=== PATIENT | female | born 1945 | race Caucasian/White ===

== ENCOUNTER 2024-10-23 10:16 | Day surgery (SDC) | payer MEDICARE, OTHER, SELFPAY ==
[2024-10-23] VITALS (8 sets, daily range): BP systolic 125–188; BP diastolic 58–84; PULSE 59–73; RESP 14–18; TEMP 36.1–36.3; O2SAT 94–99; BMI 35.0
[2024-10-23] MEDS: Lactated Ringers 1,000 ML 15 ML IV (10:46)
--- NOTE | 2024-10-23 11:06 | PCM.PRE.AN2 ---
ASA Classification* ASA Classification ASA Classification: 3 Assessment & Plan Anesthesia* Anesthesia Assessment Anesthesia Assessment: Discussed sedation and/or anesthesia options, risks, benefits, and alternatives with patient/parents/legal guardian/POA. Questions invited. The patient/parents/legal guardian/POA seems to understand and agrees to proceed with anesthesia plan. Reviewed the physical assessment, medical history, allergy history and patient home medications list prior to surgery/procedure/anesthetic and documented any changes. Performed airway and anesthesia risk assessments. Anesthesia Type Anesthesia Type: MAC History Source History Obtained from:: Patient and Chart Anesthesia Focused Assessment* Temperature: 97.2 F Pulse Rate: 73 Blood Pressure: 188/84 Respiratory Rate: 18 Pulse Ox: 99 Oxygen Delivery Method: Room Air Airway Assessment Mouth opens: >3 cm Mallampati Score: I Teeth Condition: Caps/Crowns (Patient has several crowns. They are all tight.) and Implants (Right lower implant. 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 When Was Last Pacemaker Check QUESTION #4 FULL TEXT: You/Your Family Experience fever (hyperthermia) with Anesthesia Last Oral Intake Last Oral intake: Last Oral Intake NPO since 06:30 10/23/24 10:36 Meds taken in AM with sips of Yes 10/23/24 10:36 water? 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 supervisor Female Yes 10/22/24 09:49 HX of Motion Sickness Yes 10/22/24 09:49 HX of N/V After Surgery Yes 10/22/24 09:49 Non-Smoker Yes 10/22/24 09:49 Duration of Surgery greater No 10/22/24 09:49 than 60 minutes Number of Risk Factors 4 10/22/24 09:49 PONV Score Severe Risk 10/22/24 09:49 Height & Weight Height & Weight: Anesthesia: Height & Weight Height 5 ft 3 in 10/23/24 10:36 Weight: 89.7 kg 10/23/24 10:36 Body Mass Index (BMI) 35.0 10/23/24 10:36 Respiratory Assessment Respiratory Assessment - glazing department supervisor: Respiratory Tract Infection Hx - glazing department supervisor Hx Respiratory Tract Infection No 10/22/24 09:49 STOP Sleep Apnea STOP Sleep Apnea - glazing department supervisor: STOP Sleep Apnea - glazing department supervisor Hx Hypertension Yes: PER PT, CONTROLLED ON 10/22/24 09:49 MEDS Hx Sleep Apnea Yes 10/22/24 09:49 CPAP Yes 10/22/24 09:49 BIPAP No 10/22/24 09:49 Do you snore loudly (louder than talking or can be heard Do you often feel tired/ fatigued/ sleepy during daytime? Has anyone observed you stop breathing during sleep? STOP Results Positive 10/22/24 09:49 QUESTION #5 FULL TEXT : Do you snore loudly (louder than talking or can be heard through closed doors)? 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 Specify any problems Hx of Preganancy in last 3 No 10/22/24 09:49 Months Nurse Filling Out Transfusion MGRIFFITH 10/22/24 09:49 & Questions: Date: 10/22/24 10/22/24 09:49 Time: 09:51 10/22/24 09:49 Patient unable to answer at this time (ie. confused, unrespo /Reproduction History /Reproductive History - glazing department supervisor: /Reproductive Hx- glazing department supervisor Hx Now No 10/22/24 09:49 Gestational Age (in weeks): EDC: Hx Hx Para Hx Section SAB Active Medications Active Medications: Current Medications Generic Name Dose Route Start Last Admin Trade Name Freq PRN Reason Stop Dose Admin Lactated Ringer's 1,000 mls @ 15 mls/hr 10/23/24 10:30 10/23/24 10:46 IV 15 mls/hr .Q48H GATITO Administration PFSH Medical History Wears glasses Thyroid disease Arthritis Bladder disease History of pulmonary embolism Back pain PONV (postoperative nausea and vomiting) Gastric reflux Shortness of breath on exertion Former smoker Sleep apnea CPAP (continuous positive airway pressure) dependence Leg cramps History of edema Helicobacter pylori (H. pylori) Urinary incontinence Spasm of back muscles Rotator cuff tear RUQ pain Pulmonary nodule CARISA on CPAP Mid back pain on right side Lumbar stenosis with neurogenic claudication Lesion of bone of cervical spine Hypercholesteremia HTN (hypertension) Left navicular fracture of foot Dilatation of pulmonic artery Dermatographism GERD (gastroesophageal reflux disease) Cervical spine pain Carotid stenosis Bilateral lower extremity edema Bilateral chronic knee pain Arteriosclerotic heart disease (ASHD) Abrasion of left lower leg Abnormal MRI, cervical spine Epigastric pain Home Medications ?Medication ?Instructions ?Recorded ?Last Taken ?Type acetaminophen 500 mg tablet 500 mg PO Q6H PRN pain 10/11/24 Unknown History (Tylenol Extra Strength) bumetanide 1 mg tablet 1 mg PO QDAY PRN WATER PILL 10/11/24 Unknown History colesevelam 625 mg tablet 1,875 mg PO BID 10/11/24 Unknown History ibuprofen 800 mg tablet 800 mg PO Q8H 10/11/24 Unknown History Held on 10/22/24. Instructions: STOMACH ISSUES levothyroxine 50 mcg capsule 50 mcg PO QDAY 10/11/24 10/23/24 History lidocaine 5 % topical patch 1 patch topical QDAY 10/11/24 Unknown History magnesium oxide 400 mg (241.3 mg 400 mg PO QDAY 10/11/24 Unknown History magnesium) tablet nebivolol 10 mg tablet 10 mg PO QDAY 10/11/24 10/23/24 History oxybutynin chloride 5 mg tablet 5 mg PO DAILY bladder spasms 10/11/24 Unknown History pregabalin 50 mg capsule 50 mg PO BID 10/11/24 Unknown History valsartan 320 mg tablet 320 mg PO QDAY 10/11/24 10/23/24 History pantoprazole 40 mg tablet,delayed 40 mg PO BID #60 tabs 10/15/24 Unknown Rx release Held on 10/22/24. Instructions: TAKING CARAFATE TEMPORARILY sucralfate 1 gram tablet 1 g PO QAC 3 months #270 tabs 10/15/24 Unknown Rx ascorbic acid (vitamin C) 500 mg 1 g PO DAILY 10/22/24 Unknown History chewable tablet (C-500) calcium 325 mg-vit D3 12.5 1 tab PO DAILY 10/22/24 Unknown History mcg-zinc 2.75 jy-dhsefp-yzrjtoblo tablet cholecalciferol (vitamin D3) 125 125 mcg PO QHS 10/22/24 Unknown History mcg (5,000 unit) tablet (Vitamin D3) omeprazole 20 mg capsule,delayed 20 mg PO BID 10/22/24 Unknown History release Held on 10/22/24. Instructions: PRESCRIBES CARAFATE TEMPORARILY triamcinolone acetonide 0.1 % 1 applic topical BID PRN rash 10/22/24 Unknown History topical cream vitamin B complex (B-Complex 1 tab PO DAILY 10/22/24 Unknown History tablet) vitamins A,C,B-poyy-iludzc 2,148 1 tab PO BID 10/22/24 Unknown History mcg-113 mg-45 mg-17.4 mg tablet (Eye Multivitamin) Allergy/AdvReac Type Severity Reaction Status Date / Time adhesive tape Allergy Intermediate Itching Verified 10/23/24 10:33 apixaban (From Eliquis) Allergy Intermediate Other Verified 10/23/24 10:33 latex Allergy Intermediate Hives Verified 10/23/24 10:33 oxycodone Allergy Intermediate Other Verified 10/23/24 10:33 Penicillins (PCN) Allergy Intermediate Hives Verified 10/23/24 10:33 atorvastatin (From Lipitor) AdvReac Intermediate Other Verified 10/23/24 10:33 semaglutide (From Rybelsus) AdvReac Intermediate Other Verified 10/23/24 10:33 Family History Mother Breast cancer Diabetes Sister Hx of CABG Kidney disease Diabetes HLD (hyperlipidemia) Hypertension Father Heart disease Brother Heart disease Surgical History History of cataract surgery History of esophagogastroduodenoscopy (EGD) History of colonoscopy History of shoulder surgery Hx of appendectomy H/O: hysterectomy H/O arthroplasty Hx of cholecystectomy S/P lumbar laminectomy S/P knee replacement Social History Smoking Status: Former smoker quit date: 05/02/16 alcohol intake: never Review of Systems (Anesthesia) ROS Narrative System reviewed and no additional complaints, except as documented.
--- NOTE | 2024-10-23 11:30 | EGD_PTH ---
PATIENT: SHARLA BURGESS LOC: EN U#:[id number] AGE/SX: 79/F ROOM: RE10/23/[address]: Dr. Scott Hermosillo DO : 1945 BED: DIS: 10/23/2024 SPEC #: [id number] RECD: 10/23/24 13:51 STATUS: JERRY RECatrina #: [id number] FERN: 10/23/24 11:[address]: Scott Hermosillo DEPT: SURGICAL PATHOLOGY RECD BY: Kunal Mayfield ENTERED: 10/23/24 14:46 SP TYPE: EGD BIOPSY ERICA DR: Dr. Kayode Wilder MD Tissues: A - Gastric mucous membrane Procedures: Immunohistochemical Stains Surgery Specimen Level IV HEADER OPERATION: EGD, biopsy PRE-OP DIAGNOSIS: Epigastric pain TISSUE SUBMITTED: A- Gastric ulcer biopsy MICROSCOPIC DIAGNOSIS A. Stomach, ulcer, biopsy: - Eroded/ulcerated oxyntic mucosa, negative for malignancy. - IHC for H pylori organisms pending, to be reported in an addendum. MICROSCOPIC DESCRIPTION Slides are reviewed. GROSS DESCRIPTION A. Received in fixative is one container labeled with the patient's name and designated Gastric ulcer biopsy. The specimen consists of three irregular fragments of light méndez soft tissue, each measuring 0.4 cm. The specimen is totally submitted in one cassette. LIZBETH/ 10/23/2024 CPT:08875,16190 ADDENDUM ADDENDUM ADDENDUM ADDENDUM ADDENDUM ADDENDUM ADDENDUM ADDENDUM ADDENDUM ADDENDUM ADDENDUM 11/06/2024 13:15 ADDENDUM 11/06/2024 13:15 ADDENDUM 11/06/2024 13:15 ADDENDUM 11/06/2024 13:15 ADDENDUM 11/06/2024 13:15 This addendum is to report the IHC for H pylori organisms: The immunostain is negative for H.pylori organisms. All matched controls reacted appropriately. These tests were developed and their performance characteristics determined by [facility]. They may not have been cleared or approved by the U.S. Food and Drug Administration. The FDA has determined that such clearance or approval is not necessary.? The above immunohistochemical/dualISH?markers are reviewed by the Pathologist
--- NOTE | 2024-10-23 12:07 | PCM.HP.STD ---
HPI - General General Date of Admission: 10/23/24 Date of Service: 10/23/24 Chief Complaint: abdominal pain HPI Narrative SHARLA BURGESS, is a 79 F who presents to the office today for establishment with I regarding concerns for epigastric abdominal pain that shoots straight through to her spine. She reports having a history of a thoracic compression fracture, recent MRI, per her report, showed healing of this compression fracture and her orthopedic spine surgeon told her the back pain was not due to her spine. She was given a referral to see pain management and has an appointment in October. She reports dealing with back pain since July of last year and admits to taking more Tylenol and ibuprofen than I should've, and then started having this severe searing epigastric pain in the middle of August of this year. She was on omeprazole 20mg daily, PCP changed to pantoprazole 40mg daily and added famotidine at bedtime. She reports the famotidine caused notable burning sensation after taking, so she has stopped this. She reports frequent throat clearing, abdominal bloating. She states that foods will very briefly reduce the severity of epigastric pain, for about 30 minutes, long enough that I think it's over and then the pain comes back. She denies difficulty chewing and swallowing, cough, nausea and emesis, denies reflux, constipation, diarrhea, hematochezia and melena. She does not use the descriptive words ripping or tearing for her pain. Her last colonoscopy was in 2011 and she was instructed at that time to never allow anyone to do another colonoscopy on her again due to her severely tortuous colon and high risks of perforating her bowels. She has been doing Cologuard stool testing. She also has a history of H.pylori infection from 2011. PCP blood work on 08.16.24: W-6.6, hgb-13.2, hct-39, plt-185, BUN 25, creat 1.06, t bili 0.3, ALP 136, AST 21, ALT 16, hgb A1c 6.4, Vit D25-41.2, amylase 22, lipase 26 [facility] Medical History Wears glasses Thyroid disease Arthritis Bladder disease History of pulmonary embolism Back pain PONV (postoperative nausea and vomiting) Gastric reflux Shortness of breath on exertion Former smoker Sleep apnea CPAP (continuous positive airway pressure) dependence Leg cramps History of edema Helicobacter pylori (H. pylori) Urinary incontinence Spasm of back muscles Rotator cuff tear RUQ pain Pulmonary nodule CARISA on CPAP Mid back pain on right side Lumbar stenosis with neurogenic claudication Lesion of bone of cervical spine Hypercholesteremia HTN (hypertension) Left navicular fracture of foot Dilatation of pulmonic artery Dermatographism GERD (gastroesophageal reflux disease) Cervical spine pain Carotid stenosis Bilateral lower extremity edema Bilateral chronic knee pain Arteriosclerotic heart disease (ASHD) Abrasion of left lower leg Abnormal MRI, cervical spine Epigastric pain Home Medications ?Medication ?Instructions ?Recorded ?Last Taken ?Type acetaminophen 500 mg tablet 500 mg PO Q6H PRN pain 10/11/24 Unknown History (Tylenol Extra Strength) bumetanide 1 mg tablet 1 mg PO QDAY PRN WATER PILL 10/11/24 Unknown History colesevelam 625 mg tablet 1,875 mg PO BID 10/11/24 Unknown History ibuprofen 800 mg tablet 800 mg PO Q8H 10/11/24 Unknown History Held on 10/22/24. Instructions: STOMACH ISSUES levothyroxine 50 mcg capsule 50 mcg PO QDAY 10/11/24 10/23/24 History lidocaine 5 % topical patch 1 patch topical QDAY 10/11/24 Unknown History magnesium oxide 400 mg (241.3 mg 400 mg PO QDAY 10/11/24 Unknown History magnesium) tablet nebivolol 10 mg tablet 10 mg PO QDAY 10/11/24 10/23/24 History oxybutynin chloride 5 mg tablet 5 mg PO DAILY bladder spasms 10/11/24 Unknown History pregabalin 50 mg capsule 50 mg PO BID 10/11/24 Unknown History valsartan 320 mg tablet 320 mg PO QDAY 10/11/24 10/23/24 History pantoprazole 40 mg tablet,delayed 40 mg PO BID #60 tabs 10/15/24 Unknown Rx release Held on 10/22/24. Instructions: TAKING CARAFATE TEMPORARILY sucralfate 1 gram tablet 1 g PO QAC 3 months #270 tabs 10/15/24 Unknown Rx ascorbic acid (vitamin C) 500 mg 1 g PO DAILY 10/22/24 Unknown History chewable tablet (C-500) calcium 325 mg-vit D3 12.5 1 tab PO DAILY 10/22/24 Unknown History mcg-zinc 2.75 pc-cpqwpr-zoaeceelr tablet cholecalciferol (vitamin D3) 125 125 mcg PO QHS 10/22/24 Unknown History mcg (5,000 unit) tablet (Vitamin D3) omeprazole 20 mg capsule,delayed 20 mg PO BID 10/22/24 Unknown History release Held on 10/22/24. Instructions: DR PRESCRIBES CARAFATE TEMPORARILY triamcinolone acetonide 0.1 % 1 applic topical BID PRN rash 10/22/24 Unknown History topical cream vitamin B complex (B-Complex 1 tab PO DAILY 10/22/24 Unknown History tablet) vitamins A,C,S-bqkp-uqwpfm 2,148 1 tab PO BID 10/22/24 Unknown History mcg-113 mg-45 mg-17.4 mg tablet (Eye Multivitamin) Allergy/AdvReac Type Severity Reaction Status Date / Time adhesive tape Allergy Intermediate Itching Verified 10/23/24 10:33 apixaban (From Eliquis) Allergy Intermediate Other Verified 10/23/24 10:33 latex Allergy Intermediate Hives Verified 10/23/24 10:33 oxycodone Allergy Intermediate Other Verified 10/23/24 10:33 Penicillins (PCN) Allergy Intermediate Hives Verified 10/23/24 10:33 atorvastatin (From Lipitor) AdvReac Intermediate Other Verified 10/23/24 10:33 semaglutide (From Rybelsus) AdvReac Intermediate Other Verified 10/23/24 10:33 Family History Mother Breast cancer Diabetes Sister Hx of CABG Kidney disease Diabetes HLD (hyperlipidemia) Hypertension Father Heart disease Brother Heart disease Surgical History History of cataract surgery History of esophagogastroduodenoscopy (EGD) History of colonoscopy History of shoulder surgery Hx of appendectomy H/O: hysterectomy H/O arthroplasty Hx of cholecystectomy S/P lumbar laminectomy S/P knee replacement Social History Smoking Status: Former smoker quit date: 05/02/16 alcohol intake: never ROS Constitutional Constitutional: Denies fatigue, fever(s), poor appetite, weight gain or weight loss Gastrointestinal Gastrointestinal: Denies belching, bloating, change in bowel habits, change in stool character, chewing difficulty, coffee ground emesis, constipation, cramping, diarrhea, dyspepsia, dysphagia, early satiety, excessive flatus, fecal incontinence, heartburn, hematemesis, hematochezia, hemorrhoids, loose stools, melena, nausea, odynophagia, rectal bleeding, tenesmus, vomiting or weight changes Vital Signs Vital Signs Vital Signs: 10/23/24 10:36 10/23/24 10:36 10/23/24 11:13 Temperature 97.2 F L 97.2 F L Temperature Source Temporal Pulse Rate 73 73 Respiratory Rate 18 18 Respiratory Pattern Normal Blood Pressure 188/84 H 188/84 H Blood Pressure Mean 118 Blood Pressure Source Monitor Blood Pressure Position Sitting Blood Pressure Location Right Forearm Pulse Ox 99 99 Oxygen Delivery Method Room Air Room Air Weight Weight: 197 lb 12.074 oz Body Mass Index (BMI) 35.0 Physical Exam Const alert, oriented x3, no apparent distress and healthy appearing General Appearance: cooperative GI normal to inspection, nondistended, normoactive bowel sounds, soft to palpation, non-tender and non-distended Percussion: normal to percussion Rectal Exam: deferred Assessment & Plan Assessment/Plan (1) Epigastric pain: PLAN: Assessment and Plan Assessment and Plan (1) Epigastric pain: Status: Acute Medications: New sucralfate 1 g PO QAC 270 tabs 0RF 3 months pantoprazole take 30minutes before eating breakfast and dinner 40 mg PO BID 60 tabs 2RF Discontinued pantoprazole Discontinued Reason: Order Completed 40 mg PO QDAY omeprazole Discontinued Reason: Order Changed 20 mg PO BID Plan SHARLA BURGESS, is a 79 F who presents to the office today for establishment with [facility] regarding concerns for epigastric abdominal pain that shoots straight through to her spine. Differential diagnoses include: PUD, H.pylori infection, gastric outlet obstruction. She was recently prescribed a GLP1 but states that she has not started it. She denies early satiety, reports poor appetite due to fear of pain. increase pantoprazole 40mg PO to twice daily, 30minutes before eating breakfast and dinner sucralfate 1g PO QAC, 1hr after taking other medications schedule urgent EGD continue bland diet, no caffeine, low fat, no late meals, no alcohol office FU 1wk post EGD
--- NOTE | 2024-10-23 12:22 | OP.EGD_ITS ---
Patient Name: Kerri Cortes Procedure Date: 10/23/2024 11:43 AM Date of : 1945 Age: 79 Procedure: Upper GI endoscopy Indications: Epigastric abdominal pain Providers: Scott Hermosillo DO Referring MD: Kayode Wilder Md Medicines: Monitored Anesthesia Care Patient Profile: This is a 79 year old female. Refer to note in patient chart for documentation of history and physical. Patient has symptoms of acute abdominal cramping, acute epigastric abdominal pain, acute dyspepsia and acute nausea. Complications: No immediate complications. Procedure: Pre-Anesthesia Assessment: - Prior to the procedure, a History and Physical was performed, and patient medications and allergies were reviewed. The patient is competent. The risks and benefits of the procedure and the sedation options and risks were discussed with the patient. All questions were answered and informed consent was obtained. Patient identification and proposed procedure were verified by the physician in the pre-procedure area. Mental Status Examination: alert and oriented. Airway Examination: normal oropharyngeal airway and neck mobility. Respiratory Examination: clear to auscultation. CV Examination: normal. Prophylactic Antibiotics: The patient does not require prophylactic antibiotics. Prior Anticoagulants: The patient has taken no anticoagulant or antiplatelet agents. ASA Grade Assessment: II - A patient with mild systemic disease. After reviewing the risks and benefits, the patient was deemed in satisfactory condition to undergo the procedure. The anesthesia plan was to use monitored anesthesia care (MAC). Immediately prior to administration of medications, the patient was re-assessed for adequacy to receive sedatives. The heart rate, respiratory rate, oxygen saturations, blood pressure, adequacy of pulmonary ventilation, and response to care were monitored throughout the procedure. The physical status of the patient was re-assessed after the procedure. After obtaining informed consent, the endoscope was passed under direct vision. Throughout the procedure, the patient's blood pressure, pulse, and oxygen saturations were monitored continuously. The Endoscope was introduced through the mouth, and advanced to the third part of the duodenum. Small bowel enteroscopy was deemed necessary. The upper GI endoscopy was accomplished without difficulty. The patient tolerated the procedure well. Scope In: 12:13:59 PM Scope Out: 12:17:04 PM Total Procedure Duration Time 0 hours 3 minutes 5 seconds Findings: The examined esophagus was normal. Four non-bleeding cratered gastric ulcers with no stigmata of bleeding were found in the gastric body. The largest lesion was 14 mm in largest dimension. Biopsies were taken with a cold forceps for histology. Verification of patient identification for the specimen was done. Estimated blood loss was minimal. Biopsies were taken with a cold forceps for Helicobacter pylori testing. Verification of patient identification for the specimen was done. Estimated blood loss was minimal. No gross lesions were noted in the entire examined duodenum. Impression: - Normal esophagus. - Non-bleeding gastric ulcers with no stigmata of bleeding. Biopsied. - No gross lesions in the entire examined duodenum. Recommendation: - Patient has a contact number available for emergencies. The signs and symptoms of potential delayed complications were discussed with the patient. Return to normal activities tomorrow. Written discharge instructions were provided to the patient. - Resume previous diet. - Patient has a contact number available for emergencies. The signs and symptoms of potential delayed complications were discussed with the patient. Return to normal activities tomorrow. Written discharge instructions were provided to the patient. - Resume previous diet. - Continue present medications. - Await pathology results. - Use Protonix (pantoprazole) 40 mg PO BID. Procedure Code(s): --- Professional --- 39199, Small intestinal endoscopy, enteroscopy beyond second portion of duodenum, not including ileum; with biopsy, single or multiple CPT copyright 2021 [employer]. All rights reserved. The codes documented in this report are preliminary and upon greenhouse staff review may be revised to meet current compliance requirements. Scott Hermosillo DO 10/23/2024 12:21:59 PM This report has been signed electronically. Number of Addenda: 0 Note Initiated On: 10/23/2024 11:43 AM
--- NOTE | 2024-10-23 12:22 | OP.CCLET_ITS ---
10/23/2024 Kayode Wilder Md Re : Upper GI endoscopy procedure for Kerri Cortes Dear Dr. Wilder This procedure was performed on Wednesday, October 23, 2024. My impressions and recommendations are as follows: Impressions : - Normal esophagus. - Non-bleeding gastric ulcers with no stigmata of bleeding. Biopsied. - No gross lesions in the entire examined duodenum. Recommendations : - Patient has a contact number available for emergencies. The signs and symptoms of potential delayed complications were discussed with the patient. Return to normal activities tomorrow. Written discharge instructions were provided to the patient. - Resume previous diet. - Patient has a contact number available for emergencies. The signs and symptoms of potential delayed complications were discussed with the patient. Return to normal activities tomorrow. Written discharge instructions were provided to the patient. - Resume previous diet. - Continue present medications. - Await pathology results. - Use Protonix (pantoprazole) 40 mg PO BID. My findings are described in the full procedure note, which is enclosed. If I can be of further assistance, please feel free to contact me at . Sincerely, Scott Hermosillo, 10/23/2024 12:21:59 PM This report has been signed electronically.
--- NOTE | 2024-10-23 12:28 | PCM.POST.ANE ---
Anesthesia: Postop Eval I Current Vital Signs Temperature: 97.3 F Pulse Rate: 64 Blood Pressure: 145/60 Respiratory Rate: 16 Pulse Ox: 96 Oxygen Delivery Method: Room Air Assessment Airway patent: Yes Spontaneous unlabored respirations: Yes Mental status: Awake and Calm nausea: No Vomiting: No Anesthesia Complication: No Fluid Hydration Crystalloid volume administer (ml): 300 Total IV fluid infused: 300 Progress Note Anesthesia document: Postop Eval 1 completed: Yes
--- NOTE | 2024-10-23 17:10 | PCM.POSTANE2 ---
Anesthesia Postop Eval I Sum Postop Eval Completion status Anesthesia document: Postop Eval 1 completed: Yes Anesthesia Postop Eval I Summary Anesthesia Postop Eval I Summary: Anesthesia Postop Eval I: Assessment Summary Airway patent Yes 10/23/24 12:28 [email or web address] Spontaneous unlabored Yes 10/23/24 12:28 [email or web address] respirations Mental status Awake,Calm 10/23/24 12:28 [email or web address] nausea No 10/23/24 12:28 [email or web address] Vomiting No 10/23/24 12:28 [email or web address] Anesthesia Postop Eval I: Fluid Summary Crystalloid volume administer 300 10/23/24 12:28 [email or web address] (ml) Colloids volume administered ( ml) Blood Product volume administered (ml) Total IV fluid infused 300 10/23/24 12:28 [email or web address] Anesthesia Postop Eval I: Summary Notes Anesthesia Complication No 10/23/24 12:28 [email or web address] Anesthesia Complication Comment: Post-operative progress note Anesthesia: Postop Eval II Evaluation Mental status: Awake and Calm Pain Level: 0 nausea: No Vomiting: No Complications Anesthesia Complication: No
--- OUTSIDE RECORDS SUMMARY | 2024-10-23 21:28 | XMS RPT_ITS | CCD ---
Author Organization [facility] CliniSyid Care Team Providers Care Communications Officer Name Role Phone MIKE BAKER, DR OLVERA Primary Care Physician Sherron Krishnan Unavailable Unavailable Samples Earthmoving Labourer, Amy Unavailable Unavailable Zahraa Rodas Unavailable Unavailable Unavailable, Family Physician Primary Care Physi lolita Unavailable Unavailable, Family Physician Consulting Un available Unavailable, Family Physician Primary Care Un available Ne Higgins Attending Unavailable Unavailable, Family Physician Primary Care Un available Unavailable, Family Physician Consulting Un available Ne Higgins Attending Unavailable Unavailable, Family Physician Primary Care Un available Unavailable, Family Physician Consulting Un available Ne Higgins Attending Unavailable Unavailable, Family Physician Consulting Un available Mayank Kennedy Attending Unavailable Unavailable, Family Physician Primary Care Un available Unknown, Unknown Unavailable Unavailable May Mckeon Unavailable Mike, Dr. May Puente Primary Care Sandi vailable Alexander, Ms. Miryam Martino Attending Unavailab Miryam Henriquez Attending Unavailable Mike, Dr. May Puente Primary Care Sandi vailable Miryam Munoz Attending Unavailable Mike, Dr. May Puente Primary Care Sandi vailaMiryam Milan Attending Unavailable Self, Referral Referring Unavailable Mike, Dr. May Puente Primary Care Sandi nona MCKEON MD, DR OLVERA Attending Ban MCKEON MD, DR OLVERA Primary Care Unavaillean MCKEON MD, DR OLVERA Attending Debraa villa MCKEON MD, DR OLVERA Primary Care Unavaillena MCKEON MD, DR OLVERA Attending Unavaila villa MCKEON MD, DR OLVERA Primary Care Unavaillena MCKEON MD, DR OLVERA Attending Unavaila villa MCKEON MD, DR OLVERA Primary Care Unavaila villa MCKEON MD, DR OLVERA Attending Unavaila villa MCKEON MD, DR OLVERA Primary Care Unavaila villa DIGGS MD, GHULAM Hernández Attending Unavailable MIKE BAKER, DR OLVERA Primary Care Unavaila villa DIGGS MD, GHULAM Hernández Admitting Unavailable JOSE EDUARDO BAKER, VITA Consulting Unavailable MIKE BAKER, DR OLVERA Consulting Unavaila villa RAMIRES MD, AUBRIE Consulting Unavailable DONTAE BAKER, GHULAM Hernández Attending Unavailable MIKE BAKER, DR OLVERA Primary Care Unavaila villa ANSARI, GALA Attending Unavail able MIKE BAKER, DR OLVERA Primary Care Unavaila villa DIGGS MD, GHULAM Hernández Attending Unavailable MIKE BAKER, DR OLVERA Primary Care Unavaila villa ANSARI, GALA Attending Unavail able MIKE BAKER, DR OLVERA Primary Care Unavaila villa ANSARI, GALA Attending Unavail able MIKE BAKER, DR OLVERA Primary Care Unavaila villa MCKEON MD, DR OLVERA Attending Unavaila villa MCKEON MD, DR OLVERA Primary Care Unavaila villa MCKEON MD, DR OLVERA Attending Unavaila villa MCKEON MD, DR OLVERA Primary Care Unavaila villa ANSARI, GALA Attending Unavail able MIKE BAKER, DR OLVERA Primary Care Unavaila villa MCKEON MD, DR OLVERA Attending Unavaila villa MCKEON MD, DR OLVERA Primary Care Unavaila villa MCKEON MD, DR OLVERA Attending Unavaila villa MCKEON MD, DR OLVERA Primary Care Unavaila villa SMTIH DO~[id number], LUIS Paredes Attendi ng Unavailable LUIS DO~[id number], LUIS Paredes Admitti cristina Unavailable MAY MCKEON Primary Care Unavailable EVAN GERMAN Attending Unavailable EVAN GERMAN Primary Care Unavailable EVAN GERMAN Admitting Unavailable MIKE BAKER, DR OLVERA Primary Care Unavaila villa ANSARI, GALA Attending Unavail krishna MCKEON MD, DR OLVERA Primary Care Unavaila villa DIGGS MD, GHULAM Hernández Attending Unavailable MIKE BAKER, DR OLVERA Primary Care Unavaila villa ANSARI, GALA Attending Unavail able DUNCAN ANSARI, GALA Attending Unavail able MIKE BAKER, DR OLVERA Primary Care Unavaila villa MCKEON MD, DR OLVERA Primary Care Unavaila villa MCKEON MD, DR OLVERA Attending Unavaila villa MCKEON MD, DR OLVERA Primary Care Unavaila ble DUNCAN [employer] 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-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 HELPER ROD, GALA Attending Unavail krishna MCKEON MD, DR OLVERA Primary Care Unavaila villa MCKEON MD, DR OLVERA Attending Unavaila villa MCKEON MD, DR OLVERA Primary Care Unavaila ble DUNCAN PC MAINTENANCE TECHNICIAN-SURVEYOR HELPER ROD, GALA Admitting Unavail able DUNCAN CHEUNG-SURVEYOR HELPER ROD, GALA Attending Unavail krishna MCKEON MD, DR OLVERA Primary Care Unavaila villa MCKEON MD, DR OLVERA Attending Unavaila ble JENNA CHEUNG-SURVEYOR HELPER ROD, KIARRA Attending Unavail krishna MCKEON MD, DR OLVERA Primary Care Unavaila villa Trotter BULK FLUIDS HANDLER-C, Marilyn Attending Provider Mike BAKER, Dr. Olvera Primary Care Provider Mike BAKER, Dr. Olvera Referring Provider May Mckeon Referring Marilyn Zapata Attending May Medrano Primary Care Unavailable Scott Hermosillo Attending Unavailable Mike, May Primary Care Unavailable Mike, May Referring Unavailable Friend , Dr. Chavez Attending Provider Friend Dr. Scott MICHAUD Other Provider Allergies Allergy Classification Reported Allergen(s) Allergy Type Date of Onset Reaction(s) Facility apixaban (2 sources) apixaban; Translations: [apixaban] Drug Allergy Vertigo (finding) [facility] Comment on above: post-op knee surgery - extreme dizziness. couldn%27t tolerate HMG-CoA Reductase Inhibitors (statins) (3 sources) atorvastatin; Translations: [atorvastatin] Drug Allergy LEG CRAMPS [facility] Latex (3 sources) Latex Substance Allergy [facility] Opioid Agonists (3 sources) oxyCODONE; Translations: [oxycodone] Drug Allergy unknown [facility] Comment on above: PT DENIES ALLERGY Penicillins (antibiotic) (3 sources) Penicillin; Translations: [penicillins] Drug Allergy [facility] (19 sources) Adhesive bandage Propensity to adverse reactions to substance 5 Eruption of skin (disorder) [facility] (6 sources) amLODIPine; Translations: [amlodipine] Drug Allergy 6 unknown [facility] (6 sources) HMG-CoA reductase inhibitor; Translations: [statins] Drug intolerance unknown [facility] (20 sources) Latex; Translations: [latex ([id number])] Drug allergy 6 HIVES, SWELLING LIPS [facility] (16 sources) Penicillin; Translations: [penicillins] Drug Allergy [facility] (1 source) Penicillin G Drug Allergy 1 SEIZURE [facility] (11 sources) Penicillins; Translations: [PENICILLINS] Propensity to adverse reactions to drug (disorder) 6 [facility] (7 sources) Latex Gloves MISC; Translations: [Latex Gloves MISC] Allergy to drug (finding) [facility] 5 Work Phone: (6 sources) Rybelsus 1; Translations: [semaglutide] Propensity to adverse reactions to drug 3 mid back pain [facility] Comment on above: at 7mg dose x 2 week s. sounded like pancreatitis (14 sources) oxyCODONE; Translations: [oxycodone] Drug Allergy 5 unknown, Other [facility] Comment on above: PT DENIES ALLERGY (12 sources) atorvastatin; Translations: [atorvastatin] Drug Allergy 5 LEG CRAMPS, Other [facility] (3 sources) Rybelsus 2; Translations: [semaglutide] Propensity to adverse reactions to drug 3 mid back pain [facility] Comment on above: at 7mg dose x 2 week s. sounded like pancreatitis (8 sources) apixaban; Translations: [apixaban] Drug Allergy Vertigo (finding) [facility] Comment on above: post-op knee surgery - extreme dizziness. couldn%27t tolerate (7 sources) Osbaldo 3; Translations: [semaglutide] Propensity to adverse reactions to drug 3 mid back pain [facility] Comment on above: at 7mg dose x 2 week s. sounded like pancreatitis (3 sources) Adhesive Tape; Translations: [adhesive tape] Allergy to substance 5 Itching [facility] (2 sources) apixaban Drug Allergy 5 Other [facility] (2 sources) semaglutide Drug Allergy 5 Other [facility] (1 source) apixaban Drug Allergy 5 [facility] (1 source) atorvastatin Drug Allergy 5 [facility] (1 source) oxyCODONE Drug Allergy 5 [facility] (1 source) semaglutide Drug allergy (disorder) 5 [facility] Medications Current Medications Medication Drug Class(es) Dates Sig (Normalized) Sig (Original) (AREDS) (1 source) (AREDS) Active (B COMPLEX) (1 source) (B COMPLEX) Acti ve ([id number] MG) 50 MG TAB.CHEW (1 source) ([id number] MG) 50 MG TAB.CHEW Active 50 MG PO (D3) (1 source) (D3) Active (MAGNWSIUM) (1 source) (MAGNWSIUM) Acti ve (VOLTAREN ARTHRITIS) (1 source) (VOLTAREN ARTHRITIS) Active 0.5 ML tirzepatide 5 MG/ML Auto-Injector [Mounjaro] (2 sources) Start: 08-28-2024 inject 1 dose by subcutaneous injection every week Mounjaro 2.5 mg/0.5 mL subcutaneous solution Dose : 2.5 mg =, Subcutaneous, qWeek, rotate injection sites- specialty pharmacy, # 2 mL, 0 Refill(s), Pharmacy: [facility], 160, cm, 08/16/24 7:58:00 EDT, Height, kg, 08/16/24 7:58:00 EDT, Dosing Weight Start Date: 08/28/24 Status: Ordered Quantity: 2.0 Unit: mL Repeat number: 1 acetaminophen 500 mg oral tablet (13 sources) Start: 09-30-2023 take 1 tablet by mouth every six hours as needed for pain Acetaminophen (Tylenol Extra Strength) 500 mg tablet Active 500 mg PO EVERY 6 HOURS as needed for pain October 11, 2024 12:00am acetaminophen 325 mg / HYDROcodone bitartrate 5 mg oral tablet (2 sources) Opioid Agonist Start: 10-08-2023 End: 10-15-2023 take 1 tablet by mouth every six hours as needed for pain Ainsworth 325- 5 mg oral tablet See Instructions, PRN as needed for pain, Take 1 tab every 6 hours as needed for pain scale 4-6. Take 2 tabs every 6 hours for pain scale 7-10. Do not exceed 6 tabs a day. Do not exceed 4000mg acetaminophen a day., # 42 tab(s), 0 Refill(s), [facility]: [id number], Acute postoperative pain, 160, cm, 10/07/23 7:32:00 EDT, Height, 92.4, kg, 10/07/23 7:32:00 EDT, Dosing Weight Start Date: 10/08/23 Stop Date: 10/15/23 Status: Ordered Start: 08-11-2023 End: 08-16-2023 take 1 tablet by mouth every six hours as needed for pain Ainsworth 325- 5 mg oral tablet Dose = 1 tab(s), Oral, q6h, PRN for pain, in placed of the oxycodone, X 5 day(s), # 20 tab(s), 0 Refill(s), [facility]: [id number], Acute lumbar radiculopathy, 160, cm, 08/11/23 15:07:00 EDT, Height, 90.7, kg, 04/04/23 13:04:00 EST, Dosing Weight Start Date: 08/11/23 Stop Date: 08/16/23 Status: Ordered ascorbic acid 500 mg chewable tablet (1 source) Vitamin C Start: 10-22-2024 take 1 tablet by mouth once daily Ascorbic Acid (Vitamin C) (C-500) 500 mg tablet,chewable Active 1 g PO DAILY October 22, 2024 12:00am ascorbic acid 113 mg / beta carotene 7160 mg / cuprous oxide 0.4 mg / dl-alpha tocopheryl acetate 100 unt / zinc oxide 17.4 mg oral tablet (1 source) Vitamin C Start: 10-22-2024 Vitamins A,C,X-Jphm-Kbgbiv (Eye Multivitamin) 2,148 mcg-113 mg-45 mg-17.4mg tablet Active 1 {tbl} PO TWICE A DAY October 22, 2024 12:00am administer with AM and PM meals aspirin 81 mg delayed release oral tablet (14 sources) Platelet Aggregation Inhibitor, Nonsteroidal Anti-inflammatory Drug Start: 05-23-2018 aspirin 81 mg oral delayed release tablet Dose : 81 mg = 1 tab(s), Oral, qPM, 0 Refill(s) Start Date: 05/23/18 Status: Ordered Aspirin 81 MG TA BS Quantity: 0 Refills: 0 Ordered: 12-Aug-2016 DO Active Aspirin * ([id number] MG) 81 MG TABLET. (1 source) take 1 tablet by mouth once daily Aspirin * ([id number] MG) 81 MG TABLET. Active 81 MG PO EVERY DAY B Complex 50 oral tablet (1 source) Start: 09-30-2023 take 1 tablet by mouth once daily in the evening B Complex 50 oral tablet Dose = 1 tab(s), Oral, qPM, # 30 tab(s), 0 Refill(s) Start Date: 09/30/23 Status: Ordered bumetanide 1 mg oral tablet (7 sources) Loop Diuretic Start: 02-15-2024 take 1 tablet by mouth once daily as needed Bumetanide 1 mg tablet Active 1 mg PO daily as needed for WATER PILL October 11, 2024 12:00am Start: 11-28-2023 bumetanide 1 m g oral tablet Dose : 1 mg = 1 tab(s), Oral, Daily, in place of furosemide, # 90 tab(s), 0 Refill(s), Pharmacy: [facility], 160, cm, 11/28/23 11:38:00 EDT, Height, kg, 11/28/23 11:38:00 EDT, Dosing Weight Start Date: 11/28/23 Status: Ordered Adhzdmr-I6-Aige-Copper-Manga n 325 mg-12.5 mcg -2.75 mg tablet (1 source) Start: 10-22-2024 Ygikxfc-X2-Umxs-Copper-Manga n 325 mg-12.5 mcg -2.75 mg tablet Active 1 {tbl} PO DAILY October 22, 2024 12:00am carbidopa 12.5 mg / entacapo ne 200 mg / levodopa 50 mg oral tablet (1 source) Aromati c Amino Acid Decarbo xylatio n Inhibit or, Catecho l-O-Met hyltran sferase Inhibit or, Aromati c Amino Acid Levo/Carbidopa/Entac apone 50 * (STALEVO 50 TAB1 EACH) 1 EACH TABLET Active 1 EACH PO 3 TIMES DAILY cephalexin 500 mg oral capsu le (1 source) Cephalo sporin Antibac terial Start: 12-08-2023 End: 12-18-2023 cephalexin 500 mg oral capsu le Dose : 500 mg = 1 cap(s), Oral, q8h, X 10 day(s), # 30 cap(s), 0 Refill(s), 12/18/23 12:36:00 PM EDT, Abrasion of left lower leg, 92.2 Start Date: 12/08/23 Stop Date: 12/18/23 Status: Ordered cholecalciferol 0.125 mg ora l tablet (1 source) Vitamin D Start: 10-22-2024 take 1 tablet by mouth at bedtime Cholecalciferol (Vitamin D3) (Vitamin D3) 125 mcg (5,000 unit) tablet Active 125 ug PO AT BEDTIME October 22, 2024 12:00am Coenzyme Q10 50 mg oral capsule (6 sources) Start: 01-18-2012 take 1 capsule by mouth once, then take 1 capsule by mouth once daily Coenzyme Q10 50 mg oral capsule Dose : 50 mg = 1 cap(s), Oral, Daily, 0 Refill(s) Start Date: 01/18/12 Status: Ordered colesevelam hydrochloride 62 5 mg oral tablet (20 sources) Bile Acid Sequest rant Start: 06-19-2024 take 3 tablets by mouth twice daily Colesevelam 625 mg tablet Active 1875 mg PO TWICE A DAY October 11, 2024 12:00am Start: 06-29-2023 take 330-874 tablets by mouth twice daily Welchol 625 mg oral tablet 3 tab(s), Oral, BID, GE Radha [phone], # 540 tab(s), 3 Refill(s) Start Date: 06/29/23 Status: Ordered Start: 05-12-2022 take 3 tablets by [facility] twice daily Welchol 625 mg oral tablet 3 tab(s), Oral, BID, # 540 tab(s), 3 Refill(s), Pharmacy: [facility], 160, cm, 03/16/22 10:02:00 EST, Height, kg, 03/16/22 10:02:00 EST, Dosing Weight Start Date: 05/12/22 Status: Ordered Start: 05-18-2021 take 3 tablets by [facility] twice daily Welchol 625 mg oral tablet See Instructions, TAKE 3 TABLETS TWICE A DAY, # 540 tab(s), 3 Refill(s), Pharmacy: [facility], 160, cm, 01/27/21 10:06:00 EDT, Height, kg, 01/27/21 10:06:00 EDT, Dosing Weight Start Date: 05/18/21 Status: Ordered Start: 11-21-2015 Welchol 625 MG Oral Tablet Quantity: 540 Refills: 0 Ordered: 21-Nov-2015 DO Start : 21-Nov-2015 Active take 1 tablet by [facility] once daily Colesevelam HCl * ([id number] MG) 625 MG TABLET Active 625 MG PO EVERY DAY diclofenac sodium 0.01 mg/mg topical gel (11 sources) Nonsteroidal Anti-inflammatory Drug Start: 09-30-2023 Voltaren 1% topic al gel 1 KAMALA(S), Topical, AsDirected, # 1 EA, 0 Refill(s), Gel, 94.4 Start Date: 09/30/23 Status: Ordered Start: 09-30-2023 Pennsaid 2% to pical solution 1 KAMALA(S), Topical, AsDirected, # 112 gram(s), 0 Refill(s), Soln, 94.4 Start Date: 09/30/23 Status: Ordered Start: 11-11-2022 diclofenac 1% topical gel Apply 1 kamala, Topical, AsDirected, PRN Pain, not to exceed 16 grams/day/single joint of lower extremities, # 100 gram(s), 2 Refill(s), [facility]: [id number], Gel, 160, cm, 11/08/22 14:37:00 EDT, Height, 88.6, kg, 11/08/22 14:37:00 EDT, Dosing Weight Start Date: 11/11/22 Status: Ordered Start: 11-11-2022 diclofenac 1% topical gel Apply 1 kamala, Topical, QID, PRN Pain, not to exceed 16 grams/day/single joint of lower extremities, # 100 gram(s), 2 Refill(s), [facility]acy: [id number], Gel, 160, cm, 11/08/22 14:37:00 EDT, Height, 88.6, kg, 11/08/22 14:37:00 EDT, Dosing Weight Start Date: 11/11/22 Status: Ordered Start: 11-08-2022 Pennsaid 2% to pical solution Apply 2 pump(s), Topical, BID, PRN Pain, to affected area, # 112 gram(s), 0 Refill(s), [facility]: [id number], Soln, 160, cm, 11/08/22 14:37:00 EDT, Height, 88.6 Start Date: 11/08/22 Status: Ordered Start: 11-13-2021 diclofenac 1% topical gel Apply 1 kamala, Topical, QID, PRN Pain, not to exceed 16 grams/day/single joint of lower extremities, # 100 gram(s), 2 Refill(s), [facility]: [id number], Gel, 160, cm, 11/13/21 11:44:00 EDT, Height, 89, kg, 11/13/21 11:44:00 EDT, Dosing Weight Start Date: 11/13/21 Status: Ordered Start: 04-14-2020 diclofenac 1% topical gel Apply 1 kamala, Topical, QID, PRN Pain, not to exceed 16 grams/day/single joint of lower extremities, # 100 gram(s), 0 Refill(s), [facility]: [id number], Gel, 159, cm, 12/03/19 11:06:00 EDT, Height, 88.5, kg, 12/03/19 11:06:00 EDT, Dosing Weight Start Date: 04/14/20 Status: Ordered (DICLOFENAC GEL) Active DME MISCellaneous (11 sources) Start: 09-13-2023 DME MISCellane ous See Instructions, Power lift recliner chair dx:.M48.062, R60.0, # 1 EA, 0 Refill(s), Lumbar stenosis with neurogenic claudication Bilateral leg edema, 95.9 Start Date: 09/13/23 Status: Ordered Quantity: 1.0 Unit: EA Repeat number: 1 Indications: Localized edema; Spinal stenosis, lumbar region with neurogenic claudication; Start: 09-13-2023 DME MISCellane ous See Instructions, Power lift recliner chair dx:.M48.062, R60.0, # 1 EA, 0 Refill(s), Lumbar stenosis with neurogenic claudication Bilateral leg edema, 95.9 Start Date: 09/13/23 Status: Ordered doxycycline hyclate 100 mg oral capsule (1 source) Tetracycline-class Drug Start: 10-19-2023 End: 10-26-2023 doxycycline hyclate 100 mg oral capsule Dose : 100 mg = 1 cap(s), Oral, BID, X 7 day(s), # 14 cap(s), 0 Refill(s), 10/26/23 10:16:00 AM EDT, [facility]acy: [id number], Lumbar stenosis Encounter for surgical aftercare following surgery of nervous system, 160, cm, 10/07/23 7:32:00 EDT, Height, 92.4, kg, 10/07/23 7:32:00 EDT, Dosing Weight Start Date: 10/19/23 Stop Date: 10/26/23 Status: Ordered furosemide 40 mg oral tablet (7 sources) Loop Diuretic Start: 09-21-2023 furosemide 40 mg oral tablet Dose : 40 mg = 1 tab(s), Oral, qDay, # 30 tab(s), 0 Refill(s), Pharmacy: [id number], Bilateral leg edema, 160, cm, 09/21/23 9:38:00 EDT, Height, kg, 09/21/23 9:38:00 EDT, Dosing Weight Start Date: 09/21/23 Status: Ordered Start: 02-17-2023 End: 02-27-2023 furosemide 40 mg oral tablet Dose : 40 mg = 1 tab(s), Oral, qDay, X 10 day(s), # 10 tab(s), 0 Refill(s), 02/27/23 4:02:00 PM EDT, Pharmacy: [id number], 160, cm, 02/17/23 15:20:00 EDT, Height, kg, 02/17/23 15:20:00 EDT, Dosing Weight Start Date: 02/17/23 Stop Date: 02/27/23 Status: Ordered hydroCHLOROthiazide 25 mg / triamterene 37.5 mg oral capsule (10 sources) Potassium-sparing Diuretic, Thiazide Diuretic Start: 09-30-2023 take 1 capsule by mouth once daily as needed hydrochlorothiazide-triamterene 25 mg-37.5 mg oral capsule Dose = 1 cap(s), Oral, qDay, PRN Swelling, Take with food, 0 Refill(s) Start Date: 09/30/23 Status: Ordered Start: 09-30-2023 take 1 capsule by mouth at mealtime hydrochlorothiazide-triamterene 25 mg-37 .5 mg oral capsule Dose = 1 cap(s), Oral, AsDirected, Take with food, 0 Refill(s) Start Date: 09/30/23 Status: Ordered Start: 08-28-2020 hydrochlorothi azide-triamterene 25 mg-37.5 mg oral tablet See Instructions, 1/2 -1 tab(s) Oral Daily as needed for edema of legs, # 30 tab(s), 2 Refill(s), Pharmacy: [facility], Bilateral leg edema, 159, cm, 08/27/20 13:08:00 EDT, Height, kg, 08/27/20 13:08:00 EDT, Dosing Weight Start Date: 08/28/20 Status: Ordered ibuprofen 800 mg oral tablet (10 sources) Nonsteroidal Anti-inflammatory Drug Start: 09-14-2024 take 1 tablet by mouth every eight hours Ibuprofen 800 mg tablet Active 800 mg PO Q8H October 11, 2024 12:00am On Hold: STOMACH ISSUES Start: 03-02-2024 ibuprofen 800 mg oral tablet Dose : 800 mg = 1 tab(s), Oral, Daily, PRN as needed for arthritis, # 30 tab(s), 0 Refill(s), [facility]acy: [id number], Arthritis, 160, cm, 12/08/23 12:25:00 EDT, Height, kg, 12/08/23 12:25:00 EDT, Dosing Weight Start Date: 03/02/24 Status: Ordered Quantity: 30.0 Unit: tab(s) Repeat number: 1 Indications: Unspecified osteoarthritis, unspecified site; Start: 08-11-2023 End: 12-09-2023 ibuprofen 800 mg oral tablet Dose : 800 mg = 1 tab(s), Oral, qDay, PRN as needed for pain, with food or milk, # 30 tab(s), 3 Refill(s), [facility]: [id number], 160, cm, 08/11/23 15:07:00 EDT, Height, kg, 04/04/23 13:04:00 EST, Dosing Weight Start Date: 08/11/23 Stop Date: 12/09/23 Status: Ordered Start: 10-08-2022 ibuprofen 800 mg oral tablet Dose : 800 mg = 1 tab(s), Oral, TID, PRN as needed for pain, with food or milk, # 30 tab(s), 3 Refill(s), [facility]: [facility], 160, cm, 08/23/22 8:38:00 EDT, Height, kg, 08/23/22 8:38:00 EDT, Dosing Weight Start Date: 10/08/22 Status: Ordered Journavx 50 mg oral tablet (3 sources) Start: 08-13-2024 Journavx 50 mg oral tablet Dose : 50 mg = 1 tab(s), Oral, q12h, # 28 tab(s), 0 Refill(s), [facility]: [facility], Thoracic spine pain, 160, cm, 08/13/24 9:58:00 EDT, Height, kg, 08/13/24 9:58:00 EDT, Dosing Weight Start Date: 08/13/24 Status: Ordered Quantity: 28.0 Unit: tab(s) Repeat number: 1 Indications: Pain in thoracic spine; levothyroxine sodium 0.05 mg oral capsule (20 sources) l-Thyroxi ne Start: 10-11-2024 take 1 capsule by mouth once daily Levothyroxine 50 mcg capsule Active 50 ug PO daily October 11, 2024 12:00am Start: 11-14-2023 take 1 tablet by yordy once daily levothyroxine 50 mcg (0.05 mg) oral tablet 1 tab(s), Oral, qDay, # 90 tab(s), 3 Refill(s), Pharmacy: [facility], 160, cm, 10/26/23 13:01:00 EDT, Height, kg, 10/26/23 13:01:00 EDT, Dosing Weight Start Date: 11/14/23 Status: Ordered Quantity: 90.0 Unit: tab(s) Repeat number: 1 Start: 06-02-2023 take 1 tablet by yordy once daily levothyroxine 50 mcg (0.05 mg) oral tablet 1 tab(s), Oral, qDay, # 90 tab(s), 1 Refill(s), Pharmacy: [facility], 160, cm, 04/04/23 13:04:00 EST, Height, kg, 04/04/23 13:04:00 EST, Dosing Weight Start Date: 06/02/23 Status: Ordered Start: 11-29-2022 take 1 tablet by [facility] once daily levothyroxine 50 mcg (0.05 mg) oral tablet 1 tab(s), Oral, qDay, # 90 tab(s), 0 Refill(s), Pharmacy: [id number], 160, cm, 11/08/22 14:37:00 EDT, Height, kg, 11/08/22 14:37:00 EDT, Dosing Weight Start Date: 11/29/22 Status: Ordered Start: 09-14-2021 take 1 tablet by [facility] once daily levothyroxine 50 mcg (0.05 mg) oral tablet See Instructions, TAKE 1 TABLET DAILY, # 90 tab(s), 3 Refill(s), [facility]acy: [id number], 160, cm, 07/30/21 9:32:00 EDT, Height, kg, 07/30/21 9:32:00 EDT, Dosing Weight Start Date: 09/14/21 Status: Ordered Start: 05-18-2021 take 1 tablet by [facility] once daily levothyroxine 50 mcg (0.05 mg) oral tablet See Instructions, TAKE 1 TABLET DAILY, # 90 tab(s), 3 Refill(s), Pharmacy: [facility], 160, cm, 01/27/21 10:06:00 EDT, Height, kg, 01/27/21 10:06:00 EDT, Dosing Weight Start Date: 05/18/21 Status: Ordered Start: 07-22-2016 take 1 tablet by yordy th once daily Levothyroxine Sodium 25 MCG Oral Tablet TAKE ONE TABLET BY MOUTH EVERY DAY Quantity: 90 Refills: 0 Ordered: 22-Jul-2016 DO Start : 22-Jul-2016 Active (LEVOTHYROXINE ) Active lidocaine 0.05 mg/mg medicated patch (5 sources) Antiarrhythmic, Amide Local Anesthetic Start: 10-11-2024 Lidocaine 5 % adhesi ve patch,medicated Active 1 NMA TOPICAL daily October 11, 2024 12:00am leave on most painful area for up to 12 hrs Start: 07-04-2024 lidocaine 5% t opical patch Apply 1 patch(es), Topical, qDay, remove patches after 12 hours, # 30 patch(es), 0 Refill(s), [facility]: [id number], 160, cm, 07/04/24 13:02:00 EST, Height, 91, kg, 07/04/24 13:02:00 EST, Dosing Weight Start Date: 07/04/24 Status: Ordered Quantity: 30.0 Unit: patch(es) Repeat number: 1 magnesium oxide 400 mg oral tablet (13 sources) Start: 10-11-2024 take 1 tablet by mouth once daily Magnesium Oxide 400 mg (241.3 mg magnesium) tablet Active 400 mg PO daily October 11, 2024 12:00am Start: 03-16-2024 End: 03-23-2024 magnesium oxide 400 mg oral tablet Dose : 400 mg = 1 tab(s), Oral, BID, # 14 tab(s), 0 Refill(s), other reason (Rx) Start Date: 03/16/24 Stop Date: 03/23/24 Status: Ordered Quantity: 14.0 Unit: tab(s) Repeat number: 1 Start: 05-23-2018 take 1 mg by mouth twice daily magnesium oxide 250 mg oral tablet mg = tab(s), Oral, BID, 0 Refill(s) Start Date: 05/23/18 Status: Ordered Maxzide-25 (3 sources) Start: 09-30-2023 Maxzide-25 Dos e = 1 tab(s), Oral, AsDirected, PRN Swelling, TAKE 1-0.5 TABS DAILY NEEDED, # 30 tab(s), 0 Refill(s) Start Date: 09/30/23 Status: Ordered Start: 09-30-2023 Maxzide-25 Dos e = 1 tab(s), Oral, AsDirected, TAKE 1-0.5 TABS DAILY NEEDED, # 30 tab(s), 0 Refill(s) Start Date: 09/30/23 Status: Ordered metroNIDAZOLE 7.5 mg/ml topical cream (6 sources) Nitroimidazole Antimicrobial Start: 11-26-2020 metroNIDAZOLE 0.75% topical cream Apply 1 kamala, Topical, BID, # 45 gram(s), 2 Refill(s), Cream, 90.9 Start Date: 11/26/20 Status: Ordered mupirocin 0.02 mg/mg topical ointment (1 source) RNA Synthetase Inhibitor Antibacterial Start: 09-30-2023 mupirocin 2% topical ointment Apply 1 kamala, Topical, BID, Bilateral intranasal application twice daily for 5 days prior to surgery &/or as many days leading up to surgery as possible due to surgical urgency/scheduling . Send to patient's preferred pharmacy., Apply to: nostril, each, # 22 gram(s), 0 Refill(s), [facility]: [id number], Ointment, 160, cm, 09/30/23 9:28:00 EDT, Height, 94.4, kg, 09/30/23 9:28:00 EDT, Dosing Weight Start Date: 09/30/23 Status: Ordered nebivolol 10 mg oral tablet (20 sources) Start: 06-05-2024 take 1 tablet by mouth once daily Nebivolol 10 mg tablet Active 10 mg PO daily October 11, 2024 12:00am Start: 06-02-2023 take 1 tablet by yordy th once daily Nebivolol 10 mg oral tablet 1 tab(s), Oral, qDay, # 90 tab(s), 3 Refill(s), [facility]: [id number], 160, cm, 04/04/23 13:04:00 EST, Height, kg, 04/04/23 13:04:00 EST, Dosing Weight Start Date: 06/02/23 Status: Ordered Start: 05-12-2022 take 1 tablet by yordy th once daily in the morning Nebivolol 10 mg oral tablet 1 tab(s), Oral, qAM, # 90 tab(s), 3 Refill(s), Pharmacy: [facility], 160, cm, 03/16/22 10:02:00 EST, Height, kg, 03/16/22 10:02:00 EST, Dosing Weight Start Date: 05/12/22 Status: Ordered Start: 05-18-2021 take 1 tablet by yordy th once daily in the morning Bystolic 10 mg oral tablet See Instructions, TAKE 1 TABLET EVERY MORNING, # 90 tab(s), 3 Refill(s), Pharmacy: [facility], 160, cm, 01/27/21 10:06:00 EDT, Height, kg, 01/27/21 10:06:00 EDT, Dosing Weight Start Date: 05/18/21 Status: Ordered omeprazole 20 mg delayed release oral capsule (20 sources) Proton Pump Inhibitor Start: 10-22-2024 take 1 capsule by mouth twice daily Omeprazole 20 mg capsule,delayed release(DR/EC) Active 20 mg PO TWICE A DAY October 22, 2024 12:00am On Hold: PRESCRIBES CARAFATE TEMPORARILY Start: 08-10-2024 End: 10-15-2024 take 1 capsule by mouth twice daily Omeprazole 20 mg capsule,delayed release(DR/EC) Discontinued 20 mg PO TWICE A DAY October 11, 2024 12:00am October 15, 2024 2:06pm Start: 06-29-2023 omeprazole 20 mg oral delayed release capsule Dose : 20 mg = 1 cap(s), Oral, BID, # 270 cap(s), 3 Refill(s), Pharmacy: [facility], 160, cm, 04/04/23 13:04:00 EST, Height, kg, 04/04/23 13:04:00 EST, Dosing Weight Start Date: 06/29/23 Status: Ordered Start: 06-29-2023 take 3 capsules by out once daily omeprazole 20 mg oral delayed release capsule 3 cap(s), Oral, qDay, # 270 cap(s), 3 Refill(s), Pharmacy: [facility], 160, cm, 04/04/23 13:04:00 EST, Height, kg, 04/04/23 13:04:00 EST, Dosing Weight Start Date: 06/29/23 Status: Ordered Start: 05-12-2022 omeprazole 20 mg oral delayed release capsule Dose : 40 mg = 2 cap(s), Oral, BID, # 90 cap(s), 11 Refill(s), Pharmacy: [facility], 160, cm, 03/16/22 10:02:00 EST, Height, kg, 03/16/22 10:02:00 EST, Dosing Weight Start Date: 05/12/22 Status: Ordered Start: 05-18-2021 omeprazole 20 mg oral delayed release capsule Dose : 60 mg = 3 cap(s), Oral, qDay, # 270 cap(s), 3 Refill(s), Pharmacy: [facility], 160, cm, 01/27/21 10:06:00 EDT, Height, kg, 01/27/21 10:06:00 EDT, Dosing Weight Start Date: 05/18/21 Status: Ordered Omeprazole 20 MG Oral Capsule Delayed Release Quantity: 0 Refills: 0 Ordered: 12-Aug-2016 DO Active take 1 capsule by mo [facility] once daily Omeprazole * ([id number] MG) 40 MG CAPSULE. Active 40 MG PO Every Day @ 6AM oxybutynin chloride 5 mg oral tablet (19 sources) Cholinergic Muscarinic Antagonist Start: 10-11-2024 take 1 tablet by mouth once daily Oxybutynin Chloride 5 mg tablet Active 5 mg PO DAILY October 11, 2024 12:00am Start: 07-12-2024 [facility] oxybutynin 5 mg/24 hours oral tablet, extended release 1 tab(s), Oral, qDay, # 90 tab(s), 0 Refill(s), Pharmacy: [id number], 160, cm, 07/11/24 13:16:00 EDT, Height, kg, 07/11/24 13:16:00 EDT, Dosing Weight Start Date: 07/12/24 Status: Ordered Quantity: 90.0 Unit: tab(s) Repeat number: 1 Start: 06-02-2023 take 1 tablet by yordy th once daily oxybutynin 5 mg/24 hours oral tablet, extended release 1 tab(s), Oral, qDay, # 90 tab(s), 3 Refill(s), [facility]: [id number], 160, cm, 04/04/23 13:04:00 EST, Height, kg, 04/04/23 13:04:00 EST, Dosing Weight Start Date: 06/02/23 Status: Ordered Start: 06-02-2023 take 5 tablets by mo [facility] every hour oxybutynin 5 mg/24 hours oral tablet, extended release 1 tab(s), Oral, qDay, NEW DOSE 07/30/2021., # 90 tab(s), 3 Refill(s), [facility]acy: [id number], 160, cm, 04/04/23 13:04:00 EST, Height, kg, 04/04/23 13:04:00 EST, Dosing Weight Start Date: 06/02/23 Status: Ordered Start: 07-06-2022 take 5 tablets by [facility] every hour oxybutynin 5 mg/24 hours oral tablet, extended release 1 tab(s), Oral, qDay, NEW DOSE 07/30/2021., # 90 tab(s), 3 Refill(s), Pharmacy: [facility], 160, cm, 05/21/22 12:47:00 EST, Height, kg, 05/21/22 12:47:00 EST, Dosing Weight Start Date: 07/06/22 Status: Ordered Start: 07-30-2021 take 1 tablet by yordy every hour, then take 1 tablet by mouth once daily oxybutynin 5 mg/24 hours oral tablet, extended release Dose : 5 mg = 1 tab(s), Oral, qDay, new dose 07/30/2021, # 90 tab(s), 3 Refill(s), Pharmacy: [facility], 160, cm, 07/30/21 9:32:00 EDT, Height Start Date: 07/30/21 Status: Ordered oxyCODONE hydrochloride 5 mg oral tablet (1 source) Opioid Agonist Start: 08-11-2023 End: 08-16-2023 oxyCODONE 5 mg oral tablet ( IMMEDIATE release ) Dose : 5 mg = 1 tab(s), Oral, q6h, PRN for pain, X 5 day(s), # 20 tab(s), 0 Refill(s), 08/16/23 3:49:00 PM EDT, [facility]acy: [id number], Lumbar disc disease with radiculopathy, 160, cm, 08/11/23 15:07:00 EDT, Height, 90.7, kg, 04/04/23 13:04:00 EST, Dosing Weight Start Date: 08/11/23 Stop Date: 08/16/23 Status: Ordered PAIN FORMULA (1 source) Start: 09-30-2023 PAIN FORMULA P AIN FORMULA, 1 KAMALA(S), Topical, AsDirected, CYCLOBENZAPRINE 1% GABAPENTIN 6% KETOPROFEN 5% LIDO 1% PRILO 1% CREAM, 0 Refill(s), 94.4 Start Date: 09/30/23 Status: Ordered pantoprazole 40 mg delayed release oral tablet (5 sources) Proton Pump Inhibitor Start: 10-15-2024 Pantoprazole 40 mg tablet,delayed release (DR/EC) Active 40 mg PO TWICE A DAY 60 October 15, 2024 12:00am On Hold: TAKING CARAFATE TEMPORARILY take 30minutes before eating breakfast and dinner Start: 10-05-2024 End: 10-15-2024 take 1 tablet by mouth once daily Pantoprazole 40 mg tablet,delayed release (DR/EC) Discontinued 40 mg PO daily October 11, 2024 12:00am October 15, 2024 2:06pm potassium chloride 10 meq or al tablet (1 source) Start: 02-17-2023 End: 02-27-2023 potassium chloride 10 mEq or al tablet, extended release Dose : 10 mEq = 1 tab(s), Oral, qDay, take with furosemide, X 10 day(s), # 10 tab(s), 0 Refill(s), 02/27/23 4:02:00 PM EDT, [facility]acy: [id number], 160, cm, 02/17/23 15:20:00 EDT, Height, kg, 02/17/23 15:20:00 EDT, Dosing Weight Start Date: 02/17/23 Stop Date: 02/27/23 Status: Ordered predniSONE 10 mg oral tablet (3 sources) Start: 07-11-2024 predniSONE 10 mg oral tablet Dose : 10 mg = 1 tab(s), Oral, Once, # 1 tab(s), 0 Refill(s) Start Date: 07/11/24 Status: Ordered Quantity: 1.0 Unit: tab(s) Repeat number: 1 Start: 08-22-2023 predniSONE 10 mg oral tablet See Instructions, [id number],5qdx2d,4qdx2d,3qdx2d,2qdx2d,1qdx2d,1/2qdx2d, # 43 tab(s), 0 Refill(s), [facility]: [id number], 160, cm, 08/11/23 15:07:00 EDT, Height, kg, 04/04/23 13:04:00 EST, Dosing Weight Start Date: 08/22/23 Status: Ordered Start: 08-11-2023 predniSONE 10 mg oral tablet See Instructions, 9gbli2g,5qdx2d,4qdx2d,3qdx2d,2qdx2d,1qdx2d,1/2qdx2d, # 43 tab(s), 0 Refill(s), Pharmacy: [id number], 160, cm, 08/11/23 15:07:00 EDT, Height, kg, 04/04/23 13:04:00 EST, Dosing Weight Start Date: 08/11/23 Status: Ordered pregabalin 50 mg oral capsule (16 sources) Start: 10-11-2024 take 1 capsule by mouth once daily Pregabalin 50 mg capsule Active 50 mg PO daily October 11, 2024 12:00am Start: 07-12-2024 take 1 capsule by mo [facility] twice daily Pregabalin 50 mg capsule Active 50 mg PO TWICE A DAY October 11, 2024 12:00am Start: 11-28-2023 End: 12-28-2023 pregabalin 50 mg oral capsul e Dose : 50 mg = 1 cap(s), Oral, BID, # 180 cap(s), 0 Refill(s), [facility]: [id number], Lumbar stenosis with neurogenic claudication, 160, cm, 11/28/23 11:38:00 EDT, Height, 93.7, kg, 11/28/23 11:38:00 EDT, Dosing Weight Start Date: 11/28/23 Stop Date: 12/28/23 Status: Ordered Start: 10-10-2023 End: 11-09-2023 pregabalin 50 mg oral capsul e Dose : 50 mg = 1 cap(s), Oral, BID, # 60 cap(s), 0 Refill(s), [facility]: [facility], Lumbar stenosis with neurogenic claudication, 160, cm, 10/07/23 7:32:00 EDT, Height, 92.4, kg, 10/07/23 7:32:00 EDT, Dosing Weight Start Date: 10/10/23 Stop Date: 11/09/23 Status: Ordered Start: 09-30-2023 pregabalin 50 mg oral capsule Dose : 50 mg = 1 cap(s), Oral, BID, WAS ORDERED 100MG STATES WAS TOO MUCH, STATES PT WENT BACK TO TAKING 50 MG BID, 0 Refill(s), 94.4 Start Date: 09/30/23 Status: Ordered Start: 08-22-2023 End: 09-21-2023 take 1 capsule by mouth three times daily pregabalin 50 mg oral capsule 1 cap(s), Oral, TID, # 90 cap(s), 0 Refill(s), [facility]: [facility], Neuropathic pain, 160, cm, 08/11/23 15:07:00 EDT, Height, 90.7, kg, 04/04/23 13:04:00 EST, Dosing Weight Start Date: 08/22/23 Stop Date: 09/21/23 Status: Ordered Start: 06-02-2023 End: 07-02-2023 take 1 capsule by mouth three times daily pregabalin 50 mg oral capsule 1 cap(s), Oral, TID, # 90 cap(s), 0 Refill(s), [facility]acy: [facility], Neuropathic pain, 160, cm, 04/04/23 13:04:00 EST, Height, 90.7, kg, 04/04/23 13:04:00 EST, Dosing Weight Start Date: 06/02/23 Stop Date: 07/02/23 Status: Ordered Start: 12-30-2022 End: 01-29-2023 Lyrica 50 mg oral capsule Do se : 50 mg = 1 cap(s), Oral, TID, # 90 cap(s), 0 Refill(s), [facility]: [id number], Neuropathic pain, 160, cm, 11/08/22 14:37:00 EDT, Height, 88.6, kg, 11/08/22 14:37:00 EDT, Dosing Weight Start Date: 12/30/22 Stop Date: 01/29/23 Status: Ordered PreserVision AREDS 2 oral capsule (7 sources) Start: 12-12-2018 take 1 capsule by mouth twice daily PreserVision AREDS 2 oral capsule Dose = 1 cap(s), Oral, BID, 0 Refill(s) Start Date: 12/12/18 Status: Ordered rosuvastatin calcium 20 mg oral tablet (10 sources) HMG-CoA Reductase Inhibitor Start: 07-30-2021 End: 10-17-2022 rosuvastatin 20 mg oral tablet Dose : 20 mg = 1 tab(s), Oral, 2X/week, # 26 tab(s), 3 Refill(s), Pharmacy: [facility], Type 2 diabetes mellitus Hypercholesteremia, 160, cm, 07/30/21 9:32:00 EDT, Height, kg, 07/30/21 9:32:00 EDT, Dosing Weight Start Date: 10/22/21 Stop Date: 10/17/22 Status: Ordered Crestor 20 MG Or al Tablet Quantity: 0 Refills: 0 Ordered: 12-Aug-2016 DO Active sucralfate 1000 mg oral tablet (3 sources) Aluminum Complex Start: 10-15-2024 End: 10-23-2024 take 1 tablet by mouth every six hours Sucralfate 1 gram tablet Active 1 g PO EVERY 6 HOURS 360 90 October 23, 2024 12:22pm January 20, 2025 12:00am Suzetrigine (1 source) Start: 10-11-2024 take 1 tablet by mouth every twelve hours Suzetrigine 50 mg tablet Active 50 mg PO Q12H October 11, 2024 12:00am traMADol hydrochloride 50 mg oral tablet (3 sources) Opioid Agonist Start: 09-12-2023 traMADol 50 mg oral tablet 0 Refill(s), 90.7 Start Date: 09/12/23 Status: Ordered Start: 08-11-2023 End: 08-16-2023 traMADol 50 mg oral tablet D ose : 50 mg = 1 tab(s), Oral, q6h, PRN for pain, X 5 day(s), # 20 tab(s), 0 Refill(s), 08/16/23 5:26:00 PM EDT, Acute lumbar radiculopathy Start Date: 08/11/23 Stop Date: 08/16/23 Status: Ordered triamcinolone acetonide 1 mg/ml topical cream (4 sources) Corticosteroid Start: 10-22-2024 Triamcinolone Acetonide 0.1 % cream Active 1 NMA TOPICAL TWICE A DAY as needed for rash October 22, 2024 12:00am Start: 09-14-2024 End: 09-21-2024 triamcinolone 0.1% topical c ream Apply 1 kamala, Topical, TID, APPLY TWICE DAILY TO RASH ON LOWER LEGS FOR UP TO 2 WEEKS NEEDED, X 7 day(s), # 15 gram(s), 0 Refill(s), [facility]: [id number], Cream, 160, cm, 08/16/24 7:58:00 EDT, Height, 92.4, kg, 08/16/24 7:58:00 EDT, Dosing Weight Start Date: 09/14/24 Stop Date: 09/21/24 Status: Ordered Quantity: 15.0 Unit: g Repeat number: 1 Start: 09-30-2023 TRIAMCINOLONE ACETONIDE TRIAMCINOLONE ACETONIDE, 1 KAMALA(S), Topical, AsDirected, 0 Refill(s), 94.4 Start Date: 09/30/23 Status: Ordered Start: 09-30-2023 triamcinolone 0.1% topical cream Apply 1 kamala, Topical, AsDirected, PRN L, USES NEEDED FOR LEGS, 0 Refill(s), 94.4 Start Date: 09/30/23 Status: Ordered Turmeric extract (1 source) Start: 09-30-2023 turmeric 1000 mg oral capsule Dose : 1,000 mg = 1 cap(s), Oral, qDay, 0 Refill(s) Start Date: 09/30/23 Status: Ordered ubidecarenone 200 mg oral capsule (1 source) Start: 09-30-2023 take 1 dose by mouth once daily CoQ10 Gummy Dose : 200 mg =, Oral, qDay, may substitute softgel dosage form, # 100 EA, 0 Refill(s) Start Date: 09/30/23 Status: Ordered valsartan 320 mg oral tablet (20 sources) Angiotensin 2 Receptor Charbel Start: 05-10-2024 take 1 tablet by mouth once daily Valsartan 320 mg tablet Active 320 mg PO daily October 11, 2024 12:00am Start: 06-02-2023 take 1 tablet by yordy th once daily valsartan 320 mg oral tablet 1 tab(s), Oral, qDay, # 90 tab(s), 3 Refill(s), Pharmacy: [facility], 160, cm, 04/04/23 13:04:00 EST, Height, kg, 04/04/23 13:04:00 EST, Dosing Weight Start Date: 06/02/23 Status: Ordered Start: 05-12-2022 take 1 tablet by yordy once daily valsartan 320 mg oral tablet 1 tab(s), Oral, qDay, # 90 tab(s), 3 Refill(s), Pharmacy: [facility], 160, cm, 03/16/22 10:02:00 EST, Height, kg, 03/16/22 10:02:00 EST, Dosing Weight Start Date: 05/12/22 Status: Ordered Start: 05-18-2021 take 1 tablet by yordy once daily valsartan 320 mg oral tablet See Instructions, TAKE 1 TABLET DAILY, # 90 tab(s), 3 Refill(s), Pharmacy: [facility], 160, cm, 01/27/21 10:06:00 EDT, Height, kg, 01/27/21 10:06:00 EDT, Dosing Weight Start Date: 05/18/21 Status: Ordered Vitafusion Calcium Gummy oral tablet, chewable (1 source) Start: 09-30-2023 take 1 tablet by mouth once daily Vitafusion Calcium Gummy oral tablet, chewable Dose = 2 tab(s), Chewed, qDay, # 100 tab(s), 0 Refill(s) Start Date: 09/30/23 Status: Ordered Vitamin B Complex (B-Complex) tablet (1 source) Start: 10-22-2024 Vitamin B Comp anjana (B-Complex) tablet Active 1 {tbl} PO DAILY October 22, 2024 12:00am Vitamin B Complex oral tablet (6 sources) Start: 05-14-2019 take 1 tablet by mouth once daily Vitamin B Complex oral tablet Dose = 1 tab(s), Oral, Daily, 0 Refill(s) Start Date: 05/14/19 Status: Ordered Vitamin D3 5000 intl units oral capsule (7 sources) Start: 05-23-2018 Vitamin D3 500 0 intl units oral capsule Dose : 5,000 unit(s) = 1 cap(s), Oral, qPM, 0 Refill(s) Start Date: 05/23/18 Status: Ordered Start: 05-23-2018 Vitamin D3 500 0 intl units oral capsule Dose : 5,000 unit(s) = 1 cap(s), Oral, qDay, 0 Refill(s) Start Date: 05/23/18 Status: Ordered Completed/Discontinued Medications Medication Drug Class(es) Dates Sig (Normalized) Sig (Original) CALCIUM, D3, ZINC GUMMIES (1 source) Start: 09-30-2023 CALCIUM, D3, ZINC GUMMIES CALCIUM, D3, ZINC GUMMIES, 2 GUMMY(S), Oral, qDay, 0 Refill(s), 94.4 Start Date: 09/30/23 Status: Ordered docusate sodium 100 mg oral capsule (12 sources) Start: 10-08-2023 End: 10-22-2024 take 1 capsule by mouth twice daily Docusate Sodium (Colace) 100 mg capsule Discontinued 100 mg PO TWICE A DAY October 11, 2024 12:00am October 22, 2024 9:43am famotidine 40 mg oral tablet (3 sources) Histamine-2 Receptor Antagonist Start: 10-05-2024 End: 10-15-2024 take 1 tablet by mouth at bedtime Famotidine 40 mg tablet Discontinued 40 mg PO AT BEDTIME October 11, 2024 12:00am October 15, 2024 10:41am hydroCHLOROthiazide 12.5 mg / valsartan 320 mg oral tablet (7 sources) Thiazide Diuretic, Angiotensin 2 Receptor Charbel Diovan HCT 320-12.5 MG Oral Tablet Quantity: 0 Refills: 0 Ordered: 12-Aug-2016 DO Active LAURA'S LEG CRAMPS (1 source) Start: 09-30-2023 LAURA'S LEG CRAMPS LAURA'S LEG CRAMPS, 1 cap(s), Oral, AsDirected, 0 Refill(s), 94.4 Start Date: 09/30/23 Status: Ordered metFORMIN hydrochloride 500 mg oral tablet (1 source) Biguanide End: 02-25-2022 Metformin HCl * (METFORMIN LLO616 MG) 500 MG TABLET Discontinued 500 MG PO February 25, 2022 6:51am THERAWORX RELIEF (1 source) Start: 09-30-2023 THERAWORX RELIEF THERAWORX RELIEF, 1 KAMALA(S), Topical, AsDirected, 0 Refill(s), 94.4 Start Date: 09/30/23 Status: Ordered Tirzepatide (Mounjaro) 2.5 mg/0.5 mL pen injector (2 sources) Start: 10-11-2024 End: 10-15-2024 Tirzepatide (Mounjaro) 2.5 mg/0.5 mL pen injector Discontinued 2.5 mg SC EVERY WEEK October 11, 2024 12:00am October 15, 2024 10:40am for 4 weeks tiZANidine 4 mg oral capsule (12 sources) Central alpha-2 Adrenergic Agonist Start: 10-11-2024 End: 10-22-2024 take 1 capsule by mouth every eight hours as needed Tizanidine 4 mg capsule Discontinued 4 mg PO Q8H as needed October 11, 2024 12:00am October 22, 2024 9:41am Start: 07-04-2024 tiZANidine 4 m g oral tablet Dose : 4 mg = 1 tab(s), Oral, q8h, PRN as needed for muscle spasm, # 90 tab(s), 0 Refill(s), Pharmacy: [facility], Muscle spasm, 160, cm, 08/13/24 9:58:00 EDT, Height, kg, 08/13/24 9:58:00 EDT, Dosing Weight Start Date: 08/13/24 Status: Ordered Quantity: 90.0 Unit: tab(s) Repeat number: 1 Indications: Other muscle spasm; Start: 10-08-2023 tiZANidine 4 m g oral tablet Dose : 4 mg = 1 tab(s), Oral, TID, PRN Muscle spasm, # 90 tab(s), 0 Refill(s), [facility]: [id number], Muscle spasm, 160, cm, 10/07/23 7:32:00 EDT, Height, kg, 10/07/23 7:32:00 EDT, Dosing Weight Start Date: 10/08/23 Status: Ordered Problems Active Problems Problem Classification Problem Date Documented Date Episodic/Chronic Abdominal pain (20 sources) Right upper quadrant pain; Translations: [Stomach ache] Onset: 02-18-2002-17-2023 Episodic Acute bronchitis (16 sources) Acute bronchitis 02-02-2023 Episodic Allergic reactions (20 sources) Dermatographic urticaria; 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] 05-23-2018 Episodic Coronary atherosclerosis and other heart disease (9 sources) Coronary arteriosclerosis; Translations: [Atherosclerotic heart disease of [place] coronary artery without angina pectoris] Onset: 08-17-1911-28-2023 Chronic Diabetes mellitus without complication (20 sources) Type 2 diabetes mellitus; Translations: [Type 2 diabetes mellitus without complications] Onset: 08-17-1908-27-2020 Chronic Disorders of lipid metabolism (19 sources) Hypercholesterolemia 12-26-2018 Chronic Esophageal disorders (20 sources) Gastroesophageal reflux disease; Translations: [Gastro-esophageal reflux disease without esophagitis] Onset: 08-17-1912-26-2018 Chronic Essential hypertension (20 sources) Hypertensive disorder; Translations: [Essential (primary) hypertension] Onset: 08-17-1912-26-2018 Chronic Fracture of lower limb (10 sources) Fracture of foot 10-26-2023 Episodic Genitourinary symptoms and ill-defined conditions (20 sources) Urge incontinence of urine; Translations: [Urinary incontinence] 12-04-2020 Chronic Genitourinary symptoms and ill-defined conditions (17 sources) Incomplete emptying of bladder; Translations: [Retention of urine, unspecified] Onset: 08-11-19 24 08-11-2023 Episodic Malignant neoplasm without specification of site (2 sources) Malignant (primary) neoplasm, unspecified; Translations: [Malignant (primary) neoplasm, unspecified] Onset: 09-24-19 Chronic Nutritional deficiencies (20 sources) Vitamin D deficiency; Translations: [Vitamin D deficiency, unspecified] Onset: 08-17-1905-23-2018 Chronic Occlusion or stenosis of precerebral arteries (19 sources) Carotid artery stenosis 06-29-2019 Chronic Other bone disease and musculoskeletal deformities (6 sources) Disorder of cervical spine; Translations: [Disorder of bone and cartilage, unspecified] Episodic Other bone disease and musculoskeletal deformities (6 sources) Disorder of bone, unspecified; Translations: [Disorder of bone, unspecified] Onset: 09-24-19 Episodic Other circulatory disease (7 sources) H/O: hypertension; Translations: [Personal history of other diseases of circulatory system] Episodic Other connective tissue disease (1 source) Polymyalgia rheumatica; Translations: [Polymyalgia rheumatica (HCC)] Onset: 06-01-19 Chronic Other connective tissue disease (1 source) Fibromyalgia; Translations: [Scapulohumeral fibrositis] Onset: 06-01-19 Episodic Other connective tissue disease (7 sources) H/O: arthritis; Translations: [Personal history of arthritis] Episodic Other connective tissue disease (16 sources) Cramp in lower limb 03-16-2022 Episodic Other connective tissue disease (16 sources) Mass of musculoskeletal structure 11-08-2022 Episodic Other connective tissue disease (1 source) Spasm; Translations: [Other muscle spasm] Onset: 10-08-19 Episodic Other diseases of bladder and urethra (1 source) Other specified disorders of bladder; Translations: [Other specified disorders of bladder] Onset: 09-24-19 Chronic Other diseases of veins and lymphatics (2 sources) Venous insufficiency (chronic) (peripheral); Translations: [VENOUS INSUFF CHRONIC PERIPHERAL] Onset: 08-11-19 Episodic Other disorders of stomach and duodenum (1 source) Other diseases of stomach and duodenum; Translations: [Other diseases of stomach and duodenum] Onset: 09-24-19 Episodic Other gastrointestinal disorders (1 source) Constipation, unspecified; Translations: [Constipation, unspecified] Onset: 10-08-19 Episodic Other lower respiratory disease (3 sources) Multiple nodules of lung; Translations: [Other nonspecific abnormal finding of lung field] Episodic Other lower respiratory disease (1 source) Other nonspecific abnormal finding of lung field; Translations: [Other nonspecific abnormal finding of lung field] Onset: 09-24-19 Episodic Other lower respiratory disease (10 sources) Nodule of lung 10-26-2023 Episodic Other nervous system disorders (7 sources) Cervical myelopathy; Translations: [Cervical spondylosis with myelopathy] Chronic Other nervous system disorders (1 source) Disease of spinal cord, unspecified; Translations: [Disease of spinal cord, unspecified] Onset: 09-04-19 Chronic Other nervous system disorders (7 sources) Abnormal gait; Translations: [Abnormality of gait] Episodic Other nervous system disorders (4 sources) Unsteadiness on feet; Translations: [Unsteadiness on feet] Onset: 09-04-19 Episodic Other nervous system disorders (1 source) Postoperative pain ; Translations: [Other acute postprocedural pain] Onset: 10-08-19 Episodic Other non-traumatic joint disorders (20 sources) Knee pain 12-03-2019 Episodic Other nutritional; endocrine; and metabolic disorders (19 sources) Severe obesity 07-30-2021 Chronic Other screening for suspected conditions (not mental disorders or infectious disease) (20 sources) Bone marrow examination abnormal; Translations: [Unspecified diseases of blood and blood-forming organs] Onset: 09-24-19 Episodic Phlebitis; thrombophlebitis and thromboembolism (1 source) Personal history of other venous thrombosis and embolism; Translations: [PERS HX OTH VENOUS THROMBOSISANDEMBO] Onset: 08-11-19 Episodic Pulmonary heart disease (20 sources) H/O: pulmonary embolus; Translations: [Dilatation of pulmonary artery] Onset: 05-02-19 06 05-23-2018 Episodic Comment on above: Post knee surgery wh ile on Premarin PT STATES WAS PRIOR TO KNEE SURGERY, STATES HAS PE IN EARLY Residual codes; unclassified (19 sources) Obstructive sleep apnea syndrome 12-26-2018 Chronic Residual codes; unclassified (20 sources) Bilateral lower limb edema 07-21-2020 Episodic Residual codes; unclassified (7 sources) H/O: ; Translations: [Personal history of other genital system and obstetric disorders] Episodic Residual codes; unclassified (16 sources) Edema of left lower limb 02-17-2023 Episodi c Residual codes; unclassified (1 source) Localized edema; Translations: [Localized edema] Onset: 10-07-19 Episodic Residual codes; unclassified (7 sources) Edema 11-28-2023 Episodic Secondary malignancies (6 sources) Secondary malignant neoplasm of bone; 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] Chronic Secondary malignancies (8 sources) Secondary malignant neoplasm of bone; Translations: [Secondary malignant neoplasm of bone] Onset: 09-24-19 Chronic Spondylosis; intervertebral disc disorders; other back problems (1 source) Other spondylosis with radiculopathy, cervical region; Translations: [Other spondylosis with radiculopathy, cervical region] Onset: 09-10-19 Chronic Spondylosis; intervertebral disc disorders; other back problems (20 sources) Cervical disc disorder with radiculopathy; Translations: [Brachial neuritis or radiculitis NOS] Onset: 09-04-19 Episodic Thyroid disorders (20 sources) Subclinical hypothyroidism; Translations: [Hypothyroidism, unspecified] Onset: 08-17-1912-26-2018 Chronic Unclassified (20 sources) Patient encounter status 07-21-2020 Unclassified (16 sources) Pain of knee region 08-23-2022 Unclassified (15 sources) Rupture of rotator cuff of shoulder 04-04-2023 Unclassified (10 sources) Fracture of left foot 10-26-2023 Unclassified (10 sources) History of lumbar laminectomy 10-26-2023 Unclassified (7 sources) Abrasion of skin of left lower leg 12-08-2023 Past or Other Problems Problem Classification Problem Date Documented Da te Episodic/Chronic Residual codes; unclassified (2 sources) Localized edema; Translations: [Localized edema] Onset: 02-17-2023 Episodic Unclassified (5 sources) Procedure indicated; Translations: [Procedure indicated] Results Test Name Value Interpretation Reference Range Facility Gastroenterology Visit Repor ton 10-15-2024 Gastroenterology Visit Report [facility] Gastroenterology [address] [place] [address] OFFICE VISIT Date of Service: 10/15/24 MR#: [id number] Acct: [id number] Name: KERRI BURGESS Rep #: [id number] : 1945 Provider: EULA lamar Age/Sex: 79/F Location: [facility] Status: Signed Intake Intake Visit Reasons: Epigastric pain Allergies adhesive tape Allergy (Intermediate, Verified 10/15/24 10:30) Itching apixaban (From Eliquis) Allergy (Intermediate, Verified 10/15/24 10:30) Other latex Allergy (Intermediate, Verified 10/15/24 10:30) Hives oxycodone Allergy (Intermediate, Verified 10/15/24 10:30) Other Penicillins (PCN) Allergy (Intermediate, Verified 10/15/24 10:30) Hives atorvastatin (From Lipitor) Adverse Reaction (Intermediate, Verified 10/15/24 10:30) Other semaglutide (From Rybelsus) Adverse Reaction (Intermediate, Verified 10/15/24 10:30) Other Medications ???Medication ???Instructions ???Recorded ???Confirmed ???Type acetaminophen 500 mg tablet 500 mg PO Q6H PRN 10/11/24 5 History (Tylenol Extra Strength) bumetanide 1 mg tablet 1 mg PO QDAY 10/11/24 10/11/24 His tory colesevelam 625 mg tablet 1,875 mg PO BID 10/11/24 10/11/24 History docusate sodium 100 mg capsule 100 mg PO BID 10/11/24 10/11/24 Hi story (Colace) ibuprofen 800 mg tablet 800 mg PO Q8H 10/11/24 10/11/24 Hi story levothyroxine 50 mcg capsule 50 mcg PO QDAY 10/11/24 10/11/24 H istory lidocaine 5 % topical patch 1 patch topical QDAY 10/11/2409/30 History magnesium oxide 400 mg (241.3 mg 400 mg PO QDAY 10/11/24 10/11/24 H istory magnesium) tablet nebivolol 10 mg tablet 10 mg PO QDAY 10/11/24 10/11/24 Hi story oxybutynin chloride 5 mg tablet 5 mg PO QHS PRN 10/11/24 10/11/24 History pregabalin 50 mg capsule 50 mg PO QDAY 10/11/24 10/11/24 Hi story suzetrigine 50 mg tablet 50 mg PO Q12H 10/11/24 10/11/24 Hi story tizanidine 4 mg capsule 4 mg PO Q8H PRN 10/11/24 10/11/24 History valsartan 320 mg tablet 320 mg PO QDAY 10/11/24 10/11/24 H istory pantoprazole 40 mg tablet,delayed 40 mg PO BID #60 tabs 10/15/24 Rx release sucralfate 1 gram tablet 1 g PO QAC 3 months #270 tabs 09/3010/15/24 Rx Have you fallen in the past year?: No PFSH Medical History (Updated 10/15/24 @ 14:56 by Marilyn Trotter NP-C) Helicobacter pylori (H. pylori) Urinary incontinence Type 2 diabetes mellitus Spasm of back muscles Rotator cuff tear RUQ pain Pulmonary nodule CARISA on CPAP Mid back pain on right side Lumbar stenosis with neurogenic claudication Lesion of bone of cervical spine Hypercholesteremia Pulmonary embolism HTN (hypertension) Left navicular fracture of foot Dilatation of pulmonic artery Dermatographism GERD (gastroesophageal reflux disease) Cervical spine pain Carotid stenosis Bilateral lower extremity edema Bilateral chronic knee pain Arteriosclerotic heart disease (ASHD) Abrasion of left lower leg Abnormal MRI, cervical spine Epigastric pain Surgical History Hx of appendectomy H/O: hysterectomy H/O arthroplasty Hx of cholecystectomy S/P lumbar laminectomy S/P knee replacement Family History Mother Breast cancer Diabetes Sister Hx of CABG Kidney disease Diabetes HLD (hyperlipidemia) Hypertension Father Heart disease Brother Heart disease Social History Smoking Status: Former smoker quit date: 05/02/16 alcohol intake: never HPI HPI Details: KERRI BURGESS, is a 79 F who presents to the office today for establishment with [facility] regarding concerns for epigastric abdominal pain that shoots straight through to her spine. She reports having a history of a thoracic compression fracture, recent MRI, per her report, showed healing of this compression fracture and her orthopedic spine surgeon told her the back pain was not due to her spine. She was given a referral to see pain management and has an appointment in October. She reports dealing with back pain since July of last year and admits to taking more Tylenol and ibuprofen than I should've, and then started having this severe searing epigastric pain in the middle of August of this year. She was on omeprazole 20mg daily, PCP changed to pantoprazole 40mg daily and added famotidine at bedtime. She reports the famotidine caused notable burning sensation after taking, so she has stopped this. She reports frequent throat clearing, abdominal bloating. She states that foods will very briefly reduce the severity of epigastric pain, for about 30 minutes, long enough that I think it's over and then the pain comes back. She denies difficulty chewin (more content not included)... Normal [facility] AMYon 10-05-2024 Amylase [Catalytic activity/Vol] 22 U/L Low 25-115 [facility] Comment on above: Performed By: #### L IP, JENNIFER #### [address] [address] LABORATORYOrdered By: SYSTEM SYSTEM on 10-05-2024 Amylase [Catalytic activity/Vol] 22 U/L Low 25 - 115 U/L AO ADM SS Lipase [Catalytic activity/Vol] 26 U/L Normal 16 - 77 U/L AO ADM SS LIPon 10-05-2024 Lipase Level 26 U/L Normal 16-77 [facility] Comment on above: Performed By: #### L IP, JENNIFER #### [address] [address] [place] MAMMOGRAM SCREENING BILAT ERAL W/TOMOon 09-23-2024 MA MAMMOGRAM SCREENING BILATERAL W/JOSE D ORIGINAL FROM: [facility] [address] [place] [id number] PROCEDURE FOR: KERRI BURGESS [address] [place] [address] Home: Work: PID#: [id number] Exam#: [id number] : 1945 Age: 79 TO: MAY MCKEON MD [place] [phone] Fax: NO FAX EXAMINATION: SCREENING DIGITAL BILATERAL MAMMOGRAM WITH TOMOSYNTHESIS, 09/17/2024 11:29 am TECHNIQUE: Screening mammography of the bilateral breasts was performed with tomosynthesis. 2D standard and 3D tomosynthesis combination imaging performed through both breasts in the MLO and CC projection. Computer aided detection was utilized in the interpretation of this exam. Patient experienced difficulty with positioning. Best possible images were obtained. COMPARISON: January 31, 2023, January 28, 2022, January 08, 2021 HISTORY: Breast cancer screening. FINDINGS: BREAST DENSITY: There are scattered areas of fibroglandular density. There are bilateral benign-type calcifications. There is no significant mass, architectural distortion or microcalcification. Fibroglandular pattern is stable. IMPRESSION: No mammographic evidence of malignancy. Continued screening with annual mammograms is recommended. Keaton Villegas risk calculations, generated with the history provided, report this patient's lifetime risk for developing breast cancer at 4.7%. Based on this assessment tool, if the patient's calculated lifetime risk is below 20%, then the patient is considered at average risk for developing breast cancer. If the patient's calculated lifetime risk is at or above 20%, then the patient is considered high risk for developing breast cancer and may be a candidate for supplemental breast MRI screening in addition to annual mammographic screening per the [employer]. BIRADS: MAMMOGRAM BI-RADS: 2: Benign finding RECALL: 1 year screening RECALL TYPE: mammo LETTER SENT: Normal BI-RADS 1 and 2 Interpreted by: Sydnie Smith Preliminary Report By: Sydnie Smith Electronically signed By Sydnie Smith Dictated Date: 09/23/2024 8:22:24 AM Prelim Date: 09/23/2024 8:24:17 AM Sign Date: 09/23/2024 8:24:17 AM Ordering Provider: MAY MCKEON Hack Saw Operator: OBDULIA OCONNELL RT(R)(M) letter sent: Normal BI-RADS 1 and 2 Mammogram BI-RADS: 2 [facility]ign [facility] Basophil, Absolute 0.0 10 3/mcL Normal 0.0-0.3 [facility] Comment on above: Performed By: #### G FR, A1C, ADIFF, LIPID, VIDH, MG, ANEU, TSH, CMP, CBC ####[place] [address]#### B12 ####[address] [address] Basophils/100 WBC (Bld) 0.7 % Normal 0.0-2.5 [facility] Comment on above: Performed By: #### G FR, A1C, ADIFF, LIPID, VIDH, MG, ANEU, TSH, CMP, CBC ####[place] [address]#### B12 ####[address] [address] Eosinophil, Absolute 0.1 10 3/mcL Normal 0.0-0.7 [facility] Comment on above: Performed By: #### G FR, A1C, ADIFF, LIPID, VIDH, MG, ANEU, TSH, CMP, CBC ####[place] [address]#### B12 ####[address] [address] Eosinophils/100 WBC (Bld) 1.9 % Normal 0.0-6.0 [facility] Comment on above: Performed By: #### G FR, A1C, ADIFF, LIPID, VIDH, MG, ANEU, TSH, CMP, CBC ####[place] [address]#### B12 ####[address] [address] Lymphocyte, Absolute 1.5 10 3/mcL Normal 0.9-4.3 [facility] Comment on above: Performed By: #### G FR, A1C, ADIFF, LIPID, VIDH, MG, ANEU, TSH, CMP, CBC ####[place] [address]#### B12 ####[address] [address] Lymphocytes/100 WBC (Bld) 23.2 % Normal 20.0-40.0 [facility] Comment on above: Performed By: #### G FR, A1C, ADIFF, LIPID, VIDH, MG, ANEU, TSH, CMP, CBC ####[place] [address]#### B12 ####[address] [address] Monocyte, Absolute 0.5 10 3/mcL Normal 0.1-1.4 [facility] Comment on above: Performed By: #### G FR, A1C, ADIFF, LIPID, VIDH, MG, ANEU, TSH, CMP, CBC ####[place] [address]#### B12 ####[address] [address] Monocytes/100 WBC (Bld) 8.3 % Normal 2.0-13.0 [facility] Comment on above: Performed By: #### G FR, A1C, ADIFF, LIPID, VIDH, MG, ANEU, TSH, CMP, CBC ####[place] [address]#### B12 ####[address] [address] Neutrophils/100 WBC (Bld) 65.9 % Normal 50.0-75.0 [facility] Comment on above: Performed By: #### G FR, A1C, ADIFF, LIPID, VIDH, MG, ANEU, TSH, CMP, CBC ####[place] [address]#### B12 ####[address] [address] .GFRon 08-16-2024 Estimated Glomerular Filtration Rate 54 ml/min/1.73sqm Normal [facility] Comment on above: Result Comment: Stages of Chronic Kidney Disease (CKD) Stage Description eGFR(ml/min/1.73 sq.m.) CKD 1 Normal kidney function or >=90 normal kindney function with possible kidney damage (ex. Proteinuria) CKD 2 Kidney damage with mild loss 60-89 of kidney function CKD 3a Mild to moderate loss of kidney 45-59 function CKD 3b Moderate to severe loss of 30-44 of kindey function CKD 4 Severe loss of kidney function 15-29 CKD 5 Kidney failure <15 Note: (go live 2024) the eGFR calculation was updated to the 2020 CKD-EPI creatinine equation without a race factor to calculate the eGFR results. Performed By: #### G FR, A1C, ADIFF, LIPID, VIDH, MG, ANEU, TSH, CMP, CBC ####[place] [address]#### B12 ####[place] [address] .NEUABSon 08-16-2024 Neutrophil, Absolute 4.3 10 3/mcL Normal 2.3-8.1 [facility] Comment on above: Performed By: #### G FR, A1C, ADIFF, LIPID, VIDH, MG, ANEU, TSH, CMP, CBC ####[place] [address]#### B12 ####[place] [address] .Urinalysis Microscopic (AO) on 08-16-2024 UA RBC None Seen Normal None Seen [facility] Comment on above: Performed By: #### M ALBR, UA, UAMICAO ####[place] [id number] [place] [address] UA Renal Epithelial 0-5 Abnormal [facility] Comment on above: Performed By: #### M ALBR, UA, UAMICAO ####[place] [address] UA Squam Epithelial 0-5 Abnormal None Seen [facility] Comment on above: Performed By: #### M ALBR, UA, UAMICAO ####[place] [id number] [place] [address] UA WBC 0-5 Abnormal None Seen [facility] Comment on above: Performed By: #### M ALBR, UA, UAMICAO ####[place] [id number] [place] [id number] A1Con 08-16-2024 Glucose [Mass/Vol] 137 mg/dL Normal [facility] Comment on above: Result Comment: Shahida mated Average Glucose calculated by equation ((28.7xA1C)-46.7) Estimated average glucose (eAG) is a calculated value from Hemoglobin A1C and is employment representative of the average blood glucose level in the last 2-3 month period. Normal range: less than 114 mg/dL Performed By: #### G FR, BMP, MG #### [place] [address] HbA1c (Bld) [Mass fraction] 6.4 % Normal 4.3-6.4 [facility] Comment on above: Performed By: #### G FR, BMP, MG #### [place] [address] B12on 08-16-2024 Cobalamin (Vitamin B12) [Mass/Vol] 738 pg/mL Normal 211-911 [facility] Comment on above: Performed By: #### G FR, BMP, MG #### [place] [address] CBCon 08-16-2024 Erythrocyte distribution width (RBC) [Ratio] 13.9 % Normal 11.5-15.5 [facility] Comment on above: Performed By: #### G FR, A1C, ADIFF, LIPID, VIDH, MG, ANEU, TSH, CMP, CBC ####[place] [address]#### B12 ####[place] [address] Hematocrit (Bld) [Volume fraction] 39.0 % Normal 34.0-46.0 [facility] Comment on above: Performed By: #### G FR, A1C, ADIFF, LIPID, VIDH, MG, ANEU, TSH, CMP, CBC ####[place] [address]#### B12 ####[place] [address] Hgb 13.2 G/dL Normal 12.0-16.0 [facility] Comment on above: Performed By: #### G FR, A1C, ADIFF, LIPID, VIDH, MG, ANEU, TSH, CMP, CBC ####[place] [address]#### B12 ####[place] [address] MCH (RBC) [Entitic mass] 30.1 pg Normal 27.0-33.0 [facility] Comment on above: Performed By: #### G FR, A1C, ADIFF, LIPID, VIDH, MG, ANEU, TSH, CMP, CBC ####[place] [address]#### B12 ####[place] [address] MCHC 33.8 G/dL Normal 32.0-36.0 [facility] Comment on above: Performed By: #### G FR, A1C, ADIFF, LIPID, VIDH, MG, ANEU, TSH, CMP, CBC ####[place] [address]#### B12 ####[place] [address] MCV (RBC) [Entitic vol] 89.2 fL Normal 80.0-99.0 [facility] Comment on above: Performed By: #### G FR, A1C, ADIFF, LIPID, VIDH, MG, ANEU, TSH, CMP, CBC ####[place] [address]#### B12 ####[place] [address] Platelet 185 10 3/mcL Normal 150-450 [facility] Comment on above: Performed By: #### G FR, A1C, ADIFF, LIPID, VIDH, MG, ANEU, TSH, CMP, CBC ####[place] [address]#### B12 ####[place] [address] Platelet mean volume (Bld) [Entitic vol] 9.0 fL Normal 6.6-10.5 [facility] Comment on above: Performed By: #### G FR, A1C, ADIFF, LIPID, VIDH, MG, ANEU, TSH, CMP, CBC ####[place] [address]#### B12 ####[place] [address] RBC 4.37 10 6/mcL Normal 4.10-5.30 [facility] Comment on above: Performed By: #### G FR, A1C, ADIFF, LIPID, VIDH, MG, ANEU, TSH, CMP, CBC ####[place] [address]#### B12 ####[place] [address] WBC 6.6 10 3/mcL Normal 4.5-10.8 [facility] Comment on above: Performed By: #### G FR, A1C, ADIFF, LIPID, VIDH, MG, ANEU, TSH, CMP, CBC ####[place] [address]#### B12 ####[place] [address] CMPon 08-16-2024 Albumin Level 3.6 G/dL Normal 3.4-4.8 [facility] Comment on above: Performed By: #### G FR, A1C, ADIFF, LIPID, VIDH, MG, ANEU, TSH, CMP, CBC ####[place] [address]#### B12 ####[place] [address] Albumin/Globulin [Mass ratio] 0.9 {ratio} Low 1.1-2.5 [facility] Comment on above: Performed By: #### G FR, A1C, ADIFF, LIPID, VIDH, MG, ANEU, TSH, CMP, CBC ####[place] [address]#### B12 ####[place] [address] ALP [Catalytic activity/Vol] 136 U/L High 40-135 [facility] Comment on above: Performed By: #### G FR, A1C, ADIFF, LIPID, VIDH, MG, ANEU, TSH, CMP, CBC ####[place] [address]#### B12 ####[address] [address] ALT [Catalytic activity/Vol] 16 U/L Normal 14-59 [facility] Comment on above: Performed By: #### G FR, A1C, ADIFF, LIPID, VIDH, MG, ANEU, TSH, CMP, CBC ####[place] [address]#### B12 ####[address] [address] AST [Catalytic activity/Vol] 21 U/L Normal 10-40 [facility] Comment on above: Performed By: #### G FR, A1C, ADIFF, LIPID, VIDH, MG, ANEU, TSH, CMP, CBC ####[place] [address]#### B12 ####[address] [address] Bili Total 0.3 mg/dL Normal 0.2-1.0 [facility] Comment on above: Result Comment: Use of this assay is not recommended for patients undergoing treatment with eltrombopag due to the potential for falsely elevated results. Performed By: #### G FR, A1C, ADIFF, LIPID, VIDH, MG, ANEU, TSH, CMP, CBC ####[place] [address]#### B12 ####[address] [address] BUN/Creatinine Ratio 24 ratio Normal 7-27 [facility] Comment on above: Performed By: #### G FR, A1C, ADIFF, LIPID, VIDH, MG, ANEU, TSH, CMP, CBC ####[place] [address]#### B12 ####[address] [address] Calcium [Mass/Vol] 9.3 mg/dL Normal 8.4-10.2 [facility] Comment on above: Performed By: #### G FR, A1C, ADIFF, LIPID, VIDH, MG, ANEU, TSH, CMP, CBC ####[place] [address]#### B12 ####[place] [address] Chloride [Moles/Vol] 104 mmol/L Normal 98-107 [facility] Comment on above: Performed By: #### G FR, A1C, ADIFF, LIPID, VIDH, MG, ANEU, TSH, CMP, CBC ####[place] [address]#### B12 ####[place] [address] CO2 [Moles/Vol] 30 mmol/L Normal 23-31 [facility] Comment on above: Performed By: #### G FR, A1C, ADIFF, LIPID, VIDH, MG, ANEU, TSH, CMP, CBC ####[place] [address]#### B12 ####[place] [address] Creatinine [Mass/Vol] 1.06 mg/dL High 0.55-1.02 [facility] Comment on above: Result Comment: Test ing performed on Siemens Dimension EXL analyzer using a modified kinetic Demario technique. Performed By: #### G FR, A1C, ADIFF, LIPID, VIDH, MG, ANEU, TSH, CMP, CBC ####[place] [address]#### B12 ####[place] [address] Electrolyte Balance 7.0 mEq/L Normal 4.0-15.0 [facility] Comment on above: Performed By: #### G FR, A1C, ADIFF, LIPID, VIDH, MG, ANEU, TSH, CMP, CBC ####[place] [address]#### B12 ####[address] [address] Globulin 4.1 G/dL High 1.5-3.8 [facility] Comment on above: Performed By: #### G FR, A1C, ADIFF, LIPID, VIDH, MG, ANEU, TSH, CMP, CBC ####[place] [address]#### B12 ####[place] [address] Glucose [Mass/Vol] 98 mg/dL Normal 83-110 [facility] Comment on above: Performed By: #### G FR, A1C, ADIFF, LIPID, VIDH, MG, ANEU, TSH, CMP, CBC ####[place] [address]#### B12 ####[place] [address] Potassium [Moles/Vol] 4.4 mmol/L Normal 3.5-5.1 [facility] Comment on above: Performed By: #### G FR, A1C, ADIFF, LIPID, VIDH, MG, ANEU, TSH, CMP, CBC ####[place] [address]#### B12 ####[place] [address] Sodium [Moles/Vol] 141 mmol/L Normal 136-145 [facility] Comment on above: Performed By: #### G FR, A1C, ADIFF, LIPID, VIDH, MG, ANEU, TSH, CMP, CBC ####[place] [address]#### B12 ####[place] [address] Total Protein 7.7 G/dL Normal 6.4-8.2 [facility] Comment on above: Performed By: #### G FR, A1C, ADIFF, LIPID, VIDH, MG, ANEU, TSH, CMP, CBC ####[place] [address]#### B12 ####[address] [address] Urea nitrogen [Mass/Vol] 25 mg/dL High 7-18 [facility] Comment on above: Performed By: #### G FR, A1C, ADIFF, LIPID, VIDH, MG, ANEU, TSH, CMP, CBC ####[place] [address]#### B12 ####[address] [address] LIPIDon 08-16-2024 Cholesterol [Mass/Vol] 210 mg/dL High 0-200 [facility] Comment on above: Result Comment: Chol esterol Reference Interval: Less than 200 Desirable 200-239 Borderline high risk 240 and above High risk Performed By: #### G FR, A1C, ADIFF, LIPID, VIDH, MG, ANEU, TSH, CMP, CBC ####[place] [address]#### B12 ####[address] [address] Cholesterol in HDL [Mass/Vol] 53 mg/dL Normal 40-60 [facility] Comment on above: Performed By: #### G FR, A1C, ADIFF, LIPID, VIDH, MG, ANEU, TSH, CMP, CBC ####[place] [address]#### B12 ####[address] [address] Cholesterol in LDL [Mass/Vol] 115 mg/dL Normal 0-130 [facility] Comment on above: Performed By: #### G FR, A1C, ADIFF, LIPID, VIDH, MG, ANEU, TSH, CMP, CBC ####[place] [address]#### B12 ####[address] [address] Triglyceride [Mass/Vol] 211 mg/dL High 0-150 [facility] Comment on above: Result Comment: Trig lyceride Reference Interval: Less than 150 Normal 150-199 Borderline high risk 200-499 High risk 500 or higher Very high risk Performed By: #### G FR, A1C, ADIFF, LIPID, VIDH, MG, ANEU, TSH, CMP, CBC ####[address] [address]#### B12 ####[address] [address] MALBRon 08-16-2024 U Creatinine 28.1 mg/dL Normal [facility] Comment on above: Performed By: #### M ALBR, UA, UAMICAO #### [address] [address] U Microalb 4.9 mg/L Normal [facility] Comment on above: Performed By: #### M ALBR, UA, UAMICAO #### [address] [address] U Ratio Alb/Cre 17 mg/G Normal 0-30 [facility] Comment on above: Performed By: #### M ALBR, UA, UAMICAO #### [address] [address] MGon 08-16-2024 Magnesium [Mass/Vol] 2.2 mg/dL Normal 1.8-2.4 [facility] Comment on above: Performed By: #### G FR, A1C, ADIFF, LIPID, VIDH, MG, ANEU, TSH, CMP, CBC ####[place] [address]#### B12 ####[place] [address] TSHon 08-16-2024 TSH Qn 3.19 m[IU]/L Normal 0.36-3.74 [facility] Comment on above: Performed By: #### G FR, A1C, ADIFF, LIPID, VIDH, MG, ANEU, TSH, CMP, CBC ####[place] [address]#### B12 ####[address] [address] UAon 08-16-2024 Color (U) Yellow Normal [facility] Comment on above: Performed By: #### M ALBR, UA, UAMICAO ####[address] [place] [address] Glucose (U) [Mass/Vol] Negative Normal Negative [facility] Comment on above: Performed By: #### M ALBR, UA, UAMICAO ####[address] [place] [address] Ketones Ql (U) Negative Normal Negative [facility] Comment on above: Performed By: #### M ALBR, UA, UAMICAO ####Raymundo [address] [place] [address] UA Appear Clear Normal Clear [facility] Comment on above: Performed By: #### M ALBR, UA, UAMICAO ####Raymundo [address] [place] [address] UA Blood Negative Normal Negative [facility] Comment on above: Performed By: #### M ALBR, UA, UAMICAO ####Raymundo [address] [place] [address] UA Leuk Est Small Abnormal Negative [facility] Comment on above: Performed By: #### M ALBR, UA, UAMICAO ####Raymundo [address] [place] [address] UA Nitrite Negative Normal Negative [facility] Comment on above: Performed By: #### M ALBR, UA, UAMICAO ####Raymundo [address] [place] [address] UA pH 5.5 Normal 5.0 - 8.0 [facility] Comment on above: Performed By: #### M ALBR, UA, UAMICAO ####Raymundo [place] [place] [address] UA Protein Negative Normal Negative [facility] Comment on above: Performed By: #### M ALBR, UA, UAMICAO ####Raymundo [address] [place] [address] UA Spec Grav 1.010 Abnormal 1.015-1.025 [facility] Comment on above: Performed By: #### M ALBR, UA, UAMICAO ####Raymundonicolas [address] [place] [address] UA Specimen Type Void Normal [facility] Comment on above: Performed By: #### M ALBR, UA, UAMICAO ####Raymundo [address] [place] [address] UA Urobilinogen 0.2 E.U./dL Normal 0.2-1.0 [facility] Comment on above: Performed By: #### M ALBR, UA, UAMICAO ####Raymundo [address] [place] [address] Urobilinogen (U) [Mass/Vol] Negative Normal Negative [facility] Comment on above: Performed By: #### M ALBR, UA, UAMICAO ####Raymundo [address] [place] [address] VIDHon 08-16-2024 Vit. D 25-Hydroxy 41.2 ng/mL Normal [facility] Comment on above: Result Comment: Inte rpretive Values Based on Total 25(OH) Vitamin D: Deficient <20 ng/mL Insufficient 20 - <30 ng/mL Sufficient 30-100 ng/mL Performed By: #### G FR, BMP, MG #### [place] [address] MRI SPINE LUMBAR W/ + W/O CO NTRASTon 07-20-2024 MRI SPINE LUMBAR W/ + W/O CONTRAST ORIGINAL EXAMINATION: MRI OF THE LUMBAR SPINE WITHOUT AND WITH CONTRAST 07/19/2024 4:29 pm TECHNIQUE: Multiplanar multisequence MRI of the lumbar spine was performed without and with the administration of intravenous contrast. COMPARISON: Lumbosacral spine with flexion and extension views 07/04/2024. HISTORY: ORDERING SYSTEM PROVIDED HISTORY: Reason for Exam: SPINAL INSTABILITY 200 FINDINGS: BONES/ALIGNMENT: Status post laminectomy L4-L5. Normal postoperative enhancement is noted. 3-4 mm of anterolisthesis of L4 on L5. Approximately 6 mm of anterolisthesis of L5 on S1. There is a Schmorl's node in compression deformity of the superior endplate of L3 which appears chronic. Hemangioma of bone within the superior L1 vertebral body. SPINAL CORD: The conus terminates normally. SOFT TISSUES: No abnormal enhancement is seen of the lumbar spine. No paraspinal mass identified. L1-L2: No herniated disc or nerve root impingement. L2-L3: Annular bulging of disc without significant canal or foraminal narrowing. L3-L4: Hypertrophic facet arthropathy with moderate bilateral foraminal narrowing right greater than left. L4-L5: Laminectomy. Hypertrophic facet arthropathy with grade 1 anterolisthesis of L4 on L5. Moderate bilateral foraminal narrowing left greater than right. L5-S1: Severe hypertrophic facet arthropathy with grade 1 anterolisthesis of L5 on S1. No significant canal or foraminal stenosis in the neutral position. IMPRESSION: Postoperative changes L4-L5. Old compression deformity and Schmorl's node in the superior endplate of L3. Foraminal narrowing greatest at L3-L4 and L4-L5 on the left. Interpreted by: Alok Mckeon Preliminary Report By: Alok Mckeon Electronically signed By Alok Mckeon Dictated Date: 07/20/2024 5:10:25 AM Prelim Date: 07/20/2024 5:15:04 AM Sign Date: 07/20/2024 5:15:04 AM Ordering Provider: GALA SONG [facility] MRI SPINE THORACIC W/ + W/O CONTRASTon 07-20-2024 MRI SPINE THORACIC W/ + W/O CONTRAST ORIGINAL EXAMINATION: MRI OF THE THORACIC SPINE WITHOUT AND WITH CONTRAST 07/19/2024 4:30 pm TECHNIQUE: Multiplanar multisequence MRI of the thoracic spine was performed without and with the administration of intravenous contrast. COMPARISON: Thoracic spine 07/04/2024. MRI lumbar spine 07/19/2024. HISTORY: ORDERING SYSTEM PROVIDED HISTORY: Reason for Exam: SPINAL INSTABILITY 200 FINDINGS: BONES/ALIGNMENT: There is normal alignment of the spine. The vertebral body heights are maintained. The bone marrow signal appears unremarkable. Incidental hemangioma of bone superior endplate L1. SPINAL CORD: No abnormal cord signal is seen. SOFT TISSUES: No abnormal enhancement of the thoracic spine. No paraspinal mass identified. DEGENERATIVE CHANGES: No significant spinal canal stenosis or neural foraminal narrowing of the thoracic spine. Mild multilevel degenerative disc space narrowing. IMPRESSION: Mild degenerative disc space narrowing. Unremarkable MRI examination of the thoracic spine. Interpreted by: Alok Mckeon Preliminary Report By: Alok Mckeon Electronically signed By Alok Mckeon Dictated Date: 07/20/2024 5:15:16 AM Prelim Date: 07/20/2024 5:17:26 AM Sign Date: 07/20/2024 5:17:26 AM Ordering Provider: GALA SONG [facility] XR SPINE LUMBAR AP/LAT/FLEX/ EXTon 07-05-2024 XR SPINE LUMBAR AP/LAT/FLEX/EXT ORIGINAL EXAMINATION: 4 x-ray views of the lumbar spine, including lateral flexion and extension views. 07/04/2024 2:26 pm COMPARISON: CT abdomen and pelvis on 09/23/2022. Lumbar spine x-ray series on 10/20/2017 HISTORY: ORDERING SYSTEM PROVIDED HISTORY: Reason for Exam: Mid to low back pain. History of L4-L5 laminectomy 2023 FINDINGS: There are 5 lumbar vertebrae. Laminectomy at the L4-L5 level has been performed. The alignment of the lumbar spine is remarkable for 5 mm of anterolisthesis of L4 on L5 and L5 on S1. With flexion of the lumbar spine anterolisthesis at the L5-S1 level increases to 8 mm. There is mild depression of superior endplate of L3 vertebral body that is new since 2022. There is no overall height loss at L3. Small bone island in L3 vertebral body is unchanged. Other vertebral bodies are normal in height also. There is moderate multilevel degenerative disc disease with disc space narrowing and endplate degenerative spur formation throughout the lumbar spine. Moderate degenerative facet joint narrowing and spur formation is also present, greatest at L4-L5 and L5-S1. There is no evidence of spondylolysis. Sacroiliac joints have normal alignment. IMPRESSION: 1. Grade 1 anterolisthesis of L4 on L5 and L5 on S1. Mild instability at L5-S1 with subluxation increasing from 5-8 mm with flexion of the spine. 2. Mild depression of superior endplate of L3 vertebral body is new since 2022. 3. Moderate multilevel lumbar spondylosis. 4. Laminectomy at L4-L5. Interpreted by: Juan Carlos Price MD Preliminary Report By: Juan Carlos Price MD Electronically signed By Juan Carlos Price MD Dictated Date: 07/05/2024 12:29:43 AM Prelim Date: 07/05/2024 12:35:51 AM Sign Date: 07/05/2024 12:35:51 AM Ordering Provider: GALAGIANLUCA SONG [facility] MAIN XR SPINE THORACIC 2 VIEWSon 07-05-2024 XR SPINE THORACIC 2 VIEWS ORIGINAL EXAMINATION: TWO XRAY VIEWS OF THE THORACIC SPINE 07/04/2024 2:21 pm COMPARISON: Thoracic spine x-ray on 02/19/2023. HISTORY: ORDERING SYSTEM PROVIDED HISTORY: Reason for Exam: Mid back pain, mostly at T7 and T8 FINDINGS: The thoracic spine alignment is normal. Thoracic vertebral bodies are normal in height with no sign of fracture or destructive lesion. There is mild narrowing of intervertebral disc spaces in the thoracic spine and mild endplate osteophytic spur formation. Visible portions of posterior elements and ribs are unremarkable. There has been no significant change since 02/19/2023. IMPRESSION: 1. Mild thoracic spondylosis. 2. No subluxation or fracture. Interpreted by: Juan Carlos Price MD Preliminary Report By: Juan Carlos Price MD Electronically signed By Juan Carlos Price MD Dictated Date: 07/05/2024 12:58:37 AM Prelim Date: 07/05/2024 1:00:02 AM Sign Date: 07/05/2024 1:00:02 AM Ordering Provider: GALA [facility] MAIN XR CHEST 2 VIEWSon XR CHEST 2 VIEWS ORIGINAL EXAMINATION: TWO XRAY VIEWS OF THE CHEST07/04/2024 2:14 pm COMPARISON: 10/31/[address] thorax 11/21/2023 HISTORY: ORDERING SYSTEM PROVIDED HISTORY: Reason for Exam: Right sided thoracic paraspinal muscle tendnerness/rib pain after a fall FINDINGS: Cardiomediastinal contours are within normal limits. Aortic atherosclerosis. No focal consolidation or pulmonary edema. No pneumothorax or pleural effusion. No acute osseous abnormalities. Degenerative changes of the spine. Surgical clips are noted within the right upper quadrant. IMPRESSION: No acute radiographic findings. I have personally reviewed the images of this examination and agree with the resident's findings and interpretation. Interpreted by: Vasquez Peters Preliminary Report By: Diamond Peralta Electronically signed By Vasquez Peters Dictated Date: 07/04/2024 3:25:59 PM Prelim Date: 07/04/2024 5:40:49 PM Sign Date: 07/04/2024 5:40:49 PM Ordering Provider: GALA SONG [facility] .GFRon 03-16-2024 GFR 60 ml/min/1.73sqm [facility] Comment on above: Result Comment: GFR Population mean for , Non- Americans Ages 20-29 = 116 mL/min/1.73 sq.m. Ages 30-39 = 107 mL/min/1.73 sq.m. Ages 40-49 = 99 mL/min/1.73 sq.m. Ages 50-59 = 93 mL/min/1.73 sq.m. Ages 60-69 = 85 mL/min/1.73 sq.m. Ages 70+ = 75 mL/min/1.73 sq.m. Chronic Kidney Disease: Less than 60 mL/min/1.73 square meters End Stage Renal Disease: Less than 15 mL/min/1.73 square meters Performed By: #### G FR, BMP, MG #### [place] [address] [place], [place] [address] GFR Non- 49 ml/min/1.73sqm [facility] Comment on above: Result Comment: GFR Population mean for , Non- Americans Ages 20-29 = 116 mL/min/1.73 sq.m. Ages 30-39 = 107 mL/min/1.73 sq.m. Ages 40-49 = 99 mL/min/1.73 sq.m. Ages 50-59 = 93 mL/min/1.73 sq.m. Ages 60-69 = 85 mL/min/1.73 sq.m. Ages 70+ = 75 mL/min/1.73 sq.m. Chronic Kidney Disease: Less than 60 mL/min/1.73 square meters End Stage Renal Disease: Less than 15 mL/min/1.73 square meters Performed By: #### G FR, BMP, MG #### [place] [address] [place], [place] [address] .Urinalysis Microscopic (AO) on 03-16-2024 UA RBC 0-5 Abnormal None Seen [facility] Comment on above: Performed By: #### U A, UAMICAO #### [address] [address] UA Squam Epithelial 0-5 Abnormal None Seen [facility] Comment on above: Performed By: #### U A, UAMICAO #### [address] [address] UA WBC 0-5 Abnormal None Seen [facility] Comment on above: Performed By: #### U A, UAMICAO #### [address] [address] BMPon 03-16-2024 BUN/Creatinine Ratio 24 ratio Normal 7-27 [facility] Comment on above: Performed By: #### G FR, BMP, MG #### [address] [address] Calcium [Mass/Vol] 9.2 mg/dL Normal 8.4-10.2 [facility] Comment on above: Performed By: #### G FR, BMP, MG #### [address] [address] Chloride [Moles/Vol] 105 mmol/L Normal 98-107 [facility] Comment on above: Performed By: #### G FR, BMP, MG #### [address] [address] CO2 [Moles/Vol] 28 mmol/L Normal 23-31 [facility] Comment on above: Performed By: #### G FR, BMP, MG #### [address] [address] Creatinine [Mass/Vol] 1.08 mg/dL High 0.55-1.02 [facility] Comment on above: Result Comment: Test ing performed on Siemens Dimension EXL analyzer using a modified kinetic Demario technique. Performed By: #### G FR, BMP, MG #### [address] [address] Electrolyte Balance 9.0 mEq/L Normal 4.0-15.0 [facility] Comment on above: Performed By: #### G FR, BMP, MG #### [facility] [address] [place], [place] [address] Glucose [Mass/Vol] 95 mg/dL Normal 83-110 [facility] Comment on above: Performed By: #### G FR, BMP, MG #### [facility] [address] [place], [place] [address] Potassium [Moles/Vol] 5.3 mmol/L High 3.5-5.1 [facility] Comment on above: Performed By: #### G FR, BMP, MG #### [place] [address] [place], [place] [address] Sodium [Moles/Vol] 142 mmol/L Normal 136-145 [facility] Comment on above: Performed By: #### G FR, BMP, MG #### [facility] [address] [place], [place] [address] Urea nitrogen [Mass/Vol] 26 mg/dL High 7-18 [facility] Comment on above: Performed By: #### G FR, BMP, MG #### [facility] [address] [place], [place] [address] LABORATORYOrdered By: Deshawn reyna on 03-16-2024 Appearance (U) Clear (03/16/24 1:23 PM) Normal AO Auto Urine SS Bilirubin Ql (U) Negative (03/16/24 1:23 PM) Normal AO Auto Urine SS Color (U) Yellow (03/16/24 1:23 PM) Normal AO Auto Urine SS Glucose Test strip (U) [Mass/Vol] Negative Normal AO Auto Urine SS Hemoglobin Auto test strip (U) [Mass/Vol] Negative (03/16/24 1:23 PM) Normal AO Auto Urine SS Ketones Ql (U) Negative Normal AO Auto Ur ine SS UA Leuk Est Small *ABN* (03/16/24 1:23 PM) Invalid Interpretation Code AO Auto Urine SS UA Nitrite Negative (03/16/24 1:23 PM) Normal AO Auto Urine SS UA pH 5.5 (03/16/24 1:23 PM) Normal AO Auto Urine SS UA Protein Negative Normal AO Auto Urine SS UA RBC 0-5 /HPF Invalid Interpretation Code AO Auto Urine SS UA Spec Grav 1.015 (03/16/24 1:23 PM) Normal AO Auto Urine SS UA Specimen Type Void (03/16/24 1:23 PM) Normal AO Auto Urine SS UA Squam Epithelial 0-5 /HPF Invalid Interpretation Code AO Auto Urine SS UA Urobilinogen 0.2 E.U./dL Normal AO Auto Urine SS WBC LM.HPF (Urine sed) [#/Area] 0-5 /HPF Invalid Interpretation Code AO Auto Urine SS LABORATORYOrdered By: SYSTEM SYSTEM on 03-16-2024 Calcium [Mass/Vol] 9.2 mg/dL Normal 8.4 - 10. 2 mg/dL AO ADM SS Chloride [Moles/Vol] 105 mmol/L Normal 98 - 10 7 mmol/L AO ADM SS CO2 [Moles/Vol] 28 mmol/L Normal 23 - 31 mmol/L AO ADM SS Creatinine [Mass/Vol] 1.08 mg/dL High 0.55 - 1.02 mg/dL AO ADM SS Comment on above: Interpretive Data: T esting performed on [employer] Dimension EXL analyzer using a modified kinetic Demario technique. Electrolyte Balance 9.0 mEq/L Normal 4.0 - 15 .0 mEq/L AO ADM SS GFR/1.73 sq M.predicted among blacks MDRD (S/P/Bld) [Vol rate/Area] 60 ml/min/1.73sqm Invalid Interpretation Code AO Chemistry S Comment on above: Interpretive Data: GFR Population mean for , Non- Americans Ages 20-29 = 116 mL/min/1.73 sq.m. Ages 30-39 = 107 mL/min/1.73 sq.m. Ages 40-49 = 99 mL/min/1.73 sq.m. Ages 50-59 = 93 mL/min/1.73 sq.m. Ages 60-69 = 85 mL/min/1.73 sq.m. Ages 70+ = 75 mL/min/1.73 sq.m. Chronic Kidney Disease: Less than 60 mL/min/1.73 square meters End Stage Renal Disease: Less than 15 mL/min/1.73 square meters GFR/1.73 sq M.predicted among non-blacks MDRD (S/P/Bld) [Vol rate/Area] 49 ml/min/1.73sqm Invalid Interpretation Code AO Chemistry S Comment on above: Interpretive Data: GFR Population mean for , Non- Americans Ages 20-29 = 116 mL/min/1.73 sq.m. Ages 30-39 = 107 mL/min/1.73 sq.m. Ages 40-49 = 99 mL/min/1.73 sq.m. Ages 50-59 = 93 mL/min/1.73 sq.m. Ages 60-69 = 85 mL/min/1.73 sq.m. Ages 70+ = 75 mL/min/1.73 sq.m. Chronic Kidney Disease: Less than 60 mL/min/1.73 square meters End Stage Renal Disease: Less than 15 mL/min/1.73 square meters Glucose [Mass/Vol] 95 mg/dL Normal 83 - 110 mg/dL AO ADM SS Magnesium [Mass/Vol] 2.2 mg/dL Normal 1.8 - 2 .4 mg/dL AO ADM SS Potassium [Moles/Vol] 5.3 mmol/L High 3.5 - 5.1 mmol/L AO ADM SS Sodium [Moles/Vol] 142 mmol/L Normal 136 - 145 mmol/L AO ADM SS Urea nitrogen [Mass/Vol] 26 mg/dL High 7 - 18 mg/dL AO ADM SS Urea nitrogen/Creatinine [Mass ratio] 24 ratio Normal 7 - 27 ratio AO ADM SS MGon 03-16-2024 Magnesium [Mass/Vol] 2.2 mg/dL Normal 1.8-2.4 [facility] Comment on above: Performed By: #### G FR, BMP, MG #### [address] [address] UAon 03-16-2024 Color (U) Yellow Normal [facility] Comment on above: Performed By: #### U A, UAMICAO #### [address] [address] Glucose (U) [Mass/Vol] Negative Normal Negative [facility] Comment on above: Performed By: #### U A, UAMICAO #### [address] [address] Ketones Ql (U) Negative Normal Negative [facility] Comment on above: Performed By: #### U A, UAMICAO #### [place] [address] UA Appear Clear Normal Clear [facility] Comment on above: Performed By: #### U A, UAMICAO #### [place] [address] UA Blood Negative Normal Negative [facility] Comment on above: Performed By: #### U A, UAMICAO #### [place] [address] UA Leuk Est Small Abnormal Negative [facility] Comment on above: Performed By: #### U A, UAMICAO #### [place] [address] UA Nitrite Negative Normal Negative [facility] Comment on above: Performed By: #### U A, UAMICAO #### [place] [address] UA pH 5.5 Normal 5.0 - 8.0 [facility] Comment on above: Performed By: #### U A, UAMICAO #### [place] [address] UA Protein Negative Normal Negative [facility] Comment on above: Performed By: #### U A, UAMICAO #### [place] [address] UA Spec Grav 1.015 Normal 1.015-1.025 [facility] Comment on above: Performed By: #### U A, UAMICAO #### [place] [address] UA Specimen Type Void Normal [facility] Comment on above: Performed By: #### U A, UAMICAO #### [place] [address] UA Urobilinogen 0.2 E.U./dL Normal 0.2-1.0 [facility] Comment on above: Performed By: #### U A, UAMICAO #### [facility] [address] [place], [place] [address] Urobilinogen (U) [Mass/Vol] Negative Normal Negative [facility] Comment on above: Performed By: #### U MARIANELA Paredes #### [facility] [address] [place], [place] [address] CT THORAX W/ CONTRASTon 10-31 CT THORAX W/ CONTRAST ORIGINAL EXAMINATION: CT OF THE CHEST WITH CONTRAST11/21/2023 4:31 pm TECHNIQUE: CT of the chest was performed with the administration of intravenous contrast. Multiplanar reformatted images are provided for review. Automated exposure control, iterative reconstruction, and/or weight based adjustment of the mA/kV was utilized to reduce the radiation dose to as low as reasonably achievable. COMPARISON: Chest x-ray 10/31/2023, CT chest 09/23/2022, CTA chest 01/22/2012 HISTORY: ORDERING SYSTEM PROVIDED HISTORY: Reason for Exam: lung nodule identified on CXR - incidental finding nodule follow up, CXR done @ [facility]. pt states that she fell in july and is having rt sided rib pain. denies CP and SOB. former smoker FINDINGS: The heart size is within normal limits.There is no pericardial thickening or effusion.Multi-vessel coronary artery atherosclerotic irregularity. Suspected aortic valve calcification.Nonaneu rysmal atherosclerotic thoracic aorta. Slightly dilated main pulmonary artery, 3.0 cm; this suggests pulmonary hypertension. The visualized trachea and mainstem bronchi are patent. No pneumothorax or pleural effusion.No pulmonary consolidation.Bibasil ar dependent atelectatic change. Scattered areas of minimal pleural and parenchymal scarring. 3-4 mm triangular shaped subpleural nodule within the right middle lobe is stable dating back to at least the 2011 exam (image 235, series 3). Borderline eccentric right precarinal lymph node up to 1.0 cm, similar to the prior exam. No acute osseous abnormality. No aggressive osseous lesions.Varying degrees of mostly mild multifocal degenerative changes. Surgically absent gallbladder.No acute or suspicious abnormality within the partially visualized upper abdomen. IMPRESSION: No abnormality corresponding to the nodule seen on the prior chest x-ray. Atherosclerosis with coronary artery calcifications Large pulmonary arteries can be an indicator of pulmonary arterial hypertension. I have personally reviewed the images of this examination and agree with the resident's findings and interpretation. Interpreted by: Patric Wiseman MD Preliminary Report By: Heriberto Murrieta Electronically signed By Patric Wiseman MD Dictated Date: 11/23/2023 9:48:15 AM Prelim Date: 11/23/2023 10:16:36 AM Sign Date: 11/23/2023 10:16:36 AM Ordering Provider: MAY MCKEON [facility] ([place]) XR CHEST 2 VIEWSon XR CHEST 2 VIEWS ORIGINAL EXAMINATION: TWO XRAY VIEWS OF THE CHEST 10/31/2023 10:58 am COMPARISON: September 30, 2023 HISTORY: ORDERING SYSTEM PROVIDED HISTORY: Reason for Exam: possible pulmonary nodule on CXR 09/30/23 - f/u study FINDINGS: Cholecystectomy clips are noted. The cardiomediastinal silhouette is normal in width and contour. Previously described nodular retrocardiac/infrahil ar left 1 cm opacity is not significantly changed. There is atherosclerotic calcification of the aortic arch. There is no focal consolidation, pleural effusion or pneumothorax. No acutely displaced fracture is identified. Visualized osseous structures are unremarkable. IMPRESSION: Unchanged indeterminate 1 cm left infrahilar/retrocardi ac nodular pulmonary opacity. Chest CT scan, preferably with intravenous contrast material, is recommended for further characterization. Interpreted by: Sydnie Smith Preliminary Report By: Sydnie Smith Electronically signed By Sydnie Smith Dictated Date: 10/31/2023 11:37:21 AM Prelim Date: 10/31/2023 11:39:59 AM Sign Date: 10/31/2023 11:39:59 AM Ordering Provider: MAY MCKEON [facility] ([place]) .GFRon 10-08-2023 GFR >60 Normal [facility] ([place]) Comment on above: Result Comment: GFR Population mean for , Non- Americans Ages 20-29 = 116 mL/min/1.73 sq.m. Ages 30-39 = 107 mL/min/1.73 sq.m. Ages 40-49 = 99 mL/min/1.73 sq.m. Ages 50-59 = 93 mL/min/1.73 sq.m. Ages 60-69 = 85 mL/min/1.73 sq.m. Ages 70+ = 75 mL/min/1.73 sq.m. Chronic Kidney Disease: Less than 60 mL/min/1.73 square meters End Stage Renal Disease: Less than 15 mL/min/1.73 square meters Performed By: #### C RE, BUN, GFR #### [place] [address] GFR Non- 58 ml/min/1.73sqm Normal [facility] ([place]) Comment on above: Result Comment: GFR Population mean for , Non- Americans Ages 20-29 = 116 mL/min/1.73 sq.m. Ages 30-39 = 107 mL/min/1.73 sq.m. Ages 40-49 = 99 mL/min/1.73 sq.m. Ages 50-59 = 93 mL/min/1.73 sq.m. Ages 60-69 = 85 mL/min/1.73 sq.m. Ages 70+ = 75 mL/min/1.73 sq.m. Chronic Kidney Disease: Less than 60 mL/min/1.73 square meters End Stage Renal Disease: Less than 15 mL/min/1.73 square meters Performed By: #### C RE, BUN, GFR #### [place] [address] BUNon 10-08-2023 Urea nitrogen [Mass/Vol] 12.0 mg/dL Normal 8.0-22.0 [facility] ([place]) Comment on above: Performed By: #### C RE, BUN, GFR #### [place] [address] CREon 10-08-2023 Creatinine [Mass/Vol] 0.94 mg/dL Normal 0.50-1.20 [facility] ([place]) Comment on above: Performed By: #### C RE, BUN, GFR #### [place] [address] LABORATORYOrdered By: SYSTEM SYSTEM on 10-08-2023 Creatinine [Mass/Vol] 0.94 mg/dL Normal 0.50 - 1.20 mg/dL ADM SS GFR/1.73 sq M.predicted among blacks MDRD (S/P/Bld) [Vol rate/Area] ml/min/1.73sqm Invalid Interpretation Code Chemistry S Comment on above: Interpretive Data: GFR Population mean for , Non- Americans Ages 20-29 = 116 mL/min/1.73 sq.m. Ages 30-39 = 107 mL/min/1.73 sq.m. Ages 40-49 = 99 mL/min/1.73 sq.m. Ages 50-59 = 93 mL/min/1.73 sq.m. Ages 60-69 = 85 mL/min/1.73 sq.m. Ages 70+ = 75 mL/min/1.73 sq.m. Chronic Kidney Disease: Less than 60 mL/min/1.73 square meters End Stage Renal Disease: Less than 15 mL/min/1.73 square meters GFR/1.73 sq M.predicted among non-blacks MDRD (S/P/Bld) [Vol rate/Area] 58 ml/min/1.73sqm Invalid Interpretation Code [employer] Chemistry S Comment on above: Interpretive Data: GFR Population mean for , Non- Americans Ages 20-29 = 116 mL/min/1.73 sq.m. Ages 30-39 = 107 mL/min/1.73 sq.m. Ages 40-49 = 99 mL/min/1.73 sq.m. Ages 50-59 = 93 mL/min/1.73 sq.m. Ages 60-69 = 85 mL/min/1.73 sq.m. Ages 70+ = 75 mL/min/1.73 sq.m. Chronic Kidney Disease: Less than 60 mL/min/1.73 square meters End Stage Renal Disease: Less than 15 mL/min/1.73 square meters Urea nitrogen [Mass/Vol] 12.0 mg/dL Normal 8.0 - 22.0 mg/dL ADM SS XR FLUORO 1-2 HRS TECH TIMEo n 10-07-2023 XR FLUORO 1-2 HRS TECH TIME ORIGINAL EXAMINATION: SPOT FLUOROSCOPIC IMAGES 10/07/2023 10:42 am TECHNIQUE: Fluoroscopy was provided by the radiology department for procedure. Radiologist was not present during examination. FLUOROSCOPY DOSE AND TYPE: Radiation Exposure Index: Radiation dose was 10.7 mGy air kerma. Fluoroscopy time was 11.7 seconds., COMPARISON: None HISTORY: ORDERING SYSTEM PROVIDED HISTORY: Reason for Exam: LUMBAR PAIN Intraprocedural imaging. FINDINGS: 3 intraoperative images show instrumentation of the spine near the L3-4 level. Degenerative changes seen in the spine. IMPRESSION: Intraprocedural fluoroscopic spot images. Please see the operative note for full description of the lumbar spine. Interpreted by: Patric Wiseman MD Preliminary Report By: Patric Wiseman MD Electronically signed By Patric Wiseman MD Dictated Date: 10/07/2023 12:09:18 PM Prelim Date: 10/07/2023 12:09:59 PM Sign Date: 10/07/2023 12:09:59 PM Ordering Provider: GHULAM Mota [facility] ([place]) .Auto Diffon 09-30-2023 Basophil, Absolute 0.0 10 3/mcL Normal 0.0-0.3 [facility] ([place]) Comment on above: Performed By: #### C RE, BUN, GFR #### [address] [address] Basophils/100 WBC (Bld) 0.5 % Normal 0.0-2.5 [facility] ([place]) Comment on above: Performed By: #### C RE, BUN, GFR #### [address] [address] Eosinophil, Absolute 0.2 10 3/mcL Normal 0.0-0.7 [facility] ([place]) Comment on above: Performed By: #### C RE, BUN, GFR #### [address] [address] Eosinophils/100 WBC (Bld) 3.2 % Normal 0.0-6.0 [facility] ([place]) Comment on above: Performed By: #### C RE, BUN, GFR #### [address] [address] Lymphocyte, Absolute 1.2 10 3/mcL Normal 0.9-4.3 [facility] ([place]) Comment on above: Performed By: #### C RE, BUN, GFR #### [address] [address] Lymphocytes/100 WBC (Bld) 20.5 % Normal 20.0-40.0 [facility] ([place]) Comment on above: Performed By: #### C RE, BUN, GFR #### [address] [address] Monocyte, Absolute 0.7 10 3/mcL Normal 0.1-1.4 [facility] ([place] Comment on above: Performed By: #### C RE, BUN, GFR #### [address] [address] Monocytes/100 WBC (Bld) 10.7 % Normal 2.0-13.0 [facility] ([place]) Comment on above: Performed By: #### C RE, BUN, GFR #### [address] [address] Neutrophils/100 WBC (Bld) 65.1 % Normal 50.0-75.0 [facility] ([place] Comment on above: Performed By: #### C RE, BUN, GFR #### [address] [address] .GFRon 09-30-2023 GFR >60 Normal [facility] ([place]) Comment on above: Result Comment: GFR Population mean for , Non- Americans Ages 20-29 = 116 mL/min/1.73 sq.m. Ages 30-39 = 107 mL/min/1.73 sq.m. Ages 40-49 = 99 mL/min/1.73 sq.m. Ages 50-59 = 93 mL/min/1.73 sq.m. Ages 60-69 = 85 mL/min/1.73 sq.m. Ages 70+ = 75 mL/min/1.73 sq.m. Chronic Kidney Disease: Less than 60 mL/min/1.73 square meters End Stage Renal Disease: Less than 15 mL/min/1.73 square meters Performed By: #### C RE, BUN, GFR #### [address] [address] GFR Non- 60 ml/min/1.73sqm Normal [facility] ([place]) Comment on above: Result Comment: GFR Population mean for , Non- Americans Ages 20-29 = 116 mL/min/1.73 sq.m. Ages 30-39 = 107 mL/min/1.73 sq.m. Ages 40-49 = 99 mL/min/1.73 sq.m. Ages 50-59 = 93 mL/min/1.73 sq.m. Ages 60-69 = 85 mL/min/1.73 sq.m. Ages 70+ = 75 mL/min/1.73 sq.m. Chronic Kidney Disease: Less than 60 mL/min/1.73 square meters End Stage Renal Disease: Less than 15 mL/min/1.73 square meters Performed By: #### C RE, BUN, GFR #### [address] [address] .NEUABSon 09-30-2023 Neutrophil, Absolute 4.0 10 3/mcL Normal 2.3-8.1 [facility] ([place]) Comment on above: Performed By: #### C RE, BUN, GFR #### [place] [address] APTTon 09-30-2023 aPTT Coag (Bld) [Time] 30.1 s Normal 25.0-35.0 [facility] ([place]) Comment on above: Result Comment: For Heparin anticoagulation therapy, the recommended therapeutic range is: 54-77 seconds (APTT Correlation with Anti-Xa therapeutic range of 0.3-0.7 units/ml). PLEASE REFERENCE THE PHARMACY PROTOCOL FOR DOSING. Performed By: #### C RE, BUN, GFR #### [address] [address] Heparin dose (APTT) None Normal [facility] ([place] Comment on above: Performed By: #### C RE, BUN, GFR #### [address] [address] CBCon 09-30-2023 Erythrocyte distribution width (RBC) [Ratio] 14.1 % Normal 11.5-15.5 [facility] ([place]) Comment on above: Performed By: #### C RE, BUN, GFR #### [address] [address] Hematocrit (Bld) [Volume fraction] 36.8 % Normal 34.0-46.0 [facility] ([place] Comment on above: Performed By: #### C RE, BUN, GFR #### [address] [address] Hgb 12.6 G/dL Normal 12.0-16.0 [facility] ([place] Comment on above: Performed By: #### C RE, BUN, GFR #### [address] [address] MCH (RBC) [Entitic mass] 30.8 pg Normal 27.0-33.0 [facility] ([place] Comment on above: Performed By: #### C RE, BUN, GFR #### [address] [address] MCHC 34.2 G/dL Normal 32.0-36.0 [facility] ([place] Comment on above: Performed By: #### C RE, BUN, GFR #### [place] [address] MCV (RBC) [Entitic vol] 90.0 fL Normal 80.0-99.0 [facility] ([place]) Comment on above: Performed By: #### C RE, BUN, GFR #### [place] [address] Platelet 179 10 3/mcL Normal 150-450 [facility] ([place]) Comment on above: Performed By: #### C RE, BUN, GFR #### [place] [address] Platelet mean volume (Bld) [Entitic vol] 8.0 fL Normal 6.6-10.5 [facility] ([place]) Comment on above: Performed By: #### C RE, BUN, GFR #### [place] [address] RBC 4.09 10 6/mcL Low 4.10-5.30 [facility] ([place]) Comment on above: Performed By: #### C RE, BUN, GFR #### [place] [id number] WBC 6.1 10 3/mcL Normal 4.5-10.8 [facility] ([place] Comment on above: Performed By: #### C RE, BUN, GFR #### [address] [address] CMPon 09-30-2023 Albumin Level 3.3 G/dL Normal 3.2-4.8 [facility] ([place] Comment on above: Performed By: #### C RE, BUN, GFR #### [address] [address] Albumin/Globulin [Mass ratio] 1.0 {ratio} Normal 0.9-1.6 [facility] ([place] Comment on above: Performed By: #### C RE, BUN, GFR #### [address] [address] ALP [Catalytic activity/Vol] 161 U/L High 38-126 [facility] ([place] Comment on above: Performed By: #### C RE, BUN, GFR #### [place] [id number] ALT [Catalytic activity/Vol] 23 U/L Normal 10-49 [facility] ([place]) Comment on above: Performed By: #### C RE, BUN, GFR #### [address] [address] AST [Catalytic activity/Vol] 21 U/L Normal 8-34 [facility] ([place] Comment on above: Performed By: #### C RE, BUN, GFR #### [place] [address] Bili Total 0.40 mg/dL Normal 0.20-1.20 [facility] ([place]) Comment on above: Result Comment: Use of this assay is not recommended for patients undergoing treatment with eltrombopag due to the potential for falsely elevated results. Performed By: #### C RE, BUN, GFR #### [place] [id number] BUN/Creatinine Ratio 23.1 ratio High 10.0-22.0 [facility] ([place] Comment on above: Performed By: #### C RE, BUN, GFR #### [place] [id number] Calcium [Mass/Vol] 9.1 mg/dL Normal 8.7-10.4 [facility] [place] Comment [place]: Performed By: #### C RE, BUN, GFR #### [address] [address] Chloride [Moles/Vol] 108 mmol/L Normal 98-110 [facility] ([place] Comment on above: Performed By: #### C RE, BUN, GFR #### [address] [address] CO2 [Moles/Vol] 30 mmol/L Normal 22-32 [facility] ([place]) Comment on above: Performed By: #### C RE, BUN, GFR #### [address] [address] Creatinine [Mass/Vol] 0.91 mg/dL Normal 0.50-1.20 [facility] ([place]) Comment on above: Performed By: #### C RE, BUN, GFR #### [address] [address] Electrolyte Balance 5.0 mEq/L Normal 4.0-15.0 [facility] ([place] Comment on above: Performed By: #### C RE, BUN, GFR #### [address] [address] Globulin 3.3 G/dL Normal 1.5-3.8 [facility] ([place] Comment on above: Performed By: #### C RE, BUN, GFR #### [address] [address] Glucose [Mass/Vol] 114 mg/dL Normal 82-115 [facility] [place] Comment [place]: Performed By: #### C RE, BUN, GFR #### [address] [address] Potassium [Moles/Vol] 4.6 mmol/L Normal 3.5-5.0 [facility] ([place]) Comment on above: Performed By: #### C RE, BUN, GFR #### [address] [address] Sodium [Moles/Vol] 143 mmol/L Normal 136-145 [facility] [place] Comment [place]: Performed By: #### C RE, BUN, GFR #### [address] [address] Total Protein 6.6 G/dL Normal 5.7-8.2 [facility] ([place]) Comment on above: Result Comment: No te - New Reference Range in effect 19 Performed By: #### C RE, BUN, GFR #### [address] [address] Urea nitrogen [Mass/Vol] 21.0 mg/dL Normal 8.0-22.0 [facility] ([place]) Comment on above: Performed By: #### C RE, BUN, GFR #### [address] [address] LABORATORYOrdered By: SYSTEM SYSTEM on 09-30-2023 Albumin BCP dye [Mass/Vol] 3.3 G/dL Normal 3.2 - 4.8 G/dL ADM SS Albumin/Globulin [Mass ratio] 1.0 {ratio} Normal 0.9 - 1.6 ratio ADM SS ALP [Catalytic activity/Vol] 161 U/L High 38 - 126 U/L ADM SS ALT No additional P-5'-P [Catalytic activity/Vol] 23 U/L Normal 10 - 49 U/L ADM SS AST [Catalytic activity/Vol] 21 U/L Normal 8 - 34 U/L AH ADM SS Basophils (Bld) [#/Vol] 0.0 103/mcL Normal 0.0 - 0.3 10^3/mcL Workflow SS Basophils/100 WBC (Bld) 0.5 % Normal 0.0 - 2.5 % Workflow SS Bilirubin [Mass/Vol] 0.40 mg/dL Normal 0.20 - 1.20 mg/dL ADM SS Comment on above: Interpretive Data: U se of this assay is not recommended for patients undergoing treatment with eltrombopag due to the potential for falsely elevated results. Calcium [Mass/Vol] 9.1 mg/dL Normal 8.7 - 10. 4 mg/dL AH ADM SS Chloride [Moles/Vol] 108 mmol/L Normal 98 - 11 0 mEq/L AH ADM SS CO2 [Moles/Vol] 30 mmol/L Normal 22 - 32 mEq/L ADM SS Creatinine [Mass/Vol] 0.91 mg/dL Normal 0.50 - 1.20 mg/dL ADM SS Electrolyte Balance 5.0 mEq/L Normal 4.0 - 15 .0 mEq/L ADM SS Eosinophils (Bld) [#/Vol] 0.2 103/mcL Normal 0.0 - 0.7 10^3/mcL Workflow SS Eosinophils/100 WBC (Bld) 3.2 % Normal 0.0 - 6.0 % Workflow SS Erythrocyte distribution width (RBC) [Ratio] 14.1 % Normal 11.5 - 15.5 % Workflow SS GFR/1.73 sq M.predicted among blacks MDRD (S/P/Bld) [Vol rate/Area] ml/min/1.73sqm Invalid Interpretation Code [employer] S Comment on above: Interpretive Data: GFR Population mean for , Non- Americans Ages 20-29 = 116 mL/min/1.73 sq.m. Ages 30-39 = 107 mL/min/1.73 sq.m. Ages 40-49 = 99 mL/min/1.73 sq.m. Ages 50-59 = 93 mL/min/1.73 sq.m. Ages 60-69 = 85 mL/min/1.73 sq.m. Ages 70+ = 75 mL/min/1.73 sq.m. Chronic Kidney Disease: Less than 60 mL/min/1.73 square meters End Stage Renal Disease: Less than 15 mL/min/1.73 square meters GFR/1.73 sq M.predicted among non-blacks MDRD (S/P/Bld) [Vol rate/Area] 60 ml/min/1.73sqm Invalid Interpretation Code [employer] S Comment on above: Interpretive Data: GFR Population mean for , Non- Americans Ages 20-29 = 116 mL/min/1.73 sq.m. Ages 30-39 = 107 mL/min/1.73 sq.m. Ages 40-49 = 99 mL/min/1.73 sq.m. Ages 50-59 = 93 mL/min/1.73 sq.m. Ages 60-69 = 85 mL/min/1.73 sq.m. Ages 70+ = 75 mL/min/1.73 sq.m. Chronic Kidney Disease: Less than 60 mL/min/1.73 square meters End Stage Renal Disease: Less than 15 mL/min/1.73 square meters Globulin 3.3 G/dL Normal 1.5 - 3.8 G/dL ADM SS Glucose [Mass/Vol] 114 mg/dL Normal 82 - 115 mg/dL AH ADM SS Hematocrit (Bld) [Volume fraction] 36.8 % Normal 34.0 - 46.0 % AH Workflow SS Hemoglobin (Bld) [Mass/Vol] 12.6 G/dL Normal 12.0 - 16.0 G/dL AH Workflow SS Lymphocytes (Bld) [#/Vol] 1.2 103/mcL Normal 0.9 - 4.3 10^3/mcL AH Workflow SS Lymphocytes/100 WBC (Bld) 20.5 % Normal 20.0 - 40.0 % AH Workflow SS MCH (RBC) [Entitic mass] 30.8 pg Normal 27.0 - 33.0 pg AH Workflow SS MCHC 34.2 G/dL Normal 32.0 - 36.0 G/dL AH Workflow SS MCV (RBC) [Entitic vol] 90.0 fL Normal 80.0 - 99.0 fL AH Workflow SS Monocytes (Bld) [#/Vol] 0.7 103/mcL Normal 0.1 - 1.4 10^3/mcL AH Workflow SS Monocytes/100 WBC (Bld) 10.7 % Normal 2.0 - 13.0 % AH Workflow SS Neutrophils (Bld) [#/Vol] 4.0 103/mcL Normal 2.3 - 8.1 10^3/mcL AH Workflow SS Neutrophils/100 WBC (Bld) 65.1 % Normal 50.0 - 75.0 % AH Workflow SS Platelet mean volume (Bld) [Entitic vol] 8.0 fL Normal 6.6 - 10.5 fL AH Workflow SS Platelets (Bld) [#/Vol] 179 103/mcL Normal 150 - 450 10^3/mcL AH Workflow SS Potassium [Moles/Vol] 4.6 mmol/L Normal 3.5 - 5.0 mEq/L ADM SS Protein [Mass/Vol] 6.6 G/dL Normal 5.7 - 8.2 G/dL AH ADM SS Comment on above: Interpretive Data: * *Note - New Reference Range in effect 19 RBC (Bld) [#/Vol] 4.09 106/mcL Low 4.10 - 5.3 0 10^6/mcL AH Workflow SS Sodium [Moles/Vol] 143 mmol/L Normal 136 - 145 mEq/L AH ADM SS Urea nitrogen [Mass/Vol] 21.0 mg/dL Normal 8.0 - 22.0 mg/dL AH ADM SS Urea nitrogen/Creatinine [Mass ratio] 23.1 ratio High 10.0 - 22.0 ratio AH ADM SS WBC (Bld) [#/Vol] 6.1 103/mcL Normal 4.5 - 10.8 10^3/mcL AH Workflow SS LABORATORYOrdered By: Alice Gallagher on 09-30-2023 Appearance (U) Hazy *ABN* (09/30/23 9:09 AM) Invalid Interpretation Code AH Auto Urine SS Bilirubin Ql (U) Negative (09/30/23 9:09 AM) Normal AH Auto Urine SS Color (U) Straw (09/30/23 9:09 AM) Normal AH Auto Urine SS Crystals.amorphous LM.HPF (Urine sed) [#/Area] Trace /HPF Normal AH Auto Urine SS Glucose Test strip (U) [Mass/Vol] Negative Normal AH Auto Urine SS Hemoglobin Auto test strip (U) [Mass/Vol] Negative (09/30/23 9:09 AM) Normal AH Auto Urine SS Ketones Ql (U) Negative Normal AH Auto Ur ine SS UA Leuk Est Large *ABN* (09/30/23 9:09 AM) Invalid Interpretation Code AH Auto Urine SS UA Mucous Trace /HPF Normal AH Auto Urine SS UA Nitrite Negative (09/30/23 9:09 AM) Normal AH Auto Urine SS UA pH 6.5 (09/30/23 9:09 AM) Normal AH Auto Urine SS UA Protein Negative Normal AH Auto Urine SS UA RBC Rare /HPF Normal AH Auto Urine SS UA Spec Grav <=1.005 *ABN* (09/30/23 9:09 AM) Invalid Interpretation Code AH Auto Urine SS UA Specimen Type Clean Catch (09/30/23 9:09 AM) Normal AH Auto Urine SS UA Squam Epithelial 5-10 /HPF Normal AH Au to Urine SS UA Urobilinogen 0.2 E.U./dL Normal AH Auto Urine SS WBC LM.HPF (Urine sed) [#/Area] 5-10 /HPF Invalid Interpretation Code Auto Urine SS LABORATORYOrdered By: Rosendo Solano on 09-30-2023 aPTT Coag (Bld) [Time] 30.1 s Normal 25.0 - 35.0 seconds [facility] SS Comment on above: Interpretive Data: F or Heparin anticoagulation therapy, the recommended therapeutic range is: 54-77 seconds (APTT Correlation with Anti-Xa therapeutic range of 0.3-0.7 units/ml). PLEASE REFERENCE THE PHARMACY PROTOCOL FOR DOSING. Heparin dose (APTT) None Normal Co agulation S PT Coag (PPP) [Time] 11.2 s Normal 9.0 - 1 4.4 seconds [facility] SS Comment on above: Interpretive Data: E ffective 11/14/07, Protime results may be affected by some antibiotics (i.e. Ciprofloxacin, Azithromycin, Bactrim) which may potentiate the action of oral anticoagulants, with further increases in Protime/INR. PT International Ratio 1.0 ratio Invalid Interpretation Code [facility] Comment on above: Interpretive Data: Trang gibbons [employer] (CHEST, 1991, 102:[id number]) recommended therapeutic range for oral anticoagulant therapy is: LOW RISK: Prophylaxis of venous thrombosis INR: 2.0-3.0 Treatment of pulmonary embolism 2.0-3.0 Prevention of systemic embolism 2.0-3.0 HIGH RISK: Mechanical prosthetic valves 2.5-3.5 PROon 09-30-2023 INR Coag (PPP) [Relative time] 1.0 {INR} Normal [facility] ([place]) Comment on above: Result Comment: [employer] (CHEST, 1991, [id number]) recommended therapeutic range for oral anticoagulant therapy is: LOW RISK: Prophylaxis of venous thrombosis INR: 2.0-3.0 Treatment of pulmonary embolism 2.0-3.0 Prevention of systemic embolism 2.0-3.0 HIGH RISK: Mechanical prosthetic valves 2.5-3.5 Performed By: #### C RE, BUN, GFR #### [address] [address] PT Coag (PPP) [Time] 11.2 s Normal 9.0-14.4 [facility] ([place]) Comment on above: Result Comment: Effe ctive 11/14/07, Protime results may be affected by some antibiotics (i.e. Ciprofloxacin, Azithromycin, Bactrim) which may potentiate the action of oral anticoagulants, with further increases in Protime/INR. Performed By: #### C RE, BUN, GFR #### [address] [address] UAon 09-30-2023 Color (U) Straw Normal [facility] ([place]) Comment on above: Performed By: #### U A, UAMIC #### [place] [address] Glucose (U) [Mass/Vol] Negative Normal Negative [facility] ([place]) Comment on above: Performed By: #### U A, UAMIC #### [place] [id number] Ketones Ql (U) Negative Normal Neg-Trace [facility] ([place]) Comment on above: Performed By: #### U A, UAMIC #### [place] [address] UA Appear Hazy Abnormal Clear [facility] ([place]) Comment on above: Performed By: #### U A, UAMIC #### [place] [address] UA Blood Negative Normal Neg-Trace [facility] ([place]) Comment on above: Performed By: #### U A, UAMIC #### [place] [id number] UA Leuk Est Large Abnormal Negative [facility] ([place]) Comment on above: Performed By: #### U A, UAMIC #### [place] [id number] UA Nitrite Negative Normal Negative [facility] ([place]) Comment on above: Performed By: #### U A, UAMIC #### [place] [id number] UA pH 6.5 Normal 5.0 - 8.0 [facility] ([place] Comment on above: Performed By: #### U A, UAMIC #### [place] [id number] UA Protein Negative Normal Negative [facility] ([place] Comment on above: Performed By: #### U A, UAMIC #### [place] [address] UA Spec Grav <=1.005 Abnormal 1.006-1.029 [facility] ([place] Comment on above: Performed By: #### U A, UAMIC #### [place] [address] UA Specimen Type Clean Catch Normal [facility] ([place] Comment on above: Performed By: #### U A, UAMIC #### [place] [address] UA Urobilinogen 0.2 E.U./dL Normal 0.2-1.0 [facility] ([place] Comment on above: Performed By: #### U A, UAMIC #### [place] [address] Urobilinogen (U) [Mass/Vol] Negative Normal Neg-Trace [facility] ([place] Comment on above: Performed By: #### U A, UAMIC #### [place] [address] UAMICon 09-30-2023 UA Amorphus Trace Normal [facility] ([place]) Comment on above: Performed By: #### U A, UAMIC #### [place] [address] UA Mucous Trace Normal [facility] ([place] Comment on above: Performed By: #### U A, UAMIC #### [place] [address] UA RBC Rare Normal 0-2 [facility] ([place] Comment on above: Performed By: #### U A, UAMIC #### [place] [address] UA Squam Epithelial 5-10 Normal 0-20 [facility] ([place] Comment on above: Performed By: #### U A, UAMIC #### [place] [address] UA WBC 5-10 Abnormal 0-5 [facility] ([place] Comment on above: Performed By: #### U A, UAMIC #### [place] [address] XR CHEST 2 VIEWSon 4 XR CHEST 2 VIEWS ORIGINAL EXAMINATION: TWO XRAY VIEWS OF THE CHEST09/30/2023 11:35 am XR Chest, two views COMPARISON: 02/19/2023 HISTORY: ORDERING SYSTEM PROVIDED HISTORY: Reason for Exam: cough, FINDINGS: The lungs show no infiltrate, consolidation or mass. Heart size and mediastinal contours are stable accounting for differences in projection and patient position. No pneumothorax, pleural fluid, or vascular congestion is seen. The bones show no acute process. There is a 1 cm nodular density projected over the left side of the heart infrahilar region. This is not localized on the lateral view. Calcification of aorta. Dorsal spondylosis. IMPRESSION: No acute cardio pulmonary process. Summation artifact versus 1 cm nodule in the left lower lung. Suggest a short-term follow-up PA and lateral views of the chest. If this finding is confirmed, CT of the chest will be needed for further evaluation. Interpreted by: Jose G Santos MD Preliminary Report By: Jose G Santos MD Electronically signed By Jose G Santos MD Dictated Date: 09/30/2023 11:49:54 AM Prelim Date: 09/30/2023 12:07:32 PM Sign Date: 09/30/2023 12:07:32 PM Ordering Provider: GHULAM Mota [facility] ([place]) US BLADDERon 08-21-2023 US BLADDER ORIGINAL EXAMINATION: ULTRASOUND OF THE URINARY BLADDER08/20/2023 11:48 am TECHNIQUE: Pre and postvoid imaging of the bladder. COMPARISON: None HISTORY: ORDERING SYSTEM PROVIDED HISTORY: Reason for Exam: severe acute on chronic low back pain with sensation of incomplete bladder emptying FINDINGS: Bladder prevoid volume: 482 cc. There is normal bladder wall thickness with no filling defect, mass, stone or diverticulum.. Postvoid bladder volume: 89 cc. No pelvic free fluid is seen. IMPRESSION: There is a moderate to large postvoid bladder residual. Interpreted by: Jose G Santos MD Preliminary Report By: Jose G Santos MD Electronically signed By Jose G Santos MD Dictated Date: 08/21/2023 11:39:00 AM Prelim Date: 08/21/2023 11:39:52 AM Sign Date: 08/21/2023 11:39:52 AM Ordering Provider: MAY Mota [facility] ([place]) .Urinalysis Microscopic (AO) on 08-11-2023 UA RBC None Seen Normal None Seen [facility] ([place]) Comment on above: Performed By: #### U A, UAMICAO #### [address] [address] UA Squam Epithelial 0-5 Abnormal None Seen [facility] ([place] Comment on above: Performed By: #### U A, UAMICAO #### [place] [id number] [place], [place] [address] UA WBC 0-5 Abnormal None Seen [facility] ([place] Comment on above: Performed By: #### U A, UAMICAO #### [address] [address] LABORATORYOrdered By: Ludivina Escobar on 08-11-2023 Appearance (U) Clear (08/11/23 4:09 PM) Normal AO Auto Urine SS Bilirubin Ql (U) Negative (08/11/23 4:09 PM) Normal AO Auto Urine SS Color (U) Yellow (08/11/23 4:09 PM) Normal AO Auto Urine SS Glucose Test strip (U) [Mass/Vol] Negative Normal AO Auto Urine SS Hemoglobin Auto test strip (U) [Mass/Vol] Negative (08/11/23 4:09 PM) Normal AO Auto Urine SS Ketones Ql (U) Negative Normal AO Auto Ur ine SS UA Leuk Est Small *ABN* (08/11/23 4:09 PM) Invalid Interpretation Code AO Auto Urine SS UA Nitrite Negative (08/11/23 4:09 PM) Normal AO Auto Urine SS UA pH 5.5 (08/11/23 4:09 PM) Normal AO Auto Urine SS UA Protein Negative Normal AO Auto Urine SS UA RBC None Seen /HPF Normal AO Auto Ur ine SS UA Spec Grav 1.015 (08/11/23 4:09 PM) Normal AO Auto Urine SS UA Specimen Type Void (08/11/23 4:09 PM) Normal AO Auto Urine SS UA Squam Epithelial 0-5 /HPF Invalid Interpretation Code AO Auto Urine SS UA Urobilinogen 0.2 E.U./dL Normal AO Auto Urine SS WBC LM.HPF (Urine sed) [#/Area] 0-5 /HPF Invalid Interpretation Code AO Auto Urine SS UAon 08-11-2023 Color (U) Yellow Normal [facility] ([place] Comment on above: Performed By: #### U A, UAMICAO #### [address] [address] Glucose (U) [Mass/Vol] Negative Normal Negative [facility] ([place] Comment on above: Performed By: #### U A, UAMICAO #### [place] [address] Ketones Ql (U) Negative Normal Negative [facility] ([place] Comment on above: Performed By: #### U A, UAMICAO #### [place] [address] UA Appear Clear Normal Clear [facility] ([place] Comment on above: Performed By: #### U A, UAMICAO #### [address] [address] UA Blood Negative Normal Negative [facility] ([place] Comment on above: Performed By: #### U A, UAMICAO #### [address] [address] UA Leuk Est Small Abnormal Negative [facility] ([place] Comment on above: Performed By: #### U A, UAMICAO #### [address] [address] UA Nitrite Negative Normal Negative [facility] ([place] Comment on above: Performed By: #### U A, UAMICAO #### [address] [address] UA pH 5.5 Normal 5.0 - 8.0 [facility] ([place] Comment on above: Performed By: #### U A, UAMICAO #### [place] [id number] UA Protein Negative Normal Negative [facility] ([place] Comment on above: Performed By: #### U A, UAMICAO #### [place] [address] UA Spec Grav 1.015 Normal 1.015-1.025 [facility] ([place] Comment on above: Performed By: #### U A, UAMICAO #### [place] [address] UA Specimen Type Void Normal [facility] ([place] Comment on above: Performed By: #### U A, UAMICAO #### [place] [address] UA Urobilinogen 0.2 E.U./dL Normal 0.2-1.0 [facility] ([place]) Comment on above: Performed By: #### U A, UAMICAO #### [place] [address] Urobilinogen (U) [Mass/Vol] Negative Normal Negative [facility] ([place]) Comment on above: Performed By: #### U A, UAMICAO #### [place] [address] MRI SPINE CERVICAL W/O CONTR Lv 03-23-2023 MRI SPINE CERVICAL W/O CONTRAST ORIGINAL HISTORY: Abnormal marrow signal at C3 and C6. COMPARISON: Outside 09 Sep 2022 TECHNIQUE: 1. Sagittal T1-weighted images. 2. Sagittal T2-weighted and T2*-weighted images. 3. Axial T2-weighted and T2*-weighted images. FINDINGS: There is grade 1 anterolisthesis at C4-C5 and grade 1 retrolisthesis at C5-C6. There is mild Schmorl's node formation at the inferior C6 level and there is sclerosis in the C6 body, particularly the inferior body. There is fatty replacement throughout much of the C3 body. There is disc desiccation and disc space narrowing, most prominently at C5-C6. There is a prominent extrusion at the anterior C6-C7 level. There is no abnormal signal within the cervical spinal cord. The visualized portions of the cord and base of the brain are unremarkable in appearance. Specific findings by level: C3-C4: There is mild uncovertebral hypertrophy and mild spondylosis. C4-C5: There is mild spondylosis. C5-C6: There is mild uncovertebral hypertrophy and mild spondylosis. C6-C7: There is mild spondylosis C7-T1: Unremarkable IMPRESSION: Decreased STIR signal at C3 relative to the comparison, some combination of increased sclerosis and or fatty replacement. Further progression of Schmorl's node formation/compression deformity at the inferior C6 level with increased disc extrusion at the anterior C6-C7 level. There is decreased edema in the C6 body relative to the comparison. Mild multilevel degenerative changes, without significant stenosis, not significantly changed. Interpreted by: Mayank Navarro MD Preliminary Report By: Mayank Navarro MD Electronically signed By Mayank Navarro MD Dictated Date: 03/23/2023 2:49:48 PM Prelim Date: 03/23/2023 3:03:57 PM Sign Date: 03/23/2023 3:03:57 PM Ordering Provider: [facility]) XR CHEST 2 VIEWSon XR CHEST 2 VIEWS ORIGINAL EXAMINATION: TWO XRAY VIEWS OF THE CHEST 02/19/2023 11:49 am COMPARISON: Chest x-ray, 12/07/2018 HISTORY: ORDERING SYSTEM PROVIDED HISTORY: Reason for Exam: mid back pain towards right, elevated D-dimer FINDINGS: The cardiomediastinal contours are stable. Minor atherosclerotic aortic and coronary arterial calcifications noted. The lungs are clear bilaterally. There is no evidence of focal consolidation, pulmonary edema, pleural effusion or pneumothorax. There is no blunting of the costophrenic angles on the lateral view. Cholecystectomy clips noted overlying the right upper quadrant. IMPRESSION: Stable chest with no acute cardiopulmonary process. Interpreted by: Antolin Cabrera MD Preliminary Report By: Antolin Cabrera MD Electronically signed By Antolin Cabrera MD Dictated Date: 02/21/2023 9:33:48 AM Prelim Date: 02/21/2023 9:48:13 AM Sign Date: 02/21/2023 9:48:13 AM [facility] ([place]) XR RIBS 2 VIEWS RIGHTon 01-31 XR RIBS 2 VIEWS RIGHT ORIGINAL EXAMINATION: XRAY VIEWS OF THE RIGHT RIBS 02/19/2023 11:47 am COMPARISON: None. HISTORY: ORDERING SYSTEM PROVIDED HISTORY: Reason for Exam: mid thoracic pain towrads right with right lower rib pains. Prior abnormal cervical spine lesions FINDINGS: No displaced right-sided rib fractures are identified. No focal areas of pleural thickening are seen. No evidence of pneumothorax. Cholecystectomy clips noted overlying the right upper quadrant. IMPRESSION: 1. No displaced right-sided rib fracture is identified. Interpreted by: Antolin Cabrera MD Preliminary Report By: Antolin Cabrera MD Electronically signed By Antolin Cabrera MD Dictated Date: 02/21/2023 9:51:15 AM Prelim Date: 02/21/2023 9:52:34 AM Sign Date: 02/21/2023 9:52:34 AM [facility]ing [facility] ([place]) XR SPINE THORACIC 2 VIEWSon 02-21-2023 XR SPINE THORACIC 2 VIEWS ORIGINAL EXAMINATION: TWO XRAY VIEWS OF THE THORACIC SPINE02/19/2023 11:48 am COMPARISON: None. HISTORY: ORDERING SYSTEM PROVIDED HISTORY: Reason for Exam: mid thoracic pain towards right with right lower rib pains. Prior abnormal cervical spine lesions FINDINGS: 12 rib-bearing vertebral bodies visualized.. Multilevel disc osteophytes visible. No compression deformity seen in the thoracic spine. Upper thoracic vertebra are poorly visualized. Surgical clips seen in the upper abdomen. No paravertebral soft tissue abnormality. IMPRESSION: No compression deformities. 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 Interpreted by: Patric Wiseman MD Preliminary Report By: Patric Wiseman MD Electronically signed By Patric Wiseman MD Dictated Date: 02/21/2023 2:47:45 PM Prelim Date: 02/21/2023 2:50:53 PM Sign Date: 02/21/2023 2:50:53 PM Ordering Provider: MAY MCKEON [facility] ([place]) .Auto Diffon 02-17-2023 Basophil, Absolute 0.1 10 3/mcL Normal 0.0-0.2 [facility] ([place]) Comment on above: Performed By: #### U MARIANELA Paredes #### [address] [address] Basophils/100 WBC (Bld) 0.8 % Normal 0.0-2.5 [facility] ([place]) Comment on above: Performed By: #### U A UAMICAO #### [address] [address] Eosinophil, Absolute 0.2 10 3/mcL Normal 0.0-0.4 [facility] ([place]) Comment on above: Performed By: #### U A UAMICAO #### [address] [address] Eosinophils/100 WBC (Bld) 3.1 % Normal 0.0-7.0 [facility] ([place]) Comment on above: Performed By: #### U A UAM[place]O #### [address] [address] Lymphocyte, Absolute 1.7 10 3/mcL Normal 0.8-3.9 [facility] ([place]) Comment on above: Performed By: #### U Lena UAMICAO #### [address] [address] Lymphocytes/100 WBC (Bld) 23.5 % Normal 10.0-50.0 [facility] ([place]) Comment on above: Performed By: #### Yudy Paredes UAMICAO #### [address] [address] Monocyte, Absolute 0.7 10 3/mcL Normal 0.2-1.0 [facility] ([place]) Comment on above: Performed By: #### U Lena UAMICAO #### [address] [address] Monocytes/100 WBC (Bld) 9.7 % Normal 1.7-13.0 [facility] ([place]) Comment on above: Performed By: #### U A UAMICAO #### [address] [address] Neutrophils/100 WBC (Bld) 62.9 % Normal 37.0-80.0 [facility] ([place]) Comment on above: Performed By: #### U A UAMICAO #### [address] [address] .GFRon 02-17-2023 GFR 55 ml/min/1.73sqm Normal [facility] ([place]) Comment on above: Result Comment: GFR Population mean for , Non- Americans Ages 20-29 = 116 mL/min/1.73 sq.m. Ages 30-39 = 107 mL/min/1.73 sq.m. Ages 40-49 = 99 mL/min/1.73 sq.m. Ages 50-59 = 93 mL/min/1.73 sq.m. Ages 60-69 = 85 mL/min/1.73 sq.m. Ages 70+ = 75 mL/min/1.73 sq.m. Chronic Kidney Disease: Less than 60 mL/min/1.73 square meters End Stage Renal Disease: Less than 15 mL/min/1.73 square meters Performed By: #### C RE, BUN, GFR #### [address] [address] GFR Non- 45 ml/min/1.73sqm Normal [facility] ([place]) Comment on above: Result Comment: GFR Population mean for , Non- Americans Ages 20-29 = 116 mL/min/1.73 sq.m. Ages 30-39 = 107 mL/min/1.73 sq.m. Ages 40-49 = 99 mL/min/1.73 sq.m. Ages 50-59 = 93 mL/min/1.73 sq.m. Ages 60-69 = 85 mL/min/1.73 sq.m. Ages 70+ = 75 mL/min/1.73 sq.m. Chronic Kidney Disease: Less than 60 mL/min/1.73 square meters End Stage Renal Disease: Less than 15 mL/min/1.73 square meters Performed By: #### C RE, BUN, GFR #### [address] [address] .Morphon 02-17-2023 Platelet Estimate Normal Normal [facility] ([place]) Comment on above: Performed By: #### U A, UAMICAO #### Raymundo [address] [place], [place] [address] .NEUABSon 02-17-2023 Neutrophil, Absolute 4.5 10 3/mcL Normal 2.9-6.2 [facility] ([place]) Comment on above: Performed By: #### U A UAMICAO #### [place] [address] .Urinalysis Microscopic (AO) on 02-17-2023 UA Bacteria 3+ /hpf Abnormal [facility] ([place]) Comment on above: Performed By: #### U A UAMICAO #### [place] [address] UA RBC None Seen Normal None Seen [facility] ([place]) Comment on above: Performed By: #### U A UAMICAO #### [place] [address] UA Squam Epithelial None Seen Normal None Seen [facility] ([place]) Comment on above: Performed By: #### U A UAMICAO #### [place] [address] UA WBC 5-10 Abnormal None Seen [facility] ([place]) Comment on above: Performed By: #### U A UAMICAO #### [place] [address] AMYon 02-17-2023 Amylase [Catalytic activity/Vol] 26 U/L Normal 25-115 [facility] ([place]) Comment on above: Performed By: #### C RE, BUN, GFR #### [address] [address] CBCon 02-17-2023 Erythrocyte distribution width (RBC) [Ratio] 13.4 % Normal 11.5-14.5 [facility] ([place]) Comment on above: Performed By: #### U A UAMICAO #### [place] [address] Hematocrit (Bld) [Volume fraction] 38.9 % Normal 37.0-47.0 [facility] ([place]) Comment on above: Performed By: #### U A UAMICAO #### [place] [address] Hgb 13.0 G/dL Normal 12.0-16.0 [facility] ([place]) Comment on above: Performed By: #### MARIANELA Baumann #### Raymundo [address] [address] MCH (RBC) [Entitic mass] 30.0 pg Normal 27.0-31.2 [facility] ([place]) Comment on above: Performed By: #### MARIANELA Baumann #### Raymundo [address] [address] MCHC 33.4 G/dL Normal 33.0-37.0 [facility] ([place]) Comment on above: Performed By: #### MARIANELA Baumann #### Raymundo [address] [address] MCV (RBC) [Entitic vol] 89.7 fL Normal 80.0-94.0 [facility] ([place]) Comment on above: Performed By: #### MARIANELA Baumann #### [address] [address] Platelet 200 10 3/mcL Normal 130-400 [facility] ([place]) Comment on above: Performed By: #### MARIANELA Baumann #### [address] [address] Platelet mean volume (Bld) [Entitic vol] 9.5 fL Normal 7.4-10.4 [facility] ([place]) Comment on above: Performed By: #### MARIANELA Baumann #### [address] [address] RBC 4.34 10 6/mcL Normal 4.20-5.40 [facility] ([place]) Comment on above: Performed By: #### MARIANELA Baumann #### Raymundo [address] [address] WBC 7.2 10 3/mcL Normal 4.6-10.8 [facility] ([place]) Comment on above: Performed By: #### U A, UAMICAO #### [facility] [address] [place], [place] [address] CMPon 02-17-2023 Albumin Level 3.6 G/dL Normal 3.4-4.8 [facility] ([place]) Comment on above: Performed By: #### C RE, BUN, GFR #### [address] [address] Albumin/Globulin [Mass ratio] 0.9 {ratio} Low 1.1-2.5 [facility] ([place]) Comment on above: Performed By: #### C RE, BUN, GFR #### [address] [address] ALP [Catalytic activity/Vol] 128 U/L Normal 40-135 [facility] ([place]) Comment on above: Performed By: #### C RE, BUN, GFR #### [address] [address] ALT [Catalytic activity/Vol] 24 U/L Normal 14-59 [facility] ([place]) Comment on above: Performed By: #### C RE, BUN, GFR #### [address] [address] AST [Catalytic activity/Vol] 21 U/L Normal 10-40 [facility] ([place]) Comment on above: Performed By: #### C RE, BUN, GFR #### [address] [address] Bili Total 0.3 mg/dL Normal 0.2-1.0 [facility] ([place]) Comment on above: Result Comment: Use of this assay is not recommended for patients undergoing treatment with eltrombopag due to the potential for falsely elevated results. Performed By: #### C RE, BUN, GFR #### [address] [address] BUN/Creatinine Ratio 16 ratio Normal 7-27 [facility] ([place]) Comment on above: Performed By: #### C RE, BUN, GFR #### [address] [address] Calcium [Mass/Vol] 8.8 mg/dL Normal 8.4-10.2 [facility] ([place] Comment on above: Performed By: #### C RE, BUN, GFR #### [address] [address] Chloride [Moles/Vol] 103 mmol/L Normal 98-107 [facility] ([place] Comment on above: Performed By: #### C RE, BUN, GFR #### [address] [address] CO2 [Moles/Vol] 29 mmol/L Normal 23-31 [facility] ([place]) Comment on above: Performed By: #### C RE, BUN, GFR #### [address] [address] Creatinine [Mass/Vol] 1.17 mg/dL High 0.55-1.02 [facility] ([place]) Comment on above: Performed By: #### C RE, BUN, GFR #### [address] [address] Electrolyte Balance 7.0 mEq/L Normal 4.0-15.0 [facility] ([place] Comment on above: Performed By: #### C RE, BUN, GFR #### [address] [address] Globulin 4.0 G/dL Normal [facility] ([place]) Comment on above: Performed By: #### C RE, BUN, GFR #### [address] [address] Glucose [Mass/Vol] 92 mg/dL Normal 83-110 [facility] [place] Comment on above: Performed By: #### C RE, BUN, GFR #### [address] [address] Potassium [Moles/Vol] 4.9 mmol/L Normal 3.5-5.1 [facility] ([place]) Comment on above: Performed By: #### C RE, BUN, GFR #### [place] [address] Sodium [Moles/Vol] 139 mmol/L Normal 136-145 [facility] [place] Comment on above: Performed By: #### C RE, BUN, GFR #### [facility] [address] [place] [address] Total Protein 7.6 G/dL Normal 6.4-8.2 [facility] ([place]) Comment on above: Performed By: #### C RE, BUN, GFR #### [facility] [address] [place] [address] Urea nitrogen [Mass/Vol] 19 mg/dL High 7-18 [facility] ([place]) Comment on above: Performed By: #### C RE, BUN, GFR #### [facility] [address] [place] [address] DIMERon 02-17-2023 D-Dimer 409 ng/mL D-DU High 0-230 [facility] ([place]) Comment on above: Result Comment: Pre- analytical evaluation of the specimen suggests possible interference due to lipemia. Results should be interpreted with caution. Results reported in D-DU ng/mL. Positive for D-dimer. A positive D-Dimer may occur in the following: DVT, PE, DIC, Trauma, Cancer, Sepsis, , Rheumatoid arthritis, Myocardial infarction and Cirrhosis. The presence of Rheumatoid Factor and HAMA (human mouse antibody) produces an overestimation of test results. The result of the D-Dimer test should be evaluated in the context of all the clinical and laboratory data available. In those instances where the laboratory result does not agree with the clinical evaluation, additional tests should be performed accordingly. If the D-Dimer result is used to exclude DVT or PE, the recommended cutoff value is less than 230 ng/mL. The D-Dimer result should not be used alone to rule in DVT/PE, but should be used in conjunction with a clinical pretest probability (PTP)assessment model to exclude venous thromboembolism (VTE) in outpatients suspected of deep venous thrombosis (DVT) and pulmonary embolism (PE). Performed By: #### Yudy Paredes UAMICIDALIA #### [address] [address] ESRon 02-17-2023 Erythrocyte Sed Rate 33 mm/hr High 0-30 [facility] ([place]) Comment on above: Performed By: #### Yudy Paredes UAMICAO #### [address] [address] LABORATORYOrdered By: SYSTEM SYSTEM on 02-17-2023 Albumin BCP dye [Mass/Vol] 3.6 G/dL Invalid Interpretation Code 3.4 - 4.8 G/dL AO ADM SS Albumin/Globulin [Mass ratio] 0.9 {ratio} Invalid Interpretation Code 1.1 - 2.5 ratio AO ADM SS ALP [Catalytic activity/Vol] 128 U/L Invalid Interpretation Code 40 - 135 U/L AO ADM SS ALT With P-5'-P [Catalytic activity/Vol] 24 U/L Invalid Interpretation Code 14 - 59 U/L AO ADM SS Amylase [Catalytic activity/Vol] 26 U/L Invalid Interpretation Code 25 - 115 U/L AO ADM SS AST With P-5'-P [Catalytic activity/Vol] 21 U/L Invalid Interpretation Code 10 - 40 U/L AO ADM SS Basophil, Absolute 0.1 103/mcL Invalid Interpretation Code 0.0 - 0.2 10^3/mcL AO Workflow SS Basophils/100 WBC (Bld) 0.8 % Invalid Interpretation Code 0.0 - 2.5 % AO Workflow SS Bilirubin [Mass/Vol] 0.3 mg/dL Invalid Interpretation Code 0.2 - 1.0 mg/dL AO ADM SS Comment on above: Interpretive Data: U se of this assay is not recommended for patients undergoing treatment with eltrombopag due to the potential for falsely elevated results. Calcium [Mass/Vol] 8.8 mg/dL Invalid Interpretation Code 8.4 - 10.2 mg/dL AO ADM SS Chloride [Moles/Vol] 103 mmol/L Invalid Interpretation Code 98 - 107 mmol/L AO ADM SS CO2 [Moles/Vol] 29 mmol/L Invalid Interpretation Code 23 - 31 mmol/L AO ADM SS Creatinine [Mass/Vol] 1.17 mg/dL Invalid Interpretation Code 0.55 - 1.02 mg/dL AO ADM SS Electrolyte Balance 7.0 mEq/L Invalid Interpretation Code 4.0 - 15.0 mEq/L AO ADM SS Eosinophil, Absolute 0.2 103/mcL Invalid Interpretation Code 0.0 - 0.4 10^3/mcL AO Workflow SS Eosinophils/100 WBC (Bld) 3.1 % Invalid Interpretation Code 0.0 - 7.0 % AO Workflow SS Erythrocyte distribution width (RBC) [Ratio] 13.4 % Invalid Interpretation Code 11.5 - 14.5 % AO Workflow SS GFR/1.73 sq M.predicted among blacks MDRD (S/P/Bld) [Vol rate/Area] 55 ml/min/1.73sqm Invalid Interpretation Code AO Chemistry S Comment on above: Interpretive Data: GFR Population mean for , Non- Americans Ages 20-29 = 116 mL/min/1.73 sq.m. Ages 30-39 = 107 mL/min/1.73 sq.m. Ages 40-49 = 99 mL/min/1.73 sq.m. Ages 50-59 = 93 mL/min/1.73 sq.m. Ages 60-69 = 85 mL/min/1.73 sq.m. Ages 70+ = 75 mL/min/1.73 sq.m. Chronic Kidney Disease: Less than 60 mL/min/1.73 square meters End Stage Renal Disease: Less than 15 mL/min/1.73 square meters GFR/1.73 sq M.predicted among non-blacks MDRD (S/P/Bld) [Vol rate/Area] 45 ml/min/1.73sqm Invalid Interpretation Code AO Chemistry S Comment on above: Interpretive Data: GFR Population mean for , Non- Americans Ages 20-29 = 116 mL/min/1.73 sq.m. Ages 30-39 = 107 mL/min/1.73 sq.m. Ages 40-49 = 99 mL/min/1.73 sq.m. Ages 50-59 = 93 mL/min/1.73 sq.m. Ages 60-69 = 85 mL/min/1.73 sq.m. Ages 70+ = 75 mL/min/1.73 sq.m. Chronic Kidney Disease: Less than 60 mL/min/1.73 square meters End Stage Renal Disease: Less than 15 mL/min/1.73 square meters Globulin 4.0 G/dL Invalid Interpretation Code AO ADM SS Glucose [Mass/Vol] 92 mg/dL Invalid Interpretation Code 83 - 110 mg/dL AO ADM SS Hematocrit (Bld) [Volume fraction] 38.9 % Invalid Interpretation Code 37.0 - 47.0 % AO Workflow SS Hemoglobin (Bld) [Mass/Vol] 13.0 G/dL Invalid Interpretation Code 12.0 - 16.0 G/dL AO Workflow SS Lipase [Catalytic activity/Vol] 34 U/L Invalid Interpretation Code 16 - 77 U/L AO ADM SS Lymphocyte, Absolute 1.7 103/mcL Invalid Interpretation Code 0.8 - 3.9 10^3/mcL AO Workflow SS Lymphocytes/100 WBC (Bld) 23.5 % Invalid Interpretation Code 10.0 - 50.0 % AO Workflow SS MCH (RBC) [Entitic mass] 30.0 pg Invalid Interpretation Code 27.0 - 31.2 pg AO Workflow SS MCHC 33.4 G/dL Invalid Interpretation Code 33.0 - 37.0 G/dL AO Workflow SS MCV (RBC) [Entitic vol] 89.7 fL Invalid Interpretation Code 80.0 - 94.0 fL AO Workflow SS Monocyte, Absolute 0.7 103/mcL Invalid Interpretation Code 0.2 - 1.0 10^3/mcL AO Workflow SS Monocytes/100 WBC (Bld) 9.7 % Invalid Interpretation Code 1.7 - 13.0 % AO Workflow SS Neutrophil, Absolute 4.5 103/mcL Invalid Interpretation Code 2.9 - 6.2 10^3/mcL AO Workflow SS Neutrophils/100 WBC (Bld) 62.9 % Invalid Interpretation Code 37.0 - 80.0 % AO Workflow SS Platelet mean volume (Bld) [Entitic vol] 9.5 fL Invalid Interpretation Code 7.4 - 10.4 fL AO Workflow SS Platelets (Bld) [#/Vol] 200 103/mcL Invalid Interpretation Code 130 - 400 10^3/mcL AO Workflow SS Potassium [Moles/Vol] 4.9 mmol/L Invalid Interpretation Code 3.5 - 5.1 mmol/L AO ADM SS Protein [Mass/Vol] 7.6 G/dL Invalid Interpretation Code 6.4 - 8.2 G/dL AO ADM SS RBC (Bld) [#/Vol] 4.34 106/mcL Invalid Interpretation Code 4.20 - 5.40 10^6/mcL AO Workflow SS Sodium [Moles/Vol] 139 mmol/L Invalid Interpretation Code 136 - 145 mmol/L AO ADM SS Urea nitrogen [Mass/Vol] 19 mg/dL Invalid Interpretation Code 7 - 18 mg/dL AO ADM SS Urea nitrogen/Creatinine [Mass ratio] 16 ratio Invalid Interpretation Code 7 - 27 ratio AO ADM SS WBC (Bld) [#/Vol] 7.2 103/mcL Invalid Interpretation Code 4.6 - 10.8 10^3/mcL AO Workflow SS LABORATORYOrdered By: Ludivina Escobar on 02-17-2023 Appearance (U) Clear (02/17/23 4:09 PM) Invalid Interpretation Code AO Auto Urine SS Bacteria LM.HPF (Urine sed) [#/Area] 3 /[HPF] Invalid Interpretation Code AO Auto Urine SS Bilirubin Ql (U) Negative (02/17/23 4:09 PM) Invalid Interpretation Code AO Auto Urine SS Color (U) Yellow (02/17/23 4:09 PM) Invalid Interpretation Code AO Auto Urine SS Fibrin D-dimer DDU (PPP) [Mass/Vol] 409 ng/mL D-DU Invalid Interpretation Code 0 - 230 ng/mL D-DU AO [facility] SS Comment on above: Result Comment: Pre- analytical evaluation of the specimen suggests possible interference due to lipemia. Results should be interpreted with caution. Results reported in D-DU ng/mL. Positive for D-dimer. A positive D-Dimer may occur in the following: DVT, PE, DIC, Trauma, Cancer, Sepsis, , Rheumatoid arthritis, Myocardial infarction and Cirrhosis. The presence of Rheumatoid Factor and HAMA (human mouse antibody) produces an overestimation of test results. Interpretive Data: T he result of the D-Dimer test should be evaluated in the context of all the clinical and laboratory data available. In those instances where the laboratory result does not agree with the clinical evaluation, additional tests should be performed accordingly. If the D-Dimer result is used to exclude DVT or PE, the recommended cutoff value is less than 230 ng/mL. The D-Dimer result should not be used alone to rule in DVT/PE, but should be used in conjunction with a clinical pretest probability (PTP)assessment model to exclude venous thromboembolism (VTE) in outpatients suspected of deep venous thrombosis (DVT) and pulmonary embolism (PE). Glucose Test strip (U) [Mass/Vol] Negative Invalid Interpretation Code AO Auto Urine SS Hemoglobin Auto test strip (U) [Mass/Vol] Negative (02/17/23 4:09 PM) Invalid Interpretation Code AO Auto Urine SS Ketones Ql (U) Negative Invalid Interpretation Code AO Auto Urine SS UA Leuk Est Moderate *ABN* (02/17/23 4:09 PM) Invalid Interpretation Code AO Auto Urine SS UA Nitrite Negative (02/17/23 4:09 PM) Invalid Interpretation Code AO Auto Urine SS UA pH 6.5 (02/17/23 4:09 PM) Invalid Interpretation Code AO Auto Urine SS UA Protein Negative Invalid Interpretation Code AO Auto Urine SS UA RBC None Seen /HPF Invalid Interpretation Code AO Auto Urine SS UA Spec Grav 1.020 (02/17/23 4:09 PM) Invalid Interpretation Code AO Auto Urine SS UA Specimen Type Void (02/17/23 4:09 PM) Invalid Interpretation Code AO Auto Urine SS UA Squam Epithelial None Seen /HPF Invalid Interpretation Code AO Auto Urine SS UA Urobilinogen 0.2 E.U./dL Invalid Interpretation Code AO Auto Urine SS WBC LM.HPF (Urine sed) [#/Area] 5-10 /HPF Invalid Interpretation Code AO Auto Urine SS LABORATORYOrdered By: Angel Whitt on 02-17-2023 ESR Photometric method (Bld) [Velocity] 33 mm/hr Invalid Interpretation Code 0 - 30 mm/hr AO Man Heme SS Platelet Estimate Normal (02/17/23 4:09 PM) Invalid Interpretation Code AO Hematology S LIPon 02-17-2023 Lipase Level 34 U/L Normal 16-77 [facility] ([place]) Comment on above: Performed By: #### C RE, BUN, GFR #### [place] [address] UAon 02-17-2023 Color (U) Yellow Normal [facility] ([place]) Comment on above: Performed By: #### U A, UAMICAO #### [address] [address] Glucose (U) [Mass/Vol] Negative Normal Negative [facility] ([place]) Comment on above: Performed By: #### U A, UAMICAO #### [address] [address] Ketones Ql (U) Negative Normal Negative [facility] ([place]) Comment on above: Performed By: #### U A, UAMICAO #### [address] [address] UA Appear Clear Normal Clear [facility] ([place]) Comment on above: Performed By: #### U A, UAMICAO #### [address] [address] UA Blood Negative Normal Negative [facility] ([place]) Comment on above: Performed By: #### U A, UAMICAO #### [place] [address] UA Leuk Est Moderate Abnormal Negative [facility] ([place]) Comment on above: Performed By: #### U A, UAMICAO #### [place] [address] UA Nitrite Negative Normal Negative [facility] ([place]) Comment on above: Performed By: #### U A, UAMICAO #### [place] [address] UA pH 6.5 Normal 5.0 - 8.0 [facility] ([place]) Comment on above: Performed By: #### U A, UAMICAO #### [place] [address] UA Protein Negative Normal Negative [facility] ([place]) Comment on above: Performed By: #### U A, UAMICAO #### [place] [address] UA Spec Grav 1.020 Normal 1.015-1.025 [facility] ([place]) Comment on above: Performed By: #### U A, UAMICAO #### [place] [address] UA Specimen Type Void Normal [facility] ([place]) Comment on above: Performed By: #### U A, UAMICAO #### [place] [address] UA Urobilinogen 0.2 E.U./dL Normal 0.2-1.0 [facility] ([place]) Comment on above: Performed By: #### U A, UAMICAO #### [place] [address] Urobilinogen (U) [Mass/Vol] Negative Normal Negative [facility] ([place]) Comment on above: Performed By: #### U A, UAMICAO #### [address], [place] [address] MA MAMMOGRAM SCREENING BILAT ERAL W/TOMOon 01-31-2023 MA MAMMOGRAM SCREENING BILATERAL W/JOSE D ORIGINAL FROM: [facility] [address] [place] [address] PROCEDURE FOR: KERRI BURGESS [address] [place] [address] Home: Work: PID#: [id number] Exam#: [id number] : 1945 Age: 77 TO: MAY MCKEON MD [address] [address] Fax: NO FAX EXAMINATION: SCREENING DIGITAL BILATERAL MAMMOGRAM WITH TOMOSYNTHESIS, 01/31/2023 10:11 am TECHNIQUE: Screening mammography of the bilateral breasts was performed with tomosynthesis. 2D standard and 3D tomosynthesis combination imaging performed through both breasts in the MLO and CC projection. Computer aided detection was utilized in the interpretation of this exam. COMPARISON: 01/28/2022, 01/08/2021 HISTORY: Breast cancer screening. FINDINGS: BREAST DENSITY: Scattered fibroglandular tissue There are benign calcifications in both breasts. There are no significant masses or calcifications. IMPRESSION: No mammographic evidence of malignancy. Continued screening with annual mammograms is recommended. Osmanier Rajinderzick calculations generated with the history provided report this patient's lifetime risk for developing breast cancer at 5.8%. Based on this assessment tool, patients with a calculated lifetime risk at or above 20% may be candidates for supplemental breast MRI screening in addition to annual mammographic screening per the [employer]. BIRADS: MAMMOGRAM BI-RADS: 2: Benign finding RECALL: 1 year screening RECALL TYPE: mammo LETTER SENT: Normal BI-RADS 1 and 2 Interpreted by: Eleuterio Beckford MD Preliminary Report By: Eleuterio Beckford MD Electronically signed By Eleuterio Beckford MD Dictated Date: 01/31/2023 8:27:12 PM Prelim Date: 01/31/2023 8:33:23 PM Sign Date: 01/31/2023 8:33:23 PM Ordering Provider: MAY MCKEON Hack Saw Operator: GAYLA BENOIT RT(R)(M) letter sent: Normal BI-RADS 1 and 2 Mammogram BI-RADS: 2 Benign Normal [facility] ([place]) GLUCOSE-POCTon 10-05-2022 Glucose [Mass/Vol] 88 mg/dL Normal 74 - 99 [facility] Comment on above: Performed By: #### G YASSINE #### [facility] [address] 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 77-year-old female with chronic cervicalgia and radicular pain with abnormal marrow signal seen in C3 and C6 vertebral bodies on MRI from 09/09/2022 C-spine concerning for malignancy/mass. PET-CT obtained for evaluation of malignancy. COMPARISON: None. CT chest abdomen pelvis, 09/23/2022 MRI cervical spine, 09/09/2022 ACCESSION NUMBER(S): [id number] ORDERING CLINICIAN: MIRYAM MUNOZ TECHNIQUE: DIVISION OF NUCLEAR MEDICINE POSITRON EMISSION TOMOGRAPHY (PET-CT) The patient received an intravenous dose of 11.1 mCi of Fluorine-18 fluorodeoxyglucose (FDG). The patient was placed in a dark quiet room. Positron emission tomographic (PET) images from skull vertex to the feet were then acquired after a one hour delay. Also acquired was a contemporaneous low dose non-contrast CT scan performed for attenuation correction of PET images and anatomic localization. The PET and CT images were digitally fused for display. All images were acquired on a combined PET-CT scanner unit. Some areas of FDG accumulation may be described in standardized uptake value (SUV) units. CODING: Initial Treatment Strategy (PI) CALIBRATION: Dose Donndnrvg-zz-Elnm Interval (mins): 61 min Mediastinal bloodpool SUV (normal 1.5-2.5): 2.6 Blood glucose: 88 mg/dL FINDINGS: HEAD AND NECK: No evidence of focal hypermetabolic lesion in the brain parenchyma, noting that evaluation is limited because of the expected physiologic diffuse FDG uptake in the brain. No focal hypermetabolic soft tissue lesion is seen in the neck. No hypermetabolic cervical lymphadenopathy is present. CHEST: No focal hypermetabolic lesion is seen in the lung parenchyma. Mild dependent atelectasis bilaterally CT of the infectious/inflammato ry changes. No evidence of hypermetabolic mediastinal, hilar or axillary lymphadenopathy. ABDOMEN AND PELVIS: No hypermetabolic soft tissue lesion is present in the abdomen and pelvis. No evidence of hypermetabolic lymphadenopathy. Physiologic radiotracer uptake is present in the liver and spleen with excretion into the bowel loops and the genitourinary tract. MUSCULOSKELETAL/EXTRE MITIES: No evidence of FDG avidity within the cervical vertebral bodies including C3 demonstrates sclerosis on the accompanying low-dose CT, C5 which appears lytic on the low-dose CT, and C6 which appears sclerotic on low-dose CT. No focal hypermetabolic lesion is seen in the remainder of the axial or appendicular to suggest osseous metastasis. IMPRESSION: 1. There is a lytic appearance of the C5 vertebral body and sclerosis of the C3 and C6 vertebral bodies, without associated FDG avidity. Findings are nonspecific, however non FDG avid malignancy can not be ruled out. Consider follow up MRI to assess for stability. 2. No evidence of focal FDG avidity to suggest a primary metastatic lesion or distal metastases. 3. No evidence of hypermetabolic lymphadenopathy. I personally reviewed the image(s) / study and agree with the findings and interpretation as stated. This study was interpreted at [facility]. Electronically signed by: TODD BLAKE MD Normal 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 COMPARISON: None. ACCESSION NUMBER(S): [id number] ORDERING CLINICIAN: MIRYAM MUNOZ TECHNIQUE: CT of the chest, abdomen, and pelvis was performed. Standard contiguous axial images were obtained through the chest, abdomen, and pelvis. Coronal and sagittal reconstructions were performed. IV contrast: 75 mL Omnipaque 350. Oral contrast: Water. FINDINGS: CHEST: LUNGS/PLEURA/LARGE AIRWAYS: Central airways are grossly patent. 4 mm lateral right lung nodule image 150. Patchy bibasilar infiltrates and/or atelectasis. 4-5 mm right lower lobe nodule image 180. no pleural effusions. MEDIASTINUM AND BARBARA: Mildly prominent paratracheal nodes up to 8 mm short axis. No definite suspicious hilar adenopathy. Mildly prominent nonspecific distal paraesophageal nodes up to 6 mm short axis. ESOPHAGUS: Within normal limits. HEART: Borderline enlarged. Trace pericardial effusion. Coronary arteries show atherosclerotic calcifications but otherwise suboptimally evaluated. Calcifications about the aortic root and valve and also about the mitral valve. VASCULAR: Thoracic aorta is diffusely atherosclerotic without aneurysm. Common carotid arteries take a retroesophageal course at the level of the upper esophagus.. Limited evaluation for pulmonary emboli particularly peripherally due to suboptimal opacification and artifact. This study was not optimized or tailored for detection of pulmonary emboli. The central pulmonary arteries appear grossly patent. CHEST WALL AND LOWER NECK: No suspicious axillary adenopathy. BONES: Bones appear demineralized. Degenerative changes visualized spine. ABDOMEN: LIVER: 12 mm irregular hypoattenuating focus at the caudate lobe image 79. 7 mm indeterminate hypoattenuating focus more superiorly centrally within the liver image 73. BILE DUCTS: No ductal dilatation. GALLBLADDER: Prior cholecystectomy. SPLEEN: Within normal limits. PANCREAS: Within normal limits. ADRENAL GLANDS: Within normal limits. KIDNEYS AND URETERS: No renal stones or hydronephrosis. Mild nonspecific perinephric stranding bilaterally. BOWEL: There is wall thickening at the distal stomach. Stomach mildly distended with ingested fluid. Prominent colonic stool. Appendix is not definitely seen. PERITONEUM/RETROPERIT ONEUM/LYMPH NODES: No free air. No free fluid or focal collection. Mildly prominent nonspecific nader hepatis/peripancreati c nodes up to 8 mm short axis and some mildly prominent nonspecific mesenteric nodes and retroperitoneal nodes up to 7 mm short axis. Mildly prominent nonspecific iliac chain and inguinal nodes bilaterally up to 1 cm short axis in the inguinal region. VASCULAR: Abdominal aorta is diffusely atherosclerotic without aneurysm. IVC is grossly patent. PELVIS: BLADDER: Mild nonspecific urinary bladder wall thickening. REPRODUCTIVE ORGANS: Apparent prior hysterectomy. No definite suspicious pelvic masses. ABDOMINAL WALL: Within normal limits. BONES: Bones appear demineralized. Mild anterolisthesis L5 on S1. Approximate 6 mm sclerotic focus L3 vertebral body, probably bone island but nonspecific. Degenerative changes visualized spine. ADDITIONAL FINDINGS: None significant. IMPRESSION: CHEST: Subcentimeter lung nodules as described for which follow-up to ensure stability recommended. Consider short interval follow-up chest CT in 6 months. Patchy bibasilar infiltrates and/or atelectasis. Mildly prominent nonspecific mediastinal nodes as above. Additional findings as above. ABDOMEN/PELVIS: Indeterminate hypoattenuating foci within the liver up to 12 mm at the caudate lobe as described for which correlation with MRI may be considered for further assessment. Wall thickening at the distal stomach. Consider dedicated upper GI series and/or endoscopy for further assessment. Mildly prominent nonspecific abdominal/pelvic and inguinal nodes as above. Mild nonspecific urinary bladder wall thickening. Approximate 6 mm sclerotic focus L3 vertebral body, probably bone island but nonspecific. Additional findings as above. Electronically signed by: DONATO LIAO, DO Normal [facility] CT Chest Abdomen Pelvis with IV Contraston 09-23-2022 CT Chest and Abdomen and Pelvis W contrast IV Normal MG-Neurosurger -[facility] Work Phone: Blood Urea Nitrogen, Serumon 09-21-2022 Urea nitrogen [Mass/Vol] 21 mg/dL 6 - MG-Neurosurger [facility] Work Phone: CREATININEon 09-21-2022 Creatinine [Mass/Vol] 0.89 mg/dL Normal 0.50 - 1.05 [facility] Comment on above: Performed By: #### C REAT #### [address] [address] GFR/1.73 sq M.predicted among non-blacks MDRD (S/P/Bld) [Vol rate/Area] 67 mL/min/{1.73_m2} Normal >90 [facility] Comment on above: Result Comment: CALC ULATIONS OF ESTIMATED GFR ARE PERFORMED USING THE 2020 CKD-EPI STUDY REFIT EQUATION WITHOUT THE RACE VARIABLE FOR THE IDMS-TRACEABLE CREATININE METHODS. https://jasn.asnjournals.org/content/early/ASN.006816 3619 Performed By: #### C REAT #### [address] [address] Creatinine, Serumon 09-22-19 Creatinine [Mass/Vol] 0.89 mg/dL See Below - Neurosurger [facility] Work Phone: Comment on above: Reference Range: 0.5 0 - 1.05 Creatinine, Serum 67 {mL/min/1.73m2} >90 -Neurosurger [facility] Work Phone: Comment on above: CALCULATIONS OF SHAHIDA MATED GFR ARE PERFORMED USING THE 2020 CKD-EPI STUDY REFIT EQUATION WITHOUT THE RACE VARIABLE FOR THE IDMS-TRACEABLE CREATININE METHODS.https://jasn.asnjournals.org/content/early/ N.7552550369 UREA NITROGENon 09-21-2022 Urea nitrogen [Mass/Vol] 21 mg/dL Normal 6 - 23 [facility] Comment on above: Performed By: #### U STEPH #### [address] [address] MRI Cervical without Contras ton 09-09-2022 MR Cervical spine WO contrast Normal -Neurosurger [facility] Work Phone: NR MRI CERVICAL WOon 023 NR MRI CERVICAL WO Patient Name: KERRI BURGESS STUDY: MRI CERVICAL WO; 09/09/2022 9:12 am INDICATION: cervial radiculopathy, gait imbalance R26.81: Gait instability M50.10: Cervical disc disorder with radiculopathy. COMPARISON: August 2019. ACCESSION NUMBER(S): [id number] ORDERING CLINICIAN: MIRYAM MUNOZ TECHNIQUE: The cervical spine was studied in the sagittal and axial planes utilizing T1 and T2 weighted images. FINDINGS: The craniovertebral junction is normal. The cord is normal in size and signal. There is been interval development of marrow replacement within the C3 vertebral body since the previous exam. There is been progression of abnormal signal within the C6 vertebral body since the previous exam.. Serial axial images reveal the following: C2/C3 Mild uncovertebral joint hypertrophy toward the left without canal or foraminal narrowing. Abnormal marrow signal in the superior portion of the C3 vertebral body can not be further characterized but has developed in the interval since the previous examination without significant discogenic changes in the intervertebral disc space. A metastatic focus not excluded C3/C4 Mild uncovertebral joint hypertrophy to the left with minimal left-sided foraminal narrowing. No measurable canal stenosis. C4/C5 Slight loss of height and signal at the intervertebral disc space. Mild bilateral foraminal narrowing. C5/C6 Mild bulging intervertebral disc and uncovertebral joint hypertrophy. Progression of abnormal signal within the C6 vertebral body since the previous exam. No evidence of compression fracture, epidural mass or fluid collection. C6/C7 Mild bilateral uncovertebral joint hypertrophy without canal or foraminal narrowing C7/T1 There is normal alignment and vertebral body height. The disc space is normal. There is no evidence of canal or foraminal narrowing. There is no evidence of bulging or herniated disc. IMPRESSION: * Interval development of abnormal signal in the C3 vertebral body and progression of abnormal signal in the C6 vertebral body since the previous exam. No associated compression fracture or epidural mass. Metastatic neoplasm not excluded *Minor cervical spondylosis unchanged from the previous exam. * An [place] alert message was sent to the referring physician Dr. MIRYAM MUNOZ through the [employer] system at 9:46 am on 09/09/[address]Charles Roldan THIS EXAMINATION WAS INTERPRETED AT [facility] Electronically signed by: MD Nakul LARRY [facility] Initial Visit (Neurosurgery) on 09-03-2022 Initial Visit (Neurosurgery) Diagnoses/Problems Gait instability (781.2) (R26.81) Cervical disc disorder with radiculopathy (723.4) (M50.10) Cervical myelopathy with cervical radiculopathy (721.1) (G95.9,M54.12) Orders Cervical disc disorder with radiculopathy, Cervical myelopathy with cervical radiculopathy, Gait instability MRI Cervical without Contrast; Status:Hold For - Scheduling; Requested for:03Sep2022; Radiologist to Determine Optimal Study : Y Does the patient have a Cochlear Implant, Pacemaker, Defibrilator, Pacing Wire, Brain Aneurysm Clip, Implanted Nerve or Bone Graft Simulator, Implanted Breast Tissue Process Equipment Operator, Glucose Monitor, or Neulasta Device? : No Is the patient or breast feeding? : No What are the patient's signs and symptoms? : cervial radiculopathy, gait imbalance Provider Impressions We do not have prior imaging done at [facility] available though there are reports and they were reviewed. X-ray of the C-spine done 02/05/2022 reports moderate multilevel disc height loss most notable at C5-6 with spinal stability. She says she she did have an MRI C-spine done in 2019 at outside facility which we will attempt to get uploaded into our system. Though no weakness appreciated on exam, she does seem to have some gait instability and has fallen, as well as patellar hyperreflexia concerning for possible myelopathy. Difficult to tell whether right arm pain is from her cervical spine due to confounding shoulder arthritis. She has tried physical therapy and pain management multiple times in the past with only limited results, this was offered to her again. We will get an MRI C-spine and discuss plan based on results once that is completed. Chief Complaint Patient is being seen for an initial Neurosurgical evaluation and neck and right arm pain. History of Present Illness Chidi Fabian is a 77-year-old female with PMHx of CARISA, cervical radiculopathy, lumbar radiculopathy who presents for evaluation of acute on chronic cervicalgia and right arm pain. Over the course of several years she has been treated at [facility] and [facility] for cervical radiculopathy including pain management injections and physical therapy (last in 2021). She reports intermittent flareups of neck pain right arm pain that seems to be getting worse and progressive, unremitting. She also has bilateral shoulder arthritis and a recent right biceps tear. She describes her pain as tight and stiff posterior neck up into the occipital area making it difficult to turn her head and feels though her head is quite heavy and hard to keep it up, pain goes across to both shoulders. She also has constant paraspinal and infrascapular pain. She also reports pain that goes down her right arm like a nerve shooting pain sometimes down into her her thumb and fifth digit. She reports mild difficulty with fine motor functions such as opening jars, holding small objects, and sometimes drops things accidentally. She also tells me she has had several recent falls and that her gait seems unsteady at times. Her lumbar issues seem to be in remission at this time and not really a problem for her. She denies any bowel or bladder issues. She takes Tylenol and ibuprofen for her pain with some relief of symptoms. She has tried physical therapy and pain injections multiple times with only limited temporary improvement in her symptoms. Active Problems Cervical disc disorder with radiculopathy (723.4) (M50.10) Cervical myelopathy with cervical radiculopathy (721.1) (G95.9,M54.12) Gait instability (781.2) (R26.81) Urinary leakage (788.30) (R32) Vulvar dermatitis (692.9) (L30.9) Past Medical History History of arthritis (V13.4) (Z87.39) History of hypertension (V12.59) (Z86.79) History of (V13.29) Surgical History History of Hysterectomy History of Knee Replacement Family History Family history of diabetes mellitus (V18.0) (Z83.3) Family history of malignant neoplasm (V16.9) (Z80.9) Family history of cardiac disorder (V17.49) (Z82.49) Family history of cerebrovascular accident (CVA) (V17.1) (Z82.3) Family history of malignant neoplasm (V16.9) (Z80.9) Family history of malignant neoplasm (V16.9) (Z80.9) Family history of cardiac disorder (V17.49) (Z82.49) Family history of cerebrovascular accident (CVA) (V17.1) (Z82.3) Allergies Latex Gloves MISC Recorded By: Vickie Blackman; 08/12/2016 2:37:54 PM Penicillins Recorded By: Vickie Blackman; 08/12/2016 2:37:54 PM Current Meds Medication NameInstruction Aspirin 81 MG TABS Crestor 20 MG Oral Tablet (Rosuvastatin Calcium) Diovan HCT 320-12.5 MG Oral Tablet (Valsartan-Hydrochlor othiazide) Levothyroxine Sodium 25 MCG Oral TabletTAKE ONE TABLET BY MOUTH EVERY DAY Omeprazole 20 MG Oral Capsule Delayed Release Welchol 625 MG Oral Tablet (Colesevelam HCl) Vitals Vital Signs Recorded: 03Sep2022 01:06PM Heart Rate78 Jehggsdqezy24 Swpybpou342 Jwyftlqbd81 Height5 ft 3 in Ptuzrb244 lb BM (more content not included)... Normal [facility] Tobacco Screening.on 023 Adult depression screening assessment No MG-Neurolog y-U [facility] [employer] Work Phone: Adult depression screening assessment In Remission (0-4) MG-Neuro logy-U [facility] Work Phone: Fall risk assessment a) No falls within the last year HT-Sgluoohfo-P [facility] Work Phone: Tobacco use status CPHS b) No TP-Zueyqoacy-Z [facility] Work Phone: Tobacco Screening. 0-Not at all -N eurology-U [facility] Work Phone: Tobacco Screening. Not difficult at all WT-Zzqfcccfb-S [facility] Work Phone: CBC panel Auto (Bld)on 06-01 Erythrocyte distribution width (RBC) [Ratio] 11.6 % Normal 11.5-15.0 [facility] Comment on above: Order Comment: Speci men Type: BLOOD SPECIMEN Ordering Facility: [facility] Address: [address] [place] [address] Performed By: #### 5 8410-2 #### [facility] CLIA [id number] [address] [place] [address] [place] Hematocrit (Bld) [Volume fraction] 40.6 % Normal 36.0-46.0 [facility] Comment on above: Order Comment: Speci men Type: BLOOD SPECIMEN Ordering Facility: [facility] Address: [address] [place] [address] Performed By: #### 5 8410-2 #### [facility] CLIA [id number] [address] [place] [address] [place] Hemoglobin (Bld) [Mass/Vol] 13.1 g/dL Normal 11.5-15.5 [facility] Comment on above: Order Comment: Speci men Type: BLOOD SPECIMEN Ordering Facility: [facility] Address: [address] [place] [address] Performed By: #### 5 8410-2 #### [facility] CLIA [id number] [address] [place] [address] [place] MCHC (RBC) [Mass/Vol] 32.3 g/dL Normal 30.5-36.0 [facility] Comment on above: Order Comment: Speci men Type: BLOOD SPECIMEN Ordering Facility: [facility] Address: [address] [place] [address] Performed By: #### 5 8410-2 #### [facility] CLIA [id number] [address] [place] [address] [place] MCV (RBC) [Entitic vol] 93.5 fL Normal 80.0-100.0 [facility] Comment on above: Order Comment: Speci men Type: BLOOD SPECIMEN Ordering Facility: [facility] Address: [address] [place] [address] Performed By: #### 5 8410-2 #### [facility] CLIA [id number] [address] [place] [address] [place] Platelet mean volume (Bld) [Entitic vol] 10.0 fL Normal 9.0-12.7 [facility] Comment on above: Order Comment: Speci men Type: BLOOD SPECIMEN Ordering Facility: [facility] Address: [address] [place] [address] Performed By: #### 5 8410-2 #### [facility] CLIA [id number] [address] [place] [address] [place] Platelets (Bld) [#/Vol] 200 10*3/uL Normal 150-400 [facility] Comment on above: Order Comment: Speci men Type: BLOOD SPECIMEN Ordering Facility: [facility] Address: [address] [place] [address] Performed By: #### 5 8410-2 #### [facility] CLIA [id number] [address] [place] [address] [place] RBC (Bld) [#/Vol] 4.34 10*6/uL Normal 3.90-5.20 [facility] Comment on above: Order Comment: Speci men Type: BLOOD SPECIMEN Ordering Facility: [facility] Address: [address] [place] [address] Performed By: #### 5 8410-2 #### [facility] CLIA [id number] [address] [place] [address] [place] WBC (Bld) [#/Vol] 7.70 10*3/uL Normal 3.70-11.00 [facility] Comment on above: Order Comment: Speci men Type: BLOOD SPECIMEN Ordering Facility: [facility] Address: [address] [place] [address] Performed By: #### 5 8410-2 #### [facility] CLIA [id number] [address] [place] [address] [place] CRP SerPl-mCncon 06-01-2022 CRP [Mass/Vol] mg/L Normal <1.0 [facility] Comment on above: Order Comment: Speci men Type: BLOOD SPECIMEN Ordering Facility: [facility] Address: [address] [place] [address] Performed By: #### 1 988-5, 58527-1 #### [facility] CLIA [id number] [address] [place] ESR Westergren method (Bld) [Velocity]on 06-01-2022 ESR (Bld) [Velocity] 46 mm/h High 0-30 [facility] Comment on above: Order Comment: Jannette sherry Type: BLOOD SPECIMEN Ordering Facility: [facility] Address: [address] [place] [address] Performed By: #### 4 537-7 #### [facility] CLIA [id number] [address] [place] [address] [place] Nuclear Ab IA Ql (S)on 06-01 [facility] BY EIA, QUAL Negative Normal Negative [facility] Comment on above: Order Comment: Jannette sherry Type: BLOOD SPECIMEN Ordering Facility: [facility] Address: [address] [place] [address] Result Comment: The qualitative antinuclear antibody screen test performed using enzyme immunoassay including the following antigens: dsDNA, histones, SS-A, SS-B, Sm, Sm/SECURITIES TRADER, Scl-70, Liv-1, and centromeric antigens. Performed By: #### 4 7383-5 #### [facility] CLIA [id number] [address] [place] [address] [place] [address] [place] Rheumatoid fact SerPl-aCncon 06-01-2022 Rheumatoid factor Qn 5 [IU]/mL Normal 0-15 [facility] Comment on above: Order Comment: Jannette sherry Type: BLOOD SPECIMEN Ordering Facility: [facility] Address: [address] [place] [address] Performed By: #### 1 988-5, 31568-0 #### [facility] CLIA [id number] [address] [place] [address] [place] LABORATORYOrdered By: Sydnie Mcclellan on 03-09-2022 Basophil, Absolute 0.0 103/mcL Invalid Interpretation Code 0.0 - 0.2 10^3/mcL AO Workflow SS Basophils/100 WBC (Bld) 0.6 % Invalid Interpretation Code 0.0 - 2.5 % AO Workflow SS Eosinophil, Absolute 0.2 103/mcL Invalid Interpretation Code 0.0 - 0.4 10^3/mcL AO Workflow SS Eosinophils/100 WBC (Bld) 2.5 % Invalid Interpretation Code 0.0 - 7.0 % AO Workflow SS Erythrocyte distribution width (RBC) [Ratio] 13.8 % Invalid Interpretation Code 11.5 - 14.5 % AO Workflow SS Hematocrit (Bld) [Volume fraction] 41.2 % Invalid Interpretation Code 37.0 - 47.0 % AO Workflow SS Hemoglobin (Bld) [Mass/Vol] 13.7 G/dL Invalid Interpretation Code 12.0 - 16.0 G/dL AO Workflow SS Lymphocyte, Absolute 1.7 103/mcL Invalid Interpretation Code 0.8 - 3.9 10^3/mcL AO Workflow SS Lymphocytes/100 WBC (Bld) 22.5 % Invalid Interpretation Code 10.0 - 50.0 % AO Workflow SS MCH (RBC) [Entitic mass] 30.2 pg Invalid Interpretation Code 27.0 - 31.2 pg AO Workflow SS MCHC 33.3 G/dL Invalid Interpretation Code 33.0 - 37.0 G/dL AO Workflow SS MCV (RBC) [Entitic vol] 90.5 fL Invalid Interpretation Code 80.0 - 94.0 fL AO Workflow SS Monocyte, Absolute 0.6 103/mcL Invalid Interpretation Code 0.2 - 1.0 10^3/mcL AO Workflow SS Monocytes/100 WBC (Bld) 7.7 % Invalid Interpretation Code 1.7 - 13.0 % AO Workflow SS Neutrophil, Absolute 5.0 103/mcL Invalid Interpretation Code 2.9 - 6.2 10^3/mcL AO Workflow SS Neutrophils/100 WBC (Bld) 66.7 % Invalid Interpretation Code 37.0 - 80.0 % AO Workflow SS Platelet mean volume (Bld) [Entitic vol] 9.1 fL Invalid Interpretation Code 7.4 - 10.4 fL AO Workflow SS Platelets (Bld) [#/Vol] 175 103/mcL Invalid Interpretation Code 130 - 400 10^3/mcL AO Workflow SS RBC (Bld) [#/Vol] 4.55 106/mcL Invalid Interpretation Code 4.20 - 5.40 10^6/mcL AO Workflow SS WBC (Bld) [#/Vol] 7.5 103/mcL Invalid Interpretation Code 4.6 - 10.8 10^3/mcL AO Workflow SS LABORATORYOrdered By: Davy Masters on 03-09-2022 Cholesterol [Mass/Vol] 301 mg/dL Invalid Interpretation Code 0 - 200 mg/dL AO ADM SS Cholesterol in HDL [Mass/Vol] 65 mg/dL Invalid Interpretation Code 40 - 60 mg/dL AO ADM SS Cholesterol in LDL [Mass/Vol] 192 mg/dL Invalid Interpretation Code 0 - 130 mg/dL AO ADM SS Triglyceride [Mass/Vol] 221 mg/dL Invalid Interpretation Code 0 - 150 mg/dL AO ADM SS LABORATORYOrdered By: Ludiivna Escobar on 03-09-2022 Platelet Estimate Normal (03/09/22 8:09 AM) Invalid Interpretation Code AO Hematology S OPERATIVE REPORTon OPERATIVE REPORT NAME: SANTIAGO BURGESS MR#: [id number] SURGEON: Ne Higgins DO DATE OF SURGERY: OPERATIVE REPORT PREOPERATIVE DIAGNOSIS: Cervical radiculopathy. POSTOPERATIVE DIAGNOSIS: Cervical radiculopathy. ANESTHESIA: Conscious sedation. PROCEDURES PERFORMED: 1. Bilateral C3-4 transforaminal epidural steroid injection. 2. Bilateral C4-5 transforaminal epidural steroid injection both under fluoroscopic guidance. DESCRIPTION OF PROCEDURE: Patient was wheeled to the fluoroscopy room and placed in the prone position. The cervical spine was draped in a sterile fashion. Then, in the oblique view, the bilateral C3-4, bilateral C4-5 cervical foramina were well visualized, followed by introduction of a 3-1/2- inch needle under live fluoroscopy until bony contact was made at the bilateral C3-4, bilateral C4-5 foramina, then advanced in the lateral view into the bilateral C3-4, bilateral C4-5, confirmed in the lateral view; and then, once no blood or CSF was ascertained, 80 mg of Depo-Medrol and 1 mL of lidocaine were administered at each of the levels at the bilateral C3-4, bilateral C4-5 foramina again. NE HIGGINS DO GF/MODL/[id number] E/S: Ne Higgins DO 04/05/[address] [facility] PT NAME: KERRI BURGESS MR#: [id number] [address] [place] [address] ACCT: [id number] : 47 OPERATIVE REPORT Normal [facility] CERVICAL SP W OBL (OR 4-5 VW S)on 02-05-2022 CERVICAL SP W OBL (OR 4-5 VWS) STUDY: CERVICAL SP W OBL (OR 4-5 VWS); 02/05/2022 10:52 am INDICATION: PAIN. COMPARISON: None. ACCESSION NUMBER(S): [id number] ORDERING CLINICIAN: Mayank Kennedy FINDINGS: No fracture or subluxation of the cervical spine. Multilevel disc height loss most advanced at C5-6. Scattered endplate osteophytes. Multilevel facet arthropathy. Trace anterolisthesis C4-5. No instability on flexion or extension. Carotid atherosclerosis. IMPRESSION: Degenerative changes of the cervical spine most advanced at C5-6. No instability. Normal [facility] LABORATORYOrdered By: Ludivina Escobar on 07-30-2021 Albumin BCP dye [Mass/Vol] 3.7 G/dL Invalid Interpretation Code 3.4 - 4.8 G/dL AO ADM SS Albumin DL <= 20 mg/L (U) [Mass/Vol] 312 mcg/dL Invalid Interpretation Code AO ADM SS Albumin/Creatinine DL <= 20 mg/L (U) [Mass ratio] 14 mcg/mg Invalid Interpretation Code 0 - 30 mcg/mg AO ADM SS Albumin/Globulin [Mass ratio] 0.9 {ratio} Invalid Interpretation Code 1.1 - 2.5 ratio AO ADM SS ALP [Catalytic activity/Vol] 114 U/L Invalid Interpretation Code 40 - 135 U/L AO ADM SS ALT With P-5'-P [Catalytic activity/Vol] 26 U/L Invalid Interpretation Code 14 - 59 U/L AO ADM SS AST With P-5'-P [Catalytic activity/Vol] 20 U/L Invalid Interpretation Code 10 - 40 U/L AO ADM SS Bilirubin [Mass/Vol] 0.3 mg/dL Invalid Interpretation Code 0.2 - 1.0 mg/dL AO ADM SS Calcium [Mass/Vol] 9.5 mg/dL Invalid Interpretation Code 8.4 - 10.2 mg/dL AO ADM SS Chloride [Moles/Vol] 104 mmol/L Invalid Interpretation Code 98 - 107 mmol/L AO ADM SS Cholesterol [Mass/Vol] 276 mg/dL Invalid Interpretation Code 0 - 200 mg/dL AO ADM SS Cholesterol in HDL [Mass/Vol] 62 mg/dL Invalid Interpretation Code 40 - 60 mg/dL AO ADM SS Cholesterol in LDL [Mass/Vol] 157 mg/dL Invalid Interpretation Code 0 - 130 mg/dL AO ADM SS CO2 [Moles/Vol] 27 mmol/L Invalid Interpretation Code 23 - 31 mmol/L AO ADM SS Creatinine (U) [Mass/Vol] 21.7 mg/dL Invalid Interpretation Code 28.0 - 117.0 mg/dL AO ADM SS Creatinine [Mass/Vol] 1.03 mg/dL Invalid Interpretation Code 0.55 - 1.02 mg/dL AO ADM SS Electrolyte Balance 11.0 mEq/L Invalid Interpretation Code 4.0 - 15.0 mEq/L AO ADM SS Free T4 [Mass/Vol] 1.12 ng/dL Invalid Interpretation Code 0.76 - 1.46 ng/dL AO ADM SS Globulin 3.9 G/dL Invalid Interpretation Code AO ADM SS Glucose [Mass/Vol] 96 mg/dL Invalid Interpretation Code 83 - 110 mg/dL AO ADM SS HbA1c (Bld) [Mass fraction] 6.1 % Invalid Interpretation Code 4.3 - 6.4 % AO ADM SS Potassium [Moles/Vol] 4.5 mmol/L Invalid Interpretation Code 3.5 - 5.1 mmol/L AO ADM SS Protein [Mass/Vol] 7.6 G/dL Invalid Interpretation Code 6.4 - 8.2 G/dL AO ADM SS Sodium [Moles/Vol] 142 mmol/L Invalid Interpretation Code 136 - 145 mmol/L AO ADM SS Triglyceride [Mass/Vol] 286 mg/dL Invalid Interpretation Code 0 - 150 mg/dL AO ADM SS TSH Qn 2.21 m[IU]/L Invalid Interpretation Code 0.36 - 3.74 mcIU/mL AO ADM SS Urea nitrogen [Mass/Vol] 21 mg/dL Invalid Interpretation Code 7 - 18 mg/dL AO ADM SS Urea nitrogen/Creatinine [Mass ratio] 20 ratio Invalid Interpretation Code 7 - 27 ratio AO ADM SS Vit. D 25-Hydroxy 38.1 ng/mL Invalid Interpretation Code AO ADM SS LABORATORYOrdered By: Sydnie Mcclellan on 07-30-2021 Basophil, Absolute 0.00 103/mcL Invalid Interpretation Code 0.00 - 0.19 10^3/mcL AO Auto Heme SS Basophils/100 WBC (Bld) 0.7 % Invalid Interpretation Code 0.0 - 2.5 % AO Auto Heme SS Eosinophil, Absolute 0.20 103/mcL Invalid Interpretation Code 0.00 - 0.40 10^3/mcL AO Auto Heme SS Eosinophils/100 WBC (Bld) 2.7 % Invalid Interpretation Code 0.0 - 7.0 % AO Auto Heme SS Erythrocyte distribution width (RBC) [Ratio] 13.1 % Invalid Interpretation Code 11.5 - 14.5 % AO Auto Heme SS Hematocrit (Bld) [Volume fraction] 39.6 % Invalid Interpretation Code 37.0 - 47.0 % AO Auto Heme SS Hemoglobin (Bld) [Mass/Vol] 13.3 G/dL Invalid Interpretation Code 12.0 - 16.0 G/dL AO Auto Heme SS Lymphocyte, Absolute 1.50 103/mcL Invalid Interpretation Code 0.77 - 3.85 10^3/mcL AO Auto Heme SS Lymphocytes/100 WBC (Bld) 26.1 % Invalid Interpretation Code 10.0 - 50.0 % AO Auto Heme SS MCH (RBC) [Entitic mass] 30.5 pg Invalid Interpretation Code 27.0 - 31.2 pg AO Auto Heme SS MCHC (RBC) [Mass/Vol] 33.5 G/dL Invalid Interpretation Code 33.0 - 37.0 G/dL AO Auto Heme SS MCV (RBC) [Entitic vol] 91.3 fL Invalid Interpretation Code 80.0 - 94.0 fL AO Auto Heme SS Monocyte, Absolute 0.50 103/mcL Invalid Interpretation Code 0.15 - 1.00 10^3/mcL AO Auto Heme SS Monocytes/100 WBC (Bld) 9.0 % Invalid Interpretation Code 1.7 - 13.0 % AO Auto Heme SS Neutrophil, Absolute 3.60 103/mcL Invalid Interpretation Code 2.85 - 6.16 10^3/mcL AO Auto Heme SS Neutrophils/100 WBC (Bld) 61.5 % Invalid Interpretation Code 37.0 - 80.0 % AO Auto Heme SS Platelet mean volume (Bld) [Entitic vol] 9.2 fL Invalid Interpretation Code 7.4 - 10.4 fL AO Auto Heme SS Platelets (Bld) [#/Vol] 217 103/mcL Invalid Interpretation Code 130 - 400 10^3/mcL AO Auto Heme SS RBC (Bld) [#/Vol] 4.34 106/mcL Invalid Interpretation Code 4.20 - 5.40 10^6/mcL AO Auto Heme SS WBC (Bld) [#/Vol] 5.90 103/mcL Invalid Interpretation Code 4.60 - 10.80 10^3/mcL AO Auto Heme SS LABORATORYOrdered By: SYSTEM SYSTEM on 07-30-2021 GFR 63 ml/min/1.73sqm Invalid Interpretation Code AO Chemistry S GFR Non- 52 ml/min/1.73sqm Invalid Interpretation Code AO Chemistry S CORONAVIRUSon 04-28-2021 SARS-CoV-2 (COVID-19) RNA KRZYSZTOF+probe Ql (Unsp spec) Methodology: PCR Negative results do not preclude SARS-CoV-2 infection and should not be used as the sole basis for patient management decisions. Negative results must be combined with clinical observations, patient history, and epidemiological information. False-negative results may occur if the viruses are present at a level that is below the analytical sensitivity of the assay or if the virus has genomic mutations, insertions, deletions, or rearrangements or if performed very early in the course of illness. Results may be affected by the quality of the sample collected. Simplexa COVID-19 Direct is only for use under the Food and Drug Administration's Emergency Use Authorization. The Simplexa COVID-19 Direct Letter of Authorization, along with the authorized Fact Sheet for Healthcare Providers, the authorized Fact Sheet for Patients, and authorized labeling are available on the FDA website: https://www.fda.gov/M edicalDevices/Safety/ EmergencySituations/u ru667270.htm COVID-19 Negative for COVID-19 (SARS-CoV-2 RNA) Normal [facility] Comment on above: Order Comment: CBN: YES Cash: MAIN COVID Testing: PRE-OP/PROCEDURE SCREEN AGE at Spec FERN 75 Report age at specimen FERN? Y First test: YES Employed in Healthcare: NO Symptomatic as defined by CDC: NO Hospitalized for COVID-19? NO ICU: NO Resident in a Congregated Care Setting: NO Order Date: 04/27/21 : Not Performed By: #### M [phone] #### Test performed at: [facility] [address] [place] [address] GLUCOSE METERon 04-28-2021 Glucose [Mass/Vol] 129 mg/dL High 70-99 [facility] Comment on above: Result Comment: Fast ing GLUCOSE reference range has been updated per (ADA) [place] [employer]'s recommendation. 07/25/2018 Performed By: #### L [id number] #### Test performed at: [place] [address] OPERATIVE REPORTon OPERATIVE REPORT NAME: SANTIAGO BURGESS MR#: [id number] SURGEON: Ne Higgins DO DATE OF SURGERY: 04/28/2021 OPERATIVE REPORT PREOPERATIVE DIAGNOSES: Lumbosacral spondylosis, lumbar stenosis. POSTOPERATIVE DIAGNOSES: Lumbosacral spondylosis, lumbar stenosis. ANESTHESIA: MAC. PROCEDURES PERFORMED: 1. Left L4 transforaminal epidural steroid injection. 2. Bilateral L5-S1 facet injection. DESCRIPTION OF PROCEDURE: SELECTIVE NERVE ROOT BLOCKS: The patient was wheeled to the OR, placed in the prone position on the OR table; and subsequently the lumbar spine was draped in a sterile fashion. Then, under fluoroscopy, the left L4 level neural foramen was well visualized in the oblique view. Under live fluoroscopy, a 5-inch needle was advanced into the left L4 level neural foramen. Then, in the lateral view, the 5-inch needle was advanced with no CSF or heme ascertained, followed by administration of 2 mL of lidocaine and 40 mg of Depo-Medrol administered into the left L4 level neural foramen with no resistance. The 5-inch needle, under fluoroscopy, was then retracted. The patient was wheeled to the recovery room in stable condition with no complications, including no lower extremity weakness or lower extremity paresthesias. The patient was discharged home and instructed to follow up in 2 weeks. LUMBAR FACET INJECTIONS: Patient was wheeled to the OR, placed in the prone position on the OR table with the low back and lumbar spine draped in a sterile fashion. Subsequently, under fluoroscopy, the bilateral L5-S1 level facets were well visualized. This was then used as the bony landmark followed by, under fluoroscopy, two 3-1/2-inch needles introduced into the bilateral L5- S1 level facets under fluoroscopy. Once bony contact was made, 5 mL of lidocaine and 80 mg of Depo-Medrol were distributed equally at the bilateral L5-S1 level facets under fluoroscopy with no resistance. The two 3-1/2-inch needles then were retracted under fluoroscopy. The patient was wheeled to the recovery room in stable condition with no complications, including no lower extremity weakness or paresthesias. Prior to introduction of medicine, no heme or CSF was ascertained. The patient was instructed to follow up in [address] [facility] PT NAME: KERRI BURGESS MR#: [id number] [address] [place], [place] [address] ACCT: [id number] : 47 OPERATIVE REPORT NE HIGGINS, DO GF/MODL/[id number] E/S: Ne Higgins DO 05/05/[address] [facility] PT NAME: KERRI BURGESS MR#: [id number] [address] [place], [place] [address] ACCT: [id number] : 47 OPERATIVE REPORT Normal [facility] CNOVon 12-06-2019 CNOV Office Visit (QAMARIN) KERRI BURGESS ([id number]) 1945 F Date Time Provider Department 12/06/19 10:30 AM OTTO PERRY During your visit today, we recorded the following information about you: Nupur Vegas RDMS, RVT 12/06/2019 10:39 AM Signed Patient is here today with concerns of veins in her legs. She was seen in [place] by Dr. Perry in 2012 for venous insufficency. She wears compression and elevates her legs. Nupur Vegas RDMS, RVT Otto Perry MD 12/06/2019 12:03 PM Signed Kerri Burgess is a 74 year old female here for bilateral chronic venous insufficiency HPI: This is a patient who I saw about 7 years ago for similar complaint but not quite as significant as it is now. She has bilateral leg swelling with some now redness and irritation especially in the lateral and medial aspects of the left calf in the gaiter distribution. The right leg has similar swelling but does not have quite the degree of redness and irritation of the skin. The patient does state that she tries to wear compression is much as possible especially in the heat that this is difficult. She had had no sores or ulcerations. In the interim since I last saw her she has had bilateral knee surgery. She has noted that since the knee surgery she does seem to think that the swelling is worse especially on the left where she states she is still having some issues with the knee. She denies any history of deep vein thrombosis at this point and at this juncture she has no evidence of any type of severe stasis dermatitis or brawny induration by history. She has no history of any new medical issues such as heart failure or kidney disease intervening that would account for worsening swelling. MEDICATIONS: Current Outpatient Medications Medication Sig Dispense Refill - vitamin b complex (VITAMINS B COMPLEX) capsule Take 1 capsule by mouth. - aspirin-calcium carbonate 81 mg-300 mg calcium(777 mg) tab Take 81 mg by mouth. - valsartan (DIOVAN) 320 mg tablet - levothyroxine (SYNTHROID) 50 mcg tablet - BYSTOLIC 10 mg tablet - omeprazole (PRILOSEC) 20 mg capsule Take 20 mg by mouth. - oxybutynin ER (DITROPAN XL) 10 mg 24 hr tablet - WELCHOL 625 mg tablet - Magnesium 250 mg tab Take 250 mg by mouth. - coenzyme Q10 (H2Q COQ10) 200 mg/gram powd Take by mouth. - ergocalciferol, vitamin D2, (VITAMIN D2 ORAL) Take by mouth. - vits A,C,E/zinc/copper (VISION-CAMRON PRESERVE ORAL) Take by mouth. No current facility-administered medications for this visit. ALLERGIES Allergen Reactions - Penicillins Unknown Seizure like activity - Latex Hives, Swelling Swelling in lips There were no vitals taken for this visit. PHYSICAL EXAM: Well-developed well-nourished female alert and oriented person place and time with no acute distress time examination. No jugular venous distention is noted. She is not using accessory muscles or respiration. Pulse rate is regular. Weakly palpable pulses are present at the dorsal pedal level bilaterally. She has 1+ edema bilaterally with slightly more edema on the left than on the right. On the left there is areas of redness in the subcutaneous tissue and skin indicating some early stasis changes. The left leg is not quite is easily compressible with regard to the swelling as the right. ASSESSMENT: Ultrasound is performed of the bilateral lower extremity venous systems and it shows The patient has chronic bilateral venous insufficiency. I going to a lengthy discussion that we really don't have any good treatments that are reconstructive for this and that all the treatments we have her venous disease or a sickly ablative type of treatments that destroy venous tissue as opposed to actually repairing it. I explained that the mainstay of therapy for this is going to be compression and we discussed how we might be able to accommodate wearing compression more effectively. We also talked about skincare with good hydrating creams and lotions to avoid dryness over the areas of redness they could lead to skin cracking and ulceration. I tell her that unfortunately there really is no good reconstructive or other even ablative treatment that would help her specific situation with this. Overall the patient is very understanding and plans to work on getting compression that she can wear more effectively. PLAN: Ongoing compression therapy with good skincare. No interventional treatment is planned in this setting as none would really seem to benefit her. No specific large varicosities are noted that are contributing to the areas of skin discoloration. We will follow-up with her on an as-needed basis. FOLLOW UP: When necessary Otto Perry MD Vascular Surgery Beeper [phone] This note was generated with [employer] dictation software. It may contain incorrect words, spelling, and punctuation and that were not noted in review of the chart prior to signing. I spent 30 minutes in the visit, with more than 50% of the total [id number]-[id number] time of the visit in counseling / coordination of care. Referring Provider: SELF [200] Allergies As of Date: 12/06/2019 Noted Allergy Reaction PENICILLINS 02/09/2016 16 - Unknown Comments: Seizure like activity LATEX 02/09/2016 4 - Hives 7 - Swelling Comments: Swelling in lips Date Reviewed: Never Reviewed Reason for Visit: Varicose Veins [965] Primary Visit Diagnosis:Venous insufficiency (chronic) (peripheral) [I87.2] Order(s):US VEIN MAPPING LOWER BILAT [[id number]] Order #: [id number] FUTURE Prescriptions as of 12/06/2019 Sig: VITAMIN B COMPLEX CAPSULE Take 1 capsule by mouth. ASPIRIN-CALCIUM CARBONATE 81 * Take 81 mg by mouth. VALSARTAN 320 MG TABLET LEVOTHYROXINE 50 MCG TABLET BYSTOLIC 10 MG TABLET OMEPRAZOLE 20 MG CAPSULE,LINDSAY* Take 20 mg by mouth. OXYBUTYNIN CHLORIDE ER 10 MG * WELCHOL 625 MG TABLET MAGNESIUM 250 MG TABLET Take 250 mg by mouth. H2Q COQ10 200 MG/GRAM ORAL PO* Take by mouth. VITAMIN D2 ORAL Take by mouth. VISION-CAMRON PRESERVE ORAL Take by mouth. Problem List As Of Date: 12/06/2019 (None) Visit Notes: >> Nupur Vegas [facility] Dec 06, 2019 10:38 AM Status: Signed Patient is here today with concerns of veins in her legs. She was seen in [place] by Dr. Perry in 2012 for venous insufficency. She wears compression and elevates her legs. Nupur Vegas, MATEUS, RVT Disposition: Return if symptoms worsen or fail to improve. Follow-up and Disposition History Recorded Encounter Status:Closed by OTTO PERRY MD on 12/06/19 [facility] DARYLon 12-06-2019 PROGRESS HNO ID: [id number] Author: Otto Perry Service: ? Author Type: Physician Type: Progress Notes Filed: 12/06/2019 12:03 PM Note Text: Kerri Burgess is a 74 year old female here for bilateral chronic venous insufficiency HPI: This is a patient who I saw about 7 years ago for similar complaint but not quite as significant as it is now. She has bilateral leg swelling with some now redness and irritation especially in the lateral and medial aspects of the left calf in the gaiter distribution. The right leg has similar swelling but does not have quite the degree of redness and irritation of the skin. The patient does state that she tries to wear compression is much as possible especially in the heat that this is difficult. She had had no sores or ulcerations. In the interim since I last saw her she has had bilateral knee surgery. She has noted that since the knee surgery she does seem to think that the swelling is worse especially on the left where she states she is still having some issues with the knee. She denies any history of deep vein thrombosis at this point and at this juncture she has no evidence of any type of severe stasis dermatitis or brawny induration by history. She has no history of any new medical issues such as heart failure or kidney disease intervening that would account for worsening swelling. MEDICATIONS: Current Outpatient Medications Medication Sig Dispense Refill - vitamin b complex (VITAMINS B COMPLEX) capsule Take 1 capsule by mouth. - aspirin-calcium carbonate 81 mg-300 mg calcium(777 mg) tab Take 81 mg by mouth. - valsartan (DIOVAN) 320 mg tablet - levothyroxine (SYNTHROID) 50 mcg tablet - BYSTOLIC 10 mg tablet - omeprazole (PRILOSEC) 20 mg capsule Take 20 mg by mouth. - oxybutynin ER (DITROPAN XL) 10 mg 24 hr tablet - WELCHOL 625 mg tablet - Magnesium 250 mg tab Take 250 mg by mouth. - coenzyme Q10 (H2Q COQ10) 200 mg/gram powd Take by mouth. - ergocalciferol, vitamin D2, (VITAMIN D2 ORAL) Take by mouth. - vits A,C,E/zinc/copper (VISION-CAMRON PRESERVE ORAL) Take by mouth. No current facility-administered medications for this visit. ALLERGIES Allergen Reactions - Penicillins Unknown Seizure like activity - Latex Hives, Swelling Swelling in lips There were no vitals taken for this visit. PHYSICAL EXAM: Well-developed well-nourished female alert and oriented person place and time with no acute distress time examination. No jugular venous distention is noted. She is not using accessory muscles or respiration. Pulse rate is regular. Weakly palpable pulses are present at the dorsal pedal level bilaterally. She has 1+ edema bilaterally with slightly more edema on the left than on the right. On the left there is areas of redness in the subcutaneous tissue and skin indicating some early stasis changes. The left leg is not quite is easily compressible with regard to the swelling as the right. ASSESSMENT: Ultrasound is performed of the bilateral lower extremity venous systems and it shows The patient has chronic bilateral venous insufficiency. I going to a lengthy discussion that we really don't have any good treatments that are reconstructive for this and that all the treatments we have her venous disease or a sickly ablative type of treatments that destroy venous tissue as opposed to actually repairing it. I explained that the mainstay of therapy for this is going to be compression and we discussed how we might be able to accommodate wearing compression more effectively. We also talked about skincare with good hydrating creams and lotions to avoid dryness over the areas of redness they could lead to skin cracking and ulceration. I tell her that unfortunately there really is no good reconstructive or other even ablative treatment that would help her specific situation with this. Overall the patient is very understanding and plans to work on getting compression that she can wear more effectively. PLAN: Ongoing compression therapy with good skincare. No interventional treatment is planned in this setting as none would really seem to benefit her. No specific large varicosities are noted that are contributing to the areas of skin discoloration. We will follow-up with her on an as-needed basis. FOLLOW UP: When necessary Otto Perry MD Vascular Surgery Beeper [phone] This note was generated with [employer] dictation software. It may contain incorrect words, spelling, and punctuation and that were not noted in review of the chart prior to signing. I spent 30 minutes in the visit, with more than 50% of the total [id number] time of the visit in counseling / coordination of care. Normal [facility] US VEIN MAPPING LOWER BILon 12-06-2019 US VEIN MAPPING LOWER MEL Final Report DATE OF EXAM: Dec 06 2019 11:42AM [id number] - US VEIN MAPPING LOWER MEL / PROCEDURE REASON: Venous insufficiency (chronic) (peripheral) Physician Interpretation Non-Invasive Vascular Laboratory [facility] Venous Valvular Incompetency Bilateral/Complete Date of service/time: 12/06/2019 10:58:30 AM Name: KERRI BURGESS Date of : 1945 Age: 74 years Gender: F Clinical Indication Chronic venous insufficiency and varicose veins. TECHNIQUE -------- A venous duplex ultrasound examination was performed, including grayscale imaging with compression maneuvers and color Doppler and spectral Doppler examination with augmentation maneuvers and response to respiration of the below mentioned veins. FINDINGS -------- RIGHT SIDE Method of augmentation: manual. Common femoral vein Doppler: normal flow. Compression: normal. Femoral vein Doppler: normal flow. Compression: normal. Popliteal vein Doppler: normal flow. Compression: normal. RIGHT GREAT SAPHENOUS VEIN Saphenofemoral junction Augmentation reflux none. Proximal thigh Augmentation reflux none. Size 0.43 cm. Proximal calf Augmentation reflux none. Size 0.29 cm. Mid calf Augmentation reflux none. Size 0.22 cm. Distal calf Augmentation reflux none. Size 0.22 cm. RIGHT SMALL SAPHENOUS VEIN Proximal calf Augmentation reflux none. Size 0.22 cm. Mid calf Augmentation reflux none. Size 0.21 cm. Distal calf Augmentation reflux none. Size 0.13 cm. LEFT SIDE Method of augmentation: manual. Common femoral vein Doppler: normal flow. Compression: normal. Femoral vein Doppler: normal flow. Compression: normal. Popliteal vein Doppler: normal flow. Compression: normal. LEFT GREAT SAPHENOUS VEIN Saphenofemoral junction Augmentation reflux none. Proximal thigh Augmentation reflux none. Size 0.37 cm. Proximal calf Augmentation reflux none. Size 0.34 cm. Mid calf Augmentation reflux none. Size 0.17 cm. Distal calf Augmentation reflux none. Size 0.25 cm. LEFT SMALL SAPHENOUS VEIN Proximal calf Augmentation reflux none. Size 0.16 cm. Mid calf Augmentation reflux none. Size 0.22 cm. Distal calf Augmentation reflux none. Size 0.19 cm. LEFT BRANCHES AND PERFORATORS Varicosity Positive varicosities noted in the posterior calf that travel medially to a negative office spec that measures 0.36cm. The varicosities range in size of 0.29-0.36 cm with a reflux time of 1.0-2.0 seconds. IMPRESSION Mild edema noted in the calves bilaterally. RIGHT SIDE - DEEP VEINS Negative for acute deep vein thrombosis. RIGHT SIDE - SUPERFICIAL VEINS Negative for valvular incompetency in the great saphenous vein. GSV leaves sheath mid thigh and re-enters proximal calf. Negative for valvular incompetency in the small saphenous vein. LEFT SIDE - DEEP VEINS Negative for acute deep vein thrombosis. LEFT SIDE - SUPERFICIAL VEINS Negative for valvular incompetency in the great saphenous vein. GSV leaves sheath mid thigh and re-enters sheath proximal calf. Negative for valvular incompetency in the small saphenous vein. Positive varicosities noted in the posterior calf that travel medially to a negative office spec that measures 0.36cm. The varicosities range in size of 0.29-0.36 cm with a reflux time of 1.0-2.0 seconds. Technologist: Nupur Vegas RDMS, RVT Ordering physician: OTTO PERRY Interpreting physician: Otto Perry MD Final RP Drywall Contractor: RAJI Transcribe Date/Time: Dec 06 2019 10:58A Dictated by : OTTO PERRY MD This examination was interpreted and the report reviewed and electronically signed by: OTTO PERRY MD on Dec 06 2019 1:05PM EST Normal [facility] Vital Signs Date Time Vital Sign Value Performing Clinician Facility 10-23-2024 12:43-0400 Body temperature 96.9 [degF] Dr. May Mckeon MD Work Phone: [facility] 10-23-2024 12:43-0400 Diastolic blood pressure 78 mm[Hg] Dr. May Mckeon MD Work Phone: [facility] 10-23-2024 12:43-0400 Heart rate 60 /min Dr. May Mckeon MD Work Phone: [facility] 10-23-2024 12:43-0400 Respiratory rate 14 /min Dr. May Mckeon MD Work Phone: [facility] 10-23-2024 12:43-0400 SaO2% (BldA) [Mass fraction] 96 % Dr. May Mckeon MD Work Phone: [facility] 10-23-2024 12:43-0400 Systolic blood pressure 125 mm[Hg] Dr. May Mckeon MD Work Phone: [facility] 10-23-2024 10:36-0400 Body height 160.[address] May Mckeon MD Work Phone: [facility] 10-23-2024 10:36-0400 Body mass index (BMI) [Ratio] 35 kg/m2 Dr. May Mckeon MD Work Phone: [facility] 10-23-2024 10:36-0400 Body weight 89.[address] May Mckeon MD Work Phone: [facility] 10-08-2023 06:54-0400 Blood Pressure Location GHULAM DIGGS MD [address] [place] [address] 10-08-2023 06:54-0400 Blood Pressure Method GHULAM DIGGS MD [address] [place] [address] 10-08-2023 06:54-0400 Body temperature 97.34 [degF] GHULAM DIGGS MD [address] [place] [address] 10-08-2023 06:54-0400 Diastolic Blood Pressure Non-Invasive 44 mm[Hg] GHULAM DIGGS MD [address] [place] [address] 10-08-2023 06:54-0400 Reason For Taking VItal Signs GHULAM DIGGS MD [address] [place] [address] 10-08-2023 06:54-0400 Respiratory rate 18 /min GHULAM DIGGS MD [address] [place] [address] 10-08-2023 06:54-0400 Systolic Blood Pressure Non-Invasive 122 mm[Hg] GHULAM DIGGS MD [address] [place] [address] 10-08-2023 03:00-0400 Body temperature 97.52 [degF] GHULAM DIGGS MD [address] [place] [address] 10-08-2023 03:00-0400 Diastolic Blood Pressure Non-Invasive 46 mm[Hg] GHULAM DIGGS MD [address] [place] [address] 10-08-2023 03:00-0400 Heart rate 65 /min GHULAM DIGGS MD [address] [place] [address] 10-08-2023 03:00-0400 Respiratory rate 20 /min GHULAM DIGGS MD [address] [place] [address] 10-07-2023 22:47-0400 Blood Pressure Location GHULAM DIGGS MD [address] [place] [address] 10-07-2023 22:47-0400 Blood Pressure Method GHULAM DIGGS MD [address] [place] [address] 10-07-2023 22:47-0400 Body temperature 97.7 [degF] GHULAM DIGGS MD [address] [place] [address] 10-07-2023 22:47-0400 Diastolic Blood Pressure Non-Invasive 52 mm[Hg] GHULAM DIGGS MD [address] [place] [address] 10-07-2023 22:47-0400 Heart rate 66 /min GHULAM DIGGS MD [address] [place] [address] 10-07-2023 22:47-0400 Reason For Taking VItal Signs GHULAM DIGGS MD [address] [place] [address] 10-07-2023 22:47-0400 Respiratory rate 20 /min GHULAM DIGGS MD [address] [place] [address] 10-07-2023 22:47-0400 Systolic Blood Pressure Non-Invasive 125 mm[Hg] GHULAM DIGGS MD [address] [place] [address] 10-07-2023 19:00-0400 Blood Pressure Cuff Size GHULAM DIGGS MD [address] [place] [address] 10-07-2023 19:00-0400 Heart rate 59 /min GHULAM DIGGS MD [address] [place] [address] 10-07-2023 19:00-0400 Mean blood pressure 78 mm[Hg] GHULAM DIGGS MD [address] [place] [address] 10-07-2023 15:45-0400 Mean blood pressure 80 mm[Hg] GHULAM DIGGS MD [address] [place] [address] 10-07-2023 13:01-0400 Heart rate 64 /min GHULAM DIGGS MD [address] [place] [address] 10-07-2023 12:28-0400 Body temperature 96.8 [degF] GHULAM DIGGS MD [address] [place] [address] 10-07-2023 12:28-0400 Heart rate 62 /min GHULAM DIGGS MD [address] [place] [address] 10-07-2023 12:28-0400 Mean blood pressure 77 mm[Hg] GHULAM DIGGS MD [address] [place] [address] 10-07-2023 12:09-0400 Heart rate 56 /min GHULAM DIGGS MD [address] [place] [address] 10-07-2023 11:53-0400 Heart rate 64 /min GHULAM DIGGS MD [address] [place] [address] 10-07-2023 10:52-0400 Body temperature 97.52 [degF] GHULAM DIGGS MD [address] [place] [address] 10-07-2023 10:50-0400 Respiratory Rate - Anes 0 br/min GHULAM DIGGS MD [address] [place] [address] 10-07-2023 10:45-0400 Respiratory Rate - Anes 13 br/min GHULAM DIGGS MD [address] [place] [address] 10-07-2023 10:40-0400 Body temperature 97.74 [degF] GHULAM DIGGS MD [address] [place] [address] 10-07-2023 10:40-0400 Respiratory Rate - Anes 14 br/min GHULAM DIGGS MD [address] [place] [address] 10-07-2023 10:35-0400 Body temperature 97.74 [degF] GHULAM DIGGS MD [address] [place] [address] 10-07-2023 10:30-0400 Body temperature 97.7 [degF] GHULAM DIGGS MD [address] [place] [address] 10-07-2023 07:30-0400 Body height 160 cm GHULAM DIGGS MD [address] [place] [address] 10-07-2023 07:30-0400 Body temperature 96.8 [degF] GHULAM DIGGS MD [address] [place] [address] 10-07-2023 07:30-0400 Body weight 92.4 kg GHULAM DIGGS MD [address] [place] [address] 09-30-2023 09:28-0400 Blood Pressure Cuff Size GHULAM DIGGS MD [address] [place] [address] 09-30-2023 09:28-0400 Blood Pressure Location GHULAM DIGGS MD [address] [place] [address] 09-30-2023 09:28-0400 Blood Pressure Method GHULAM DIGGS MD [address] [place] [address] 09-30-2023 09:28-0400 Body height 160 cm GHULAM DIGGS MD [address] [place] [address] 09-30-2023 09:28-0400 Body temperature 97.88 [degF] GHULAM DIGGS MD [address] [place] [address] 09-30-2023 09:28-0400 Body weight 94.4 kg GHULAM DIGGS MD [address] [place] [address] 09-30-2023 09:28-0400 Diastolic Blood Pressure Non-Invasive 80 mm[Hg] GHULAM DIGGS MD [address] [place] [address] 09-30-2023 09:28-0400 Heart rate 79 /min GHULAM DIGGS MD [address] [place] [address] 09-30-2023 09:28-0400 Systolic Blood Pressure Non-Invasive 178 mm[Hg] GHULAM DIGGS MD [address] [place] [address] 09-03-2022 13:06-0400 Body height 160.02 cm Unknown Unknown IT-Vxbfqffkq-VWM M C [employer] Work Phone: 09-03-2022 13:06-0400 Body mass index (BMI) [Ratio] 34.72 kg/m2 Unknown Unknown UN-Tjhhauxqw-UEPE C [employer] Work Phone: 09-03-2022 13:06-0400 Body surface area Derived from formula 1.92 m2 Unknown Unknown UZ-Rwkyjwxeu-ETHN C [employer] Work Phone: 09-03-2022 13:06-0400 Body weight 88.91 kg Unknown Unknown TB-Yqzjwdcls-TXJ M C [employer] Work Phone: 09-03-2022 13:06-0400 Diastolic blood pressure 80 mm[Hg] Unknown Unknown SD-Xvpnmgrcz-HZDD C [employer] Work Phone: 09-03-2022 13:06-0400 Heart rate 78 /min Unknown Unknown QY-Vvldbivau-BJK M C [employer] Work Phone: 09-03-2022 13:06-0400 Respiratory rate 19 /min Unknown Unknown SB-Vxpckkakw-PG CM C [employer] Work Phone: 09-03-2022 13:06-0400 SaO2% (BldA) [Mass fraction] 98 % Unknown Unknown CU-Fhtmteygr-MSGH C [employer] Work Phone: 09-03-2022 13:06-0400 Systolic blood pressure 140 mm[Hg] Unknown Unknown KT-Kpjabdurv-QGDY C [employer] Work Phone: 09-03-2022 13:06-0400 0 1 Unknown Unknown TW-Ncrlyifgf-JLW M C [employer] Work Phone: Comment on above: [employer] PHQ-9 TS 02-25-2022 07:48-0400 Body temperature 97.7 [degF] Family Unavailable [facility] 02-25-2022 07:48-0400 Diastolic blood pressure 54 mm[Hg] Family Unavailable [facility] 02-25-2022 07:48-0400 Heart rate 69 /min Family Unavailable [facility] 02-25-2022 07:48-0400 Respiratory rate 16 /min Family Unavailable [facility] 02-25-2022 07:48-0400 SaO2% (BldA) [Mass fraction] 100 % Family Unavailable [facility] 02-25-2022 07:48-0400 Systolic blood pressure 185 mm[Hg] Family Unavailable [facility] Encounters Encounter Date Encounter Type Care Provider Facility Start: 10-23-2024 Non-patient / Non-visit Scott Hermosillo DO -[facility] Start: 10-23-2024 ambulatory Scott Hermosillo Facility :[facility] Start: 10-23-2024 End: 10-23-2024 Admission to same day surgery center Scott Hermosillo DO -Endoscopy Work Phone: Start: 10-23-2024 End: 10-23-[address] May Mckeon MD Work Phone: [facility] Work Phone: Start: 10-15-2024 End: 10-15-2024 Patient encounter procedure Marilyn FORDE -[facility] Work Phone: Start: 10-15-2024 End: 10-15-[address] May Mckeon MD Work Phone: [facility] Work Phone: Start: 10-05-2024 End: 10-09-2024 ambulatory KIARRAZOFIA WEST PC MAINTENANCE TECHNICIAN-SURVEYOR HELPER ROD Facility:[facility] Start: 10-05-2024 End: 10-09-2024 Outreach Lab KIARRAZOFIA WEST PC MAINTENANCE TECHNICIAN-SURVEYOR HELPER ROD [facility] Start: 09-17-2024 End: 09-17-[address] MAY MCKEON MD Facility:A Start: 09-17-2024 End: 09-17-[address] MAY CMKEON MD [facility] Start: 08-17-2024 ambulatory EVAN Dangelo [facility] Start: 08-16-2024 End: 08-20-[address] MAY MCKEON MD Facility:[facility] Start: 08-16-2024 End: 08-20-2024 Encounter for general adult medical examination without abnormal findings DR MAY MCKEON MD Facility:[facility] Start: 08-13-2024 End: 08-13-[address] MAY MCKEON MD Facility:A Start: 08-13-2024 End: 08-13-2024 Patient encounter procedure GHULAM DIGGS MD [facility] Start: 08-09-2024 End: 08-09-2024 ambulatory LUISGIANLUCA Paredes [id number] [facility] Start: 07-19-2024 End: 07-19-[address] MAY MCKEON MD Facility:[facility] Start: 07-11-[address] MAY MCFADDEN MD Facility:A Start: 07-11-2024 End: 07-11-[address] MAY MCKEON MD Facility:A Start: 07-04-2024 End: 07-04-2024 ambulatory GALA SONG PC MAINTENANCE TECHNICIAN-SURVEYOR HELPER ROD Facility:A Start: 07-04-2024 End: 07-04-2024 Patient encounter procedure GALA SONG PC MAINTENANCE TECHNICIAN-SURVEYOR HELPER ROD [facility] Start: 07-04-2024 End: 07-04-[address] MAY MCKEON MD Facility:A Start: 07-04-2024 End: 07-04-2024 Patient encounter procedure GALA SONG PC MAINTENANCE TECHNICIAN-SURVEYOR HELPER ROD [facility] Start: 03-16-2024 End: 03-20-[address] MAY MCKEON MD Facility:[facility] Start: 03-16-2024 End: 03-20-[address] MAY MCKEON MD [facility] Start: 12-09-2023 End: 12-09-[address] MAY MCKEON MD Facility:A Start: 12-09-2023 End: 12-09-[address] MAY MCKEON MD [facility] Start: 11-21-2023 End: 11-21-[address] MAY MCKEON MD Facility:A Start: 11-16-2023 End: 11-16-2023 ambulatory GALA SONG PC MAINTENANCE TECHNICIAN-SURVEYOR HELPER ROD Facility:A Start: 10-31-2023 End: 10-31-2023 ambulatory GALA SONG PC MAINTENANCE TECHNICIAN-SURVEYOR HELPER ROD Facility:A Start: 10-31-2023 End: 10-31-2023 Patient encounter procedure GALA SONG PC MAINTENANCE TECHNICIAN-SURVEYOR HELPER ROD [facility] Start: 10-26-2023 End: 10-26-2023 ambulatory GALA SONG PC MAINTENANCE TECHNICIAN-SURVEYOR HELPER ROD Facility:A Start: 10-26-2023 End: 10-26-2023 Patient encounter procedure GALA SONG PC MAINTENANCE TECHNICIAN-SURVEYOR HELPER ROD [facility] Start: 10-19-2023 End: 10-19-2023 ambulatory GALA SONG PC MAINTENANCE TECHNICIAN-SURVEYOR HELPER ROD Facility:A Start: 10-19-2023 End: 10-19-2023 Patient encounter procedure GALA SONG PC MAINTENANCE TECHNICIAN-SURVEYOR HELPER ROD [facility] Start: 10-07-2023 End: 10-08-2023 ambulatory GHULAM DIGGS MD Facility:A Start: 10-07-2023 End: 10-08-2023 Observation GHULAM DIGGS MD [facility] Start: 09-30-2023 End: 09-30-2023 Admission to establishment GHULAM DIGGS MD [facility] Start: 09-30-2023 End: 09-30-2023 ambulatory GHULAM DIGGS MD Facility:A Start: 09-12-2023 End: 09-12-2023 ambulatory GHULAM DIGGS MD Facility:A Start: 09-12-2023 End: 09-12-2023 Patient encounter procedure GHULAM DIGGS MD [facility] Start: 08-20-2023 End: 08-20-[address] MAY MCKEON MD Facility:A Start: 08-11-2023 End: 08-15-[address] MAY MCKEON MD Facility:B Start: 08-11-2023 End: 08-15-[address] MAY MCKEON MD [facility] Start: 03-18-2023 End: 03-18-[address] MAY MCKEON MD Facility:A Start: 02-19-2023 End: 02-19-[address] MAY MCKEON MD Facility:A Start: 02-17-2023 End: 02-21-[address] MAY MCKEON MD Facility:B Start: 02-17-2023 End: 02-21-[address] MAY MCKEON MD [facility] Start: 01-31-2023 End: 01-31-[address] MAY MCKEON MD Facility:A Start: 11-10-2022 Chart Update May grande Work Phone: XC-Xqbtfkvytpbu-DTPIM Work Phone: Start: 10-06-2022 Chart Update May Rivera tanlalito Work Phone: KE-Zshhkwvcblui-ZVRDV Work Phone: Start: 10-05-2022 ambulatory Miryam Crow y:[facility] Start: 09-30-2022 AUDIT May grande Work Phone: LG-Skvflljwlpvq-TGVOB Work Phone: Start: 09-29-2022 Chart Update May Rivera tanlalito Work Phone: YO-Pzhluepqunpk-RQRSD Work Phone: Start: 09-23-2022 ambulatory Miryam Tramte Facilit y:[id number] Start: 09-15-2022 AUDIT May Parnell Nicole grande Work Phone: NW-Klvbuyuoqfqf-BGNOH Work Phone: Start: 09-10-2022 AUDIT May Parnell Nicole grande Work Phone: DS-Elrquhbietsf-FCLBC Work Phone: Start: 09-09-[address] May Mckeon Facility:[id number] Start: 09-03-2022 Office outpatient ne w 60 minutes Unknown Unknown GH-Qbotmuhlb-CSLJY [facility] Work Phone: Start: 09-03-2022 ambulatory Miryam Tramte Facilit y:[facility] Start: 06-01-2022 End: 06-02-2022 ambulatory Facility:[id number] Start: 03-09-2022 End: 03-13-[address] MAY MCKEON MD [facility] Start: 02-25-2022 End: 02-25-2022 ambulatory Family Physician Unavailable Facility:[facility] Start: 02-25-2022 End: 02-25-2022 Admission to same day surgery center Family Unavailable [facility] Start: 02-25-2022 End: 02-25-2022 ambulatory Family Physician Unavailable [facility] Work Phone: Start: 02-05-2022 ambulatory Family Physici an Unavailable Facility:[facility] Start: 02-05-2022 Patient encounter procedure Family Unavailable [facility] Start: 02-05-2022 ambulatory Miryam Tramte Facilit y:[id number] Start: 01-28-2022 End: 01-28-[address] MAY MCKEON MD [facility] Start: 07-30-2021 End: 08-03-[address] MAY MCKEON MD [facility] Start: 04-28-2021 End: 04-28-2021 ambulatory Family Physician Unavailable Facility:[facility] Start: 04-27-2021 ambulatory Family Physici an Unavailable Facility:[facility] Procedures Date Procedure Procedure Detail Performing Clinician Start: 10-23-[address] May Mckeon MD Work Phone: Start: 10-07-2023 Laminectomy GALA SONG PC MAINTENANCE TECHNICIAN-SURVEYOR HELPER ROD Comment on above: L4-5 laminectomy with bilateral foramino tomies Start: 02-25-2022 Local anesthetic facet joint nerve block Family Unavailable Start: 02-06-[address] MAY MCKEON MD Comment on above: left Start: 05-02-2012 Small incision phacoemulsification of cataract and insertion of intraocular lens DR MAY MCKEON MD Comment on above: right Start: 05-02-[address] MAY MCKEON MD Start: 05-02-[address] MAY MCKEON MD Comment on above: right Start: 05-02-[address] MAY MCKEON MD Start: 05-02-1994 Laser assisted in situ keratomileusis DR MAY MCKEON MD Start: 05-02-[address] MAY MCKEON MD Arthroscopy of shoulder THERON DIGGS MD Comment on above: RIGTH SHOULDER WITH HARDWARE Colonoscopy GHULAM DIGGS MD Entire tooth (body structure) GHULAM DIGGS MD Comment on above: DENTAL IMPLANT Extraction of wisdom tooth R PABLO DIGGS MD History of operative procedure on knee S/P knee replacement( Confirmed ) DR MAY MCKEON MD Hysterectomy Unknown Unknown Total knee replacement Unkno wn Unknown Plan of Treatment Date Care Activity Detail Author Start: 10-23-2024 Patient discharge [facility] Patient referral [facility] Work Phone: Immunizations Immunization Date Immunization Notes Care Provider Fa [facility] 03-11-2024 influenza virus vacc ine, unspecified formulation DR MAY MCKEON MD [facility] 04-02-2023 RSV vaccine, preF A- preF B, recombinant DR MAY MCKEON MD [facility] 03-08-2023 influenza virus vacc ine, unspecified formulation DR MAY MCKEON MD [facility] 02-08-2022 influenza virus vacc ine, unspecified formulation DR MAY MCKEON MD [facility] 03-10-2021 SARS-CoV-2 (COVID-19 ) [id number] MAY MCKEON MD [facility] Comment on above: Result Comment: 2021: [id number] 02-19-2021 influenza virus vacc ine, unspecified formulation DR MAY MCKEON MD [facility] 07-07-2020 SARS-CoV-2 (COVID-19 ) mRNA-[address] MAY MCKEON MD [facility] Comment on above: Result Comment: 2020: [id number] 06-05-2020 SARS-CoV-2 (COVID-19 ) mRNA-[address] MAY MCKEON MD [facility] Comment on above: Result Comment: 2020: [id number] 02-28-2020 influenza virus vacc ine, unspecified formulation DR MAY MCKEON MD [facility] 04-10-[address] MAY MCKEON MD [facility] 03-14-2019 influenza virus vacc ine, unspecified formulation GHULAM DIGGS MD [facility] 01-30-[address] MAY MCKEON MD [facility] 01-30-2018 influenza virus vacc ine, unspecified formulation DR MAY MCKEON MD [facility] 01-19-2018 influenza virus vacc ine, unspecified formulation GHULAM DIGGS MD [facility] 02-14-2017 influenza virus vacc ine, unspecified formulation GHULAM DIGGS MD [facility] 01-30-2017 influenza virus vacc ine, unspecified formulation DR MAY MCKEON MD [facility] 03-26-2016 influenza virus vacc ine, unspecified formulation DR MAY MCKEON MD [facility] 11-10-2015 pneumococcal conjuga te vaccine, [address] MAY MCKEON MD [facility] 02-13-2014 influenza virus vacc ine, unspecified formulation DR MAY MCKEON MD [facility] 02-08-2013 influenza virus vacc ine, unspecified formulation DR MAY MCKEON MD [facility] 02-18-2012 influenza virus vacc ine, unspecified formulation DR MAY MCKEON MD [facility] 09-24-2011 pneumococcal polysaccharide vaccine, [address] MAY MCKEON MD [facility] 01-30-2011 influenza virus vacc ine, unspecified formulation GHULAM DIGGS MD [facility] 05-02-2008 zoster vaccine, live DR BRITTON MCKEON MD [facility] 03-31-2008 zoster vaccine, live DR BRITTON MCKEON MD [facility] 02-23-2008 influenza virus vacc ine, unspecified formulation DR MAY MCKEON MD [facility] Payers Date Payer Category Payer Self-pay [id number] 2021 Unknown [id number] 2020 Unknown [id number] 2019 Unknown [id number] 2018 Private Health Insurance [id number] [id number] 2011 Medicare [id number] 1959 Medicare [id number] 1959 Unknown [id number] 1946 Unknown [id number] 2.16.8 40.1.147736.3.579.2.1069 1946 Unknown [id number] 2.16. 840.1.368789.3.579.2.356 1946 Unknown [id number] 2.16. 840.1.087089.3.579.2.356 1946 Unknown [id number] 2.16. 840.1.338930.3.579.2.356 1946 Unknown [id number] 2.16. 840.1.279568.3.579.2.356 1946 Unknown [id number] 2.16.8 40.1.616069.3.579.2.627 1946 Unknown [id number] 2.16.8 40.1.050656.3.579.2.627 1946 Unknown [id number] 2.16.8 40.1.637623.3.579.2.627 1946 Unknown [id number] 2.16.8 40.1.749107.3.579.2.627 1946 Unknown [id number] 2.16.8 40.1.986418.3.579.2.627 1946 Unknown [id number] 2.16.8 40.1.126253.3.579.2.627 1946 Unknown [id number] 2.16.8 40.1.808456.3.579.2.627 1946 Unknown [id number] 2.16.8 40.1.280449.3.579.2.627 1946 Unknown [id number] 2.16.8 40.1.994197.3.579.2. 1946 Unknown [id number] 2.16.8 40.1.415537.3.579.2. 1946 Unknown [id number] 2.16.8 40.1.444763.3.579.2. 1946 Unknown [id number] 2.16.8 40.1.596098.3.579.2. 1945 Unknown [id number] 2.16.8 40.1.000154.3.579.2. 1946 Unknown [id number] 2.16.8 40.1.983237.3.579.2. 1946 Unknown [id number] 2.16.8 40.1.335655.3.579.2. 1945 Unknown [id number] 2.16.8 40.1.322865.3.579.2. 1946 Unknown [id number] 2.16.8 40.1.986659.3.579.2. 1945 Unknown [id number] 2.16.8 40.1.051041.3.579.2. 1946 Unknown [id number] 2.16.8 40.1.255711.3.579.2. 1946 Unknown [id number] 2.16.8 40.1.116975.3.579.2. 1946 Unknown [id number] 2.16.8 40.1.602057.3.579.2. 1946 Unknown [id number] 2.16.8 40.1.786910.3.579.2. 1946 Unknown [id number] 2.16. 840.1.400701.3.579.2.627 1946 Unknown [id number] 2.16.8 40.1.790610.3.579.2.627 1946 Unknown [id number] 2.16.8 40.1.226323.3.579.2.627 1946 Unknown [id number] 2.16.8 40.1.298702.3.579.2.627 1946 Unknown [id number] 2.16.8 40.1.511126.3.579.2.598 1945 Unknown [id number] 2.16.8 40.1.555701.3.579.2.651 Medicare [id number] Unknown [id number] 2.16.8 40.1.697532.3.579.2.277 Unknown [id number] 2.16.8 40.1.844095.3.579.2.277 Unknown [id number] 2.16.8 40.1.030794.3.579.2.277 Unknown [id number] 2.16.8 40.1.818313.3.579.2.277 Unknown [id number] 2.16.8 40.1.758566.3.579.2.462 Unknown [id number] 2.16.8 40.1.925084.3.579.2.462 Social History Date Type Detail Facility Start: 12-12-2018 End: 10-22-2024 Tobacco smoking status Ex-smoker (finding) [facility] Comment on above: QUIT 1978 Start: 1945 Sex Assigned At Female A [facility] Gender Identity unknown [facility] Work Phone: Sexual Orientation [facility] Start: 07-05-2019 Sex Female (finding) [facility] NEGATED: Highlighted row Not [facility] Medical Equipment Procedure Code Equipment Code Equipment Original Text Equipment Identifier Dates FDA Start: 12-18-2018 Eye Phacoemulsif ication with IOL Unknown 12/18/18 Unknown Unknown FDA Start: 12-18-2018 Eye Phacoemulsif ication with IOL Unknown 12/18/18 Unknown Unknown FDA Start: 12-18-2018 Eye Phacoemulsif ication with IOL Unknown 12/18/18 Unknown Unknown FDA Start: 12-18-2018 Eye Phacoemulsif ication with IOL Unknown 12/18/18 Unknown Unknown FDA Start: 12-18-2018 Eye Phacoemulsif ication with IOL Unknown 12/18/18 Unknown Unknown FDA Start: 12-18-2018 Eye Phacoemulsif ication with IOL Unknown 12/18/18 Unknown Unknown FDA Start: 12-18-2018 Eye Phacoemulsif ication with IOL Unknown 12/18/18 Unknown Unknown FDA Start: 12-18-2018 Eye Phacoemulsif ication with IOL Unknown 12/18/18 Unknown Unknown FDA Start: 12-18-2018 Eye Phacoemulsif ication with IOL Unknown 12/18/18 Unknown Unknown FDA Start: 12-18-2018 Eye Phacoemulsif ication with IOL Unknown 12/18/18 Unknown Unknown FDA Start: 12-18-2018 Eye Phacoemulsif ication with IOL Unknown 12/18/18 Unknown Unknown FDA Start: 12-18-2018 Eye Phacoemulsif ication with IOL Unknown 12/18/18 Unknown Unknown FDA Start: 12-18-2018 Eye Phacoemulsif ication with IOL Unknown 12/18/18 Unknown Unknown FDA Start: 12-18-2018 Apply 1 kamala, Top ical, BID, X 10 day(s), # 30 gram(s), 0 Refill(s), [facility]acy: [id number], Ointment, 160, cm, 03/16/24 13:09:00 EST, Height, 91, kg, 03/16/24 13:09:00 EST, Dosing Weight Start: 03-16-2024 End: 03-26-2024 Eye Phacoemulsif ication with IOL Unknown 12/18/18 Unknown Unknown FDA Start: 12-18-2018 Eye Phacoemulsif ication with IOL Unknown 12/18/18 Unknown Unknown FDA Start: 12-18-2018 Eye Phacoemulsif ication with IOL Unknown 12/18/18 Unknown Unknown FDA Start: 12-18-2018 Eye Phacoemulsif ication with IOL Unknown 12/18/18 Unknown Unknown FDA Start: 12-18-2018 Eye Phacoemulsif ication with IOL Unknown 12/18/18 Unknown Unknown FDA Start: 12-18-2018 Goals Date Patient Goal Desired Activity /State Functional Status Date Assessment Result Facility 10-08-2023 Functional Status Repositions se lf, Encouraged/reinforced importance of turning [facility] 10-08-2023 Functional Status Mod I [facility] 10-08-2023 Functional Status Supervision [facility] 10-08-2023 Functional Status Room check performed [facility] 10-07-2023 Functional Status [facility] 10-07-2023 Functional Status [facility] 10-07-2023 Functional Status [facility] 10-07-2023 Functional Status [facility] 10-07-2023 Functional Status Patient Identified Iden tification band [facility] 10-07-2023 Functional Status [facility] 09-30-2023 Functional Status Sensory Deficits None A [facility] Mental Status Date Assessment Result Facility 10-23-2024 Cognitive function Voice/Name;Touch/Shaki ng [facility] Work Phone: 10-08-2023 Mental Status Orientation Oriented x 4 [facility] 10-08-2023 Mental Status [facility] 10-07-2023 Mental Status [facility] Clinical Notes 09-15-2022 to 10-23-2024 Note Date & Type Note Facility 10-23-2024 Consult note [facility] 10-23-2024 Consult note Note Date/Time October 23, 2024 11:13am [facility] Medical Records Department [address] [place] [address] Pre-Anesthesia Evaluation 10/23/24 1106 MR#: [id number] Acct: [id number] Name: KERRI BURGESS Rep #:[id number] : 1945 79 From: Yuniel Puga MD PCP: Dr. May Mckeon MD Status:R EG SDC Y Race: C Location: [place] [address]-1 ASA Classification* ASA Classification ASA Classification: 3 Assessment & Plan Anesthesia* Anesthesia Assessment Anesthesia Assessment: Discussed sedation and/or anesthesia options, risks, benefits, and alternatives with patient/parents/legal guardian/POA. Questions invited. The patient/parents/legal guardian/POA seems to understand and agrees to proceedwith anesthesia plan. Reviewed the physical assessment, medical history, allergy history and patient home medications list prior to surgery/procedure/anesthetic and documented any changes. Performed airway and anesthesia risk assessments. Anesthesia Type Anesthesia Type: MAC History Source History Obtained from:: Patient and Chart Anesthesia Focused Assessment* Temperature: 97.2 F Pulse Rate: 73 Blood Pressure: 188/84 Respiratory Rate: 18 Pulse Ox: 99 Oxygen Delivery Method: Room Air Airway Assessment Mouth opens: >3 cm Mallampati Score: I Teeth Condition: Caps/Crowns (Patient has several crowns. They are all tight.) and Implants (Right lower implant. 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 When Was Last Pacemaker Check QUESTION #4 FULL TEXT: You/Your Family Experience fever (hyperthermia) with Anesthesia Last Oral Intake Last Oral intake: Last Oral Intake NPO since 06:30 10/23/24 10:36 Meds taken in AM with sips of Yes 10/23/24 10:36 water? 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 Female Yes 10/22/24 09:49 HX of Motion Sickness Yes 10/22/24 09:49 HX of N/V After Surgery Yes 10/22/24 09:49 Non-Smoker Yes 10/22/24 09:49 Duration of Surgery greater No 10/22/24 09:49 than 60 minutes Number of Risk Factors 4 10/22/24 09:49 PONV Score Severe Risk 10/22/24 09:49 Height & Weight Height & Weight: Anesthesia: Height & Weight Height 5 ft 3 in 10/23/24 10:36 Weight: 89.7 kg 10/23/24 10:36 Body Mass Index (BMI) 35.0 10/23/24 10:36 Respiratory Assessment Respiratory Assessment - farm equipment technician: Respiratory Tract Infection Hx - farm equipment technician Hx Respiratory Tract Infection No 10/22/24 09:49 STOP Sleep Apnea STOP Sleep Apnea - farm equipment technician: STOP Sleep Apnea - farm equipment technician Hx Hypertension Yes: PER PT, CONTROLLED ON 10/22/24 09:49 MEDS Hx Sleep Apnea Yes 10/22/24 09:49 CPAP Yes 10/22/24 09:49 BIPAP No 10/22/24 09:49 Do you snore loudly (louder than talking or can be heard Do you often feel tired/ fatigued/ sleepy during daytime? Has anyone observed you stop breathing during sleep? STOP Results Positive 10/22/24 09:49 QUESTION #5 FULL TEXT : Do you snore loudly (louder than talking or can be heard through closed doors)? 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 Specify any problems Hx of Preganancy in last 3 No 10/22/24 09:49 Months Nurse Filling Out Transfusion MGRIFFITH 10/22/24 09:49 & Questions: Date: 10/22/24 10/22/24 09:49 Time: 09:51 10/22/24 09:49 Patient unable to answer at this time (ie. confused, unrespo /Reproduction History /Reproductive History - farm equipment technician: /Reproductive Hx- farm equipment technician Hx Now No 10/22/24 09:49 Gestational Age (in weeks): EDC: Hx Hx Para Hx Section SAB Active Medications Active Medications: Current Medications Generic Name Dose Route Start Last Admin Trade Name Freq PRN Reason Stop Dose Admin Lactated Ringer's 1,000 mls @ 15 mls/hr 10/23/24 10:30 10/23/24 10:46 IV 15 mls/hr .Q48H GATITO Administration PFSH Medical History Wears glasses Thyroid disease Arthritis Bladder disease History of pulmonary embolism Back pain PONV (postoperative nausea and vomiting) Gastric reflux Shortness of breath on exertion Former smoker Sleep apnea CPAP (continuous positive airway pressure) dependence Leg cramps History of edema Helicobacter pylori (H. pylori) Urinary incontinence Spasm of back muscles Rotator cuff tear RUQ pain Pulmonary nodule CARISA on CPAP Mid back pain on right side Lumbar stenosis with neurogenic claudication Lesion of bone of cervical spine Hypercholesteremia HTN (hypertension) Left navicular fracture of foot Dilatation of pulmonic artery Dermatographism GERD (gastroesophageal reflux disease) Cervical spine pain Carotid stenosis Bilateral lower extremity edema Bilateral chronic knee pain Arteriosclerotic heart disease (ASHD) Abrasion of left lower leg Abnormal MRI, cervical spine Epigastric pain Home Medications ?Medication ?Instructions ?Recorded ?Last Taken ?Type acetaminophen 500 mg tablet 500 mg PO Q6H PRN pain 04/25 Unknown History (Tylenol Extra Strength) bumetanide 1 mg tablet 1 mg PO QDAY PRN WATER PILL 10/11/24 Unknown History colesevelam 625 mg tablet 1,875 mg PO BID 10/11/24 Unk nown History ibuprofen 800 mg tablet 800 mg PO Q8H 10/11/24 Unkno wn History Held on 10/22/24. Instructions: STOMACH ISSUES levothyroxine 50 mcg capsule 50 mcg PO QDAY 10/11/24 0 10/23/24 History lidocaine 5 % topical patch 1 patch topical QDAY 10/11 Unknown History magnesium oxide 400 mg (241.3 mg 400 mg PO QDAY Unknown History magnesium) tablet nebivolol 10 mg tablet 10 mg PO QDAY 10/11/2410/23 History oxybutynin chloride 5 mg tablet 5 mg PO DAILY bladder spasms 10/11/24 Unknown History pregabalin 50 mg capsule 50 mg PO BID 10/11/24 Unknow n History valsartan 320 mg tablet 320 mg PO QDAY 10/11/2410/01 History pantoprazole 40 mg tablet,delayed 40 mg PO BID #60 tab s 10/15/24 Unknown Rx release Held on 10/22/24. Instructions: TAKING CARAFATE TEMPORARILY sucralfate 1 gram tablet 1 g PO QAC 3 months #270 tab s 10/15/24 Unknown Rx ascorbic acid (vitamin C) 500 mg 1 g PO DAILY 10/22/24 Unknown History chewable tablet (C-500) calcium 325 mg-vit D3 12.5 1 tab PO DAILY 10/22/24 Unk nown History mcg-zinc 2.75 va-bxtghe-kztvyprra tablet cholecalciferol (vitamin D3) 125 125 mcg PO QHS Unknown History mcg (5,000 unit) tablet (Vitamin D3) omeprazole 20 mg capsule,delayed 20 mg PO BID 10/22/24 Unknown History release Held on 10/22/24. Instructions: PRESCRIBES CARAFATE TEMPORARILY triamcinolone acetonide 0.1 % 1 applic topical BID PRN rash 10/22/24 Unknown History topical cream vitamin B complex (B-Complex 1 tab PO DAILY 10/22/24 U nknown History tablet) vitamins A,C,R-aiyz-nsxmvy 2,148 1 tab PO BID 10/22/24 Unknown History mcg-113 mg-45 mg-17.4 mg tablet (Eye Multivitamin) Allergy/AdvReac Type Severity Reaction Status Date / Time adhesive tape Allergy Intermediate Itching Verified 10/23/24 10:33 apixaban (From Eliquis) Allergy Intermediate Other Verified 10/23/24 10:33 latex Allergy Intermediate Hives Verified 10/23/24 10:33 oxycodone Allergy Intermediate Other Verified 10/23/24 10:33 Penicillins (PCN) Allergy Intermediate Hives Verified 10/23/24 10:33 atorvastatin (From Lipitor) AdvReac Intermediate Other Verified 10/23/24 10:33 semaglutide (From Rybelsus) AdvReac Intermediate Other Verified 10/23/24 10:33 Family History Mother Breast cancer Diabetes Sister Hx of CABG Kidney disease Diabetes HLD (hyperlipidemia) Hypertension Father Heart disease Brother Heart disease Surgical History History of cataract surgery History of esophagogastroduodenoscopy (EGD) History of colonoscopy History of shoulder surgery Hx of appendectomy H/O: hysterectomy H/O arthroplasty Hx of cholecystectomy S/P lumbar laminectomy S/P knee replacement Social History Smoking Status: Former smoker quit date: 05/02/16 alcohol intake: never Review of Systems (Anesthesia) ROS Narrative System reviewed and no additional complaints, except as documented. 10/23/24 1113 <Electronically signed by Yuniel rey MD> Date _ Yuniel Puga MD Cosigner Signature: Date CC: ~ Signed [facility] Work Phone: 1(773) 851-128306-24-2025 Procedure note [facility] Medical Records Department [address] [place] [address] EGD Report MR#: [id number] Acct: [id number] Name: ADITYAKERRINILES ROLDAN Rep #:[id number] : 1945 79 From: Scott Hermosillo DO PCP: Dr. May Mckeon MD Status:R EG [facility] Patient Name: Kerri Burgess Procedure Date: 10/23/2024 11:43 AM Date of : 1945 Age: 79 Procedure: Upper GI endoscopy Indications: Epigastric abdominal pain Providers: Scott Hermosillo DO Referring MD: May Mckeon Md Medicines: Monitored Anesthesia Care Patient Profile: This is a 79 year old female. Refer to note in patient chart for documentation of history and physical. Patient has symptoms of acute abdominal cramping, acute epigastric abdominal pain, acute dyspepsia and acute nausea. Complications: No immediate complications. Procedure: Pre-Anesthesia Assessment: - Prior to the procedure, a History and Physical was performed, and patient medications and allergies were reviewed. The patient is competent. The risks and benefits of the procedure and the sedation options and risks were discussed with the patient. All questions were answered and informed consent was obtained. Patient identification and proposed procedure were verified by the physician in the pre-procedure area. Mental Status Examination: alert and oriented. Airway Examination: normal oropharyngeal airway and neck mobility. Respiratory Examination: clear to auscultation. CV Examination: normal. Prophylactic Antibiotics: The patient does not require prophylactic antibiotics. Prior Anticoagulants: The patient has taken no anticoagulant or antiplatelet agents. ASA Grade Assessment: II - A patient with mild systemic disease. After reviewing the risks and benefits, the patient was deemed in satisfactory condition to undergo the procedure. The anesthesia plan was to use monitored anesthesia care (MAC). Immediately prior to administration of medications, the patient was re-assessed for adequacy to receive sedatives. The heart rate, respiratory rate, oxygen saturations, blood pressure, adequacy of pulmonary ventilation, and response to care were monitored throughout the procedure. The physical status of the patient was re-assessed after the procedure. After obtaining informed consent, the endoscope was passed under direct vision. Throughout the procedure, the patient's blood pressure, pulse, and oxygen saturations were monitored continuously. The Endoscope was introduced through the mouth, and advanced to the third part of the duodenum. Small bowel enteroscopy was deemed necessary. The upper GI endoscopy was accomplished without difficulty. The patient tolerated the procedure well. Scope In: 12:13:59 PM Scope Out: 12:17:04 PM Total Procedure Duration Time 0 hours 3 minutes 5 seconds Findings: The examined esophagus was normal. Four non-bleeding cratered gastric ulcers with no stigmata of bleeding were found in the gastric body. The largest lesion was 14 mm in largest dimension. Biopsies were taken with a cold forceps for histology. Verification of patient identification for the specimen was done. Estimated blood loss was minimal. Biopsies were taken with a cold forceps for Helicobacter pylori testing. Verification of patient identification for the specimen was done. Estimated blood loss was minimal. No gross lesions were noted in the entire examined duodenum. Impression: - Normal esophagus. - Non-bleeding gastric ulcers with no stigmata of bleeding. Biopsied. - No gross lesions in the entire examined duodenum. Recommendation: - Patient has a contact number available for emergencies. The signs and symptoms of potential delayed complications were discussed with the patient. Return to normal activities tomorrow. Written discharge instructions were provided to the patient. - Resume previous diet. - Patient has a contact number available for emergencies. The signs and symptoms of potential delayed complications were discussed with the patient. Return to normal activities tomorrow. Written discharge instructions were provided to the patient. - Resume previous diet. - Continue present medications. - Await pathology results. - Use Protonix (pantoprazole) 40 mg PO BID. Procedure Code(s): --- Professional --- 19579, Small intestinal endoscopy, enteroscopy beyond second portion of duodenum, not including ileum; with biopsy, single or multiple CPT copyright 2021 [employer]. All rights reserved. The codes documented in this report are preliminary and upon information coder review may be revised to meet current compliance requirements. Scott Hermosillo DO 10/23/2024 12:21:59 PM This report has been signed electronically. Number of Addenda: 0 Note Initiated On: 10/23/2024 11:43 AM 10/23/24 1222 Date _ Scott Vaz Signature: Date (if indicated) CC: Dr. May Mckeon MD; Scott Hermosillo DO ~ Date Dictated: 10/23/24 1143 Date Transcribed: Drywall Contractor: RF Signed [facility]06-24-2025 Procedure note [facility] Medical Records Department [address] [place] [address] Operative Report - CC Letter MR#: [id number] Acct: [id number] Name: KERRI BURGESS Rep #:[id number] : 1945 79 From: Scott Hermosillo DO PCP: Dr. May Mckeon MD Status:R [facility] 10/23/2024 May Mckeon Md Re : Upper GI endoscopy procedure for Kerri Burgess Dear Dr. Mckeon This procedure was performed on Wednesday, October 23, 2024. My impressions and recommendations are as follows: Impressions : - Normal esophagus. - Non-bleeding gastric ulcers with no stigmata of bleeding. Biopsied. - No gross lesions in the entire examined duodenum. Recommendations : - Patient has a contact number available for emergencies. The signs and symptoms of potential delayed complications were discussed with the patient. Return to normal activities tomorrow. Written discharge instructions were provided to the patient. - Resume previous diet. - Patient has a contact number available for emergencies. The signs and symptoms of potential delayed complications were discussed with the patient. Return to normal activities tomorrow. Written discharge instructions were provided to the patient. - Resume previous diet. - Continue present medications. - Await pathology results. - Use Protonix (pantoprazole) 40 mg PO BID. My findings are described in the full procedure note, which is enclosed. If I can be of further assistance, please feel free to contact me at . Sincerely, Scott Hermosillo DO 10/23/2024 12:21:59 PM This report has been signed electronically. 10/23/24 1222 Date _ Scott Hermosillo DO Cosigner Signature: Date (if indicated) CC: Dr. May Mckeon MD; Scott Hermosillo ~ Date Dictated: 10/23/24 1143 Date Transcribed: Drywall Contractor: RF Signed [facility]06-24-2025 History and physical note [facility] Medical Records Department [address] [place] [address] History & Physical Exam 10/23/24 1207 MR#: [id number] Acct: [id number] Name: KERRI BURGESS Rep #:[id number] : 1945 79 From: Scott Hermosillo DO PCP: Dr. May Mckeon MD Status:[facility] Location: [place] [address] HPI - General General Date of Admission: 10/23/24 Date of Service: 10/23/24 Chief Complaint: abdominal pain HPI Narrative KERRI BURGESS, is a 79 F who presents to the office today for establishment with [facility] regarding concerns for epigastric abdominal pain that shoots straight through to her spine. She reports having a history of a thoracic compression fracture, recent MRI, per her report, showed healing of this compression fracture and her orthopedic spine surgeon told her the back pain was not due to her spine. She was given a referral to see pain management and has an appointment in October. She reports dealing with back pain since July of last year and admits to taking more Tylenol and ibuprofen than I should've, and then started having this severe searing epigastric pain in the middle of August of this year. She was on omeprazole 20mg daily, PCP changed to pantoprazole 40mg daily and added famotidine at bedtime. She reports the famotidine caused notable burning sensation after taking, so shehas stopped this. She reports frequent throat clearing, abdominal bloating. She states that foods will very briefly reduce the severity of epigastric pain, forabout 30 minutes, long enough that I think it's over and then the pain comes back. She denies difficulty chewing and swallowing, cough, nausea and emesis, denies reflux, constipation, diarrhea, hematochezia and melena. She does not use the descriptive words ripping or tearing for her pain. Her last colonoscopy was in 2011 and she was instructed at that time to never allowanyone to do another colonoscopy on heragain due to her severely tortuous colonand high risks of perforating her bowels. She has been doing Cologuard stool testing. She also has a history of H.pylori infection from 2011. PCP blood work on 08.16.24: W-6.6, hgb-13.2, hct-39, plt-185, BUN 25, creat 1.06,t bili 0.3, ALP 136, AST 21, ALT 16, hgb A1c 6.4, Vit D25-41.2, amylase 22, lipase 26 PFSH Medical History Wears glasses Thyroid disease Arthritis Bladder disease History of pulmonary embolism Back pain PONV (postoperative nausea and vomiting) Gastric reflux Shortness of breath on exertion Former smoker Sleep apnea CPAP (continuous positive airway pressure) dependence Leg cramps History of edema Helicobacter pylori (H. pylori) Urinary incontinence Spasm of back muscles Rotator cuff tear RUQ pain Pulmonary nodule CARISA on CPAP Mid back pain on right side Lumbar stenosis with neurogenic claudication Lesion of bone of cervical spine Hypercholesteremia HTN (hypertension) Left navicular fracture of foot Dilatation of pulmonic artery Dermatographism GERD (gastroesophageal reflux disease) Cervical spine pain Carotid stenosis Bilateral lower extremity edema Bilateral chronic knee pain Arteriosclerotic heart disease (ASHD) Abrasion of left lower leg Abnormal MRI, cervical spine Epigastric pain Home Medications ?Medication ?Instructions ?Recorded ?Last Taken ?Type acetaminophen 500 mg tablet 500 mg PO Q6H PRN pain 04/25 Unknown History (Tylenol Extra Strength) bumetanide 1 mg tablet 1 mg PO QDAY PRN WATER PILL 10/11/24 Unknown History colesevelam 625 mg tablet 1,875 mg PO BID 10/11/24 Unk nown History ibuprofen 800 mg tablet 800 mg PO Q8H 10/11/24 Unkno wn History Held on 10/22/24. Instructions: STOMACH ISSUES levothyroxine 50 mcg capsule 50 mcg PO QDAY 10/11/24 0 10/23/24 History lidocaine 5 % topical patch 1 patch topical QDAY 10/11 Unknown History magnesium oxide 400 mg (241.3 mg 400 mg PO QDAY Unknown History magnesium) tablet nebivolol 10 mg tablet 10 mg PO QDAY 10/11/2410/23 History oxybutynin chloride 5 mg tablet 5 mg PO DAILY bladder spasms 10/11/24 Unknown History pregabalin 50 mg capsule 50 mg PO BID 10/11/24 Unknow n History valsartan 320 mg tablet 320 mg PO QDAY 10/11/2410/01 History pantoprazole 40 mg tablet,delayed 40 mg PO BID #60 tab s 10/15/24 Unknown Rx release Held on 10/22/24. Instructions: TAKING CARAFATE TEMPORARILY sucralfate 1 gram tablet 1 g PO QAC 3 months #270 tab s 10/15/24 Unknown Rx ascorbic acid (vitamin C) 500 mg 1 g PO DAILY 10/22/24 Unknown History chewable tablet (C-500) calcium 325 mg-vit D3 12.5 1 tab PO DAILY 10/22/24 Unk nown History mcg-zinc 2.75 qc-ldfxzu-jgmjdecgq tablet cholecalciferol (vitamin D3) 125 125 mcg PO QHS Unknown History mcg (5,000 unit) tablet (Vitamin D3) omeprazole 20 mg capsule,delayed 20 mg PO BID 10/22/24 Unknown History release Held on 10/22/24. Instructions: PRESCRIBES CARAFATE TEMPORARILY triamcinolone acetonide 0.1 % 1 applic topical BID PRN rash 10/22/24 Unknown History topical cream vitamin B complex (B-Complex 1 tab PO DAILY 10/22/24 U nknown History tablet) vitamins A,C,S-mylh-mvuwsd 2,148 1 tab PO BID 10/22/24 Unknown History mcg-113 mg-45 mg-17.4 mg tablet (Eye Multivitamin) Allergy/AdvReac Type Severity Reaction Status Date / Time adhesive tape Allergy Intermediate Itching Verified 10/23/24 10:33 apixaban (From Eliquis) Allergy Intermediate Other Verified 10/23/24 10:33 latex Allergy Intermediate Hives Verified 10/23/24 10:33 oxycodone Allergy Intermediate Other Verified 10/23/24 10:33 Penicillins (PCN) Allergy Intermediate Hives Verified 10/23/24 10:33 atorvastatin (From Lipitor) AdvReac Intermediate Other Verified 10/23/24 10:33 semaglutide (From Rybelsus) AdvReac Intermediate Other Verified 10/23/24 10:33 Family History Mother Breast cancer Diabetes Sister Hx of CABG Kidney disease Diabetes HLD (hyperlipidemia) Hypertension Father Heart disease Brother Heart disease Surgical History History of cataract surgery History of esophagogastroduodenoscopy (EGD) History of colonoscopy History of shoulder surgery Hx of appendectomy H/O: hysterectomy H/O arthroplasty Hx of cholecystectomy S/P lumbar laminectomy S/P knee replacement Social History Smoking Status: Former smoker quit date: 05/02/16 alcohol intake: never ROS Constitutional Constitutional: Denies fatigue, fever(s), poor appetite, weight gain or weight loss Gastrointestinal Gastrointestinal: Denies belching, bloating, change in bowel habits, change in stool character, chewing difficulty, coffee ground emesis, constipation, cramping, diarrhea, dyspepsia, dysphagia, earlysatiety, excessive flatus, fecalincontinence, heartburn, hematemesis, hematochezia, hemorrhoids, loose stools, melena, nausea, odynophagia, rectal bleeding, tenesmus, vomiting or weight changes Vital Signs Vital Signs Vital Signs: 10/23/24 10:36 10/23/24 10:36 10/23/24 11:13 Temperature 97.2 F L 97.2 F L Temperature Source Temporal Pulse Rate 73 73 Respiratory Rate 18 18 Respiratory Pattern Normal Blood Pressure 188/84 H 188/84 H Blood Pressure Mean 118 Blood Pressure Source Monitor Blood Pressure Position Sitting Blood Pressure Location Right Forearm Pulse Ox 99 99 Oxygen Delivery Method Room Air Room Air Weight Weight: 197 lb 12.074 oz Body Mass Index (BMI) 35.0 Physical Exam Const alert, oriented x3, no apparent distress and healthy appearing General Appearance: cooperative GI normal to inspection, nondistended, normoactive bowel sounds, soft to palpation,non-tender and non-distended Percussion: normal to percussion Rectal Exam: deferred Assessment & Plan Assessment/Plan (1) Epigastric pain: PLAN: Assessment and Plan Assessment and Plan (1) Epigastric pain: Status: Acute Medications: New sucralfate 1 g PO QAC 270 tabs 0RF 3 months pantoprazole take 30minutes before eating breakfast and dinner 40 mg PO BID 60 tabs 2RF Discontinued pantoprazole Discontinued Reason: Order Completed 40 mg PO QDAY omeprazole Discontinued Reason: Order Changed 20 mg PO BID Plan KERRI BURGESS, is a 79 F who presents to the office today for establishment with I regarding concerns for epigastric abdominal pain that shoots straight through to her spine. Differential diagnoses include: PUD, H.pylori infection, gastric outlet obstruction. She was recently prescribed a SQO3umh states that she has not started it. She denies early satiety, reports poor appetite due to fearof pain. * increase pantoprazole 40mg PO to twice daily, 30minutes before eating br eakfast and dinner * sucralfate 1g PO QAC, 1hr after taking other medications * schedule urgent EGD * continue bland diet, no caffeine, low fat, no late meals, no alcohol * office FU 1wk post EGD 10/23/24 1210 Cosigner Signature (if applicable): CC: Dr. May Mckeon MD; Scott Friend, DO~ Signed [facility]06-24-2025 Consult note [facility] Medical Records Department [address] [place] [address] Pre-Anesthesia Evaluation 10/23/24 1106 MR#: [id number] Acct: [id number] Name: KERRI BURGESS Rep #:[id number] : 1945 79 From: Yuniel Puga MD PCP: Dr. May Mckeon MD Status:R EG SDC Y Race: C Location: [place] [address] ASA Classification* ASA Classification ASA Classification: 3 Assessment & Plan Anesthesia* Anesthesia Assessment Anesthesia Assessment: Discussed sedation and/or anesthesia options, risks, benefits, and alternatives with patient/parents/legal guardian/POA. Questions invited. The patient/parents/legal guardian/POA seems to understand and agrees to proceedwith anesthesia plan. Reviewed the physical assessment, medical history, allergy history and patient home medications list prior to surgery/procedure/anesthetic and documented any changes. Performed airway and anesthesia risk assessments. Anesthesia Type Anesthesia Type: MAC History Source History Obtained from:: Patient and Chart Anesthesia Focused Assessment* Temperature: 97.2 F Pulse Rate: 73 Blood Pressure: 188/84 Respiratory Rate: 18 Pulse Ox: 99 Oxygen Delivery Method: Room Air Airway Assessment Mouth opens: >3 cm Mallampati Score: I Teeth Condition: Caps/Crowns (Patient has several crowns. They are all tight.) and Implants (Right lower implant. 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 When Was Last Pacemaker Check QUESTION #4 FULL TEXT: You/Your Family Experience fever (hyperthermia) with Anesthesia Last Oral Intake Last Oral intake: Last Oral Intake NPO since 06:30 10/23/24 10:36 Meds taken in AM with sips of Yes 10/23/24 10:36 water? 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 Female Yes 10/22/24 09:49 HX of Motion Sickness Yes 10/22/24 09:49 HX of N/V After Surgery Yes 10/22/24 09:49 Non-Smoker Yes 10/22/24 09:49 Duration of Surgery greater No 10/22/24 09:49 than 60 minutes Number of Risk Factors 4 10/22/24 09:49 PONV Score Severe Risk 10/22/24 09:49 Height & Weight Height & Weight: Anesthesia: Height & Weight Height 5 ft 3 in 10/23/24 10:36 Weight: 89.7 kg 10/23/24 10:36 Body Mass Index (BMI) 35.0 10/23/24 10:36 Respiratory Assessment Respiratory Assessment - farm equipment technician: Respiratory Tract Infection Hx - farm equipment technician Hx Respiratory Tract Infection No 10/22/24 09:49 STOP Sleep Apnea STOP Sleep Apnea - farm equipment technician: STOP Sleep Apnea - farm equipment technician Hx Hypertension Yes: PER PT, CONTROLLED ON 10/22/24 09:49 MEDS Hx Sleep Apnea Yes 10/22/24 09:49 CPAP Yes 10/22/24 09:49 BIPAP No 10/22/24 09:49 Do you snore loudly (louder than talking or can be heard Do you often feel tired/ fatigued/ sleepy during daytime? Has anyone observed you stop breathing during sleep? STOP Results Positive 10/22/24 09:49 QUESTION #5 FULL TEXT : Do you snore loudly (louder than talking or can be heard through closeddoors)? 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 Specify any problems Hx of Preganancy in last 3 No 10/22/24 09:49 Months Nurse Filling Out Transfusion MGRIFFITH 10/22/24 09:49 & Questions: Date: 10/22/24 10/22/24 09:49 Time: 09:51 10/22/24 09:49 Patient unable to answer at this time (ie. confused, unrespo /Reproduction History /Reproductive History - farm equipment technician: /Reproductive Hx- farm equipment technician Hx Now No 10/22/24 09:49 Gestational Age (in weeks): EDC: Hx Hx Para Hx Section SAB Active Medications Active Medications: Current Medications Generic Name Dose Route Start Last Admin Trade Name Freq PRN Reason Stop Dose Admin Lactated Ringer's 1,000 mls @ 15 mls/hr 10/23/24 10:30 10/23/24 10:46 IV 15 mls/hr .Q48H GATITO Administration PFSH Medical History Wears glasses Thyroid disease Arthritis Bladder disease History of pulmonary embolism Back pain PONV (postoperative nausea and vomiting) Gastric reflux Shortness of breath on exertion Former smoker Sleep apnea CPAP (continuous positive airway pressure) dependence Leg cramps History of edema Helicobacter pylori (H. pylori) Urinary incontinence Spasm of back muscles Rotator cuff tear RUQ pain Pulmonary nodule CARISA on CPAP Mid back pain on right side Lumbar stenosis with neurogenic claudication Lesion of bone of cervical spine Hypercholesteremia HTN (hypertension) Left navicular fracture of foot Dilatation of pulmonic artery Dermatographism GERD (gastroesophageal reflux disease) Cervical spine pain Carotid stenosis Bilateral lower extremity edema Bilateral chronic knee pain Arteriosclerotic heart disease (ASHD) Abrasion of left lower leg Abnormal MRI, cervical spine Epigastric pain Home Medications ?Medication ?Instructions ?Recorded ?Last Taken ?Type acetaminophen 500 mg tablet 500 mg PO Q6H PRN pain 04/25 Unknown History (Tylenol Extra Strength) bumetanide 1 mg tablet 1 mg PO QDAY PRN WATER PILL 10/11/24 Unknown History colesevelam 625 mg tablet 1,875 mg PO BID 10/11/24 Unk nown History ibuprofen 800 mg tablet 800 mg PO Q8H 10/11/24 Unkno wn History Held on 10/22/24. Instructions: STOMACH ISSUES levothyroxine 50 mcg capsule 50 mcg PO QDAY 10/11/24 0 10/23/24 History lidocaine 5 % topical patch 1 patch topical QDAY 10/11 Unknown History magnesium oxide 400 mg (241.3 mg 400 mg PO QDAY Unknown History magnesium) tablet nebivolol 10 mg tablet 10 mg PO QDAY 10/11/2410/23 History oxybutynin chloride 5 mg tablet 5 mg PO DAILY bladder spasms 10/11/24 Unknown History pregabalin 50 mg capsule 50 mg PO BID 10/11/24 Unknow n History valsartan 320 mg tablet 320 mg PO QDAY 10/11/2410/01 History pantoprazole 40 mg tablet,delayed 40 mg PO BID #60 tab s 10/15/24 Unknown Rx release Held on 10/22/24. Instructions: TAKING CARAFATE TEMPORARILY sucralfate 1 gram tablet 1 g PO QAC 3 months #270 tab s 10/15/24 Unknown Rx ascorbic acid (vitamin C) 500 mg 1 g PO DAILY 10/22/24 Unknown History chewable tablet (C-500) calcium 325 mg-vit D3 12.5 1 tab PO DAILY 10/22/24 Unk nown History mcg-zinc 2.75 ka-vkaufs-ksmsvtoff tablet cholecalciferol (vitamin D3) 125 125 mcg PO QHS Unknown History mcg (5,000 unit) tablet (Vitamin D3) omeprazole 20 mg capsule,delayed 20 mg PO BID 10/22/24 Unknown History release Held on 10/22/24. Instructions: PRESCRIBES CARAFATE TEMPORARILY triamcinolone acetonide 0.1 % 1 applic topical BID PRN rash 10/22/24 Unknown History topical cream vitamin B complex (B-Complex 1 tab PO DAILY 10/22/24 U nknown History tablet) vitamins A,C,C-iwsm-gjjfka 2,148 1 tab PO BID 10/22/24 Unknown History mcg-113 mg-45 mg-17.4 mg tablet (Eye Multivitamin) Allergy/AdvReac Type Severity Reaction Status Date / Time adhesive tape Allergy Intermediate Itching Verified 10/23/24 10:33 apixaban (From Eliquis) Allergy Intermediate Other Verified 10/23/24 10:33 latex Allergy Intermediate Hives Verified 10/23/24 10:33 oxycodone Allergy Intermediate Other Verified 10/23/24 10:33 Penicillins (PCN) Allergy Intermediate Hives Verified 10/23/24 10:33 atorvastatin (From Lipitor) AdvReac Intermediate Other Verified 10/23/24 10:33 semaglutide (From Rybelsus) AdvReac Intermediate Other Verified 10/23/24 10:33 Family History Mother Breast cancer Diabetes Sister Hx of CABG Kidney disease Diabetes HLD (hyperlipidemia) Hypertension Father Heart disease Brother Heart disease Surgical History History of cataract surgery History of esophagogastroduodenoscopy (EGD) History of colonoscopy History of shoulder surgery Hx of appendectomy H/O: hysterectomy H/O arthroplasty Hx of cholecystectomy S/P lumbar laminectomy S/P knee replacement Social History Smoking Status: Former smoker quit date: 05/02/16 alcohol intake: never Review of Systems (Anesthesia) ROS Narrative System reviewed and no additional complaints, except as documented. 10/23/24 1113 krissy BAKER> Date _ Yuniel Puga MD Cosigner Signature: Date CC: ~ Signed [facility]06-16-2025 Evaluation note* Diagnosis Onset Date Resolution Status Admit Date Epigastric pain acute September 10:22am Epigastric pain acute September 10:16am [facility] Work Phone: [phone]) 804-809103-05-2025 Note* Exam Date Time Procedure Performing Provider Status 07/04/24 2:26 PM XR Spine Lumbar Ap/Lat/Flex/Ext JUAN CARLOS PRICE MD; Auth (Verified) [id number] ORIGINAL EXAMINATION: 4 x-ray views of the lumbar spine, including lateral flexion and extension views. 07/04/2024 2:26 pm COMPARISON: CT abdomen and pelvis on 09/23/2022. Lumbar spine x-ray series on 10/20/2017 HISTORY: ORDERING SYSTEM PROVIDED HISTORY: Reason for Exam: Mid to low back pain. History of L4-L5 laminectomy 2023 FINDINGS: There are 5 lumbar vertebrae. Laminectomy at the L4-L5 level has been performed. The alignment of the lumbar spine is remarkable for 5 mm of anterolisthesis of L4 on L5 and L5 on S1. With flexion of the lumbar spine anterolisthesis at the L5-S1 level increases to 8 mm. There is mild depression of superior endplate of L3 vertebral body that is new since 2022. There is no overall height loss at L3. Small bone island in L3 vertebral body is unchanged. Other vertebral bodies are normal in height also. There is moderate multilevel degenerative disc disease with disc space narrowing and endplate degenerative spur formation throughout the lumbar spine. Moderate degenerative facet joint narrowing and spur formation is also present, greatest at L4-L5 and L5-S1. There is no evidence of spondylolysis. Sacroiliac joints have normal alignment. IMPRESSION: 1. Grade 1 anterolisthesis of L4 on L5 and L5 on S1. Mild instability at L5-S1 with subluxation increasing from 5-8 mm with flexion of the spine. 2. Mild depression of superior endplate of L3 vertebral body is new since 2022. 3. Moderate multilevel lumbar spondylosis. 4. Laminectomy at L4-L5. Interpreted by: Juan Carlos Price MD Preliminary Report By: Juan Carlos Price MD Electronically signed By Juan Carlos Price MD Dictated Date: 07/05/2024 12:29:43 AM Prelim Date: 07/05/2024 12:35:51 AM Sign Date: 07/05/2024 12:35:51 AM Ordering Provider: [facility]03-05-2025 Note* Exam Date Time Procedure Performing Provider Status 07/04/24 2:20 PM XR Spine Thoracic 2 Views CAROLE PRICE MD; Auth (Verified) [id number] ORIGINAL EXAMINATION: TWO XRAY VIEWS OF THE THORACIC SPINE 07/04/2024 2:21 pm COMPARISON: Thoracic spine x-ray on 02/19/2023. HISTORY: ORDERING SYSTEM PROVIDED HISTORY: Reason for Exam: Mid back pain, mostly at T7 and T8 FINDINGS: The thoracic spine alignment is normal. Thoracic vertebral bodies are normal in height with no sign of fracture or destructive lesion. There is mild narrowing of intervertebral disc spaces in the thoracic spine and mild endplate osteophytic spur formation. Visible portions of posterior elements and ribs are unremarkable. There has been no significant change since 02/19/2023. IMPRESSION: 1. Mild thoracic spondylosis. 2. No subluxation or fracture. Interpreted by: Juan Carlos Price MD Preliminary Report By: Juan Carlos Price MD Electronically signed By Juan Carlos Price MD Dictated Date: 07/05/2024 12:58:37 AM Prelim Date: 07/05/2024 1:00:02 AM Sign Date: 07/05/2024 1:00:02 AM Ordering Provider: [facility]03-05-2025 Note* Exam Date Time Procedure Performing Provider Status 07/04/24 2:14 PM XR Chest 2 Views VASQUEZ PETERS DO; [facility] (Verified) [id number] ORIGINAL EXAMINATION: TWO XRAY VIEWS OF THE CHEST07/04/2024 2:14 pm COMPARISON: 10/31/[address] thorax 11/21/2023 HISTORY: ORDERING SYSTEM PROVIDED HISTORY: Reason for Exam: Right sided thoracic paraspinal muscle tendnerness/rib pain after a fall FINDINGS: Cardiomediastinal contours are within normal limits. Aortic atherosclerosis. No focal consolidation or pulmonary edema. No pneumothorax or pleural effusion. No acute osseous abnormalities. Degenerative changes of the spine. Surgical clips are noted within the right upper quadrant. IMPRESSION: No acute radiographic findings. I have personally reviewed the images of this examination and agree with the resident's findings and interpretation. Interpreted by: Vasquez Peters Preliminary Report By: Diamond Peralta Electronically signed By Vasquez Peters Dictated Date: 07/04/2024 3:25:59 PM Prelim Date: 07/04/2024 5:40:49 PM Sign Date: 07/04/2024 5:40:49 PM Ordering Provider: [facility]07-01-2024 Note* Exam Date Time Procedure Performing Provider Status 10/31/23 12:04 PM VL Venous US/Doppler Both Legs(for DVT) Auth (Verified) [facility] 07-01-2024 Note ORIGINAL EXAMINATION: TWO XRAY VIEWS OF THE CHEST 10/31/2023 10:58 am COMPARISON: September 30, 2023 HISTORY: ORDERING SYSTEM PROVIDED HISTORY: Reason for Exam: possible pulmonary nodule on CXR 09/30/23 - f/u study FINDINGS: Cholecystectomy clips are noted. The cardiomediastinal silhouette is normal in width and contour. Previously described nodular retrocardiac/infrahilar left 1 cm opacity is not significantly changed. There is atherosclerotic calcification of the aortic arch. There is no focal consolidation, pleural effusion or pneumothorax. No acutely displaced fracture is identified. Visualized osseous structures are unremarkable. IMPRESSION: Unchanged indeterminate 1 cm left infrahilar/retrocardiac nodular pulmonary opacity. Chest CT scan, preferably with intravenous contrast material, is recommended for further characterization. Interpreted by: Sydnie Smith Preliminary Report By: Sydnie Smith Electronically signed By Sydnie Smith Dictated Date: 10/31/2023 11:37:21 AM Prelim Date: 10/31/2023 11:39:59 AM Sign Date: 10/31/2023 11:39:59 AM Ordering Provider: MAY [facility]06-08[facility]2024 Hospital Discharge instructions Patient Education 10/08/2023 12:01:00 Acute Pain, Adult Acute Pain, Adult Acute pain is a type of sudden pain that may last for just a few days or for as long as six months.It is often related to an illness, injury, or medical procedure. Acute pain may be mild, moderate, or severe. Pain can make it hard for you to do your normal, daily activities. It can cause anxiety and lead toother problems if it is left untreated. Treatment depends on the cause and severity of your pain. Acute pain usually goes away once your injury has healed or you are no longer ill. Follow these instructions at home: Medicines Take fpsy-vtr-vialxmj and prescription medicines only as told by your health care provider. Take the lowest dose of medicine for the shortest amount of time needed to relieve the pain. If you are taking prescription pain medicine: ?Do not stop taking the medicine suddenly. Talk to your health care provider about how and when to discontinue prescription medicine. ?Do not take more pills than told by your health care provider even if your pain is severe. ?Do not take other xbhs-ckm-wxhvrsq pain medicines in addition to prescription pain medicine unlesstold by your health care provider. ?Ask your health care provider if the medicine requires you to avoid driving or using heavy machinery. ?Ask your health care provider if the medicine can cause constipation. You may need to take these actions to prevent or treat constipation: ?Drink enough fluid to keep your urine pale yellow. ?Eat foods that are high in fiber, such as beans, whole grains, and fresh fruits and vegetables. ?Take bqhn-doc-pkgyesi or prescription medicines. ?Limit foods that are high in fat and processed sugars, such as fried or sweet foods. Managing pain, stiffness, and swelling If directed, put ice on the affected area. To do this: Put ice in a plastic bag. Place a towel between your skin and the bag. Leave the ice on for 20 minutes, 2 3 times a day. If directed, apply heat to the affected area as often as told by your health care provider. Use theheat source that your health care provider recommends, such as a moist heat pack or a heating pad. Place a towel between your skin and the heat source. Leave the heat on for 20 30 minutes. Remove the heat if your skin turns bright red. This is especially important if you are unable to feel pain, heat, or cold. You may have a greater risk of getting burned. Activity Rest as told by your health care provider. Return to your normal activities as told by your health care provider. Ask your health care provider what activities are safe for you. General instructions Check your pain level as told by your health care provider. Ask your health care provider if other strategies such as distraction, relaxation, or physical therapies can help your pain. Keep all follow-up visits as told by your health care provider. This is important. Contact a health care provider if: Your pain is not controlled by medicine. Your pain does not improve or gets worse. You have side effects from pain medicines, such as vomiting or confusion. Get help right away if you: Have severe pain. Have trouble breathing. Lose consciousness. Have chest pain or pressure that lasts for more than a few minutes, or if you have other symptoms along with chest pain, including if you: ?Have pain or discomfort in one or both arms, your back, neck, jaw, or stomach. ?Have shortness of breath. ?Break out in a cold sweat. ?Feel nauseous. ?Become light-headed. These symptoms may represent a serious problem that is an emergency. Do not wait to see if the symptoms will go away. Get medical help right away. Call your local emergency services (911 in the [place] Do not drive yourself to the hospital. Summary Acute pain may be mild, moderate, or severe. It usually goes away once your injury has healed or you are no longer ill. Take shbm-vzq-bbswued and prescription medicines only as told by your health care provider. Ask your health care provider if the medicine prescribed to you can cause constipation. Contact a health care provider if your pain is not controlled by medicine. This information is not intended to replace advice given to you by your health care provider. Make sure you discuss any questions you have with your health care provider. Document Released: 05/02/2016 Document Revised: 09/03/2019 Document Reviewed: 09/03/2019 [employer] Patient Education 2019 [employer]. Follow Up Care 09/14/2023 08:10:53 With:GALA SONG, Neurosurgery Address: [address] [place] [address] [place] [address] [phone] When:10/19/2023 09:45:00 [facility] 06-08-2024 Note Discharge Instructions Thank you for allowing [facility] to assist you with your healthcare needs. The following is importantdischarge information regarding your hospital visit. Your Care Team MAY MCKEON MD Your Diagnosis Acute postoperative pain Bilateral leg edema Constipation Muscle spasm What to do next Instructions From Your Doctor May restart 81mg aspirin on 10/14/[address] Diggs No multivitamins, or NSAIDs (no Aleve, Motrin, ibuprofen) until cleared by Neurosurgery No lifting more than 10 pounds Avoid bending/twisting at the waist No driving for about 2 weeks, no driving while taking narcotic medication Keep surgical incision clean and dry at all times until healed (about 2 weeks) Maintain surgical dressing over incision for 7 days postoperatively, as it is embedded with an antibiotic. After 1 week postop, then remove dressing and begin to change daily using dry sterile gauze for about 7 to 10 days. May leave incision open to air once it is healed. Okay to shower but cover incision with watertight dressing until healed (about 2 weeks) No soaking incision for 6 weeks post-op (no tub baths, hot tubs, saunas, swimming, etc.) If surgical incision becomes red, swollen, painful, opens and/or has drainage on around site, or ifyou develop a fever contact Neurosurgery office immediately. Scheduled Follow-Up Appointments Appointment Type When Where Contact Information StatusNS Post Op 10/19/2023 09:45 AM EDT Neurosurgery [address] [facility] [place] [address] Confirmed Follow Up Appointments Follow Up with GALA SONG, Neurosurgery When:10/19/2023 09:45 AM EDT Where:[address] [facility] [address] [facility] [place] [address]- [phone] The Following Activity and Diet Have Been Ordered for You No qualifying data available. No qualifying data available. The Following Equipment Has Been Ordered for You No qualifying data available. The Following Treatments Have Been Ordered for You Discharge Labs No qualifying data available. Discharge Radiology No qualifying data available. Other Therapies No qualifying data available. Post Acute Orders No qualifying data available. Someone Will Contact You Regarding These Home Health Referrals No home referrals have been ordered for you. No one will call you. Allergies Adhesive Bandage (Moderate) ITCHING, Rash Rybelsus (Moderate) mid back pain Latex HIVES Lipitor LEG CRAMPS oxyCODONE unknown penicillin HIVES Medications Please ask your primary doctor or pharmacist before taking any other medication not listed, including over the counter drugs, herbal medications, vitamins and or supplements as they may interact withyour home medications. What How Much When Why Instructions Last Dose New acetaminophen-hydrocodone (Ainsworth 325- 5 mg oral tablet) See instructions Acute postoperative pain Take 1 tab every 6 hours as needed for pain scale 4-6. Take 2 tabs every 6 hours for pain scale 7-10. Do not exceed 6 tabs a day. Do not exceed 4000mg acetaminophen a day., As needed for as needed for pain Pickup at [id number] New docusate (Colace 100 mg oral capsule) 1 cap by mouth Two (2) times a day as needed for Constipation Constipation Pickup at [facility] #[id number] New tiZANidine (tiZANidine 4 mg oral tablet) 1 tab(s) by mouth Three (3) times a day as needed for Muscle spasm Muscle spasm Pickup at [facility] #[id number] Unchanged acetaminophen (Tylenol Extra Strength 500 mg oral tablet) 1 tab(s) by mouth As Directed as needed for as needed for pain Unchanged colesevelam (Welchol 625 mg oral tablet) 3 tab(s) by mouth Two (2) times a day [facility] [phone] Unchanged DME (DME MISCellaneous) See instructions Lumbar stenosis with neurogenic claudication Bilateral leg edema Power lift recliner chair dx:.M48.062, R60.0 Unchanged furosemide (furosemide 40 mg oral tablet) 1 tab(s) by mouth Once a day Bilateral leg edema Unchanged hydrochlorothiazide-triamterene (hydrochlorothiazide-triamterene 25 mg-37.5 mg oral capsule) 1 cap by mouth Once a day as needed for Swelling Take with food Unchanged hydrochlorothiazide-triamterene (Maxzide-25) 1 tab(s) by mouth As Directed as needed for Swelling TAKE 1-0.5 TABS DAILY NEEDED Unchanged levothyroxine (levothyroxine 50 mcg (0.05 mg) oral tablet) 1 tab(s) by mouth Once a day Unchanged nebivolol (Nebivolol 10 mg oral tablet) 1 tab(s) by mouth Once a day Unchanged omeprazole (omeprazole 20 mg oral delayed release capsule) 1 cap by mouth Two (2) times a day Unchanged oxybutynin (oxybutynin 5 mg/ 24 hours oral tablet, extended release) 1 tab(s) by mouth Once a day Unchanged pregabalin (pregabalin 50 mg oral capsule) 1 cap by mouth Two (2) times a day WAS ORDERED 100MG STATES WAS TOO MUCH, STATES PT WENT BACK TO TAKING 50 MG BID Unchanged valsartan (valsartan 320 mg oral tablet) 1 tab(s) by mouth Once a day Pharmacy Information [id number]: [address] [place], [place] [id number] [phone] What How Much When Why Comments Stop Taking aspirin (aspirin 81 mg oral delayed release tablet) 1 tab(s) by mouth Once a day (in the evening) Stop Taking cholecalciferol (Vitamin D3 5000 intl units oral capsule) 1 cap by mouth Once a day (in the evening) Stop Taking diclofenac topical (diclofenac 1% topical gel) 1 application Topical As Directed as needed for Pain Knee pain, left not to exceed 16 grams/ day/ single joint of lower extremities Stop Taking diclofenac topical (Voltaren 1% topical gel) 1 KAMALA(S) Topical As Directed Stop Taking herbal/ nutritional product (turmeric 1000 mg oral capsule) 1 cap by mouth Once a day Stop Taking ibuprofen (ibuprofen 800 mg oral tablet) 1 tab(s) by mouth Once a day as needed for as needed for pain Duration: 30 Days with food or milk Stop Taking magnesium oxide (magnesium oxide 250 mg oral tablet) by mouth Two (2) times a day Stop Taking Misc Medication (CALCIUM, D3, ZINC GUMMIES) 2 GUMMY(S) by mouth Once a day Stop Taking Misc Medication (LAURA'S LEG CRAMPS) 1 cap by mouth As Directed Stop Taking Misc Medication (PAIN FORMULA) 1 KAMALA(S) Topical As Directed CYCLOBENZAPRINE 1% GABAPENTIN 6% KETOPROFEN 5% LIDO 1% PRILO 1% CREAM Stop Taking Misc Medication (THERAWORX RELIEF) 1 KAMALA(S) Topical As Directed Stop Taking Misc Medication (TRIAMCINOLONE ACETONIDE) 1 KAMALA(S) Topical As Directed Stop Taking multivitamin (B Complex 50 oral tablet) 1 tab(s) by mouth Once a day (in the evening) Stop Taking multivitamin with minerals (PreserVision AREDS 2 oral capsule) 1 cap by mouth Two (2) times a day Stop Taking multivitamin with minerals (Vitafusion Calcium Gummy oral tablet, chewable) 2 tab(s) Chewed Once a day Stop Taking mupirocin topical (mupirocin 2% topical ointment) 1 application Topical Two (2) times a day Bilateral intranasal application twice daily for 5 days prior to surgery &/ or as many days leading up to surgery as possible due to surgical urgency/ scheduling. Send to patient's preferred pharmacy. Stop Taking triamcinolone topical (triamcinolone 0.1% topical cream) 1 application Topical As Directed as needed for L USES NEEDED FOR LEGS Stop Taking ubiquinone (CoQ10 Gummy) 200 Milligram by mouth Once a day may substitute softgel dosage form Please take this list to your next doctor s visit. Bring all medications you take, including over the counter medications, herbals and other supplements with you to your doctor s visit. Patients and families are reminded to discard old lists and to update any records with all medication providers or retail pharmacies. Education Materials Acute Pain, Adult Acute pain is a type of sudden pain that may last for just a few days or for as long as six months.It is often related to an illness, injury, or medical procedure. Acute pain may be mild, moderate, or severe. Pain can make it hard for you to do your normal, daily activities. It can cause anxiety and lead toother problems if it is left untreated. Treatment depends on the cause and severity of your pain. Acute pain usually goes away once your injury has healed or you are no longer ill. Follow these instructions at home: Medicines Take obdl-itq-lwwmqca and prescription medicines only as told by your health care provider. Take the lowest dose of medicine for the shortest amount of time needed to relieve the pain. If you are taking prescription pain medicine: ? Do not stop taking the medicine suddenly. Talk to your health care provider about how and when to discontinue prescription medicine. ? Do not take more pills than told by your health care provider even if your pain is severe. ? Do not take other jqpp-eon-pkuvftq pain medicines in addition to prescription pain medicine unless told by your health care provider. ? Ask your health care provider if the medicine requires you to avoid driving or using heavy machinery. ? Ask your health care provider if the medicine can cause constipation. You may need to take these actions to prevent or treat constipation: ? Drink enough fluid to keep your urine pale yellow. ? Eat foods that are high in fiber, such as beans, whole grains, and fresh fruits and vegetables. ? Take cfcq-ata-dddljbm or prescription medicines. ? Limit foods that are high in fat and processed sugars, such as fried or sweet foods. Managing pain, stiffness, and swelling If directed, put ice on the affected area. To do this: Put ice in a plastic bag. Place a towel between your skin and the bag. Leave the ice on for 20 minutes, 2 3 times a day. If directed, apply heat to the affected area as often as told by your health care provider. Use theheat source that your health care provider recommends, such as a moist heat pack or a heating pad. Place a towel between your skin and the heat source. Leave the heat on for 20 30 minutes. Remove the heat if your skin turns bright red. This is especially important if you are unable to feel pain, heat, or cold. You may have a greater risk of getting burned. Activity Rest as told by your health care provider. Return to your normal activities as told by your health care provider. Ask your health care provider what activities are safe for you. General instructions Check your pain level as told by your health care provider. Ask your health care provider if other strategies such as distraction, relaxation, or physical therapies can help your pain. Keep all follow-up visits as told by your health care provider. This is important. Contact a health care provider if: Your pain is not controlled by medicine. Your pain does not improve or gets worse. You have side effects from pain medicines, such as vomiting or confusion. Get help right away if you: Have severe pain. Have trouble breathing. Lose consciousness. Have chest pain or pressure that lasts for more than a few minutes, or if you have other symptoms along with chest pain, including if you: ? Have pain or discomfort in one or both arms, your back, neck, jaw, or stomach. ? Have shortness of breath. ? Break out in a cold sweat. ? Feel nauseous. ? Become light-headed. These symptoms may represent a serious problem that is an emergency. Do not wait to see if the symptoms will go away. Get medical help right away. Call your local emergency services (911 in the [place] Do not drive yourself to the hospital. Summary Acute pain may be mild, moderate, or severe. It usually goes away once your injury has healed or you are no longer ill. Take gazr-jsg-bjslipo and prescription medicines only as told by your health care provider. Ask your health care provider if the medicine prescribed to you can cause constipation. Contact a health care provider if your pain is not controlled by medicine. This information is not intended to replace advice given to you by your health care provider. Make sure you discuss any questions you have with your health care provider. Document Released: 05/02/2016 Document Revised: 09/03/2019 Document Reviewed: 09/03/2019 Elsevier Patient Education 2020 [employer] Additional Information VACCINATE! IT SAVES LIVES! Members of the community who have not yet received the COVID-19 vaccine and would like to receive it can visit one of [facility] vaccine clinics. There are many vaccine clinic locations within the [facility]. For locations and available times, please visit https://gettheshot.coronavirus.[place].gov/. It is important to note that some COVID mobile vaccine clinics are held outdoors and may be canceled in rainy or stormy conditions. To learn more about pediatric vaccinations (ages 5-11), we invite you to visit the [facility] webpage. [email or web address].[email or web address]/pages/[email or web address]-[email or web address]-Jryzozivva-[email or web address]-Nsx stions.htmlTo learn more about the COVID-19 vaccine, we invite you to visit the CDC website for a list of frequently asked questions.https://www.cdc.gov/coronavirus/2019-ncov/vaccines/faq.html [facility] Patient Portal Access Instructions: Stay connected with your healthcare team and access your personal medical information anytime with the [facility] Patient Portal. Please follow the directions below to create your [employer] account: 1.Access the email account you provided upon registration to the hospital/physician office.2.Look for an invitation email from [facility].3.Open the email and access the invitation link: AcceptInvitation to [facility].4.Fill in the required diallo to create your account. To access your account, visit [employer]. Click the blue button labeled Access Patient Portal and then log in with the username and password that you created in the steps above. You will be able to view your test results, lab results, a summary of your visits, upcoming appointments and more. There is also a convenient messaging option where you can send secure messages to your p rovider. In addition, you will have the ability to download any documents or summaries to your computer and/or send the information securely to a physician. Remember that your healthcare information is confidential, so carefully consider who you will allowto register on the [facility] Patient Portal for access to your information. You can also access the [facility] Patient Portal on the [employer] kamala. Simply click on Patient Portal and then log into your account. If you would like to receive a full copy of your medical records, please contact the [facility] Medical Records Department by calling [phone], Tuesday through Tuesday between 8 a.m. and 4:30 p.m. HOW TO SAFELY DISPOSE OF PRESCRIPTION MEDICATIONS Please use one of the following methods to safely dispose of your unused medications. 1.Use a drug disposal kit: the drug disposal pouch allows you to safely discard your old and unuseddrugs. Ask your nurse to give you one when you are discharged.2.Visit a local take-back location: Many local pharmacies and police departments have programs that collect old and unwanted prescriptiondrugs. Call your local pharmacy or go to http://[employer]/0G7Pn9j to find one close to you.3.Make use of household items: Use cat litter or old coffee grounds to dispose medications if other options arenot available. Mix your drugs with these household products, seal them in an airtight container andthrow it into the garbage. Call [facility]: [phone] to be sure your drugs can be disposed of in this way. Some medicines may require a different approach.4.Never flush your medications down the toilet. IF YOU HAVE BEEN PRESCRIBED AN OPIOID FOR PAIN If you have been prescribed an opioid (such as hydrocodone, oxycodone or morphine), it is critical to understand the possible side effects and risks of opioid pain medications. Even when taken as directed, opioids can have several side effects including: Tolerance, meaning you might need to take more of a medication for the same pain relief. Nausea, vomiting and/or constipation. Sleepiness, dizziness, dry mouth, confusion, depression or itching. Physical dependence, meaning you have withdrawal symptoms when a medication is stopped, can develop within a few days. KNOW YOUR RESPONSIBILITIES It is important to know exactly how much and how often to take the opioid pain medications you are prescribed. Never take opioids in higher amounts or more often than prescribed. Do not combine opioids with alcohol or other drugs that cause drowsiness, such as benzodiazepines, also known as benzos, including diazepam and alprazolam, muscle relaxants or sleep aids. Never sell or share prescription opioids. This is illegal. Store opioids in a secure place and out of reach of others (including children, family, friends and visitors). The last page of this document has been signed and retained as a CHART COPY. Signatures Patient Education Materials Acute Pain, Adult Medication Leaflets My discharge plan and instructions have been reviewed and explained to me and IADITYA CONNIE M understand my current condition and have read and understand these discharge instructions. I have received a written copy of the plan/instructions. If I have questions, I am aware that I should contactmy doctor. 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 Discharge summary Date of Service 10/08/2023 Discharge Diagnosis Acute postoperative pain (G89.18 - ICD-10-CM) Ordered: Ainsworth 325- 5 mg oral tablet; See Instructions, PRN as needed for pain, Take 1 tab every 6 hours as needed for pain scale 4-6. Take 2 tabs every 6 hours for pain scale 7-10. Do not exceed 6 tabs a day. Do not exceed 4000mg acetaminophen a day., # 42 tab(s), 0 Refill(s), Pharmacy:... Bilateral leg edema (R60.0 - ICD-10-CM) Constipation (K59.00 - ICD-10-CM) Ordered: Colace 100 mg oral capsule; Dose : 100 mg = 1 cap(s), Oral, BID, PRN Constipation, # 60 cap(s), 0 Refill(s), [facility]acy: [id number], Constipation, 160,cm, 10/07/23 7:32:00 EDT, Height, kg, 10/07/23 7:32:00 EDT, Dosing Weight Muscle spasm (M62.838 - ICD-10-CM) Ordered: tiZANidine 4 mg oral tablet; Dose : 4 mg = 1 tab(s), Oral, TID, PRN Muscle spasm, # 90 tab(s), 0 Refill(s), Pharmacy: [id number], Muscle spasm, 160,cm, 10/07/23 7:32:00 EDT, Height, kg, 10/07/23 7:32:00 EDT, Dosing Weight Additional Orders: Ordered: Discharge,10/08/23 8:43:00 EDT, Discharged to: Home, Once Dianne drain is removed Ordered: Discontinue Order,10/08/23 8:43:00 EDT, Once, DIANNE drain, 10/08/23 8:43:00 EDT End of Orders Hospital Course Patient is a 78 year old female who was originally seen and evaluated by Dr. Diggs in the neurosurgery clinic for low back pain radiating down her LLE with paresthesias. Patient had tried oral medications, physical therapy, and epidural steroid injections for her symptoms without relief. Dr. Diggs did review the patient's MRI lumbar spine during her office visit. It demonstrated a grade 1 spondylolisthesis of L4 and L5, with severe canal stenosis due to ligamentum flavum hypertrophy with bilateral severe foraminal stenosis. Due to this, Dr. Diggs had recommended surgical intervention and the patient elected to proceed. Patient came to [facility] on 10/07/2023 for surgery. Patient underwent a L4-L5 laminectomy with bilateral foraminotomies with Dr. Diggs on 10/07/2023. Please refer to his operative note for furtherdetails. A DIANNE drain was placed intraoperatively. Patient was admitted to [address] [place] [address] postoperatively. Patient is recovering along the expected course postoperatively. Patient does have some incision site pain postoperatively however states this is controlled with pain medication. Patient does note improvement in her LLE postoperatively. Patient has remained hemodynamically stable postoperatively. Her DIANNE drain output had slowed and was removed on POD1 per Dr. Diggs's instructions. Patient has been ambulating the halls without difficulty; PT and OT did evaluate the patient this morning and no homegoing needs were anticipated. Patient is tolerating a diet without nausea and vomiting. Dr. Diggs has cleared patient for discharge. Prescriptions were sent to the patient's preferred pharmacy. Patient's initial postoperative visit has been arranged for 10/19/2023 in the neurosurgery office. All questions answered. Patient was discharged in stable condition to her home with her . Allergies Adhesive Bandage (Moderate) ITCHING, Rash Rybelsus (Moderate) mid back pain Latex HIVES Lipitor LEG CRAMPS oxyCODONE unknown penicillin HIVES Procedures LUMBAR 4 THROUGH LUMBAR 5 LAMINECTOMY WITH BILATERAL FORAMINOTOMIES with Dr. Diggs on 10/07/2023 Consults Consult to Occupational Therapy - Ordered -- 10/07/23 12:43:00 EDT, Once, Neurologic deficit, POD #1 Consult to Physical Therapy - Ordered -- 10/08/23 7:00:00 EDT, Once, *Other, specify in special instructions, BID; starting POD 1 s/p lumbar laminectomy Imaging Results and Diagnostics XR Fluoro 1-2 Hrs Tech Time Result Date: October 07, 2023 Verified By: BOYD BAKER, PATRIC Martino CLINICAL STATEMENT: IMPRESSION: Intraprocedural fluoroscopic spot images. Please see the operative note forfull description of the lumbar spine. Physical Exam Vitals and Measurements T: 36.3 C (Oral) TMIN: 36 C (Temporal Artery) TMAX: 36.64 C HR: 65 RR: 18 BP: 122/44 SpO2: 95% Weight Dosing Weight: 92.4 kg (10/07/23) Constitutional: Well developed . Resting in bed. No acute distress. Neuro: Awake, alert and oriented x4. Able to follow commands. Moves all 4 extremities without difficulty. 5/5 strength in all 4 extremities. Normal sensation. No pronator drift. Finger to nose testing is intact. HEENT: Head is atraumatic, normocephalic. Pupils are round, equal, and reactive to light bilaterally. Neck is supple. Moist mucous membranes. Trachea is midline. CV: Regular rate and rhythm. Normal S1 S2. No peripheral edema noted. Pulmonary: Patent airway. Respirations are even and nonlabored. Lungs are clear to auscultation bilaterally. No wheezing or rhonchi noted. Patient is on room air, oxygenating well. GI: Abdomen soft, nontender, nondistended. Active bowel sounds in all 4 quadrants. No masses or organomegaly noted. : Voiding independently without issues. MSK: No obvious joint deformities or swelling. Extremities: +2 pulses in all extremities. No edema noted. No cyanosis noted. No clubbing noted. Skin: Warm and dry. No rashes or lesions noted. Lumbar incision site is flat and well approximated.Silver alginate dressing in place. Psych: Calm and cooperative with exam. Code Status Code Status - Ordered -- 10/07/23 12:43:00 EDT, Full Code, Constant Order Admission Date 10/07/2023 Discharge Date 10/08/2023 Patient Instructions May restart 81mg aspirin on 10/14/[address] Diggs No multivitamins, or NSAIDs (no Aleve, Motrin, ibuprofen) until cleared by Neurosurgery No lifting more than 10 pounds Avoid bending/twisting at the waist No driving for about 2 weeks, no driving while taking narcotic medication Keep surgical incision clean and dry at all times until healed (about 2 weeks) Maintain surgical dressing over incision for 7 days postoperatively, as it is embedded with an antibiotic. After 1 week postop, then remove dressing and begin to change daily using dry sterile gauze for about 7 to 10 days. May leave incision open to air once it is healed. Okay to shower but cover incision with watertight dressing until healed (about 2 weeks) No soaking incision for 6 weeks post-op (no tub baths, hot tubs, saunas, swimming, etc.) If surgical incision becomes red, swollen, painful, opens and/or has drainage on around site, or ifyou develop a fever contact Neurosurgery office immediately. Medications New Prescription acetaminophen-hydrocodone (Ainsworth 325- 5 mg oral tablet)Take 1 tab every 6 hours as needed for pain scale 4-6. Take 2 tabs every 6 hours for pain scale 7-10. Do not exceed 6 tabs a day. Do not exceed 4000mg acetaminophen a day.; as needed as needed for pain. Refills: 0. docusate (Colace 100 mg oral capsule)1 cap by mouth two (2) times a day as needed Constipation. Refills: 0. tiZANidine (tiZANidine 4 mg oral tablet)1 tab(s) by mouth three (3) times a day as needed Muscle spasm. Refills: 0. Unchanged acetaminophen (Tylenol Extra Strength 500 mg oral tablet)1 tab(s) by mouth As Directed as needed asneeded for pain. colesevelam (Welchol 625 mg oral tablet)3 tab(s) by mouth two (2) times a day. [facility] [phone].Refills: 3. DME (DME MISCellaneous)Power lift recliner chair dx:.M48.062, R60.0. Refills: 0. furosemide (furosemide 40 mg oral tablet)1 tab(s) by mouth once a day. Refills: 0. hydrochlorothiazide-triamterene (hydrochlorothiazide-triamterene 25 mg-37.5 mg oral capsule)1 cap by mouth once a day as needed Swelling. Take with food. hydrochlorothiazide-triamterene (Maxzide-25)1 tab(s) by mouth As Directed as needed Swelling. TAKE 1-0.5 TABS DAILY NEEDED. levothyroxine (levothyroxine 50 mcg (0.05 mg) oral tablet)1 tab(s) by mouth once a day. Refills: 1. nebivolol (Nebivolol 10 mg oral tablet)1 tab(s) by mouth once a day. Refills: 3. omeprazole (omeprazole 20 mg oral delayed release capsule)1 cap by mouth two (2) times a day. Refills: 3. oxybutynin (oxybutynin 5 mg/24 hours oral tablet, extended release)1 tab(s) by mouth once a day. Refills: 3. pregabalin (pregabalin 50 mg oral capsule)1 cap by mouth two (2) times a day. WAS ORDERED 100MG STATES WAS TOO MUCH, STATES PT WENT BACK TO TAKING 50 MG BID. valsartan (valsartan 320 mg oral tablet)1 tab(s) by mouth once a day. Refills: 3. Discontinued aspirin (aspirin 81 mg oral delayed release tablet)1 tab(s) by mouth once a day (in the evening). cholecalciferol (Vitamin D3 5000 intl units oral capsule)1 cap by mouth once a day (in the evening). diclofenac topical (diclofenac 1% topical gel)1 application Topical As Directed as needed Pain. notto exceed 16 grams/day/single joint of lower extremities. Refills: 2. diclofenac topical (Voltaren 1% topical gel)1 KAMALA(S) Topical As Directed. herbal/nutritional product (turmeric 1000 mg oral capsule)1 cap by mouth once a day. ibuprofen (ibuprofen 800 mg oral tablet)1 tab(s) by mouth once a day as needed as needed for pain for 30 Days. with food or milk. Refills: 3. magnesium oxide (magnesium oxide 250 mg oral tablet)by mouth two (2) times a day. Misc Medication (CALCIUM, D3, ZINC GUMMIES)2 GUMMY(S) by mouth once a day. Misc Medication (LAURA'S LEG CRAMPS)1 cap by mouth As Directed. Misc Medication (PAIN FORMULA)1 KAMALA(S) Topical As Directed. CYCLOBENZAPRINE 1% GABAPENTIN 6% KETOPROFEN 5% LIDO 1% PRILO 1% CREAM. Misc Medication (THERAWORX RELIEF)1 KAMALA(S) Topical As Directed. Misc Medication (TRIAMCINOLONE ACETONIDE)1 KAMALA(S) Topical As Directed. multivitamin (B Complex 50 oral tablet)1 tab(s) by mouth once a day (in the evening). multivitamin with minerals (PreserVision AREDS 2 oral capsule)1 cap by mouth two (2) times a day. multivitamin with minerals (Vitafusion Calcium Gummy oral tablet, chewable)2 tab(s) Chewed once a day. mupirocin topical (mupirocin 2% topical ointment)1 application Topical two (2) times a day. Bilateral intranasal application twice daily for 5 days prior to surgery &/or as many days leading up to surgery as possible due to surgical urgency/scheduling. Send to patient's preferred pharmacy.. Refills: 0. triamcinolone topical (triamcinolone 0.1% topical cream)1 application Topical As Directed as neededL. USES NEEDED FOR LEGS. ubiquinone (CoQ10 Gummy)200 Milligram by mouth once a day. may substitute softgel dosage form. Follow Up Follow Up with GALA SONG, Neurosurgery When:10/19/2023 09:45 AM EDT Where:[address] [place] [address]- [phone] Discharge Diet Resume home diet Discharge Activity See above restrictions Condition on Discharge Stable Discharge Disposition Home Information Provided To Patient Digitally Signed by GALA SONG on 10/08/2023 11:08 AM Digitally Signed by GHULAM DIGGS MD [id number] An[facility] Consult note Patient: KERRI BURGESS Age: 78 years Sex: Female : 1945 Associated Diagnoses: None Author: VITA WHITT MD Assessment Postanesthesia assessment Vitals: Vital signs from flowsheet : Vital Signs 10/07/2023 13:01 EDT Temperature Oral 36.6 DegC Apical Heart Rate 64 bpm Respiratory Rate 18 br/min Systolic Blood Pressure Non-Invasive 133 mmHg Diastolic Blood Pressure Non-Invasive 46 mmHg Reason For Taking VItal Signs Admission 10/07/2023 12:28 EDT Temperature Temporal Artery 36 DegC Heart Rate Monitored 62 bpm Respiratory Rate 16 br/min Systolic Blood Pressure Non-Invasive 121 mmHg Diastolic Blood Pressure Non-Invasive 56 mmHg LOW Mean Arterial Pressure (NBP) 77 mmHg 10/07/2023 12:09 EDT Heart Rate Monitored 56 bpm LOW Respiratory Rate 16 br/min Systolic Blood Pressure Non-Invasive 133 mmHg Diastolic Blood Pressure Non-Invasive 61 mmHg Mean Arterial Pressure (NBP) 81 mmHg 10/07/2023 11:53 EDT Heart Rate Monitored 64 bpm Respiratory Rate 16 br/min Systolic Blood Pressure Non-Invasive 120 mmHg Diastolic Blood Pressure Non-Invasive 45 mmHg Mean Arterial Pressure (NBP) 55 mmHg 10/07/2023 11:37 EDT Heart Rate Monitored 59 bpm LOW Respiratory Rate 12 br/min LOW Systolic Blood Pressure Non-Invasive 132 mmHg Diastolic Blood Pressure Non-Invasive 51 mmHg LOW Mean Arterial Pressure (NBP) 72 mmHg 10/07/2023 11:22 EDT Heart Rate Monitored 66 bpm Respiratory Rate 16 br/min Systolic Blood Pressure Non-Invasive 150 mmHg HI Diastolic Blood Pressure Non-Invasive 60 mmHg Mean Arterial Pressure (NBP) 83 mmHg 10/07/2023 11:21 EDT Respiratory Rate 16 br/min 10/07/2023 11:08 EDT Heart Rate Monitored 67 bpm Respiratory Rate 16 br/min Systolic Blood Pressure Non-Invasive 141 mmHg HI Diastolic Blood Pressure Non-Invasive 60 mmHg Mean Arterial Pressure (NBP) 82 mmHg 10/07/2023 10:52 EDT Temperature Temporal Artery 36.4 DegC Heart Rate Monitored 62 bpm Respiratory Rate 14 br/min Systolic Blood Pressure Non-Invasive 112 mmHg Diastolic Blood Pressure Non-Invasive 43 mmHg Mean Arterial Pressure (NBP) 61 mmHg 10/07/2023 10:50 EDT Heart Rate Monitored 65 bpm bpm Respiratory Rate - Anes 0 br/min br/min 10/07/2023 10:48 EDT Systolic Blood Pressure Non-Invasive 132 mmHg mmHg Diastolic Blood Pressure Non-Invasive 51 mmHg mmHg 10/07/2023 10:45 EDT Heart Rate Monitored 63 bpm bpm Respiratory Rate - Anes 13 br/min br/min 10/07/2023 10:43 EDT Systolic Blood Pressure Non-Invasive 130 mmHg mmHg Diastolic Blood Pressure Non-Invasive 57 mmHg mmHg 10/07/2023 10:40 EDT Temperature (Route Not Specified) 36.52 DegC DegC Heart Rate Monitored 68 bpm bpm Respiratory Rate - Anes 14 br/min br/min Systolic Blood Pressure Non-Invasive 128 mmHg mmHg Diastolic Blood Pressure Non-Invasive 58 mmHg mmHg 10/07/2023 10:37 EDT Systolic Blood Pressure Non-Invasive 128 mmHg mmHg Diastolic Blood Pressure Non-Invasive 52 mmHg mmHg 10/07/2023 10:35 EDT Temperature (Route Not Specified) 36.52 DegC DegC Heart Rate Monitored 66 bpm bpm Respiratory Rate - Anes 16 br/min br/min 10/07/2023 10:34 EDT Systolic Blood Pressure Non-Invasive 140 mmHg mmHg Diastolic Blood Pressure Non-Invasive 57 mmHg mmHg 10/07/2023 10:31 EDT Systolic Blood Pressure Non-Invasive 139 mmHg mmHg Diastolic Blood Pressure Non-Invasive 65 mmHg mmHg 10/07/2023 10:30 EDT Temperature (Route Not Specified) 36.5 DegC DegC Heart Rate Monitored 68 bpm bpm Respiratory Rate - Anes 6 br/min br/min 10/07/2023 10:28 EDT Systolic Blood Pressure Non-Invasive 125 mmHg mmHg Diastolic Blood Pressure Non-Invasive 51 mmHg mmHg 10/07/2023 10:25 EDT Temperature (Route Not Specified) 36.47 DegC DegC Heart Rate Monitored 66 bpm bpm Respiratory Rate - Anes 8 br/min br/min Systolic Blood Pressure Non-Invasive 119 mmHg mmHg Diastolic Blood Pressure Non-Invasive 52 mmHg mmHg 10/07/2023 10:22 EDT Systolic Blood Pressure Non-Invasive 109 mmHg mmHg Diastolic Blood Pressure Non-Invasive 59 mmHg mmHg 10/07/2023 10:20 EDT Temperature (Route Not Specified) 36.44 DegC DegC Heart Rate Monitored 62 bpm bpm Respiratory Rate - Anes 12 br/min br/min 10/07/2023 10:19 EDT Systolic Blood Pressure Non-Invasive 117 mmHg mmHg Diastolic Blood Pressure Non-Invasive 49 mmHg mmHg 10/07/2023 10:16 EDT Systolic Blood Pressure Non-Invasive 131 mmHg mmHg Diastolic Blood Pressure Non-Invasive 58 mmHg mmHg 10/07/2023 10:15 EDT Temperature (Route Not Specified) 36.41 DegC DegC Heart Rate Monitored 64 bpm bpm Respiratory Rate - Anes 12 br/min br/min 10/07/2023 10:13 EDT Systolic Blood Pressure Non-Invasive 107 mmHg mmHg Diastolic Blood Pressure Non-Invasive 49 mmHg mmHg 10/07/2023 10:10 EDT Temperature (Route Not Specified) 36.38 DegC DegC Heart Rate Monitored 60 bpm bpm Respiratory Rate - Anes 12 br/min br/min Systolic Blood Pressure Non-Invasive 114 mmHg mmHg Diastolic Blood Pressure Non-Invasive 53 mmHg mmHg 10/07/2023 10:07 EDT Systolic Blood Pressure Non-Invasive 107 mmHg mmHg Diastolic Blood Pressure Non-Invasive 46 mmHg mmHg 10/07/2023 10:05 EDT Temperature (Route Not Specified) 36.35 DegC DegC Heart Rate Monitored 61 bpm bpm Respiratory Rate - Anes 12 br/min br/min 10/07/2023 10:04 EDT Systolic Blood Pressure Non-Invasive 124 mmHg mmHg Diastolic Blood Pressure Non-Invasive 52 mmHg mmHg 10/07/2023 10:01 EDT Systolic Blood Pressure Non-Invasive 95 mmHg mmHg Diastolic Blood Pressure Non-Invasive 44 mmHg mmHg 10/07/2023 10:00 EDT Temperature (Route Not Specified) 36.31 DegC DegC Heart Rate Monitored 64 bpm bpm Respiratory Rate - Anes 13 br/min br/min 10/07/2023 9:58 EDT Systolic Blood Pressure Non-Invasive 97 mmHg mmHg Diastolic Blood Pressure Non-Invasive 46 mmHg mmHg 10/07/2023 9:55 EDT Temperature (Route Not Specified) 36.29 DegC DegC Heart Rate Monitored 67 bpm bpm Respiratory Rate - Anes 14 br/min br/min Systolic Blood Pressure Non-Invasive 110 mmHg mmHg Diastolic Blood Pressure Non-Invasive 43 mmHg mmHg 10/07/2023 9:52 EDT Systolic Blood Pressure Non-Invasive 107 mmHg mmHg Diastolic Blood Pressure Non-Invasive 46 mmHg mmHg 10/07/2023 9:50 EDT Temperature (Route Not Specified) 36.27 DegC DegC Heart Rate Monitored 65 bpm bpm Respiratory Rate - Anes 14 br/min br/min 10/07/2023 9:49 EDT Systolic Blood Pressure Non-Invasive 108 mmHg mmHg Diastolic Blood Pressure Non-Invasive 51 mmHg mmHg 10/07/2023 9:46 EDT Systolic Blood Pressure Non-Invasive 118 mmHg mmHg Diastolic Blood Pressure Non-Invasive 56 mmHg mmHg 10/07/2023 9:45 EDT Temperature (Route Not Specified) 36.31 DegC DegC Heart Rate Monitored 89 bpm bpm Respiratory Rate - Anes 14 br/min br/min 10/07/2023 9:43 EDT Systolic Blood Pressure Non-Invasive 110 mmHg mmHg Diastolic Blood Pressure Non-Invasive 52 mmHg mmHg 10/07/2023 9:40 EDT Temperature (Route Not Specified) 36.4 DegC DegC Heart Rate Monitored 70 bpm bpm Respiratory Rate - Anes 14 br/min br/min Systolic Blood Pressure Non-Invasive 114 mmHg mmHg Diastolic Blood Pressure Non-Invasive 49 mmHg mmHg 10/07/2023 9:37 EDT Systolic Blood Pressure Non-Invasive 111 mmHg mmHg Diastolic Blood Pressure Non-Invasive 49 mmHg mmHg 10/07/2023 9:35 EDT Temperature (Route Not Specified) 36.48 DegC DegC Heart Rate Monitored 71 bpm bpm Respiratory Rate - Anes 14 br/min br/min 10/07/2023 9:34 EDT Systolic Blood Pressure Non-Invasive 112 mmHg mmHg Diastolic Blood Pressure Non-Invasive 47 mmHg mmHg 10/07/2023 9:31 EDT Systolic Blood Pressure Non-Invasive 117 mmHg mmHg Diastolic Blood Pressure Non-Invasive 48 mmHg mmHg 10/07/2023 9:30 EDT Temperature (Route Not Specified) 36.64 DegC DegC Heart Rate Monitored 92 bpm bpm Respiratory Rate - Anes 14 br/min br/min 10/07/2023 9:28 EDT Systolic Blood Pressure Non-Invasive 139 mmHg mmHg Diastolic Blood Pressure Non-Invasive 54 mmHg mmHg 10/07/2023 9:25 EDT Respiratory Rate - Anes 14 br/min br/min 10/07/2023 9:23 EDT Systolic Blood Pressure Non-Invasive 114 mmHg mmHg Diastolic Blood Pressure Non-Invasive 44 mmHg mmHg 10/07/2023 9:20 EDT Heart Rate Monitored 77 bpm bpm Respiratory Rate - Anes 0 br/min br/min Systolic Blood Pressure Non-Invasive 116 mmHg mmHg Diastolic Blood Pressure Non-Invasive 48 mmHg mmHg 10/07/2023 9:17 EDT Systolic Blood Pressure Non-Invasive 157 mmHg mmHg Diastolic Blood Pressure Non-Invasive 69 mmHg mmHg 10/07/2023 7:30 EDT Temperature Temporal Artery 36.0 DegC Peripheral Pulse Rate 81 bpm Respiratory Rate 18 br/min Systolic Blood Pressure Non-Invasive 148 mmHg HI Diastolic Blood Pressure Non-Invasive 80 mmHg , Oxygen Therapy : Oxygen Therapy & Oxygenation Information 10/07/2023 13:38 EDT Oxygen Therapy Nasal cannula 0L-6L Oxygen Activity Oxygen On Oxygen Flow Rate 2 10/07/2023 13:01 EDT Oxygen Therapy Nasal cannula 0L-6L Oxygen Saturation 96 % Oxygen Flow Rate 2 10/07/2023 12:28 EDT Oxygen Therapy Nasal cannula 0L-6L Oxygen Saturation 96 % Oxygen Flow Rate 2 10/07/2023 12:09 EDT Oxygen Therapy Nasal cannula 0L-6L Oxygen Saturation 96 % Oxygen Flow Rate 2 10/07/2023 11:53 EDT Oxygen Therapy Nasal cannula 0L-6L Oxygen Saturation 99 % Oxygen Flow Rate 2 10/07/2023 11:37 EDT Oxygen Therapy Nasal cannula 0L-6L Oxygen Saturation 96 % Oxygen Flow Rate 2 10/07/2023 11:22 EDT Oxygen Therapy Nasal cannula 0L-6L Oxygen Saturation 99 % Oxygen Flow Rate 2 10/07/2023 11:21 EDT Oxygen Therapy Nasal cannula 0L-6L Oxygen Saturation 100 % Oxygen Flow Rate 2 10/07/2023 11:08 EDT Oxygen Therapy Simple mask Oxygen Saturation 100 % Oxygen Flow Rate 6 10/07/2023 10:52 EDT Oxygen Therapy Simple mask Oxygen Saturation 99 % Oxygen Flow Rate 6 10/07/2023 10:50 EDT Oxygen Saturation 100 % % 10/07/2023 10:45 EDT Oxygen Saturation 100 % % 10/07/2023 10:40 EDT Oxygen Saturation 100 % % 10/07/2023 10:35 EDT Oxygen Saturation 100 % % 10/07/2023 10:30 EDT Oxygen Saturation 100 % % 10/07/2023 10:25 EDT Oxygen Saturation 100 % % 10/07/2023 10:20 EDT Oxygen Saturation 100 % % 10/07/2023 10:15 EDT Oxygen Saturation 100 % % 10/07/2023 10:10 EDT Oxygen Saturation 100 % % 10/07/2023 10:05 EDT Oxygen Saturation 100 % % 10/07/2023 10:00 EDT Oxygen Saturation 100 % % 10/07/2023 9:55 EDT Oxygen Saturation 100 % % 10/07/2023 9:50 EDT Oxygen Saturation 100 % % 10/07/2023 9:45 EDT Oxygen Saturation 100 % % 10/07/2023 9:40 EDT Oxygen Saturation 100 % % 10/07/2023 9:35 EDT Oxygen Saturation 100 % % 10/07/2023 9:30 EDT Oxygen Saturation 100 % % 10/07/2023 9:20 EDT Oxygen Saturation 100 % % 10/07/2023 7:30 EDT Oxygen Therapy Room air Oxygen Saturation 96 % . Mental status: at preoperative baseline. Respiratory function: lungs are clear to auscultation, respirations are non-labored. Respiratory support: oxygen delivery method via nasal cannula. CV function: Normal rate. Cardiovascular support: none. Pain. Nausea status: see nursing documentation of medications. Postoperative hydration status: within normal limits. Digitally Signed by VITA WHITT MD on 10/07/2023 02:[address] [id number] ORIGINAL EXAMINATION: SPOT FLUOROSCOPIC IMAGES 10/07/2023 10:42 am TECHNIQUE: Fluoroscopy was provided by the radiology department for procedure. Radiologist was not present during examination. FLUOROSCOPY DOSE AND TYPE: Radiation Exposure Index: Radiation dose was 10.7 mGy air kerma. Fluoroscopy time was 11.7 seconds., COMPARISON: None HISTORY: ORDERING SYSTEM PROVIDED HISTORY: Reason for Exam: LUMBAR PAIN Intraprocedural imaging. FINDINGS: 3 intraoperative images show instrumentation of the spine near the L3-4 level. Degenerative changes seen in the spine. IMPRESSION: Intraprocedural fluoroscopic spot images. Please see the operative note for full description of the lumbar spine. Interpreted by: Patric Wiseman MD Preliminary Report By: Patric Wiseman MD Electronically signed By Patric Wiseman MD Dictated Date: 10/07/2023 12:09:18 PM Prelim Date: 10/07/2023 12:09:59 PM Sign Date: 10/07/2023 12:09:59 PM Ordering Provider: [facility]06-07-2024 Anesthesiology Consult note Patient: KERRI BURGESS Age: 78 years Sex: Female : 1945 Associated Diagnoses: None Author: AUBRIE RAMIRES MD Preoperative Information Greater than 6 hours Anesthesia history Patient's history: negative. Family's history: negative. Review of Systems Ear/Nose/Mouth/Throat: Negative except as documented in history of present illness. Respiratory: Negative except as documented in history of present illness. Cardiovascular: Negative except as documented in history of present illness. Gastrointestinal: Negative except as documented in history of present illness. Genitourinary: Negative except as documented in history of present illness. Endocrine: Negative except as documented in history of present illness. Musculoskeletal: Negative except as documented in history of present illness. Integumentary: Negative except as documented in history of present illness. Neurologic: Negative except as documented in history of present illness. Health Status Allergies: Allergic Reactions (Selected) Moderate Adhesive Bandage- Rash and itching. Severity Not Documented Latex- Hives. OxyCODONE- Unknown. Penicillin- Hives. Nonallergic Reactions (Selected) Moderate Rybelsus- Mid back pain. Severity Not Documented Lipitor- Leg cramps., Allergies (7) ActiveSeverityReaction Adhesive BandageModerateRash RybelsusModeratemid back pain Adhesive BandageModerateITCHING LatexHIVES penicillinHIVES oxyCODONEunknown LipitorLEG CRAMPS Current medications: (Selected) Inpatient Medications Ordered NS 1,000 mL: 20 mL/hr, Intravenous lidocaine 1% preservative-free injectable solution: 2.5 mg, 0.25 mL, Intradermal, prep pharm Prescriptions Prescribed DME MISCellaneous: See Instructions, Power lift recliner chair dx:.M48.062, R60.0, 1 EA, 0 Refill(s) Nebivolol 10 mg oral tablet: 1 tab(s), Oral, qDay, 90 tab(s), 3 Refill(s) Welchol 625 mg oral tablet: 3 tab(s), Oral, BID, GE Radha [phone], 540 tab(s), 3 Refill(s) diclofenac 1% topical gel: 1 kamala, Topical, AsDirected, not to exceed 16 grams/day/single joint of lower extremities, PRN: Pain, 100 gram(s), 2 Refill(s) furosemide 40 mg oral tablet: 40 mg, 1 tab(s), Oral, qDay, 30 tab(s), 0 Refill(s) ibuprofen 800 mg oral tablet: 800 mg, 1 tab(s), Oral, qDay, for 30 day(s), with food or milk, PRN: as needed for pain, 30 tab(s), 3 Refill(s) levothyroxine 50 mcg (0.05 mg) oral tablet: 1 tab(s), Oral, qDay, 90 tab(s), 1 Refill(s) mupirocin 2% topical ointment: 1 kamala, Topical, BID, Bilateral intranasal application twice daily for 5 days prior to surgery &/or as many days leading up to surgery as possible due to surgical urgency/scheduling. Send to patient's preferred pharmacy., 22 gram(s), 0 Refill(s) omeprazole 20 mg oral delayed release capsule: 20 mg, 1 cap(s), Oral, BID, 270 cap(s), 3 Refill(s) oxybutynin 5 mg/24 hours oral tablet, extended release: 1 tab(s), Oral, qDay, 90 tab(s), 3 Refill(s) valsartan 320 mg oral tablet: 1 tab(s), Oral, qDay, 90 tab(s), 3 Refill(s) Documented Medications Documented B Complex 50 oral tablet: 1 tab(s), Oral, qPM, 30 tab(s), 0 Refill(s) CALCIUM, D3, ZINC GUMMIES: 2 GUMMY(S), Oral, qDay, 0 Refill(s) CoQ10 Gummy: 200 mg, Oral, qDay, may substitute softgel dosage form, 100 EA, 0 Refill(s) LAURA'S LEG CRAMPS: 1 cap(s), Oral, AsDirected, 0 Refill(s) Maxzide-25: 1 tab(s), Oral, AsDirected, TAKE 1-0.5 TABS DAILY NEEDED, PRN: Swelling, 30 tab(s), 0 Refill(s) PAIN FORMULA: 1 KAMALA(S), Topical, AsDirected, CYCLOBENZAPRINE 1% GABAPENTIN 6% KETOPROFEN 5% LIDO 1%PRILO 1% CREAM, 0 Refill(s) PreserVision AREDS 2 oral capsule: 1 cap(s), Oral, BID, 0 Refill(s) THERAWORX RELIEF: 1 KAMALA(S), Topical, AsDirected, 0 Refill(s) TRIAMCINOLONE ACETONIDE: 1 KAMALA(S), Topical, AsDirected, 0 Refill(s) Tylenol Extra Strength 500 mg oral tablet: 500 mg, 1 tab(s), Oral, AsDirected, PRN: as needed for pain, 50 tab(s), 0 Refill(s) Vitafusion Calcium Gummy oral tablet, chewable: 2 tab(s), Chewed, qDay, 100 tab(s), 0 Refill(s) Vitamin D3 5000 intl units oral capsule: 5,000 unit(s), 1 cap(s), Oral, qPM, 0 Refill(s) Voltaren 1% topical gel: 1 KAMALA(S), Topical, AsDirected, 1 EA, 0 Refill(s) aspirin 81 mg oral delayed release tablet: 81 mg, 1 tab(s), Oral, qPM, 0 Refill(s) hydrochlorothiazide-triamterene 25 mg-37.5 mg oral capsule: 1 cap(s), Oral, qDay, Take with food, PRN: Swelling, 0 Refill(s) magnesium oxide 250 mg oral tablet: mg, tab(s), Oral, BID, 0 Refill(s) pregabalin 50 mg oral capsule: 50 mg, 1 cap(s), Oral, BID, WAS ORDERED 100MG STATES WAS TOO MUCH, STATES PT WENT BACK TO TAKING 50 MG BID, 0 Refill(s) triamcinolone 0.1% topical cream: 1 kamala, Topical, AsDirected, USES NEEDED FOR LEGS, PRN: L, 0 Refill(s) turmeric 1000 mg oral capsule: 1,000 mg, 1 cap(s), Oral, qDay, 0 Refill(s), Medications (2) Active Scheduled: (1) lidocaine 1% (MPF) 2 mL vial pf 2.5 mg 0.25 mL, Intradermal, prep pharm Continuous: (1) NS (0.9% nacl) 1,000 mL 1,000 mL, Intravenous, 20 mL/hr PRN: (0) Problem list: Medical Acute bronchitis / SNOMED CT 21322653 / Confirmed Bilateral leg edema / SNOMED CT 7082981683 / Confirmed Edema of both legs / SNOMED CT 3180379276 / Confirmed Carotid stenosis - <40% 05/2017 / SNOMED CT 021981426 / Confirmed Leg cramps / SNOMED CT 4147500726 / Confirmed Dermatographism / SNOMED CT 71703582 / Confirmed Lesion of bone of cervical spine / SNOMED CT 274475988 / Confirmed Leg edema, left / SNOMED CT 1911754740 / Confirmed Chronic GERD / SNOMED CT 801272939 / Confirmed History of pulmonary embolism / SNOMED CT 968606893 / Confirmed S/P knee replacement / SNOMED CT 9670214995 / Confirmed Hypercholesteremia / SNOMED CT 42693605 / Confirmed High blood pressure / SNOMED CT 1095410850 / Confirmed Urinary retention with incomplete bladder emptying / SNOMED CT 464419315 / Confirmed Knee pain, left / SNOMED CT 88648280 / Confirmed Bilateral chronic knee pain / SNOMED CT 92475559 / Confirmed Lumbar disc disease with radiculopathy / SNOMED CT 194112378 / Confirmed Abnormal MRI, cervical spine / SNOMED CT 0300859243 / Confirmed Mass of spine / SNOMED CT 969462510 / Confirmed CARISA on CPAP / SNOMED CT 799292584 / Confirmed Cervical spine pain / SNOMED CT 466497334 / Confirmed Knee pain, bilateral / SNOMED CT 5834760535 / Confirmed Physical exam / SNOMED CT 420985088 / Confirmed Medicare annual wellness visit, subsequent / SNOMED CT 214190193 / Confirmed Preop examination / SNOMED CT 821835298 / Confirmed Right upper quadrant abdominal pain / SNOMED CT 760746882 / Confirmed Rotator cuff tear / SNOMED CT 9676312043 / Confirmed Severe obesity with body mass index (BMI) of 35.0 to 39.9 with comorbidity / SNOMED CT 4571821677 /Confirmed Lumbar stenosis with neurogenic claudication / SNOMED CT 47325489 / Confirmed Stomach discomfort / SNOMED CT 409788432 / Confirmed Subclinical hypothyroidism / SNOMED CT 85546544 / Confirmed Mid back pain on right side / SNOMED CT 346755118 / Confirmed Type 2 diabetes mellitus / SNOMED CT 565770073 / Confirmed Urge incontinence of urine / SNOMED CT 975782074 / Confirmed Urinary incontinence in female / SNOMED CT 5647565573 / Confirmed Vitamin D deficiency / SNOMED CT 75795604 / Confirmed Resolved: Cataract / SNOMED CT 537592015 Resolved: Helicobacter pylori gastritis / SNOMED CT 2375490125 Canceled: Mid back pain / SNOMED CT 124651686 Canceled: Chest pain / SNOMED CT 48304329 Canceled: Right shoulder tendonitis / SNOMED CT 372385312 Canceled: Non-productive cough / SNOMED CT 85006419 Canceled: Urinary incontinence, mixed / SNOMED CT 0041776308 Canceled: Obesity (BMI 30.0-34.9) / SNOMED CT 113389318215111 Canceled: Obesity (BMI 30.0-34.9) / SNOMED CT 721075683754726 Canceled: Obesity / SNOMED CT 0323927900 Canceled: Physical exam / SNOMED CT 885977007 Canceled: Medicare annual wellness visit, subsequent / SNOMED CT 040420240 Canceled: Preop testing / SNOMED CT 299730485 Canceled: Preop testing / SNOMED CT 373562017 Canceled: Preoperative clearance / SNOMED CT 095367931 Canceled: Severe obesity (BMI 35.0-35.9 with comorbidity) / SNOMED CT 7150598932 Canceled: Severe obesity (BMI 35.0-39.9) with comorbidity / SNOMED CT 1216718943, Active Problems (59) Abnormal MRI, cervical spine Accidental fall Acute bronchitis Allergy to adhesive Anxiety Arthritis Bilateral chronic knee pain Bilateral leg edema BMI 36.0-36.9,adult Bulging lumbar disc Carotid stenosis - <40% 05/2017 Cervical spine pain Chronic GERD Chronic venous stasis Claustrophobia CPAP - Continuous positive airways pressure Dental root implant present Dermatographism Edema of both legs Elevated blood pressure reading Fibromyalgia Glasses High blood pressure History of pulmonary embolism Hypercholesteremia Hypothyroidism Knee pain, bilateral Knee pain, left Latex allergy Leg cramps Leg edema Leg edema, left Lesion of bone of cervical spine Lumbar disc disease with radiculopathy Lumbar stenosis with neurogenic claudication Mass of spine Medicare annual wellness visit, subsequent Mid back pain on right side Neck pain Neuropathy OAB (overactive bladder) On anticoagulant therapy CARISA on CPAP Personal history of COVID-19 Physical exam PONV (postoperative nausea and vomiting) Preop examination Right upper quadrant abdominal pain Rotator cuff tear S/P knee replacement Severe obesity with body mass index (BMI) of 35.0 to 39.9 with comorbidity Sleep apnea Stomach discomfort Subclinical hypothyroidism Type 2 diabetes mellitus Urge incontinence of urine Urinary incontinence in female Urinary retention with incomplete bladder emptying Vitamin D deficiency Histories Past Medical History: Resolved Helicobacter pylori gastritis (6254295097): Resolved. Cataract (242547197): Resolved. Family History: Breast cancer Mother (): onset at 62 years. Hypertension Sister Heart attack Brother: onset at 59 . Father (): onset at 55 years. Kidney disease Sister Hyperlipidemia Sister CABG - Coronary artery bypass graft Sister Skin cancer Sister Comments: 05/23/2018 9:06 MAY KING MD Squamous cell Chronic kidney disease Sister Diabetes Sister Mother () Procedure history: Arthroplasty of knee left (34605701) on 02/06/2018 at 72 Years. Comments: 12/12/2018 8:45 Kathie Terrell RN left Phacoemulsification with intraocular lens implantation (3262487116) in 2012 at 67 Years. Comments: 12/12/2018 8:47 Kathie Terrell RN right Cholecystectomy (73440246) in 2011 at 66 Years. Arthroplasty of knee right (07185414) in 2009 at 64 Years. Comments: 12/12/2018 8:45 Kathie Terrell RN right Hysterectomy (007340502) in 2000 at 55 Years. LASIK (8362842925) in 1994 at 49 Years. Appendectomy (085221036) in 1969 at 24 Years. Arthroscopy of shoulder (692715226). Comments: 09/30/2023 9:37 Kailey Ellison RN RIGTH SHOULDER WITH HARDWARE Entire tooth (252313135). Comments: 09/30/2023 9:37 Kailey Ellison RN DENTAL IMPLANT Colonoscopy (214506404). Extraction of wisdom tooth (473428604). 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 Substance Abuse 10/07/2023 Use: DENIES Tobacco 10/07/2023 Tobacco Use: Former smoker, quit more Type: Cigarettes Started at age: 17 Years Stopped at age: 26 Years Comment: QUIT 1978 - 12/12/2018 08:41 - Joseph, Kathie K RN Exercise Comment: None - 07/21/2020 10:36 - MAY MCKEON MD Home/Environment 10/07/2023 Living situation: Home/Independent Domestic Concerns Denies Spouse Name Mayank Marital Status of Patient if Patient Independent Adult: Comment: Second marriage 1984 - 05/23/2018 08:29 - MAY MCKEON MD Nutrition/Health 10/07/2023 Type of diet: Calorie restricted Appetite Good Eating Difficulties None Physical Examination Vital Signs 10/07/2023 7:30 EDT Temperature Temporal Artery 36.0 DegC Peripheral Pulse Rate 81 bpm Respiratory Rate 18 br/min Systolic Blood Pressure Non-Invasive 148 mmHg HI Diastolic Blood Pressure Non-Invasive 80 mmHg Vital Signs (last 24 hrs) Last Charted Temp Mgcbxaub03.0 DegC (OCT 06 07:30) SBPH 148 mmHg (OCT 06 07:30) DBP80 mmHg (OCT 06 07:30) General: Alert and oriented. Airway: Normal temporomandibular joint mobility, Normal mouth, Normal throat, Normal neck range of motion, Trachea midline. Mallampati classification: II (soft palate, fauces, uvula visible). Head: Normocephalic. Dentition Evaluation: Intact, Own teeth, Denies loose/chipped teeth. Neck: Supple. Respiratory: Lungs are clear to auscultation, Respirations are non-labored. Cardiovascular: Normal rate, Regular rhythm, No murmur. Heart Sounds: Normal. Gastrointestinal: Soft. Musculoskeletal Normal range of motion. Integumentary: Intact, Warm, Dry. Neurologic: Alert, Oriented. Review / Management Results review: No qualifying data available . Assessment and Plan [place] [employer]esthesi[employer] (ASA) physical status classification: Class III. Anesthetic Preoperative Plan Premedication: intravenous. Anesthetic technique: General. Induction: intravenously. Maintenance airway: Oral endotracheal tube. Special techniques: Warming device. Special Monitoring. Postoperative pain management: Per surgeon. Risks discussed: nausea, vomiting, headache, sore throat, dental injury, hypotension, allergic reaction, serious complications. Informed consent: signed by patient. Beta Charbel: Beta Charbel Taken Within 24 Hrs: Yes. Digitally Signed by AUBRIE RAMIRES MD on 10/07/2023 08:[address] [id number] + Plan note Future Scheduled Tests Laboratory* Basic Metabolic Panel 09/30/23 * Magnesium Level 09/30/23 * Thyroid Stimulating Hormone 09/30/23 * Free T4 09/30/23 * Vitamin B12 Level 09/30/23 * A1C Hemoglobin 09/30/23 * ALT / SGPT 09/30/23 * Complete Blood Count 09/30/23 * Lipid Profile 09/30/23 * Albumin/Creatinine Ratio, Random Urine 09/30/23 * N-Terminal proBNP 09/30/23 [facility] 05-31-2024 Note ORIGINAL EXAMINATION: TWO XRAY VIEWS OF THE CHEST09/30/2023 11:35 am XR Chest, two views COMPARISON: 02/19/2023 HISTORY: ORDERING SYSTEM PROVIDED HISTORY: Reason for Exam: cough, FINDINGS: The lungs show no infiltrate, consolidation or mass. Heart size and mediastinal contours are stable accounting for differences in projection and patient position. No pneumothorax, pleural fluid, or vascular congestion is seen. The bones show no acute process. There is a 1 cm nodular density projected over the left side of the heart infrahilar region. This is not localized on the lateral view. Calcification of aorta. Dorsal spondylosis. IMPRESSION: No acute cardio pulmonary process. Summation artifact versus 1 cm nodule in the left lower lung. Suggest a short-term follow-up PA and lateral views of the chest. If this finding is confirmed, CT of the chest will be needed for further evaluation. Interpreted by: Jose G Santos MD Preliminary Report By: Jose G Santos MD Electronically signed By Jose G Santos MD Dictated Date: 09/30/2023 11:49:54 AM Prelim Date: 09/30/2023 12:07:32 PM Sign Date: 09/30/2023 12:07:32 PM Ordering Provider: [facility]05-17-2023 Corinne BURGESS was presented at Brain/Spine Tumor Board Conference Conference date: 15-Sep-2022 Presenting Provider(s): (Miryam Munoz) Conference Review Type: Treatment Planning Impression Acute on chronic cervicalgia and radicular pain. Review of current MRI c-spine was done, demonstrated abnormal marrow signal in C3 and progression of abnormal signal in C6 vertebral bodies as compared to prior exam on 09/04/2019. Cannot exclude malignancy/ mets. Recommendations Other recommendations: Metastatic workup CT C/A/P and PET. Disclaimer SCC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 Role Status Dates Dr. May Mckeon MD Primary Care Provider Active Team Status: Inactive Member Role Status Dates EULA Osborn Attending Provider Active S tart: October 15, 2024 End: October 15, 2024 Dr. May Mckeon MD Primary Care Provider Active Start: October 15, 2024 End: October 15, 2024 Dr. May Mckeon MD Referring Provider Active Start: October 15, 2024 End: October 15, 2024 Team Status: Inactive Member Role Status Dates Dr. May Mckeon MD Primary Care Provider Active Start: October 23, 2024 End: October 23, 2024 Dr. May Mckeon MD Referring Provider Active Start: October 23, 2024 End: October 23, 2024 Dr. Scott Hermosillo DO Attending Provider Active Start: October 23, 2024 End: October 23, 2024 Team Status: Active Member Role Status Dates Dr. May Mckeon MD Primary Care Provider Active Start: October 23, 2024 Dr. May Mckeon MD Referring Provider Active Start: October 23, 2024 Dr. Scott Hermosillo DO Attending Provider Active Start: October 23, 2024 Dr. Scott Hermosillo DO Other Provider Active St art: October 23, 2024 Care Team (unrecognized sect ion and content) Care Team Personnel Name: Lance Rodas Position: P3 Scheduling - Professor Of Chemical Engineering Advanced Member Role: Other Name: MAY MCKEON MD Position: P4 Physician - Primary Care Med Service: Active Provider Member Role: Primary Care Physician Address: Address: [facility] [address] Name: Aviva Jennifer Earthmoving Labourer Position: P3 Scheduling - Professor Of Chemical Engineering Advanced Member Role: Other Name: Ariella, Therapy Professor Of Chemical Engineering Sherron L Position: P3 Scheduling - Professor Of Chemical Engineering Advanced Member Role: Other Care Team Related Persons Name: CATARINO BURGESS Address: Home [address] [place], [place] [id number] Care Team Personnel Name: Clark Therapy Professor Of Chemical Engineering Zahraa Position: P3 Scheduling - Professor Of Chemical Engineering Advanced Member Role: Other Name: MAY MCKEON MD Position: P4 Physician - Primary Care Member Role: Primary Care Physician Address: Address: [facility] [address] Name: Jennifer Chicas Earthmoving Labourer Position: P3 Scheduling - Professor Of Chemical Engineering Advanced Member Role: Other Name: Ariella Therapy Professor Of Chemical Engineering Sherron L Position: P3 Scheduling - Professor Of Chemical Engineering Advanced Member Role: Other Care Team Related Persons Name: CATARINO BURGESS Address: Home [address] [place] [address] [address] [place] [phone] Goals (unrecognized section and content) Goals may be documented in a n alternate section FOR RECORDS PERTAINING TO PATIENTS WHO ARE OR HAVE BEEN ENROLLED IN A CHEMICAL DEPENDENCY/SUBSTANCEABUSE PROGRAM, SOME INFORMATION MAY BE OMITTED. This clinical summary was aggregated from multiple sources. Caution should be exercised in using it in the provision of clinical care. This summary normalizes information from multiple sources, and as a consequence, information in this document may materially change the coding, format and clinical context of patient data. In addition, data may be omitted in some cases. CLINICAL DECISIONS SHOULD BE BASED ON THE PRIMARY CLINICAL RECORDS. [facility] [employer] provides no warranty or guarantee of the accuracy or completeness of information in this document.
== END 2024-10-23 13:23 | disposition home or self-care (01) ==
LOC: EN 10:17 → AC 10:19
PROVIDERS: PCP Internal Medicine; Referring Provider Internal Medicine; Visit Provider Internal Medicine Gastroenterology
PROC: 0DJ08ZZ Inspection of Upper Intestinal Tract, Via Natural or Artificial Opening Endoscopic (ICD-10-PCS; CPT 43235; principal; 2024-10-23 11:25)
DX: K25.9 Gastric ulcer, unspecified as acute or chronic, without hemorrhage or perforation (principal); R10.13 Epigastric pain; K21.9 Gastro-esophageal reflux disease without esophagitis; E78.00 Pure hypercholesterolemia, unspecified; Z87.891 Personal history of nicotine dependence; I10 Essential (primary) hypertension; Z79.899 Other long term (current) drug therapy; I25.10 Atherosclerotic heart disease of native coronary artery without angina pectoris; Z79.890 Hormone replacement therapy
CPT/HCPCS: 43239; 88305; 88342; J2405

== ENCOUNTER 2025-02-28 05:44 | Day surgery (SDC) | payer MEDICARE, OTHER, SELFPAY ==
[2025-02-28] VITALS (7 sets, daily range): BP systolic 102–149; BP diastolic 54–70; PULSE 74–87; RESP 16; TEMP 36.1–36.4; O2SAT 93–98; BMI 31.1
--- OUTSIDE RECORDS SUMMARY | 2025-02-28 05:47 | XMS RPT_ITS | CCD ---
Author Organization [facility] CliniSyut Care Team Providers Care Kindergarten Assistant Name Role Phone MIKE BAKER, DR OLVERA Primary Care Physician Sherron Krishnan Unavailable Unavailable Samples Licensed Real Estate Broker, Amy Unavailable Unavailable Zahraa Rodas Unavailable Unavailable [...] nona MCKEON MD, DR OLVERA Attending Ban MCKOEN MD, DR OLVERA Primary Care Unavaillena MCKEON MD, DR OLVERA Attending Ban MCKEON MD, DR OLVERA Primary Care Unavaillena MCKEON MD, DR OLVERA Attending Unavaila villa MCKEON MD, DR OLVERA Primary Care Unavaillena MCKEON MD, DR OLVERA Attending Unavaila villa MCKEON MD, DR OLVERA Primary Care Unavaila villa MCKEON MD, DR OLVERA Attending Unavaila villa MCKEON MD, DR OLVERA Primary Care Unavaillena DIGGS MD, GHULAM K Attending Unavailable MIKE BAKER, DR OLVERA Primary Care Unavaila villa DIGGS MD, GHULAM K Admitting Unavailable JOSE EDUARDO BAKER, VITA Consulting [...] MCKEON MD, DR OLVERA Primary Care Unavaila EVAN Chang Attending Unavailable EVAN GERMAN Primary Care Unavailable EVAN GERMAN Admitting Unavailable Sergo PIPELINE SUPERINTENDENT DIVISION-C, Marilyn Attending Provider Mike BAKER, Dr. Olvera Primary Care Provider Mike BAKER, Dr. Olvera Referring Provider Dr. Scott Hermosillo DO Attending Provider Dr. Scott Hermosillo DO Other Provider Unavailable Primary Care Provider Unavailabl e TOÑITO TUCKEROLAS Referring Unavailable CHEYENNECHTOÑITO GONZALEZOLAS Referring Unavailable MAY MCKEON Primary Care Unavail able VOLCHKO, OLAF Referring Unavailable VOLCHKO, OLAF Referring Unavailable VOLCHKO, OLAF Referring Unavailable VOLCHKO, OLAF Referring Unavailable VOLCHKO, OLAF Referring Unavailable Mike BAKER, May Puente Primary Care Provide r MIKE BAKER, DR OLVERA Primary Care Unavaila villa MCKEON MD, DR OLVERA Attending Unavaila villa MCKEON MD, DR OLVERA Attending Unavaila villa MCKEON MD, DR OLVERA Primary Care Unavaila villa VINCENT SANDBLASTING SUPERVISOR-SOUS CHEF KITCHEN MANAGER, KIARRA Attending Unavail able IMKE BAKER, DR OLVERA Primary Care Unavaila villa MCKEON MD, DR OLVERA Attending Unavaila villa MCKEON MD, DR OLVERA Primary Care Unavaila villa SONG SANDBLASTING SUPERVISOR-SOUS CHEF KITCHEN MANAGER, GALA Admitting Unavail able DUNCAN SANDBLASTING SUPERVISOR-SOUS CHEF KITCHEN MANAGER, GALA Attending Unavail able MIKE BAKER, DR OLVERA Primary Care Unavaila ble VOLCHKO, OLAF Attending Unavailable VOLCHKOOLAF Attending Unavailable BOZENAESTMAY BERMUDEZ Primary Care Unavail able VOLCHOLAF GONZALEZ Admitting Unavailable VOLCHKO, OLAF Attending Unavailable [facility] ANGELICA Primary Care Unavail able VOLCHOLAF GONZALEZ Admitting Unavailable VOLCHOLAF GONZALEZ Attending Unavailable BOZENAESTMAY BERMUDEZ Primary Care Unavail able LUIS DO~[id number], LUIS PEDRO A Admitti ng Unavailable LUIS DO~[id number], LUIS Paredes Attendi ng Unavailable [facility] Parnell Primary Care Unavailable LUIS DO~[id number], LUIS PEDRO A Admitti ng Unavailable LUIS DO~[id number], LUIS Pardees Attendi ng Unavailable [facility], MAY E Primary Care Unavailable LUIS DO~[id number], LUIS PEDRO A Admitti ng Unavailable LUIS DO~[id number], LUIS PEDRO A Attendi ng Unavailable [facility], MAY E Primary Care Unavailable VALENTIN MICHAUD, SUZETTE Consulting Unavailable RADHALEEdgar DO, SUZETTE Consulting Unavailable ORESTES SOUS CHEF KITCHEN MANAGER~[id number], ORESTES Parnell Admit ting Unavailable ORESTES SOUS CHEF KITCHEN MANAGER~[id number], ORESTES Parnell Atten ding Unavailable MAY MCKEON Primary Care Unavailable MIKE BAKER, DR OLVERA Primary Care Unavaila villa SONG SANDBLASTING SUPERVISOR-SOUS CHEF KITCHEN MANAGER, GALA Attending Unavail able MIKE BAKER, DR OLVERA Primary Care Unavaila villa ANSARI, GALA Attending Unavail able DONTAE BAKER, GHULAM Hernández Attending Unavailable MIKE BAKER, DR OLVERA Primary Care Unavaila villa MCKEON MD, DR OLVERA Primary Care Unavaila villa ANSARI, GALA Attending Unavail able MIKE BAKER, DR OLVERA Primary Care Unavaila villa ANSARI, GALA Attending Unavail able MIKE BAKER, DR OLVERA Attending Unavaila villa MCKEON MD, DR OLVERA Primary Care Unavaila villa MCKEON MD, DR OLVERA Attending Unavaila villa MCKEON MD, DR LOVERA Primary Care Unavaila villa Mckeon MD, Dr. Olvera Primary Care Physician Mike BAKER, Dr. Olvera Referring Provider [phone] Marilyn Castillo Attending Physician [phone] Paris Wilkerson Attending Physician [phone] [place], May Primary Care Unavailable Marilyn Trotter Attending Unavailable [place], May Referring Unavailable Friend, Scott Attending Unavailable [place], May Referring Unavailable [place], May Primary Care Unavailable [place], May Primary Care Unavailable Friend, Scott Attending Unavailable [place], May Referring Unavailable Friend, Scott Consulting Unavailable [place], May Primary Care Unavailable Friend, Scott Attending Unavailable [place], May Referring Unavailable Marilyn Trotter Attending Unavailable [place], May Primary Care Unavailable [place], May Referring Unavailable [place], May Primary Care Unavailable Paris Baez Attending Unavailable [place], May Referring Unavailable Allergies Allergy Classification Reported Allergen(s) Allergy Type Date of Onset Reaction(s) Facility apixaban (2 sources) apixaban; Translations: [apixaban] Drug Allergy Vertigo (finding) [facility] Comment on above: post-op knee surgery - extreme dizziness. couldn%27t tolerate HMG-CoA Reductase Inhibitors (statins) (3 sources) atorvastatin; Translations: [atorvastatin] Drug Allergy LEG CRAMPS [facility] Latex (3 sources) Latex Substance Allergy HIVES [facility] Opioid Agonists (3 sources) oxyCODONE; Translations: [oxycodone] Drug Allergy unknown [facility] Comment on above: PT DENIES ALLERGY Penicillins (antibiotic) (3 sources) Penicillin; Translations: [penicillins] Drug Allergy [facility] (20 sources) Adhesive bandage Propensity to adverse reactions to substance 5 Eruption of skin (disorder) [facility] (6 sources) amLODIPine; Translations: [amlodipine] Drug Allergy 6 unknown [facility] (6 sources) HMG-CoA reductase inhibitor; Translations: [statins] Drug intolerance unknown [facility] (20 sources) Latex; Translations: [latex ([id number])] Drug allergy 6 Hives, Swelling [facility] (16 sources) Penicillin; Translations: [penicillins] Drug Allergy [facility] (1 source) Penicillin G Drug Allergy 1 SEIZURE [facility] (9 sources) Penicillins; Translations: [Penicillins] Allergy to drug (finding) 6 [facility] Other [facility] (7 sources) Latex Gloves MISC; Translations: [Latex Gloves MISC] [facility]ergy [facility] drug (finding) [facility] 5 Work Phone: (6 sources) Rybelsus 1; Translations: [semaglutide] Propensity to adverse reactions to drug 3 mid back pain [facility] Comment on above: at 7mg dose x 2 week s. sounded like pancreatitis (17 sources) oxyCODONE; Translations: [oxycodone] Drug Allergy 5 unknown, Other [facility] Comment on above: PT DENIES ALLERGY (15 sources) atorvastatin; Translations: [atorvastatin] Drug Allergy 5 LEG CRAMPS, Other [facility] (3 sources) Gersus 2; Translations: [semaglutide] Propensity to adverse reactions to drug 3 mid back pain [facility] Comment on above: at 7mg dose x 2 week s. sounded like pancreatitis (9 sources) apixaban; Translations: [apixaban] Drug Allergy Vertigo (finding) [facility] Comment on above: post-op knee surgery - extreme dizziness. couldn%27t tolerate (8 sources) Ryjiasus 3; Translations: [semaglutide] Propensity to adverse reactions to drug 3 mid back pain [facility] Comment on above: at 7mg dose x 2 week s. sounded like pancreatitis (5 sources) Adhesive Tape; Translations: [adhesive tape] Allergy to substance 5 Itching [facility] (4 sources) apixaban Drug Allergy 5 Other [facility] (4 sources) Penicillins Allergy to substance 5 [facility] (4 sources) semaglutide Drug Allergy 5 [facility] (13 sources) Penicillins Drug Allergy 6 Unknown [facility] (1 source) Penicillin; Translations: [penicillins] Drug Allergy [facility] (1 source) Adhesive agent; Translations: [Adhesive] Propensity to adverse reactions (disorder) [facility] (1 source) apixaban Drug Allergy [facility] (1 source) NSAIDs Drug allergy (disorder) [facility] (1 source) MISC-ENV; Translations: [MISC-ENV] Propensity to adverse reactions (disorder) [facility] (1 source) apixaban Drug Allergy 5 [facility] (1 source) atorvastatin Drug Allergy 5 [facility] (1 source) oxyCODONE Drug Allergy 5 [facility] (1 source) Penicillins Drug allergy (disorder) 5 [facility] (1 source) semaglutide Drug allergy (disorder) 5 [facility] Medications Current Medications Medication Drug Class(es) Dates Sig (Normalized) Sig (Original) (AREDS) (1 source) (AREDS) Active (B COMPLEX) (1 source) (B COMPLEX) Acti ve ([id number] MG) 50 MG TAB.CHEW (1 source) ([id number] MG) 50 MG TAB.CHEW Active 50 MG PO (D3) (1 source) (D3) Active (MAGNWSIUM) (1 source) (MAGNWSIUM) Acti ve (VOLTAREN ARTHRITIS) (1 source) (VOLTAREN ARTHRITIS) Active 0.5 ML tirzepatide 15 MG/ML Auto-Injector [Mounjaro] (1 source) Start: 01-04-2025 inject 1 dose by subcutaneous injection every week Mounjaro 7.5 mg/0.5 mL subcutaneous solution Dose : 7.5 mg =, Subcutaneous, qWeek, rotate injection sites- new dose 01/04/2025, # 4 EA, 0 Refill(s), Pharmacy: [facility], 160, cm, 01/04/25 10:13:00 EDT, Height, kg, 01/04/25 10:13:00 EDT, Dosing Weight Start Date: 01/04/25 Status: Ordered Medication Dispense Status: Completed Quantity: 4.0 Unit: EA Total Allowed Fills: 1 Fills Dispensed: 0 0.5 ML tirzepatide 5 MG/ML Auto-Injector [Mounjaro] (2 sources) Start: 08-28-2024 inject 1 dose by subcutaneous injection every week Mounjaro 2.5 mg/0.5 mL subcutaneous solution Dose : 2.5 mg =, Subcutaneous, qWeek, rotate injection sites- specialty pharmacy, # 2 mL, 0 Refill(s), Pharmacy: [facility], 160, cm, 08/16/24 7:58:00 EDT, Height, kg, 08/16/24 7:58:00 EDT, Dosing Weight Start Date: 08/28/24 Status: Ordered Quantity: 2.0 Unit: mL Repeat number: 1 acetaminophen 500 mg oral tablet (16 sources) Start: 09-30-2023 take 1 tablet by mouth every six hours as needed for pain acetaminophen 325 mg / HYDROcodone bitartrate 5 mg oral tablet (2 sources) Opioid Agonist Start: 10-08-2023 End: 10-15-2023 take 1 tablet by mouth every six hours as needed for pain [place] 325- 5 mg oral tablet See Instructions, PRN as needed for pain, Take 1 tab every 6 hours as needed for pain scale 4-6. Take 2 tabs every 6 hours for pain scale 7-10. Do not exceed 6 tabs a day. Do not exceed 4000mg acetaminophen a day., # 42 tab(s), 0 Refill(s), [facility]: [id number], Acute postoperative pain, 160, cm, 10/07/23 7:32:00 EDT, Height, 92.4, kg, 10/07/23 7:32:00 EDT, Dosing Weight Start Date: 10/08/23 Stop Date: 10/15/23 Status: Ordered Start: 08-11-2023 End: 08-16-2023 take 1 tablet by mouth every six hours as needed for pain [place] 325- 5 mg oral tablet Dose = 1 tab(s), Oral, q6h, PRN for pain, in placed of the oxycodone, X 5 day(s), # 20 tab(s), 0 Refill(s), [facility]: [facility], Acute lumbar radiculopathy, 160, cm, 08/11/23 15:07:00 EDT, Height, 90.7, kg, 04/04/23 13:04:00 EST, Dosing Weight Start Date: 08/11/23 Stop Date: 08/16/23 Status: Ordered albuterol MDI (90 mcg/inh) CFC free inhalation aerosol (1 source) Start: 01-04-2025 take 2 puff(s) by inhalation every four hours as needed for wheezing albuterol MDI (90 mcg/inh) CFC free inhalation aerosol 2 puff(s), Inhalation, q4h, PRN as needed for wheezing, # 8.5 gram(s), 0 Refill(s), [facility]: [facility], 160, cm, 01/04/25 10:13:00 EDT, Height, kg, 01/04/25 10:13:00 EDT, Dosing Weight Start Date: 01/04/25 Status: Ordered Medication Dispense Status: Completed Quantity: 8.5 Unit: g Total Allowed Fills: 1 Fills Dispensed: 0 amitriptyline hydrochloride 10 mg oral tablet (13 sources) Tricyclic Antidepressant Start: 10-31-2024 End: 11-30-2024 take 1 tablet by mouth once daily at bedtime amitriptyline (ELAVIL) 10 mg tablet Indications: Thoracic radiculopathy Take 1 tablet by mouth daily at bedtime. 30 tablet 10/31/2024 Active ascorbic acid 500 mg chewable tablet (3 sources) Vitamin C Start: 10-22-2024 take 1 tablet by mouth once daily ascorbic acid 113 mg / beta carotene 7160 mg / cuprous oxide 0.4 mg / dl-alpha tocopheryl acetate 100 unt / zinc oxide 17.4 mg oral tablet (3 sources) Vitamin C Start: 10-22-2024 aspirin 81 mg oral tablet (15 sources) Platelet Aggregation Inhibitor, Nonsteroidal Anti-inflammatory Drug Start: 02-08-2025 take 1 tablet by mouth once daily Start: 05-23-2018 aspirin 81 mg oral delayed release tablet Dose : 81 mg = 1 tab(s), Oral, qPM, 0 Refill(s) Start Date: 05/23/18 Status: Ordered Aspirin 81 MG TA BS Quantity: 0 Refills: 0 Ordered: 12-Aug-2016 DO Active Aspirin * ([id number] MG) 81 MG TABLET.DR (1 source) take 1 tablet by mouth once daily Aspirin * ([id number] MG) 81 MG TABLET. Active 81 MG PO EVERY DAY aspirin 81 mg / calcium carbonate 777 mg oral tablet (13 sources) Platelet Aggregation Inhibitor, Nonsteroidal Anti-inflammatory Drug aspirin-calcium carbonate 81 mg-300 mg calcium(777 mg) tab Take 81 mg by mouth. Active azithromycin 250 mg oral tablet (1 source) Macrolide Antimicrobial Start: 5 End: 5 Zithromax Z-Brock 250 mg oral tablet Take two (2) tablets day 1-then one (1) tablet, Oral, Daily, X 5 day(s), # 6 tab(s), 0 Refill(s), 01/09/25 10:35:00 AM EDT, [facility]: [id number], 160, cm, 01/04/25 10:13:00 EDT, Height, 83.6, kg, 01/04/25 10:13:00 EDT, Dosing Weight Start Date: 01/04/25 Stop Date: 01/09/25 Status: Ordered Medication Dispense Status: Completed Quantity: 6.0 Unit: tab(s) Total Allowed Fills: 1 Fills Dispensed: 0 B Complex 50 oral tablet (1 source) Start: 4 take 1 tablet by mouth once daily in the evening B Complex 50 oral tablet Dose = 1 tab(s), Oral, qPM, # 30 tab(s), 0 Refill(s) Start Date: 09/30/23 Status: Ordered baclofen 10 mg oral tablet (8 sources) gamma-Aminobutyric Acid-ergic Agonist Start: 5 End: 5 take 1 tablet by mouth every eight hours as needed baclofen 10 mg tablet Indications: Myofascial pain syndrome Take 1 tablet by mouth every 8 hours as needed. 90 tablet 10/31/2024 11/30/2024 Active bumetanide 1 mg oral tablet (10 sources) Loop Diuretic Start: 4 take 1 tablet by mouth once daily as needed Start: 11-28-2023 bumetanide 1 m g oral tablet Dose : 1 mg = 1 tab(s), Oral, Daily, in place of furosemide, # 90 tab(s), 0 Refill(s), Pharmacy: [facility], 160, cm, 11/28/23 11:38:00 EDT, Height, kg, 11/28/23 11:38:00 EDT, Dosing Weight Start Date: 11/28/23 Status: Ordered Gpxooll-N4-Bgyz-Copper-Manga n 325 mg-12.5 mcg -2.75 mg tablet (3 sources) Start: 10-22-2024 Start: 10-22-2024 Xzuavtp-R4-Jdg g-Wkqpzi-Bgkzra 325 mg-12.5 mcg -2.75 mg tablet Active 1 {tbl} PO DAILY October 22, 2024 12:00am carbidopa 12.5 mg / entacapone 200 mg / levodopa 50 mg oral tablet (1 source) Aromatic Amino Acid Decarboxylation Inhibitor, Rhbkuowl-P-Bzywvfyopllbdihxf Inhibitor, Aromatic Amino Acid Levo/Carb idopa/Entacapone 50 * (STALEVO 50 TAB1 EACH) 1 EACH TABLET Active 1 EACH PO 3 TIMES DAILY cephalexin 500 mg oral capsule (1 source) Cephalosporin Antibacterial St ar t: En d: cephalexin 500 mg oral capsule Dose : 500 mg = 1 cap(s), Oral, q8h, X 10 day(s), # 30 cap(s), 0 Refill(s), 12/18/23 12:36:00 PM EDT, Abrasion of left lower leg, 92.2 Start Date: 12/08/23 Stop Date: 12/18/23 Status: Ordered cholecalciferol 0.125 mg oral tablet (3 sources) Vitamin D St ar t: take 1 tablet by mouth at bedtime clopidogrel 75 mg oral tablet (1 source) P2Y12 Platelet Inhib[address] St ar t: take 1 tablet by mouth once daily coenzyme Q10 (H2Q COQ10) 200 mg/gram powd (13 sources) coenzyme Q10 (H2 Q COQ10) 200 mg/gram powd Take by mouth. Active Coenzyme Q10 50 mg oral capsule (6 sources) St ar t: take 1 capsule by mouth once, then take 1 capsule by mouth once daily Coenzyme Q10 50 mg oral capsule Dose : 50 mg = 1 cap(s), Oral, Daily, 0 Refill(s) Start Date: 01/18/12 Status: Ordered colesevelam hydrochloride 625 mg oral tablet (20 sources) Bile Acid Sequestrant St ar t: take 3 tablets by mouth twice daily Colesevelam Hydrochloride 625 mg oral tablet 3 tab(s), Oral, BID, # 540 tab(s), 0 Refill(s), Pharmacy: [id number], 160, cm, 11/21/24 9:19:00 EDT, Height, kg, 11/21/24 9:19:00 EDT, Dosing Weight Start Date: 12/13/24 Status: Ordered Medication Dispense Status: Completed Quantity: 540.0 Unit: tab(s) Total Allowed Fills: 1 Fills Dispensed: 0 Start: 05-12-2022 take 3 tablets by mo ut twice daily Welchol 625 mg oral tablet 3 tab(s), Oral, BID, # 540 tab(s), 3 Refill(s), Pharmacy: [facility], 160, cm, 03/16/22 10:02:00 EST, Height, kg, 03/16/22 10:02:00 EST, Dosing Weight Start Date: 05/12/22 Status: Ordered Start: 05-18-2021 take 3 tablets by mo [facility] twice daily Welchol 625 mg oral tablet See Instructions, TAKE 3 TABLETS TWICE A DAY, # 540 tab(s), 3 Refill(s), [facility], 160, cm, 01/27/21 10:06:00 EDT, Height, kg, 01/27/21 10:06:00 EDT, Dosing Weight Start Date: 05/18/21 Status: Ordered Start: 10-26-2019 WELCHOL 625 mg tablet 10/26/2019 Active Start: 11-21-2015 Welchol 625 MG Oral Tablet Quantity: 540 Refills: 0 Ordered: 21-Nov-2015 DO Start : 21-Nov-2015 Active take 1 tablet by [facility] once daily Colesevelam HCl * ([id number] MG) 625 MG TABLET Active 625 MG [...] # 100 gram(s), 2 Refill(s), [facility]: [facility], Gel, 160, cm, 11/08/22 14:37:00 EDT, Height, 88.6, kg, 11/08/22 14:37:00 EDT, Dosing Weight Start Date: 11/11/22 Status: Ordered Start: 11-08-2022 Pennsaid 2% to pical solution Apply 2 pump(s), Topical, BID, PRN Pain, to affected area, # 112 gram(s), 0 Refill(s), [facility]acy: [facility], Soln, 160, cm, 11/08/22 14:37:00 EDT, Height, 88.6 Start Date: 11/08/22 Status: Ordered Start: 11-13-2021 diclofenac 1% topical gel Apply 1 kamala, Topical, QID, PRN Pain, not to exceed 16 grams/day/single joint of lower extremities, # 100 gram(s), 2 Refill(s), [facility]: [facility], Gel, 160, cm, 11/13/21 11:44:00 EDT, Height, 89, kg, 11/13/21 11:44:00 EDT, Dosing Weight Start Date: 11/13/21 Status: Ordered Start: 04-14-2020 diclofenac 1% topical gel Apply 1 kamala, Topical, QID, PRN Pain, not to exceed 16 grams/day/single joint of lower extremities, # 100 gram(s), 0 Refill(s), Pharmacy: [facility], Gel, 159, cm, 12/03/19 11:06:00 EDT, Height, 88.5, kg, 12/03/19 11:06:00 EDT, Dosing Weight Start Date: 04/14/20 Status: Ordered (DICLOFENAC GEL) Active DME MISCellaneous (12 sources) Start: 09-13-2023 DME MISCellane ous See Instructions, Power lift recliner chair dx:.M48.062, R60.0, # 1 EA, 0 Refill(s), Lumbar stenosis with neurogenic claudication Bilateral leg edema, 95.9 Start Date: 09/13/23 Status: Ordered Medication Dispense Status: Completed Quantity: 1.0 Unit: EA Total Allowed Fills: 1 Fills Dispensed: 0 Indications: Localized edema; Spinal stenosis, lumbar region [...] Refill(s), 10/26/23 10:16:00 AM EDT, [facility]acy: [id number], Lumbar stenosis Encounter for surgical aftercare following surgery of nervous system, 160, cm, 10/07/23 7:32:00 EDT, Height, 92.4, kg, 10/07/23 7:32:00 EDT, Dosing Weight Start Date: 10/19/23 Stop Date: 10/26/23 Status: Ordered ergocalciferol, vitamin D2, (VITAMIN D2 ORAL) (13 sources) ergocalciferol, vitamin D2, (VITAMIN D2 ORAL) Take by mouth. Active famotidine 20 mg oral tablet (8 sources) Histamine-2 Receptor Antagonist Start: 02-08-2025 End: 02-08-2025 take 1 tablet by mouth once daily Start: 12-07-2024 take 1 tablet by yordy th once daily at bedtime famotidine 40 mg oral tablet 1 tab(s), Oral, qHS, # 30 tab(s), 2 Refill(s), [facility]: [id number], 160, cm, 11/21/24 9:19:00 EDT, Height, kg, 11/21/24 9:19:00 EDT, Dosing Weight Start Date: 12/07/24 Status: Ordered Medication Dispense Status: Completed Quantity: 30.0 Unit: tab(s) Total Allowed Fills: 1 Fills Dispensed: 0 Start: 10-05-2024 End: 10-15-2024 take 1 tablet by mouth at bedtime Famotidine 40 mg tablet Discontinued 40 mg PO AT BEDTIME October 11, 2024 12:00am October 15, 2024 10:41am furosemide 40 mg oral tablet (7 sources) [...] Date: 02/17/23 Stop Date: 02/27/23 Status: Ordered 12 hr guaiFENesin 600 mg extended release oral tablet (1 source) Start: 01-04-2025 End: 01-11-2025 Mucinex 600 mg oral tablet, extended release Dose : 600 mg = 1 tab(s), Oral, q12h, X 7 day(s), # 14 tab(s), 0 Refill(s), 01/11/25 10:35:00 AM EDT, Pharmacy: [id number], 160, cm, 01/04/25 10:13:00 EDT, Height, kg, 01/04/25 10:13:00 EDT, Dosing Weight Start Date: 01/04/25 Stop Date: 01/11/25 Status: Ordered Medication Dispense Status: Completed Quantity: 14.0 Unit: tab(s) Total Allowed Fills: 1 Fills Dispensed: 0 hydroCHLOROthiazide 25 mg / triamterene 37.5 mg oral capsule (10 sources) Potassium-spar ing Diuretic, Thiazide Diuretic Start: 09-30-2023 take 1 capsule by mouth once daily as needed hydrochlorothiaz isadora-triamterene 25 mg-37.5 mg oral capsule Dose = [...] Status: Ordered ibuprofen 800 mg oral tablet (13 sources) Nonsteroidal Anti-inflammatory Drug Start: 11-12-2024 take 1 tablet by mouth once daily as needed for arthritis ibuprofen 800 mg oral tablet 1 tab(s), Oral, qDay, PRN NEEDED FOR ARTHRITIS, # 30 tab(s), 0 Refill(s), Pharmacy: [id number], 160, cm, 10/05/24 13:07:00 EDT, Height, kg, 10/05/24 13:07:00 EDT, Dosing Weight Start Date: 11/12/24 Status: Ordered Medication Dispense Status: Completed Quantity: 30.0 Unit: tab(s) Total Allowed Fills: 1 Fills Dispensed: 0 Start: 09-14-2024 take 1 tablet by yordy th every eight hours Start: 03-02-2024 ibuprofen 800 mg oral tablet Dose : 800 mg = 1 tab(s), Oral, Daily, PRN as needed for arthritis, # 30 tab(s), 0 Refill(s), [facility]: [facility], Arthritis, 160, cm, 12/08/23 12:25:00 EDT, Height, [...] # 30 tab(s), 3 Refill(s), [facility]: [id number], 160, cm, 08/11/23 [...] # 28 tab(s), 0 Refill(s), [facility]: [id number], Thoracic spine pain, 160, cm, 08/13/24 9:58:00 EDT, Height, kg, 08/13/24 9:58:00 EDT, Dosing Weight Start Date: 08/13/24 Status: Ordered Quantity: 28.0 Unit: tab(s) Repeat number: 1 Indications: Pain in thoracic spine; levothyroxine sodium 0.05 mg oral tablet (20 sources) l-Thyroxi ne Start: 11-06-2024 take 1 tablet by mouth once daily levothyroxine 50 mcg (0.05 mg) oral tablet 1 tab(s), Oral, qDay, # 90 tab(s), 3 Refill(s), Pharmacy: [facility], 160, cm, 10/05/24 13:07:00 EDT, Height, kg, 10/05/24 13:07:00 EDT, Dosing Weight Start Date: 11/06/24 Status: Ordered Medication Dispense Status: Completed Quantity: 90.0 Unit: tab(s) Total Allowed Fills: 1 Fills Dispensed: 0 Start: 10-11-2024 take 1 capsule by mo [facility] once daily Start: 11-14-2023 take 1 tablet by yordy once daily levothyroxine 50 mcg (0.05 mg) oral tablet 1 tab(s), Oral, qDay, # 90 tab(s), 3 Refill(s), Pharmacy: [facility], 160, cm, 10/26/23 13:01:00 EDT, Height, kg, 10/26/23 13:01:00 EDT, Dosing Weight Start Date: 11/14/23 Status: Ordered Quantity: 90.0 Unit: tab(s) Repeat number: 1 Start: 06-02-2023 take 1 tablet by yordy once daily levothyroxine 50 mcg (0.05 mg) oral tablet 1 tab(s), Oral, qDay, # 90 tab(s), 1 Refill(s), Pharmacy: [facility], 160, cm, 04/04/23 13:04:00 EST, Height, kg, 04/04/23 13:04:00 EST, Dosing Weight Start Date: 06/02/23 Status: Ordered Start: 11-29-2022 take 1 tablet by yordy once daily levothyroxine 50 mcg (0.05 mg) oral tablet 1 tab(s), Oral, qDay, # 90 tab(s), 0 Refill(s), Pharmacy: [id number], 160, cm, 11/08/22 14:37:00 EDT, Height, kg, 11/08/22 14:37:00 EDT, Dosing Weight Start Date: 11/29/22 Status: Ordered Start: 09-14-2021 take 1 tablet by yordy once daily levothyroxine 50 mcg (0.05 mg) oral tablet See Instructions, TAKE 1 TABLET DAILY, # 90 tab(s), 3 Refill(s), [facility]: [id number], 160, cm, 07/30/21 9:32:00 EDT, Height, kg, 07/30/21 9:32:00 EDT, Dosing Weight Start Date: 09/14/21 Status: Ordered Start: 05-18-2021 take 1 tablet by [facility] once daily levothyroxine 50 mcg (0.05 mg) oral tablet See Instructions, TAKE 1 TABLET DAILY, # 90 tab(s), 3 Refill(s), Pharmacy: [facility], 160, cm, 01/27/21 10:06:00 EDT, Height, kg, 01/27/21 10:06:00 EDT, Dosing Weight Start Date: 05/18/21 Status: Ordered Start: 10-26-2019 levothyroxine (SYNTHROID) 50 mcg tablet 10/26/2019 Active Start: 07-22-2016 take 1 tablet by [facility] once daily Levothyroxine Sodium 25 MCG Oral Tablet TAKE ONE TABLET BY MOUTH EVERY DAY Quantity: 90 Refills: 0 Ordered: 22-Jul-2016 DO Start : 22-Jul-2016 Active (LEVOTHYROXINE ) Active lidocaine 0.05 mg/mg medicated patch (8 sources) Antiarrhythmic, Amide Local Anesthetic Start: 12-07-2024 lidocaine 5% topical patch Apply 1 patch(es), Topical, qDay, REMOVE PATCHES AFTER 12 HOURS, # 30 patch(es), 0 Refill(s), Pharmacy: [id number], 160, cm, 11/21/24 9:19:00 EDT, Height, 88.8, kg, 11/21/24 9:19:00 EDT, Dosing Weight Start Date: 12/07/24 Status: Ordered Medication Dispense Status: Completed Quantity: 30.0 Unit: patch(es) Total Allowed Fills: 1 Fills Dispensed: 0 Start: 10-11-2024 End: 02-08-2025 Lidocaine 5 % adhesive patch ,medicated Discontinued 1 NMA TOPICAL daily October 11, 2024 12:00am February 08, 2025 10:36am leave on most painful area for up to 12 hrs Start: 07-04-2024 lidocaine 5% t opical patch Apply 1 patch(es), Topical, qDay, remove patches after 12 hours, # 30 patch(es), 0 Refill(s), [facility]: [id number], 160, cm, 07/04/24 13:02:00 EST, Height, 91, kg, 07/04/24 13:02:00 EST, Dosing Weight Start Date: 07/04/24 Status: Ordered Quantity: 30.0 Unit: patch(es) Repeat number: 1 Magnesium (13 sources) Magnesium 250 mg tab Take 250 mg by mouth. Active magnesium oxide 400 mg oral tablet (16 sources) Start: 10-11-2024 take 1 tablet by mouth once daily Start: 03-16-2024 End: 03-23-2024 magnesium oxide 400 mg oral tablet Dose : 400 mg = 1 tab(s), Oral, BID, # 14 tab(s), 0 Refill(s), other reason (Rx) Start Date: 03/16/24 Stop Date: 03/23/24 Status: Ordered Medication Dispense Status: Completed Quantity: 14.0 Unit: tab(s) Total Allowed Fills: 1 Fills Dispensed: 0 Start: 05-23-2018 take 1 mg by mouth [...] 10 mg oral tablet (20 sources) Start: 10-09-2019 take 1 tablet by mouth once daily omeprazole 20 mg delayed release oral capsule (20 sources) Proton Pump Inhibitor Start: 10-22-2024 take 1 capsule by mouth twice daily Start: 06-29-2023 take 3 capsules by m outh once daily omeprazole 20 mg oral delayed release capsule 3 cap(s), Oral, qDay, # 270 cap(s), 3 Refill(s), Pharmacy: [facility], 160, cm, 04/04/23 13:04:00 EST, Height, kg, 04/04/23 13:04:00 EST, Dosing Weight Start Date: 06/29/23 Status: Ordered Start: 05-18-2021 End: 10-15-2024 take 1 capsule by mouth twice daily Omeprazole 20 mg capsule,delayed release(DR/EC) Discontinued 20 mg PO TWICE A DAY October 11, 2024 12:00am October 15, 2024 2:06pm Omeprazole 20 MG Oral Capsule Delayed Release Quantity: 0 Refills: 0 Ordered: 12-Aug-2016 DO Active take 1 capsule by [facility] once daily Omeprazole * ([id number] MG) 40 MG CAPSULE.DR Active 40 MG PO Every Day @ 6AM 24 hr oxybutynin chloride 5 mg extended release oral tablet (20 sources) Cholinergic Muscarinic Antagonist Start: 10-19-2024 take 1 tablet by mouth once daily oxybutynin 5 mg/24 hours oral tablet, extended release 1 tab(s), Oral, qDay, # 90 tab(s), 0 Refill(s), [facility]: [id number], 160, cm, 10/05/24 13:07:00 EDT, Height, kg, 10/05/24 13:07:00 EDT, Dosing Weight Start Date: 10/19/24 Status: Ordered Medication Dispense Status: Completed Quantity: 90.0 Unit: tab(s) Total Allowed Fills: 1 Fills Dispensed: 0 Start: 10-11-2024 take 1 tablet by [facility] once daily Start: 07-12-2024 take 1 tablet by [facility] once daily oxybutynin 5 mg/24 hours oral tablet, extended release 1 tab(s), Oral, qDay, # 90 tab(s), 0 Refill(s), Pharmacy: [id number], 160, cm, 07/11/24 13:16:00 EDT, Height, kg, 07/11/24 13:16:00 EDT, Dosing Weight Start Date: 07/12/24 Status: Ordered Quantity: 90.0 Unit: tab(s) Repeat number: 1 Start: 06-02-2023 take 1 tablet by [facility] once daily oxybutynin 5 mg/24 hours oral tablet, extended release 1 tab(s), Oral, qDay, # 90 tab(s), 3 Refill(s), [facility]: [id number], 160, cm, 04/04/23 13:04:00 EST, Height, kg, 04/04/23 13:04:00 EST, Dosing Weight Start Date: 06/02/23 Status: Ordered Start: 06-02-2023 take 5 tablets by [facility] every hour oxybutynin 5 mg/24 hours oral tablet, extended release 1 tab(s), Oral, qDay, NEW DOSE 07/30/2021., # 90 tab(s), 3 Refill(s), [facility]: [id number], 160, cm, 04/04/23 13:04:00 EST, Height, kg, 04/04/23 13:04:00 EST, Dosing Weight Start Date: 06/02/23 Status: Ordered Start: 07-06-2022 take 5 tablets by mo [facility] every hour oxybutynin 5 mg/24 hours oral tablet, extended release 1 tab(s), Oral, qDay, NEW DOSE 07/30/2021., # 90 tab(s), 3 Refill(s), Pharmacy: [facility], 160, cm, 05/21/22 12:47:00 EST, Height, kg, 05/21/22 12:47:00 EST, Dosing Weight Start Date: 07/06/22 Status: Ordered Start: 07-30-2021 take 1 tablet by yordy every hour, then take 1 tablet by mouth once daily oxybutynin 5 mg/24 hours oral tablet, extended release Dose : 5 mg = 1 tab(s), Oral, qDay, new dose 07/30/2021, # 90 tab(s), 3 Refill(s), Pharmacy: [facility], 160, cm, 07/30/21 9:32:00 EDT, Height Start Date: 07/30/21 Status: Ordered Start: 10-14-2019 oxybutynin ER (DITROPAN XL) 10 mg 24 hr tablet 10/14/2019 Active oxyCODONE hydrochloride 5 mg oral tablet (1 [...] pantoprazole 40 mg delayed release oral tablet (10 sources) Proton Pump Inhibitor Start: 10-15-2024 End: 02-08-2025 Start: 10-05-2024 End: 10-15-2024 take 1 tablet [...] predniSONE 10 mg oral tablet See Instructions, [id number],4qdx2d,3qdx2d,2qdx2d,1qdx2d,1/2qdx2d, # 43 tab(s), 0 Refill(s), [facility]: [facility], 160, cm, 08/11/23 15:07:00 EDT, Height, kg, 04/04/23 13:04:00 EST, Dosing Weight Start Date: 08/22/23 Status: Ordered Start: 08-11-2023 predniSONE 10 mg oral tablet See Instructions, [id number],5qdx2d,4qdx2d,3qdx2d,2qdx2d,1qdx2d,1/2qdx2d, # 43 tab(s), 0 Refill(s), [facility]acy: [facility], 160, cm, 08/11/23 15:07:00 EDT, Height, kg, 04/04/23 13:04:00 EST, Dosing Weight Start Date: 08/11/23 Status: Ordered pregabalin 50 mg oral capsule (19 sources) Start: 10-11-2024 take 1 capsule by mouth once daily Pregabalin 50 mg capsule Active 50 mg PO daily October 11, 2024 12:00am Start: 07-12-2024 take 1 capsule by mo [facility] twice daily Start: 11-28-2023 End: 12-28-2023 pregabalin 50 mg oral capsul e Dose : 50 mg = 1 cap(s), Oral, BID, # 180 cap(s), 0 Refill(s), [facility]: [facility], Lumbar stenosis with neurogenic claudication, 160, cm, 11/28/23 11:38:00 EDT, Height, 93.7, kg, 11/28/23 11:38:00 EDT, Dosing Weight Start Date: 11/28/23 Stop Date: 12/28/23 Status: Ordered Start: 10-10-2023 End: 11-09-2023 pregabalin 50 mg oral capsul e Dose : 50 mg = 1 cap(s), Oral, BID, # 60 cap(s), 0 Refill(s), [facility]acy: [facility], Lumbar stenosis with neurogenic claudication, 160, cm, [...] [id number], Neuropathic pain, 160, cm, 08/11/23 15:07:00 EDT, Height, 90.7, kg, 04/04/23 13:04:00 EST, Dosing Weight Start Date: 08/22/23 Stop Date: 09/21/23 Status: Ordered Start: 06-02-2023 End: 07-02-2023 take 1 capsule by mouth three times daily pregabalin 50 mg oral capsule 1 cap(s), Oral, TID, # 90 cap(s), 0 Refill(s), [facility]: [id number], Neuropathic pain, 160, cm, 04/04/23 13:04:00 EST, [...] 2X/week, # 26 tab(s), 3 Refill(s), Pharmacy: [facility], Type 2 diabetes mellitus Hypercholesteremia, 160, cm, 07/30/21 9:32:00 EDT, Height, kg, 07/30/21 9:32:00 EDT, Dosing Weight Start Date: 10/22/21 Stop Date: 10/17/22 Status: Ordered Crestor 20 MG Or al Tablet Quantity: 0 Refills: 0 Ordered: 12-Aug-2016 DO Active sucralfate 1000 mg oral tablet (9 sources) Aluminum Complex Start: 02-08-2025 take 1 tablet by yordy th at bedtime Start: 11-21-2024 take 1 tablet by yordy th every six hours sucralfate 1 g oral tablet TAKE ONE TABLET BY MOUTH EVERY 6 HOURS FOR 3 MONTHS Start Date: 11/21/24 Status: Ordered Medication Dispense Status: Completed Total Allowed Fills: 1 Fills Dispensed: 0 Start: 10-15-2024 End: 01-21-2025 take 1 tablet by mouth every six hours Sucralfate 1 gram tablet Discontinued 1 g PO EVERY 6 HOURS 360 90 0 October 23, 2024 12:22pm January 20, 2025 12:00am January 21, 2025 12:08am Suzetrigine (1 source) Start: 10-11-2024 take 1 tablet by mouth every twelve hours Suzetrigine 50 mg tablet Active 50 mg PO Q12H October 11, 2024 12:00am suzetrigine 50 MG Oral Tablet [Journavx] (1 source) Start: 08-13-2024 Journavx 50 mg oral tablet Dose : 50 mg = 1 tab(s), Oral, q12h, # 28 tab(s), 0 Refill(s), [facility]: [id number], Thoracic spine pain, 160, cm, 08/13/24 9:58:00 EDT, Height, kg, 08/13/24 9:58:00 EDT, Dosing Weight Start Date: 08/13/24 Status: Ordered Medication Dispense Status: Completed Quantity: 28.0 Unit: tab(s) Total Allowed Fills: 1 Fills Dispensed: 0 Indications: Pain in thoracic spine; traMADol hydrochloride 50 mg oral tablet (3 [...] Date: 08/16/23 Status: Ordered triamcinolone acetonide 1 mg /ml topical cream (6 sources) Corticosteroid Start: 10-22-2024 Start: 09-14-2024 End: 09-21-2024 triamcinolone 0.1% topical [...] (20 sources) Angiotensin 2 Receptor Charbel Start: 10-26-2019 take 1 tablet by mouth once daily Vitafusion Calcium Gummy oral tablet, chewable (1 source) Start: 09-30-2023 take 1 tablet by mouth once daily Vitafusion Calcium Gummy oral tablet, chewable Dose = 2 tab(s), Chewed, qDay, # 100 tab(s), 0 Refill(s) Start Date: 09/30/23 Status: Ordered Vitamin B Complex (B-Complex) tablet (3 sources) Start: 10-22-2024 Start: 10-22-2024 Vitamin B Comp anjana (B-Complex) tablet Active 1 {tbl} PO DAILY October 22, 2024 12:00am vitamin b complex (VITAMINS B COMPLEX) capsule (13 sources) vitamin b comple x (VITAMINS B COMPLEX) capsule Take 1 capsule by mouth. Active Vitamin B Complex oral tablet (6 sources) Start: 05-14-2019 take 1 tablet by mouth once daily Vitamin B Complex oral tablet Dose = 1 tab(s), Oral, Daily, 0 Refill(s) Start Date: 05/14/19 Status: Ordered Vitamin D3 5000 intl units oral capsule (7 sources) Start: 05-23-2018 Vitamin D3 5000 intl units oral capsule Dose : 5,000 unit(s) = 1 cap(s), Oral, qPM, 0 Refill(s) Start Date: 05/23/18 Status: Ordered Start: 05-23-2018 Vitamin D3 500 0 intl units oral capsule Dose : 5,000 unit(s) = 1 cap(s), Oral, qDay, 0 Refill(s) Start Date: 1/22/19 Status: Ordered vits A,C,E/zinc/copper (VISI ON-CAMRON PRESERVE ORAL) (13 sources) vits A,C,E/zinc/ copper (VISION-CAMRON PRESERVE ORAL) Take by mouth. Active Completed/Discontinued Medications Medication Drug Class(es) Dates Sig (Normalized) Sig (Original) CALCIUM, D3, ZINC GUMMIES (1 source) Start: 09-30-2023 CALCIUM, D3, ZINC GUMMIES CALCIUM, D3, ZINC GUMMIES, 2 GUMMY(S), Oral, qDay, 0 Refill(s), 94.4 Start Date: 09/30/23 Status: Ordered docusate sodium 100 mg oral capsule (15 sources) Start: 10-08-2023 End: 10-22-2024 take 1 capsule by mouth twice daily Docusate Sodium (Colace) 100 mg capsule Discontinued 100 mg PO TWICE A DAY October 11, 2024 12:00am October 22, 2024 9:43am hydroCHLOROthiazide 12.5 mg / valsartan 320 mg [...] Biguanide End: 02-25-2022 Metformin HCl * (METFORMIN IOB190 MG) 500 MG TABLET Discontinued 500 MG PO February 25, 2022 6:51am THERAWORX RELIEF (1 source) Start: 09-30-2023 THERAWORX RELIEF THERAWORX RELIEF, 1 KAMALA(S), Topical, AsDirected, 0 Refill(s), 94.4 Start Date: 09/30/23 Status: Ordered Tirzepatide (1 source) Start: 10-11-2024 End: 10-15-2024 Tirzepatide (Mounjaro) 2.5 mg/0.5 mL pen injector Discontinued 2.5 mg SC EVERY WEEK October 11, 2024 12:00am October 15, 2024 10:40am for 4 weeks Tirzepatide (Mounjaro) 2.5 mg/0.5 mL pen injector (3 sources) Start: 10-11-2024 End: 10-15-2024 Tirzepatide (Mounjaro) 2.5 mg/0.5 mL pen injector Discontinued 2.5 mg SC EVERY WEEK October 11, 2024 12:00am October 15, 2024 10:40am for 4 weeks tiZANidine 4 mg oral capsule (15 sources) Central alpha-2 Adrenergic Agonist Start: 10-11-2024 [...] spasm, # 90 tab(s), 0 Refill(s), Pharmacy: [facility], Muscle spasm, 160, cm, 08/13/24 9:58:00 EDT, Height, kg, 08/13/24 9:58:00 EDT, Dosing Weight Start Date: 08/13/24 Status: Ordered Medication Dispense Status: Completed Quantity: 90.0 Unit: tab(s) Total Allowed Fills: 1 Fills Dispensed: 0 Indications: Other muscle spasm; Start: 10-08-2023 tiZANidine 4 m g oral tablet Dose : 4 mg = 1 tab(s), Oral, TID, PRN Muscle spasm, # 90 tab(s), 0 Refill(s), [facility]: [id number], Muscle spasm, 160, cm, 10/07/23 7:32:00 EDT, Height, kg, 10/07/23 7:32:00 EDT, Dosing Weight Start Date: 10/08/23 Status: Ordered Problems Active Problems Problem Classification Problem Date Documented Date Episodic/Chronic Acute bronchitis (17 sources) Acute bronchitis 02-02-2023 Episodic Allergic reactions (20 sources) Dermatographic urticaria; 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] 05-23-2018 Episodic Coronary atherosclerosis and other heart disease (10 sources) Coronary arteriosclerosis; Translations: [Atherosclerotic heart disease of [place] coronary artery without angina pectoris] Onset: 08-17-1911-28-2023 Chronic Diabetes mellitus without complication (20 sources) Type 2 diabetes mellitus; Translations: [Type 2 diabetes mellitus without complications] Onset: 08-17-1908-27-2020 Chronic Disorders of lipid metabolism (20 sources) Hypercholesterolemia 12-26-2018 Chronic Esophageal disorders (20 sources) Gastroesophageal reflux disease; Translations: [Gastro-esophageal reflux disease without esophagitis] Onset: 10-06-1912-26-2018 Chronic Essential hypertension (20 sources) Hypertensive disorder; Translations: [Essential (primary) hypertension] Onset: 08-17-1912-26-2018 Chronic Fracture of lower limb (11 sources) Fracture of foot 10-26-2023 Episodic Gastroduodenal ulcer (except hemorrhage) (4 sources) Gastric ulcer; Translations: [Gastric ulcer caused by drug] 11-21-2024 Chronic Genitourinary symptoms and ill-defined conditions (20 sources) Urge incontinence of urine; Translations: [Urinary incontinence] 12-04-2020 Chronic Genitourinary symptoms and ill-defined conditions (18 sources) Incomplete emptying of bladder; Translations: [Retention of urine, unspecified] Onset: 08-11-1908-11-2023 Episodic Malignant neoplasm without specification of site (2 sources) Malignant (primary) neoplasm, unspecified; Translations: [Malignant (primary) neoplasm, unspecified] Onset: 09-24-19 Chronic Nutritional deficiencies (20 sources) Vitamin D deficiency; Translations: [Vitamin D deficiency, unspecified] Onset: 08-17-1905-23-2018 Chronic Occlusion or stenosis of precerebral arteries (20 sources) Carotid artery stenosis 06-29-2019 Chronic Other [...] circulatory system] Episodic Other connective tissue disease (7 sources) H/O: arthritis; Translations: [Personal history of arthritis] Episodic Other connective tissue disease (17 sources) Cramp in lower limb 03-16-2022 Episodic Other connective tissue disease (17 sources) Mass of musculoskeletal structure 11-08-2022 Episodic Other connective tissue disease (1 source) Spasm; Translations: [Other muscle spasm] Onset: 10-08-19 Episodic Other connective tissue disease (1 source) Myofascial pain syndrome; Translations: [Myalgia, other site] 10-31-2024 Episodic Other connective tissue disease (1 source) Myalgia, other site; Translations: [Myofascial pain syndrome] Onset: 11-01-19 Episodic Other diseases of bladder and urethra (1 source) Other specified disorders of bladder; Translations: [Other specified disorders of bladder] Onset: 09-24-19 Chronic Other disorders of stomach and duodenum (1 source) Other diseases of stomach and duodenum; Translations: [Other diseases of stomach and duodenum] Onset: 09-24-19 Episodic Other gastrointestinal disorders (1 source) Constipation, unspecified; Translations: [Constipation, unspecified] Onset: 10-08-19 Episodic Other gastrointestinal disorders (2 sources) Loose stool; Translations: [Other fecal abnormalities] 02-08-2025 Episodic Other lower respiratory disease (3 sources) Multiple nodules of lung; Translations: [Other nonspecific abnormal finding of lung field] Episodic Other lower respiratory disease (1 source) Other nonspecific abnormal finding of lung field; Translations: [Other nonspecific abnormal finding of lung field] Onset: 09-24-19 Episodic Other lower respiratory disease (11 sources) Nodule of lung 10-26-2023 Episodic Other [...] Episodic Other nutritional; endocrine; and metabolic disorders (20 sources) Severe obesity 07-30-2021 Chronic Other screening for suspected conditions (not mental disorders or infectious disease) (20 sources) Bone marrow examination abnormal; Translations: [Unspecified diseases of blood and blood-forming organs] Onset: 09-24-19 Episodic Peripheral and visceral atherosclerosis (4 sources) Unspecified atherosclerosis of [place] arteries of extremities, unspecified extremity; Translations: [Unspecified atherosclerosis of [place] arteries of extremities, left leg] Onset: 12-19-19 Chronic Pulmonary heart disease (20 sources) H/O: pulmonary embolus; Translations: [Dilatation of pulmonary artery] Onset: 05-02-19 06 05-23-2018 Episodic Comment on above: Post knee surgery wh ile on Premarin PT STATES WAS PRIOR TO KNEE SURGERY, STATES HAS PE IN EARLY Residual codes; unclassified (20 sources) Obstructive sleep apnea syndrome 12-26-2018 Chronic Residual codes; unclassified (20 sources) Bilateral lower limb edema 07-21-2020 Episodic Residual codes; unclassified (7 sources) H/O: ; Translations: [Personal history of other genital system and obstetric disorders] Episodic Residual codes; unclassified (17 sources) Edema of left lower limb 02-17-2023 Episodi c Residual codes; unclassified (1 source) Localized edema; Translations: [Localized edema] Onset: 10-07-19 Episodic Residual codes; unclassified (8 sources) Edema 11-28-2023 Episodic Secondary malignancies (6 sources) Secondary malignant neoplasm of bone; 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] Chronic Secondary malignancies (8 sources) Secondary malignant neoplasm of bone; Translations: [Secondary malignant neoplasm of bone] Onset: 09-24-19 Chronic Spondylosis; intervertebral disc disorders; other back problems (8 sources) Other spondylosis with radiculopathy, cervical region; Translations: [Thoracic spondylosis] Onset: 09-10-1910-31-2024 Chronic Spondylosis; intervertebral disc disorders; other back problems (20 sources) Cervical disc disorder with radiculopathy; Translations: [Brachial neuritis or radiculitis NOS] Onset: 09-04-19 Episodic Substance-related disorders (1 source) Nicotine dependence, cigarettes, uncomplicated; Translations: [NICOTINE DEPEND CIGARETTES UNCOMP] Onset: 01-25-20 Chronic Thyroid disorders (20 sources) Subclinical hypothyroidism; Translations: [Hypothyroidism, unspecified] Onset: 08-17-1912-26-2018 Chronic Unclassified (20 sources) Patient encounter status 07-21-2020 Unclassified (17 sources) Pain of knee region 08-23-2022 Unclassified (16 sources) Rupture of rotator cuff of shoulder 04-04-2023 Unclassified (11 sources) Fracture of left foot 10-26-2023 Unclassified (11 sources) History of lumbar laminectomy 10-26-2023 Unclassified (8 sources) Abrasion of skin of left lower leg 12-08-2023 Unclassified (2 sources) Autogenerated Problem Onset: 12-26-1912-25-2024 Unclassified (1 source) Peripheral arterial disease 12-18-2024 Past or Other Problems Problem Classification Problem Date Documented Da te Episodic/Chronic Abdominal pain (20 sources) Right upper quadrant pain; Translations: [Stomach ache] Onset: 02-17-2023 02-17-2023 Episodic Other diseases of veins and lymphatics (2 sources) Venous insufficiency (chronic) (peripheral); Translations: [VENOUS INSUFF CHRONIC PERIPHERAL] Onset: 08-10-2024 Episodic Phlebitis; thrombophlebitis and thromboembolism (1 source) Personal history of other venous thrombosis and embolism; Translations: [PERS HX OTH VENOUS THROMBOSISANDEMBO] Onset: 08-10-2024 Episodic Residual codes; unclassified (2 sources) Localized edema; Translations: [Localized edema] Onset: 02-17-2023 Episodic Unclassified (5 sources) Procedure indicated; Translations: [Procedure indicated] Results Test Name Value Interpretation Reference Range Facility Gastroenterology Visit Repor ton 02-08-2025 Gastroenterology Visit Report [facility] [address] [place] [address] OFFICE VISIT Date of Service: 02/08/25 MR#: [id number] Acct: [id number] Name: KERRI BURGESS Rep #: [id number] : 1945 Provider: MIGUEL Guevara Age/Sex: 79/F Location: [facility] [place] Status: Signed Intake Vital Signs 10/23/24 10:36 Height 5 ft 3 in Intake Visit Reasons: 3 M FU Chief Complaint: Gastric ulcer Mail List Librarian Required: No Accompanied by: Self Is patient in pain?: No Allergies adhesive tape Allergy (Intermediate, Verified 02/08/25 10:35) Itching apixaban (From Eliquis) Allergy (Intermediate, Verified 02/08/25 10:35) Other latex Allergy (Intermediate, Verified 02/08/25 10:35) Hives oxycodone Allergy (Intermediate, Verified 02/08/25 10:35) Other Penicillins (PCN) Allergy (Intermediate, Verified 02/08/25 10:35) Hives atorvastatin (From Lipitor) Adverse Reaction (Intermediate, Verified 02/08/25 10:35) Other semaglutide (From Rybelsus) Adverse Reaction (Intermediate, Verified 02/08/25 10:35) Other Medications ???Medication ???Instructions ???Recorded ???Confirmed ???Type acetaminophen 500 mg tablet 500 mg PO Q6H PRN pain 10/11/24 History (Tylenol Extra Strength) bumetanide 1 mg tablet 1 mg PO QDAY PRN WATER PILL 02/08/25 History colesevelam 625 mg tablet 1,875 mg PO BID 10/11/24 02/08/25 History ibuprofen 800 mg tablet 800 mg PO Q8H 10/11/24 02/08/25 Hi story Held on 10/22/24. Instructions: STOMACH ISSUES levothyroxine 50 mcg capsule 50 mcg PO QDAY 10/11/24 02/08/25 H istory magnesium oxide 400 mg (241.3 mg 400 mg PO QDAY 10/11/24 02/08/25 H istory magnesium) tablet nebivolol 10 mg tablet 10 mg PO QDAY 10/11/24 02/08/25 Hi story oxybutynin chloride 5 mg tablet 5 mg PO DAILY bladder spasms 10/1102/08/25 History pregabalin 50 mg capsule 50 mg PO BID 10/11/24 02/08/25 His tory valsartan 320 mg tablet 320 mg PO QDAY 10/11/24 02/08/25 H istory ascorbic acid (vitamin C) 500 mg 1 g PO DAILY 10/22/24 02/08/25 His tory chewable tablet (C-500) calcium 325 mg-vit D3 12.5 1 tab PO DAILY 10/22/24 02/08/25 H istory mcg-zinc 2.75 [id number] tablet cholecalciferol (vitamin D3) 125 125 mcg PO QHS 10/22/24 02/08/25 H istory mcg (5,000 unit) tablet (Vitamin D3) omeprazole 20 mg capsule,delayed 20 mg PO BID 10/22/24 02/08/25 His tory release Held on 10/22/24. Instructions: DR PRESCRIBES CARAFATE TEMPORARILY triamcinolone acetonide 0.1 % 1 applic topical BID PRN rash 10/0102/08/25 History topical cream vitamin B complex (B-Complex 1 tab PO DAILY 10/22/24 02/08/25 H istory tablet) vitamins A,C,E-nqtq-kblylh 2,148 1 tab PO BID 10/22/24 02/08/25 His tory mcg-113 mg-45 mg-17.4 mg tablet (Eye Multivitamin) aspirin 81 mg tablet 81 mg PO QDAY 02/08/25 02/08/25 Hi story clopidogrel 75 mg tablet (Plavix) 75 mg PO QDAY 02/08/25 02/08/25 H istory famotidine 20 mg tablet 20 mg PO QDAY #30 tabs 02/08/25 Rx pantoprazole 40 mg tablet,delayed 40 mg PO BID 02/08/25 02/08/25 Hi story release sucralfate 1 gram tablet 1 g PO QACHS 02/08/25 02/08/25 His tory Have you fallen in the past year?: No PFSH Medical History Wears glasses Thyroid disease [...] MRI, cervical spine Epigastric pain Surgical History History of cataract surgery History of esophagogastroduodenoscopy (EGD) History of colonoscopy History of shoulder surgery Hx of appendectomy H/O: hysterectomy H/O arthroplasty Hx of cholecystectomy S/P lumbar laminectomy S/P knee replacement Family History Mother Breast cancer Diabetes Sister Hx of CABG Kidney disease Diabetes HLD (hyperlipidemia) Hypertension Fath (more content not included)... Normal [facility] US ABDOMEN LIMITEDon 025 US ABDOMEN LIMITED ORIGINAL EXAMINATION: LIMITED ABDOMINAL [id number]/3/2025 9:55 am Limited ultrasound of the abdomen attention right upper quadrant COMPARISON: Ultrasound 09/01/2020 TECHNIQUE: This report is based on interpretation of permanently recorded ultrasound images. HISTORY: ORDERING SYSTEM PROVIDED HISTORY: Reason for Exam: RUQ pain, hx fatty liver, FINDINGS: The gallbladder is not seen surgically absent. There is no intrahepatic bile duct dilatation. The common duct is 6 mm at the nader hepatis. The liver is normal in size with mildly increased echogenicity. In the left lobe posteriorly there is again visualization of a 1.8 cm echogenic nodule that is unchanged from the study of 2020 therefore benign most likely hemangioma. No other suspicious liver lesion. There is antegrade blood flow in the main portal vein. The pancreas as visualized shows no focal lesion or mass. No ascites is seen in the RIGHT upper quadrant. Limited survey images of the RIGHT kidney show normal echogenicity and no pelvocaliectasis. IMPRESSION: Steatosis or other diffuse hepatocellular disease. No acute findings. Interpreted by: Jose G Santos MD Preliminary Report By: Jose G Santos MD Electronically signed By Jose G Santos MD Dictated Date: 02/01/2025 3:43:10 PM Prelim Date: 02/01/2025 3:46:32 PM Sign Date: 02/01/2025 3:46:32 PM Ordering Provider: MAY MCKEON [facility] MAIN OPERATIVE NOon 01-15-2025 OPERATIVE NO HNO ID: [id number] Author: OLAF TUCKER MD Service: Pain Management Author Type: Physician Type: Operative Report Filed: 01/15/2025 08:51 Note Text: Summary: R TMBB T10-T12 #2 PATIENT: Kerri Burgess SURGEON: Primary: Olaf Tucker MD : 1945 DATE OF SURGERY: January 15, 2025 PRE-OP Diagnosis: Facet arthropathy, thoracic [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] POST-OP Diagnosis: Same Procedure: Procedure(s): BLOCK NERVE ROOT THORACIC 1ST VERTEBRA W/IMAGE GUIDANCE, FLUORO OR CT (Right T10-12) BLOCK NERVE ROOT THORACIC EACH ADDITIONAL VERTEBRA 2 W/IMAGE GUIDANCE FLUORO OR CT Anesthesia Type: Local The following procedure was performed today: Thoracic facet Joint Nerve Block (medial branch block) with fluoroscopic guidance ([id number]) Levels Treated: Right T10, T11, T12 Approach: posterior Soft tissue: 6 mL 0.5% lidocaine Injectate: 1.5 mL 0.5% bupivacaine at each level Notes: Procedure: After discussing the risks, benefits, and alternatives to the procedure, the patient expressed understanding and wished to proceed. The risks include but are not limited to infection, allergic reaction, nerve damage, stroke, paralysis, epidural hematoma, syncope, headache, respiratory or cardiac arrest, spinal cord injury, and scar formation. Informed consent was obtained and all patient questions were answered. The patient was brought to the procedure suite and placed in the prone position. UNIVERSAL PROTOCOL / SAFETY CHECKLIST Procedure to be Performed: Right thoracic medial branch block T10, T11, T12 with fluoroscopy Sign In: A Moment of CARE was completed. Appropriate PPE (Personal Protective Equipment) worn by all providers involved with the procedure. Special equipment not required. Patient/Surrogate Stated/Verified: Patient name, Date of , Relevant allergies, and The intended procedure Time Out: Relevant labs, photos, and/or imaging studies have been reviewed. Intended patient and procedure match the source document(s) (e.g. consent, HANDP, associated studies [imaging, pathology]) match the intended patient and procedure. Consent obtained and matches the intended procedure. Yes. Correct side/site has been marked and visible. Medications required for this procedure are verified. Fire risk assessed and is not applicable. Implants: are not applicable. Sign Out: Specimens not collected. All instruments, equipment, possible retained foreign bodies are accounted for. Yes. The post-procedure plan of care has been communicated to the patient or surrogate. Using fluoroscopy, the junction of the transverse process and superior articular process of the target levels were identified. The skin was sterilely prepped and draped in the usual fashion. The skin and subcutaneous tissue were anesthetized with lidocaine. Then using fluoroscopic guidance with multiplanar views, a 22 gauge spinal needle was advanced to each target. After contacting the periosteum, negative aspiration for heme or csf. The injectate noted above was then injected at each site and the needles were removed. The procedure was repeated for each target level noted above. Multiplanar images were obtained and saved. The patient tolerated the procedure well and was discharged after an appropriate period of observation. If there are any complications, the patient was instructed to call us. The patient is to follow-up with the requesting provider in 1-2 weeks. The patient was instructed to keep a pain diary and bring the results to the follow up appointment. Normal [facility] CBC with Diffon 01-14-2025 BA# 0.1 x(10)3/cumm Normal 0.0-0.1 [facility] Comment on above: Order Comment: Will be reflexed to tamara high differential / peripheral smear per appropriate criteria / Protocols. Performed By: #### C BCDIFF #### [facility] [address] [place] [address] Basophils/100 WBC (Bld) 0.9 % Normal 0.0-1.0 [facility] Comment on above: Order Comment: Will be reflexed to manua l differential / peripheral smear per appropriate criteria / Protocols. Performed By: #### C BCDIFF #### [address] [address] EO# 0.2 x(10)3/cumm Normal 0.0-0.4 [facility] Comment on above: Order Comment: Will be reflexed to manua l differential / peripheral smear per appropriate criteria / Protocols. Performed By: #### C BCDIFF #### [address] [address] Eosinophils/100 WBC (Bld) 1.9 % Normal 0.0-6.1 [facility] Comment on above: Order Comment: Will be reflexed to manua l differential / peripheral smear per appropriate criteria / Protocols. Performed By: #### C BCDIFF #### [address] [address] Erythrocyte distribution width (RBC) [Ratio] 13.6 % Normal 11.1-15.3 [facility] Comment on above: Order Comment: Will be reflexed to manua l differential / peripheral smear per appropriate criteria / Protocols. Performed By: #### C BCDIFF #### [address] [address] Hematocrit (Bld) [Volume fraction] 41.5 % Normal 34.6-45.0 [facility] Comment on above: Order Comment: Will be reflexed to manua l differential / peripheral smear per appropriate criteria / Protocols. Performed By: #### C BCDIFF #### [address] [address] Hemoglobin (Bld) [Mass/Vol] 13.6 g/dL Normal 11.5-15.5 [facility] Comment on above: Order Comment: Will be reflexed to manua l differential / peripheral smear per appropriate criteria / Protocols. Performed By: #### C BCDIFF #### [address], [place] [address] LY# 1.9 x(10)3/cumm Normal 0.8-2.9 [facility] Comment on above: Order Comment: Will be reflexed to manua l differential / peripheral smear per appropriate criteria / Protocols. Performed By: #### C BCDIFF #### [facility] [address] [place] [address] Lymphocytes/100 WBC (Bld) 22.3 % Normal 12.2-42.6 [facility] Comment on above: Order Comment: Will be reflexed to manua l differential / peripheral smear per appropriate criteria / Protocols. Performed By: #### C BCDIFF #### [address] [address] MCH (RBC) [Entitic mass] 29.1 pg Normal 27.2-33.6 [facility] Comment on above: Order Comment: Will be reflexed to manua l differential / peripheral smear per appropriate criteria / Protocols. Performed By: #### C BCDIFF #### [address] [address] MCHC (RBC) [Mass/Vol] 32.7 g/dL Low 32.9-35.3 [facility] Comment on above: Order Comment: Will be reflexed to manua l differential / peripheral smear per appropriate criteria / Protocols. Performed By: #### C BCDIFF #### [address] [address] MCV (RBC) [Entitic vol] 89.1 fL Normal 81.3-96.7 [facility] Comment on above: Order Comment: Will be reflexed to manua l differential / peripheral smear per appropriate criteria / Protocols. Performed By: #### C BCDIFF #### [address] [address] MO# 0.9 x(10)3/cumm High 0.2-0.8 [facility] Comment on above: Order Comment: Will be reflexed to manua l differential / peripheral smear per appropriate criteria / Protocols. Performed By: #### C BCDIFF #### [address] [place], [place] [address] Monocytes/100 WBC (Bld) 10.0 % Normal 3.3-11.6 [facility] Comment on above: Order Comment: Will be reflexed to manua l differential / peripheral smear per appropriate criteria / Protocols. Performed By: #### C BCDIFF #### [facility] [address] [place] [address] NE# 5.5 x(10)3/cumm Normal 1.3-7.4 [facility] Comment on above: Order Comment: Will be reflexed to manua l differential / peripheral smear per appropriate criteria / Protocols. Performed By: #### C BCDIFF #### [address] [address] Neutrophils/100 WBC (Bld) 64.9 % Normal 44.9-78.8 [facility] Comment on above: Order Comment: Will be reflexed to manua l differential / peripheral smear per appropriate criteria / Protocols. Performed By: #### C BCDIFF #### [address] [address] Platelet mean volume (Bld) [Entitic vol] 8.1 fL Normal 6.4-10.0 [facility] Comment on above: Order Comment: Will be reflexed to manua l differential / peripheral smear per appropriate criteria / Protocols. Performed By: #### C BCDIFF #### [address] [address] PLT 186 x(10)3/cumm Normal 138-367 [facility] Comment on above: Order Comment: Will be reflexed to manua l differential / peripheral smear per appropriate criteria / Protocols. Performed By: #### C BCDIFF #### [address] [address] Plt Morph Normal [facility] Comment on above: Order Comment: Will be reflexed to manua l differential / peripheral smear per appropriate criteria / Protocols. Performed By: #### C BCDIFF #### [address] [address] RBC 4.65 X(10)6/cumm Normal 3.90-5.10 [facility] Comment on above: Order Comment: Will be reflexed to manua l differential / peripheral smear per appropriate criteria / Protocols. Performed By: #### C BCDIFF #### [facility] [address] [place], [place] [id number] RBC Morph cont Normal [facility] Comment on above: Order Comment: Will be reflexed to manua l differential / peripheral smear per appropriate criteria / Protocols. Performed By: #### C BCDIFF #### [place] [id number] RBC morphology finding Nom (Bld) Normal [facility] Comment on above: Order Comment: Will be reflexed to manua l differential / peripheral smear per appropriate criteria / Protocols. Performed By: #### C BCDIFF #### [place] [id number] WBC 8.5 x(10)3/cumm Normal 3.6-10.3 [facility] Comment on above: Order Comment: Will be reflexed to manua l differential / peripheral smear per appropriate criteria / Protocols. Performed By: #### C BCDIFF #### [address] [address] WBC Morph Normal [facility] Comment on above: Order Comment: Will be reflexed to manua l differential / peripheral smear per appropriate criteria / Protocols. Performed By: #### C BCDIFF #### [place] [id number] .GFRon 01-04-2025 Estimated Glomerular Filtration Rate 59 ml/min/1.73sqm Normal [facility] Comment on above: Result Comment: Stages of [...] calculate the eGFR results. Performed By: #### A MY, CMP, LIP, GFR ####[address] [address] AMYon 01-04-2025 Amylase [Catalytic activity/Vol] 26 U/L Normal 25-115 [facility] Comment on above: Performed By: #### A MY, CMP, LIP, GFR ####[address] [address] [facility] 01-04-2025 Albumin Level 3.6 G/dL Normal 3.4-4.8 [facility] Comment on above: Performed By: #### A MY, CMP, LIP, GFR ####[address] [address] Albumin/Globulin [Mass ratio] 0.9 {ratio} Low 1.1-2.5 [facility] Comment on above: Performed By: #### A MY, CMP, LIP, GFR ####[address] [address] ALP [Catalytic activity/Vol] 105 U/L Normal 40-135 [facility] [place] Comment on above: Performed By: #### A MY, CMP, LIP, GFR ####[address] [address] ALT [Catalytic activity/Vol] 31 U/L Normal 14-59 [facility] [place] Comment on above: Performed By: #### A MY, CMP, LIP, GFR ####[address] [address] AST [Catalytic activity/Vol] 24 U/L Normal 10-40 [facility] [place] Comment on above: Performed By: #### A MY, CMP, LIP, GFR ####[address] [address] Bili Total 0.3 mg/dL Normal 0.2-1.0 [facility] Comment on above: Result Comment: Use of this assay is not recommended for patients undergoing treatment with eltrombopag due to the potential for falsely elevated results. Performed By: #### A MY, CMP, LIP, GFR ####[address] [address] BUN/Creatinine Ratio 20 ratio Normal 7-27 [facility] Comment on above: Performed By: #### A MY, CMP, LIP, GFR ####[facility] [place], [place] [address] Calcium [Mass/Vol] 9.5 mg/dL Normal 8.4-10.2 [facility] Comment on above: Performed By: #### A MY, CMP, LIP, GFR ####[place] [address] [place], [place] [address] Chloride [Moles/Vol] 106 mmol/L Normal 98-107 [facility] Comment on above: Performed By: #### A MY, CMP, LIP, GFR ####[place] [address] CO2 [Moles/Vol] 30 mmol/L Normal 23-31 [facility] Comment on above: Performed By: #### A MY, CMP, LIP, GFR ####[address] [address] Creatinine [Mass/Vol] 0.98 mg/dL High 0.51-0.95 [facility] Comment on above: Performed By: #### A MY, CMP, LIP, GFR ####[address] [address] Electrolyte Balance 6.0 mEq/L Normal 4.0-15.0 [facility] Comment on above: Performed By: #### A MY, CMP, LIP, GFR ####[address] [address] Globulin 4.0 G/dL Normal 2.7-4.4 [facility] Comment on above: Performed By: #### A MY, CMP, LIP, GFR ####[place] [address] [place], [place] [address] Glucose [Mass/Vol] 92 mg/dL Normal 83-110 [facility] Comment on above: Performed By: #### A MY, CMP, LIP, GFR ####[place] [address] [place], [place] [address] Potassium [Moles/Vol] 4.7 mmol/L Normal 3.5-5.1 [facility] Comment on above: Performed By: #### A MY, CMP, LIP, GFR ####[place] [address] [place], [place] [address] Sodium [Moles/Vol] 142 mmol/L Normal 136-145 [facility] Comment on above: Performed By: #### A MY, CMP, LIP, GFR ####[place] [address] Total Protein 7.6 G/dL Normal 6.4-8.2 [facility] Comment on above: Performed By: #### A MY, CMP, LIP, GFR ####[place] [address] [place] [address] Urea nitrogen [Mass/Vol] 20 mg/dL High 7-18 [facility] Comment on above: Performed By: #### A MY, CMP, LIP, GFR ####[place] [address] CNPNon 01-04-2025 PRASHANT Telephone (NASIMA) KERRI BURGESS ([id number]) 1945 F Date Time Provider Department 01/04/25 OLAF TUCKER During your visit today, we recorded the following information about you: Jennifer Chance RN 01/04/2025 9:33 AM Signed Ute with [employer] lmom stating she has emailed about pt upcoming procedure. She asked that the documentation be reviewed and updated so can move forward with submitting the PA. Jennifer Chance RN January 04, 2025 9:33 AM Olaf Tucker MD 01/08/2025 10:06 AM Signed Tatiana has added documentation to the original postprocedure call documentation. Can we please let pre access know this? Neftali Amador RN 01/08/2025 4:55 PM Signed Delilah was handling this. Neftali Amador RN January 08, 2025 4:55 PM Allergies As of Date: 01/04/2025 Noted Allergy Reaction PENICILLINS 02/09/2016 16 - Unknown Comments: Seizure like activity LATEX 02/09/2016 4 - Hives 7 - Swelling Comments: Swelling in lips Date Reviewed: 12/25/2024 Reviewed by: Ana Hobbs RN - Fully Assessed Reason for Visit: Patient Question [3197] Prescriptions as of 01/08/2025 - amitriptyline (ELAVIL) 10 mg tablet Take 1 tablet by mouth daily at bedtime. - vitamin b complex (VITAMINS B COMPLEX) [...] A,C,E/zinc/copper (VISION-CAMRON PRESERVE ORAL) Take by mouth. Problem List As Of Date 01/04/2025 Noted Resolved Thoracic radiculopathy [M54.14] 11/13/2024 Pain in thoracic spine [M54.6] 11/13/2024 Decreased ROM of thoracic spine [M53.84] 11/13/2024 Encounter Status:Closed by NEFTALI AMADOR on 01/08/25 [facility] LABORATORYOrdered By: SYSTEM SYSTEM on 01-04-2025 Albumin BCP dye [Mass/Vol] 3.6 G/dL Normal 3.4 - 4.8 G/dL AO ADM SS Albumin/Globulin [Mass ratio] 0.9 {ratio} Low 1.1 - 2.5 ratio AO ADM SS ALP [Catalytic activity/Vol] 105 U/L Normal 40 - 135 U/L AO ADM SS ALT With P-5'-P [Catalytic activity/Vol] 31 U/L Normal 14 - 59 U/L AO ADM SS Amylase [Catalytic activity/Vol] 26 U/L Normal 25 - 115 U/L AO ADM SS AST With P-5'-P [Catalytic activity/Vol] 24 U/L Normal 10 - 40 U/L AO ADM SS Bilirubin [Mass/Vol] 0.3 mg/dL Normal 0.2 - 1 .0 mg/dL AO ADM SS Comment on above: Interpretive Data: U se of this assay is not recommended for patients undergoing treatment with eltrombopag due to the potential for falsely elevated results. Calcium [Mass/Vol] 9.5 mg/dL Normal 8.4 - 10. 2 mg/dL AO ADM SS Chloride [Moles/Vol] 106 mmol/L Normal 98 - 10 7 mmol/L AO ADM SS CO2 [Moles/Vol] 30 mmol/L Normal 23 - 31 mmol/L AO ADM SS Creatinine [Mass/Vol] 0.98 mg/dL High 0.51 - 0.95 mg/dL AO ADM SS Electrolyte Balance 6.0 mEq/L Normal 4.0 - 15 .0 mEq/L AO ADM SS Estimated Glomerular Filtration Rate 59 ml/min/1.73sqm Invalid Interpretation Code AO Chemistry S Comment on above: Interpretive Data: Stages of Chronic Kidney Disease (CKD) Stage [...] race factor to calculate the eGFR results. Globulin 4.0 G/dL Normal 2.7 - 4.4 G/dL AO ADM SS Glucose [Mass/Vol] 92 mg/dL Normal 83 - 110 mg/dL AO ADM SS Lipase [Catalytic activity/Vol] 31 U/L Normal 16 - 77 U/L AO ADM SS Potassium [Moles/Vol] 4.7 mmol/L Normal 3.5 - 5.1 mmol/L AO ADM SS Protein [Mass/Vol] 7.6 G/dL Normal 6.4 - 8.2 G/dL AO ADM SS Sodium [Moles/Vol] 142 mmol/L Normal 136 - 145 mmol/L AO ADM SS Urea nitrogen [Mass/Vol] 20 mg/dL High 7 - 18 mg/dL AO ADM SS Urea nitrogen/Creatinine [Mass ratio] 20 ratio Normal 7 - 27 ratio AO ADM SS LIPon 01-04-2025 Lipase Level 31 U/L Normal 16-77 [facility] Comment on above: Performed By: #### A MY, CMP, LIP, GFR ####[address] 12-28-2024 [place] Telephone (NASIMA) KERRI BURGESS ([id number]) 1945 F Date Time Provider Department 12/28/24 OLAF TUCKER During your visit today, we recorded the following information about you: Neftali Amador RN 01/08/2025 9:19 AM Addendum Addendum to original note. I discussed with pt further and since she had 0 pain after procedure - documented in vitals post procedure. Pt agreed that she had 100% relief initially. As the day progressed her pain slowly returned . Neftali Amador RN January 08, 2025 9:19 AM Date of procedure 12/25/24 60 % of relief Pain level 8/10 baseline How long relief lasted -- one day What were you doing when pain returned normal activity See Pain Disability index Patient would like to proceed with MBB #2. Please build case and schedule. Neftali Amador RN December 28, 2024 8:29 AM Isma Vincent PA-C 12/28/2024 11:18 AM Signed Procedure to be done: Right T10-12 diagnostic medial branch blocks A buggy driver is required: Yes Oral Sedation is requested : No If you are receiving oral sedation, you may eat a light meal. Clothing to wear: Back injections - elastic waist/jogging pants Neck injections - wide neck or button down shirt; please do not wear neck jewelry Plan to take it easy the rest of the day following your procedure. You may resume normal activities 24 hours following your procedure or as otherwise instructed. Special Instructions - NONE Isma Vincent PA-C 12/28/2024 11:18 AM Signed The order is in and ready to schedule please. Delilah Lind 12/28/2024 1:55 PM Signed I left a message to schedule a procedure. Delilah Lnid December 28, 2024 1:55 PM Allergies As of Date: 12/28/2024 Noted Allergy Reaction PENICILLINS 02/09/2016 16 - Unknown Comments: Seizure like activity LATEX 02/09/2016 4 - Hives 7 - Swelling Comments: Swelling in lips Date Reviewed: 12/25/2024 Reviewed by: Ana Hobbs RN - Fully Assessed Reason for Visit: Post pro call [Other] Primary Visit Diagnosis:Facet arthropathy, thoracic [M47.814] Order(s):SURGICAL REQUEST - ELECTIVE (12/2019) [[id number]] Order #: [id number]: 1 Prescriptions as of 01/08/2025 - amitriptyline (ELAVIL) 10 mg tablet Take 1 tablet by mouth daily at bedtime. - vitamin b complex (VITAMINS B COMPLEX) [...] A,C,E/zinc/copper (VISION-CAMRON PRESERVE ORAL) Take by mouth. Problem List As Of Date 12/28/2024 Noted Resolved Thoracic radiculopathy [M54.14] 11/13/2024 Pain in thoracic spine [M54.6] 11/13/2024 Decreased ROM of thoracic spine [M53.84] 11/13/2024 Encounter Status:Closed by ISMA VINCENT on 12/28/24 [facility] OPERATIVE NOon 12-25-2024 OPERATIVE NO HNO ID: [id number] Author: OLAF TUCKER MD Service: Pain Management Author Type: Physician Type: Operative Report Filed: 12/25/2024 15:59 Note Text: Summary: R TMBB T10-T12 PATIENT: Kerri Burgess SURGEON: Primary: Olaf Tucker MD : 1945 DATE OF SURGERY: December 25, 2024 PRE-OP Diagnosis: Thoracic spondylosis [M47.814] POST-OP Diagnosis: Same Procedure: Procedure(s): BLOCK THORACIC MEDIAL BRANCH T9, T10, T11 WITH C-ARM BLOCK JOINT FACET THORACIC EACH ADDITIONAL VERTEBRA 2 W/IMAGE GUIDANCE FLUORO OR CT Anesthesia Type: Local The following procedure was performed in the office today: Thoracic facet joint nerve block with fluoroscopic guidance (Zygopophyseal Joint nerve block - Medial branch blocks) ([id number], [id number]) Levels Treated: Right T10, T11, T12 Approach: posterior Injectate: 4.5 mL 0.5% bupivacaine Notes: Once on the table, the patient and I decided to change T9 to T12 as the patient's pain was little bit lower to better cover her pain area. Procedure: The patient was prepped and draped in a sterile fashion in the side-lying position after informed consent was signed and all patient questions were answered including the risks, benefits, alternative treatment options, and prognosis. The risks include but are not limited to infection, allergic reaction, nerve damage, paralysis, epidural hematoma, syncope, headache, pneumothorax, respiratory or cardiac arrest, and scar formation. UNIVERSAL PROTOCOL / SAFETY CHECKLIST Procedure to be Performed: Right thoracic medial branch block T10, T11, T12 with fluoroscopy Sign In: A Moment of CARE was completed. Appropriate PPE (Personal Protective Equipment) worn by all providers involved with the procedure. Special equipment not required. Patient/Surrogate Stated/Verified: Patient name, Date of , Relevant allergies, and The intended procedure Time Out: Relevant labs, photos, and/or imaging studies have been reviewed. Intended patient and procedure match the source document(s) (e.g. consent, HANDP, associated studies [imaging, pathology]) match the intended patient and procedure. Consent obtained and matches the intended procedure. Yes. Correct side/site has been marked and visible. Medications required for this procedure are verified. Fire risk assessed and is not applicable. Implants: are not applicable. Sign Out: Specimens not collected. All instruments, equipment, possible retained foreign bodies are accounted for. Yes. The post-procedure plan of care has been communicated to the patient or surrogate. The lateral masses of these respective levels were localized under multiplanar fluoroscopic visualization. A 1.5 inch 25-gauge needle was inserted toward the junction of the superior articular process and transverse process and local anesthetic injected. Next a 22 ga spinal needle was then positioned under multiplanar visualization so it rested just at the junction of the superior articular process and transverse process to be ideally positioned over the medial branch nerve. This was repeated for each nerve noted above. After contact with periosteum and negative aspirate for blood and CSF. Next, above medication injected divided into equal doses per medial branch. The needles were removed. No immediate complications noted. Prior to the procedure, the patient was given a Pain Diary which was completed for baseline measurements. The patient was instructed to bring the Diary on their follow-up appointment in 1-2 weeks/as planned. The patient tolerated the procedure well and was discharged after an appropriate period of observation. If there are any complications, the patient was instructed to call us. [facility] CNOVon 12-05-2024 CNOV Office Visit (PAULAJK ) KERRI BURGESS ([id number]) 1945 F Date Time Provider Department 12/05/24 1:15 PM OLAF TUCKER During your visit today, we recorded the following information about you: Pulse Respiration Blood pressure Weight 65/minute 17/minute 154/82 88.5 kg Height 1.6 m Haven Baxter MA 12/05/2024 2:12 PM Signed Room 2 Follow up: Back Pain Olaf Tucker MD 12/05/2024 2:12 PM Signed PATIENT: Kerri Burgess : 1945 DATE OF SERVICE: 12/05/2024 REFERRING PRACTITIONER: No ref. provider found PRIMARY CARE PROVIDER: May Mckeon MD CHIEF COMPLAINT: Patient presents with: Back Pain HISTORY OF PRESENT ILLNESS: Kerri Burgess is a 79 year old year old female who presents to the clinic today with chief complaint(s) as above. Following up for: Right-sided mid back pain. 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 Nursing ROS Reviewed and confirmed. === HISTORY: ALLERGIES Allergen Reactions Penicillins Unknown Seizure like activity Latex Hives, Swelling Swelling in lips PAST MEDICAL HISTORY Diagnosis Date Pulmonary embolism (HCC) Venous stasis PAST SURGICAL HISTORY Procedure Laterality Date ARTHRP KNE CONDYLEANDPLATU MEDIALANDLAT COMPARTMENTS Right 09/2009 ARTHRP KNE CONDYLEANDPLATU MEDIALANDLAT COMPARTMENTS Left 2017 CATARACT SURGERY, COMPLEX 2012 2018 CHOLECYSTECTOMY HX 2012 HYSTERECTOMY HX 1984 PAST SURGICAL HISTORY OF Right 05/1998 carpel tunnel History reviewed. No pertinent family history. Social History Tobacco Use Smoking status: Never Smokeless tobacco: Never Substance Use Topics Alcohol use: Not Currently Drug use: Never Current Outpatient Medications Medication Sig vitamin b complex (VITAMINS B COMPLEX) capsule Take 1 capsule by mouth. aspirin-calcium carbonate 81 mg-300 mg calcium(777 mg) tab Take 81 mg by mouth. valsartan (DIOVAN) 320 mg tablet levothyroxine (SYNTHROID) 50 mcg tablet BYSTOLIC 10 mg tablet omeprazole (PRILOSEC) 20 mg capsule Take 20 mg by mouth. oxybutynin ER (DITROPAN XL) 10 mg 24 hr tablet WELCHOL 625 mg tablet Magnesium 250 mg tab Take 250 mg by mouth. coenzyme Q10 (H2Q COQ10) 200 mg/gram powd Take by mouth. ergocalciferol, vitamin D2, (VITAMIN D2 ORAL) Take by mouth. vits A,C,E/zinc/copper (VISION-CAMRON PRESERVE ORAL) Take by mouth. amitriptyline (ELAVIL) 10 mg tablet Take 1 tablet by mouth daily at bedtime. No current facility-administered medications for this visit. OBJECTIVE: VS: BP 154/82 (BP Site: Left Arm, BP Position: Sitting, BP Cuff Size: Regular Adult) Pulse 65 Resp 17 Ht 160 cm (5' 3") Wt 88.5 kg (195 lb) SpO2 92% BMI 34.54 kg/m? Body mass index is 34.54 kg/m?. PHYSICAL EXAMINATION: Gen: Well developed. No acute distress. Eyes: Conjunctivae clear. Normal upper and lower lids. CV: Non-cyanotic. No obvious jugular venous distention. Chest: Non-labored breathing, good respiratory effort. Lymph: No visible regional lymphadenopathy. No gross edema noted. Skin: Visualized portions intact and no rashes or ecchymosis noted. Psych: Alert and well-oriented. Mood/Affect: appropriate. Neuro/MSK: Tender to palpation over the lower thoracic spine. Facet loading is positive for pain here. Patient with compression hose on both legs bilateral Diagnostic Imaging: MRI thoracic spine reviewed MRI lumbar spine reviewed Other Diagnostic Studies: IMPRESSION: (M47.814) Thoracic spondylosis (primary encounter diagnosis) (M79.18) Myofascial pain syndrome (M79.2) Neuropathic pain Kerri Burgess is a 79 year old female here with the following issues: Right sided mid back pain and left foot pain described as neuropathic pain PLAN: -Recommend: Trial right thoracic medial branch block T9, T10, T11 with fluoroscopy. If 2 successful nerve blocks we will proceed to radiofrequency ablation. Patient unable to take NSAIDs due to gastric ulcers. Patient has just completed physical therapy without significant improvement in symptoms Recommended she take pregabalin 50 mg 2 capsules nightly sensitive 50 twice daily. Her symptoms are worse at nighttime. Continue acetaminophen, lidocaine Continue care with all other providers including vascular Consider caudal epidural steroid injection Continue home exercises learned at physical therapy The risks, benefits, alternative treatmen (more content not included)... Normal [facility] CNTHERAPYon 12-04-2024 CNTHERAPY OT/PT/Speech Visit ( UNPTOP) KERRI BURGESS ([id number]) 1945 F Date Time Provider Department 12/04/24 10:30 AM BERTHA JOSEPH Date Time Provider Department Center 12/04/2024 10:30 AM [id number], AMANDA [facility] Reason for Visit: PT Progress Note [1596] Primary Visit Diagnosis:Pain in thoracic spine [M54.6] Other Visit Diagnosis:Decreased ROM of thoracic spine [M53.84] Allergies As of Date: 12/04/2024 Noted Allergy Reaction PENICILLINS 02/09/2016 16 - Unknown Comments: Seizure like activity LATEX 02/09/2016 4 - Hives 7 - Swelling Comments: Swelling in lips Date Reviewed: 10/31/2024 Reviewed by: Haven Baxter MA - Fully Assessed Prescriptions as of 12/04/2024 - amitriptyline (ELAVIL) 10 mg tablet Take 1 tablet by mouth daily at bedtime. - vitamin b complex (VITAMINS B COMPLEX) [...] A,C,E/zinc/copper (VISION-CAMRON PRESERVE ORAL) Take by mouth. Letter Text Letter Text [facility] CNTHERAPYon 11-29-2024 CNTHERAPY OT/PT/Speech Visit ( UNPTOP) KERRI BURGESS ([id number]) 1945 F Date Time Provider Department 11/29/24 11:30 AM FARHEEN PETERS Date Time Provider Department Center 11/29/2024 11:30 AM [id number][facility] Reason for Visit: Physical Therapy [503] Primary Visit Diagnosis:Pain in thoracic spine [M54.6] Other Visit Diagnosis:Decreased ROM of thoracic spine [M53.84] Allergies As of Date: 11/29/2024 Noted Allergy Reaction PENICILLINS 02/09/2016 16 - Unknown Comments: Seizure like activity LATEX 02/09/2016 4 - Hives 7 - Swelling Comments: Swelling in lips Date Reviewed: 10/31/2024 Reviewed by: Haven Baxter MA - Fully Assessed Prescriptions as of 11/29/2024 - amitriptyline (ELAVIL) 10 mg tablet Take 1 tablet by mouth daily at bedtime. - baclofen 10 mg tablet Take 1 tablet by mouth every 8 hours as needed. - vitamin b complex (VITAMINS B COMPLEX) [...] A,C,E/zinc/copper (VISION-CAMRON PRESERVE ORAL) Take by mouth. [facility] CNTHERAPYon 11-27-2024 CNTHERAPY OT/PT/Speech Visit ( UNPTOP) KERRI BURGESS ([id number]) 1945 F Date Time Provider Department 11/27/24 10:45 AM ANDREIA CANO UNPTOP Date Time Provider Department Center 11/27/2024 10:45 AM [id number], ANDREIA [facility] Reason for Visit: Physical Therapy [503] Primary Visit Diagnosis:Pain in thoracic spine [M54.6] Other Visit Diagnosis:Decreased ROM of thoracic spine [M53.84] Allergies As of Date: 11/27/2024 Noted Allergy Reaction PENICILLINS 02/09/2016 16 - Unknown Comments: Seizure like activity LATEX 02/09/2016 4 - Hives 7 - Swelling Comments: Swelling in lips Date Reviewed: 10/31/2024 Reviewed by: Haven Baxter MA - Fully Assessed Prescriptions as of 11/27/2024 - amitriptyline (ELAVIL) 10 mg tablet Take 1 tablet by mouth daily at bedtime. - baclofen 10 mg tablet Take 1 tablet by mouth every 8 hours as needed. - vitamin b complex (VITAMINS B COMPLEX) [...] A,C,E/zinc/copper (VISION-CAMRON PRESERVE ORAL) Take by mouth. [facility] CNTHERAPYon 11-22-2024 CNTHERAPY OT/PT/Speech Visit ( UNPTOP) KERRI BURGESS ([id number]) 1945 F Date Time Provider Department 11/22/24 10:00 AM FARHEEN PETERS UNPTOP Date Time Provider Department Center 11/22/2024 10:00 AM [id number], EMILY [facility] Reason for Visit: Physical Therapy [503] Primary Visit Diagnosis:Pain in thoracic spine [M54.6] Other Visit Diagnosis:Decreased ROM of thoracic spine [M53.84] Allergies As of Date: 11/22/2024 Noted Allergy Reaction PENICILLINS 02/09/2016 16 - Unknown Comments: Seizure like activity LATEX 02/09/2016 4 - Hives 7 - Swelling Comments: Swelling in lips Date Reviewed: 10/31/2024 Reviewed by: Haven Baxter MA - Fully Assessed Prescriptions as of 11/22/2024 - amitriptyline (ELAVIL) 10 mg tablet Take 1 tablet by mouth daily at bedtime. - baclofen 10 mg tablet Take 1 tablet by mouth every 8 hours as needed. - vitamin b complex (VITAMINS B COMPLEX) [...] A,C,E/zinc/copper (VISION-CAMRON PRESERVE ORAL) Take by mouth. [facility] CNTHERAPYon 11-20-2024 CNTHERAPY OT/PT/Speech Visit ( UNPTOP) KERRI BURGESS ([id number]) 1945 F Date Time Provider Department 11/20/24 10:00 AM ANDREIA CANO UNPTOP Date Time Provider Department [place] 11/20/2024 10:00 AM [id number], WENDY [facility] Reason for Visit: Physical Therapy [503] Primary Visit Diagnosis:Pain in thoracic spine [M54.6] Other Visit Diagnosis:Decreased ROM of thoracic spine [M53.84] Allergies As of Date: 11/20/2024 Noted Allergy Reaction PENICILLINS 02/09/2016 16 - Unknown Comments: Seizure like activity LATEX 02/09/2016 4 - Hives 7 - Swelling Comments: Swelling in lips Date Reviewed: 10/31/2024 Reviewed by: Haven Baxter MA - Fully Assessed Prescriptions as of 11/20/2024 - amitriptyline (ELAVIL) 10 mg tablet Take 1 tablet by mouth daily at bedtime. - baclofen 10 mg tablet Take 1 tablet by mouth every 8 hours as needed. - vitamin b complex (VITAMINS B COMPLEX) [...] A,C,E/zinc/copper (VISION-CAMRON PRESERVE ORAL) Take by mouth. [facility] CNTHERAPYon 11-16-2024 CNTHERAPY OT/PT/Speech Visit ( UNPTOP) KERRI BURGESS ([id number]) 1945 F Date Time Provider Department 11/16/24 10:45 AM ANDREIA CANO UNPTOP Date Time Provider Department Center 11/16/2024 10:45 AM [id number], WENDY [facility] Reason for Visit: Physical Therapy [503] Primary Visit Diagnosis:Pain in thoracic spine [M54.6] Other Visit Diagnosis:Decreased ROM of thoracic spine [M53.84] Allergies As of Date: 11/16/2024 Noted Allergy Reaction PENICILLINS 02/09/2016 16 - Unknown Comments: Seizure like activity LATEX 02/09/2016 4 - Hives 7 - Swelling Comments: Swelling in lips Date Reviewed: 10/31/2024 Reviewed by: Haven Baxter MA - Fully Assessed Prescriptions as of 11/16/2024 - amitriptyline (ELAVIL) 10 mg tablet Take 1 tablet by mouth daily at bedtime. - baclofen 10 mg tablet Take 1 tablet by mouth every 8 hours as needed. - vitamin b complex (VITAMINS B COMPLEX) [...] A,C,E/zinc/copper (VISION-CAMRON PRESERVE ORAL) Take by mouth. [facility] [id number] 11-13-2024 [id number] HNO ID: [id number] Author: BERTHA JOSEPH PT Service: ? Author Type: Physical Therapist Type: [id number] Filed: 11/13/2024 10:33 Note Text: [facility] Physical Therapy Plan of Care Certification Patient Name: Kerri Burgess : 1945 [facility] #: [id number] Date: 11/13/2024 To: Olaf Tucker MD From Therapist: Bertha Joseph PT, DPT RE: Patient Certification/ Recertification Your review, approval and electronic signature are required in order to comply with Payor: MEDICARE / Plan: MEDICARE A AND B / Product Type: Medicare / regulations. The identified Physical Therapy PLAN OF CARE for the patient is as follows: M54.6 Pain in thoracic spine (primary encounter diagnosis) M47.814 Thoracic spondylosis M54.14 Thoracic radiculopathy M53.84 Decreased ROM of thoracic spine PLAN OF CARE: Assessment: Kerri Burgess presents with chief complaint of thoracic spine and right-sided rib pain that interferes with walking, standing, sitting, rising from a chair (hitting bumps/ anything jarring) . The patient presents with impairments in ADL's, flexibility, overall function, posture, and range of motion. Prognosis for therapy is Good due to: current objective clinical presentation . The patient will benefit from skilled therapy services to meet the goals established for this plan of care as noted below. Goals for Episode of Care: established 11/13/24 [place] in home exercise program. Patient will decrease pain rating by 2 points to meet minimal clinical important difference for numeric pain rating scale. Perform [id number] with decreased report of symptoms/pain in 4 weeks. Improve postural awareness. Patient Goals: Reduce pain Time Frame for Goals and Treatment : 02/11/25 Planned Interventions, Frequency, and Duration: Current Frequency: 2x/week Duration: 12 weeks Total Number of Visits Planned: 24 Planned Treatment Interventions: Therapeutic exercise (87587), Neuromuscular re-education (14263), Therapeutic activities (61308), Manual therapy (96744), Aquatic PT (91625), Self-senior living management (18759) PLAN FOR NEXT VISIT: aquatic therapy x1/week, land x1/week, spine mobility, abdominal strenghtenning Patient demonstrates good understanding of plan of care and treatment. The above goals and plan of care were discussed and agreed upon by patient/family. For further details regarding this patient refer to the Physical Therapy electronically documented visit dated 11/13/2024. Provider Attestation I have reviewed the treatment plan for Kerri Burgess, [facility]# [id number] for the period of 11/13/24 -- 02/11/25, established on 11/13/2024. Signature certifies the need for therapy services. [facility] CNTHERAPYon 11-13-2024 CNTHERAPY OT/PT/Speech Visit ( UNPTOP) SAMYKERRI LUCAS ([id number]) 1945 F Date Time Provider Department 11/13/24 8:30 AM BERTHA JOSEPH Date Time Provider Department Center 11/13/2024 8:30 AM [id number], AMANDA [facility] Reason for Visit: PT Eval [747] Primary Visit Diagnosis:Pain in thoracic spine [M54.6] Other Visit Diagnoses:Thoracic spondylosis [M47.814] Thoracic radiculopathy [M54.14] Decreased ROM of thoracic spine [M53.84] Allergies As of Date: 11/13/2024 Noted Allergy Reaction PENICILLINS 02/09/2016 16 - Unknown Comments: Seizure like activity LATEX 02/09/2016 4 - Hives 7 - Swelling Comments: Swelling in lips Date Reviewed: 10/31/2024 Reviewed by: Haven Baxter MA - Fully Assessed Prescriptions as of 11/13/2024 - amitriptyline (ELAVIL) 10 mg tablet Take 1 tablet by mouth daily at bedtime. - baclofen 10 mg tablet Take 1 tablet by mouth every 8 hours as needed. - vitamin b complex (VITAMINS B COMPLEX) [...] A,C,E/zinc/copper (VISION-CAMRON PRESERVE ORAL) Take by mouth. [facility] Gastroenterology Visit Repor ton 11-06-2024 Gastroenterology Visit Report [facility] [address] [place] [address] OFFICE VISIT Date of Service: 11/06/24 MR#: [id number] Acct: [id number] Name: KERRI BURGESS Rep #: [id number] : 1945 Provider: EULA lamar Age/Sex: 79/F Location: [facility] Status: Signed Intake Intake Visit Reasons: Test Result Allergies adhesive tape Allergy (Intermediate, Verified 11/06/24 10:06) Itching apixaban (From Eliquis) Allergy (Intermediate, Verified 11/06/24 10:06) Other latex Allergy (Intermediate, Verified 11/06/24 10:06) Hives oxycodone Allergy (Intermediate, Verified 11/06/24 10:06) Other Penicillins (PCN) Allergy (Intermediate, Verified 11/06/24 10:06) Hives atorvastatin (From Lipitor) Adverse Reaction (Intermediate, Verified 11/06/24 10:06) Other semaglutide (From Rybelsus) Adverse Reaction (Intermediate, Verified 11/06/24 10:06) Other Medications ???Medication ???Instructions ???Recorded ???Confirmed ???Type acetaminophen 500 mg tablet 500 mg PO Q6H PRN pain 10/11/24 History (Tylenol Extra Strength) bumetanide 1 mg tablet 1 mg PO QDAY PRN WATER PILL 11/06/24 History colesevelam 625 mg tablet 1,875 mg PO BID 10/11/24 11/06/24 History ibuprofen 800 mg tablet 800 mg PO Q8H 10/11/24 11/06/24 Hi story Held on 10/22/24. Instructions: STOMACH ISSUES levothyroxine 50 mcg capsule 50 mcg PO QDAY 10/11/24 11/06/24 H istory lidocaine 5 % topical patch 1 patch topical QDAY 10/11/2412/24 History magnesium oxide 400 mg (241.3 mg 400 mg PO QDAY 10/11/24 11/06/24 H istory magnesium) tablet nebivolol 10 mg tablet 10 mg PO QDAY 10/11/24 11/06/24 Hi story oxybutynin chloride 5 mg tablet 5 mg PO DAILY bladder spasms 10/1111/06/24 History pregabalin 50 mg capsule 50 mg PO BID 10/11/24 11/06/24 His tory valsartan 320 mg tablet 320 mg PO QDAY 10/11/24 11/06/24 H istory pantoprazole 40 mg tablet,delayed 40 mg PO BID #60 tabs 10/15/24 Rx release ascorbic acid (vitamin C) 500 mg 1 g PO DAILY 10/22/24 11/06/24 His tory chewable tablet (C-500) calcium 325 mg-vit D3 12.5 1 tab PO DAILY 10/22/24 11/06/24 H istory mcg-zinc 2.75 [id number]-sdkmwzzew tablet cholecalciferol (vitamin D3) 125 125 mcg PO QHS 10/22/24 11/06/24 H istory mcg (5,000 unit) tablet (Vitamin D3) omeprazole 20 mg capsule,delayed 20 mg PO BID 10/22/24 11/06/24 His tory release Held on 10/22/24. Instructions: PRESCRIBES CARAFATE TEMPORARILY triamcinolone acetonide 0.1 % 1 applic topical BID PRN rash 10/0111/06/24 History topical cream vitamin B complex (B-Complex 1 tab PO DAILY 10/22/24 11/06/24 H istory tablet) vitamins A,C,B-snwz-wlchgl 2,148 1 tab PO BID 10/22/24 11/06/24 His tory mcg-113 mg-45 mg-17.4 mg tablet (Eye Multivitamin) sucralfate 1 gram tablet 1 g PO Q6H 3 months #360 tabs 10/0111/06/24 Rx Have you fallen in the past year?: No PFSH Medical History Wears glasses Thyroid disease [...] MRI, cervical spine Epigastric pain Surgical History History of cataract surgery History [...] who presents to the office today for FU (more content not included)... [facility] CNCOon 10-31-2024 CNCO Letter Text [facility] CNOVon 10-31-2024 CNOV Office Visit (YOSHI ) KERRI BURGESS ([id number]) 1945 F Date Time Provider Department 10/31/24 11:00 AM OLAF TUCKER During your visit today, we recorded the following information about you: Pulse Respiration Blood pressure Weight 63/minute 17/minute 180/89 88.5 kg Height 1.6 m Haven Baxter MA 10/31/2024 11:59 AM Signed Room 2 New Consult: back pain Olaf Tucker MD 10/31/2024 11:59 AM Signed PATIENT: Kerri Burgess : 1945 DATE OF SERVICE: 10/31/2024 REFERRING PRACTITIONER: No ref. provider found PRIMARY CARE PROVIDER: No primary care provider on file. CHIEF COMPLAINT: Patient presents with: Back Pain HISTORY OF PRESENT ILLNESS: Kerri Burgess is a 79 year old year old female who presents to the clinic today with chief complaint(s) as above. Onset/Duration: May 2024 Injury: Patient [place] This was the first time she had the symptoms but they seem to worsen around 6 months ago. Patient states she has seen Dr. Diggs and has had imaging done of her low and mid back. She has a history of lumbar spine surgery at L4-5. Current pain is on the right side of the mid back between T7 and T10 Location/radiation/referral : Pain is on the right side of the mid back and can occasionally radiate towards the front of the lower chest wall and upper abdomen on the right Description: Constantly ache but occasionally sharp Pain Level: Now: 8 /10 Best: 5 /10 Worst: 9 /10 Numbness/Tingling (location): Bilateral legs Weakness (location): None Better with: Ibuprofen-caused gastric ulcers, lidocaine, Tylenol Worse with: Mornings, end of the day after being active Fever/Chills: [] Yes [x] No Recent significant weight change: [] Yes [x] No Bladder/Bowel incontinence: [x] Yes [] No-bladder incontinence is not new Is this visit directly related to a work or auto injury? [] Yes [x] No If so, pre-Injury Symptoms: n/a Prior Related Consults: [x] Yes [] No 1. Dr. Diggs Prior Related Studies: See below Past Treatment: PT (for this condition): [] Yes [x] No Chiropractic (for this condition): [] Yes [x] No Medications: Pregabalin 50 mg twice daily, topical cream, lidocaine, Tylenol Other: Ibuprofen caused gastric ulcers Prior Procedures/Surgery: Date Procedure Relief (%) Lumbar spine surgery at L4-5 Work/Functional Status Able to ambulate and perform ADL's without devices: [x] Yes [] No Current occupation/duties/job title: === Review of Systems: CONSTITUTIONAL: negative. HEENT: negative. EYES: negative RESPIRATORY: negative. CARDIOVASCULAR: negative. GASTROINTESTINAL: negative. GENITOURINARY: negative. INTEGUMENT/BREAST: negative. HEMATOLOGIC/LYMPHATIC: negative. NEURO/MUSCULOSKELETAL: Negative except above BEHAVIORAL/PSYCH: negative. ENDOCRINE: negative. ALLERGIC/IMMUNOLOGIC: Negative. 14 point ROS; pertinent positives listed above, the rest are reviewed and confirmed to be negative. === HISTORY: ALLERGIES Allergen Reactions Penicillins Unknown Seizure like activity Latex Hives, Swelling Swelling in lips PAST MEDICAL HISTORY Diagnosis Date Pulmonary embolism (HCC) Venous stasis PAST SURGICAL HISTORY Procedure Laterality Date CATARACT SURGERY, COMPLEX 2012 2018 CHOLECYSTECTOMY HX 2012 HYSTERECTOMY HX 1984 PAST SURGICAL HISTORY OF Right 05/1998 carpel tunnel TOTAL KNEE REPLACEMENT Right 09/2009 TOTAL KNEE REPLACEMENT Left 2018 No family history on file. Current Outpatient Medications Medication Sig vitamin b complex (VITAMINS B COMPLEX) capsule Take 1 capsule by mouth. aspirin-calcium carbonate 81 mg-300 mg calcium(777 mg) tab Take 81 mg by mouth. valsartan (DIOVAN) 320 mg tablet levothyroxine (SYNTHROID) 50 mcg tablet BYSTOLIC 10 mg tablet omeprazole (PRILOSEC) 20 mg capsule Take 20 mg by mouth. oxybutynin ER (DITROPAN XL) 10 mg 24 hr tablet WELCHOL 625 mg tablet Magnesium 250 mg tab Take 250 mg by mouth. coenzyme Q10 (H2Q COQ10) 200 mg/gram powd Take by mouth. ergocalciferol, vitamin D2, (VITAMIN D2 ORAL) Take by mouth. vits A,C,E/zinc/copper (VISION-CAMRON PRESERVE ORAL) Take by mouth. amitriptyline (ELAVIL) 10 mg tablet Take 1 tablet by mouth daily at bedtime. baclofen 10 mg tablet Take 1 tablet by mouth every 8 hours as needed. No current facility-administered medications for this visit. OBJECTIVE: VS: BP 180/89 (BP Site: Left Arm, BP Position: Sitting, BP Cuff Size: Regular Adult) Pulse 63 Resp 17 Ht 160 cm (5' 3") Wt 88.5 kg (195 lb) SpO2 (!) 80% BMI 34.54 kg/m? Body mass index is 34.54 kg/m?. PHYSICAL EXAMINATION: Gen: Well developed. No acute distress. Eyes: Conjunctivae clear. Normal upper and lower lids. CV: Non-cyanotic. No obvious jugular venous distention. Chest (more content not included)... [facility] 10-31-2024 [facility] Telephone (YOSHI) KERRI BURGESS ([id number]) 1945 F Date Time Provider Department 10/31/24 OLAF TUCKER During your visit today, we recorded the following information about you: Allergies As of Date: 10/31/2024 Noted Allergy Reaction PENICILLINS 02/09/2016 16 - Unknown Comments: Seizure like activity LATEX 02/09/2016 4 - Hives 7 - Swelling Comments: Swelling in lips Date Reviewed: 10/31/2024 Reviewed by: Haven Baxter MA - Fully Assessed Prescriptions as of 10/31/2024 - amitriptyline (ELAVIL) 10 mg tablet Take 1 tablet by mouth daily at bedtime. - baclofen 10 mg tablet Take 1 tablet by mouth every 8 hours as needed. - vitamin b complex (VITAMINS B COMPLEX) [...] A,C,E/zinc/copper (VISION-CAMRON PRESERVE ORAL) Take by mouth. Problem List As Of Date: 10/31/2024 (None) Encounter Status:Closed by HAVEN BAXTER on 10/31/24 [facility] EGD Reporton 10-23-2024 EGD Report [facility] Medical Records Department [address] [place] [address] EGD Report MR#: [id number] Acct: [id number] Name: KERRI BURGESS Rep #: [id number] : 1945 79 From: Scott Hermosillo DO PCP: Dr. May Mckeon MD Status:[facility] Patient Name: Kerri Burgess Procedure Date: 10/23/2024 [...] PO BID. Procedure Code(s): --- Professional --- 34684, Small intestinal endoscopy, enteroscopy beyond second portion of duodenum, not including ileum; with biopsy, single or multiple CPT copyright 2021 [employer]. All rights reserved. The codes documented in this report are preliminary and upon outside rigger review may be revised to meet current compliance requirements. Scott Hermosillo DO 10/23/2024 12:21:59 PM This report has been signed electronically. Number of Addenda: 0 Note Initiated On: 10/23/2024 11:43 AM 10/23/24 1222 Date _ (more content not included)... Normal [facility] Immunohistochemical Stainson 10-23-2024 Immunohistochemical Stains Patient Age/Sex Location Account Attending Physician KERRI BURGESS 79/F EN [id number] Scott Hermosillo DO Specimen: [id number] Received: 10/23/24135 Status: JERRY Dominguez Num: [id number] Spec Type: EGD BIOPSY Subm Dr: Scott Hermosillo DO [place]IV[place] OPERATION: EGD, biopsy PRE-OP DIAGNOSIS: Epigastric pain TISSUE SUBMITTED: A- Gastric ulcer biopsy MICROSCOPIC DIAGNOSIS A. Stomach, "ulcer", biopsy: - Eroded/ulcerated oxyntic mucosa, negative for malignancy. - IHC for H pylori organisms pending, to be reported in an addendum. MICROSCOPIC DESCRIPTION Slides are reviewed. GROSS DESCRIPTION A. Received in fixative is one container labeled with the patient's name and designated "Gastric ulcer biopsy." The specimen consists of three irregular fragments of light méndez soft tissue, each measuring 0.4 cm. The specimen is totally submitted in one cassette. LIZBETH/ 10/23/2024 CPT:42211,38326 ADDENDUM Addendum 1 Entered: 11/06/24 This addendum is to report the IHC for H pylori organisms: The immunostain is negative for H.pylori organisms. All matched controls reacted appropriately. These tests were developed and their performance characteristics determined by [facility]. They may not have been cleared or approved by the U.S. Food and Drug Administration. The FDA has determined that such clearance or approval is not necessary.??? The above immunohistochemical/dualISH ???markers are reviewed by the Pathologist Patient Age/Sex Location Account Attending Physician KERRI BURGESS 79/F EN [id number] Scott Hermosillo DO ADDENDUM (Continued) Addendum Signed (signature on file) Dr. Merle Barnhart MD 11/06/24 1315 Patient Age/Sex Location Account Attending Physician KERRI BURGESS 79/F EN [id number] Scott Hermosillo, DO Signed (signature on file) Dr. Merle Barnhart MD 11/05/24 1431 [facility] Comment on above: Performed By: #### BRIAN YAO #### [facility] [address] [facility]. [place], [place], [id number] MR/POSTOP.Xi 10-23-2024 MR/POSTOP.[facility] Medical Records Department [address] [facility] [address] Anesthesia Postop Eval I 10/23/24 1228 MR#: [id number] Acct: [id number] Name: KERRI BURGESS Rep #: [id number] : 1945 79 From: Brien Carpio PCP: Dr. May Mckeon MD Status:[facility] Y Race: C Location: [place] [address] Anesthesia: Postop Eval I Current Vital Signs [...] Postop Eval 1 completed: Yes 10/23/24 1228 Date Brien Carpio Cosigner Signature: Date CC: Signed Normal [facility] MR/[id number] 10-23-2024 [facility] Medical Records Department [address] [place] [address] Anesthesia Postop Eval II 10/23/24 1710 MR#: [id number] Acct: [id number] Name: KERRI BURGESS Rep #: [id number] : 1945 79 From: Ethel Houser CRNA PCP: Dr. May Mckeon MD Status:[facility] Y Race: C Location: EN Anesthesia Postop Eval I Sum Postop Eval Completion status Anesthesia document: Postop Eval 1 completed: Yes Anesthesia Postop Eval I Summary Anesthesia Postop Eval I Summary: Anesthesia Postop Eval I: Assessment Summary Airway patent Yes 10/23/24 12:28 [email or web address] Spontaneous unlabored Yes 10/23/24 12:28 [email or web address] respirations Mental status Awake,Calm 10/23/24 12:28 [email or web address] nausea No 10/23/24 12:28 [email or web address] Vomiting No 10/23/24 12:28 [email or web address] Anesthesia Postop Eval I: Fluid Summary Crystalloid volume administer 300 10/23/24 12:28 [email or web address] (ml) Colloids volume administered ( ml) Blood Product volume administered (ml) Total IV fluid infused 300 10/23/24 12:28 [email or web address] Anesthesia Postop Eval I: Summary Notes Anesthesia Complication No 10/23/24 12:28 [email or web address] Anesthesia Complication Comment: Post-operative progress note Anesthesia: Postop Eval II Evaluation Mental status: Awake and Calm Pain Level: 0 nausea: No Vomiting: No Complications Anesthesia Complication: No 10/23/24 171 Date Ethel Mckeon Signature: Date CC: Signed Normal [facility] Surgery Specimen Level Shandra 10-23-2024 Surgery Specimen Level IV Patient Age/Sex Location Account Attending Physician KERRI BURGESS 79/F EN [id number] Scott Hermosillo DO Specimen: [id number] Received: 10/23/24 Status: JERRY Dominguez Num: [id number] Spec Type: EGD BIOPSY Subm Dr: DO CODIE GarcíaER OPERATION: EGD, biopsy PRE-OP DIAGNOSIS: Epigastric pain TISSUE SUBMITTED: A- Gastric ulcer biopsy MICROSCOPIC DIAGNOSIS A. Stomach, "ulcer", biopsy: - Eroded/ulcerated oxyntic mucosa, negative for malignancy. - IHC for H pylori organisms pending, to be reported in an addendum. MICROSCOPIC DESCRIPTION Slides are reviewed. GROSS DESCRIPTION A. Received in fixative is one container labeled with the patient's name and designated "Gastric ulcer biopsy." The specimen consists of three irregular fragments of light méndez soft tissue, each measuring 0.4 cm. The specimen is totally submitted in one cassette. Jay 10/23/2024 [facility]:[id number] Patient Age/Sex Location Account Attending Physician KERRI BURGESS 79/F EN [id number] Scott Bay DO Signed (signature on file) Dr. Merle Barnhart MD 11/05/24 1431 Normal [facility] Comment on above: Performed By: #### BRIAN YAO #### [facility] [address] [place], [place], [id number] Gastroenterology Visit Repor ton 10-15-2024 Gastroenterology Visit Report [facility] Gastroenterology [address] [place] [address] OFFICE VISIT Date of Service: 10/15/24 MR#: [id number] Acct: [id number] Name: KERRI BURGESS Rep #: [id number] : 1945 Provider: EULA lamar Age/Sex: 79/F [place] [facility]: Signed Intake Intake Visit Reasons: Epigastric [...] to the office today for establishment with [facility] regarding concerns for epigastric abdominal pain that "shoots straight through to her spine." She reports having a history of a thoracic compression fracture, recent MRI, per her report, showed healing of this compression fracture and her orthopedic spine surgeon told her the "back pain was not due to her spine." She was given a referral to see pain management and has an appointment in October. She reports "dealing with back pain since July of last year" and admits to "taking more Tylenol and ibuprofen than I should've," and then started having this severe searing [...] briefly reduce the severity of epigastric pain, "for about 30 minutes, long enough that I think it's over and then the pain comes back." She denies difficulty chewin (more content not included)... Normal [facility] AMYon 10-05-2024 Amylase [Catalytic activity/Vol] 22 U/L Low 25-115 [facility] Comment on above: Performed By: #### A MY, LIP #### [address] [address] LABORATORYOrdered By: SYSTEM SYSTEM on 10-05-2024 Amylase [Catalytic activity/Vol] 22 U/L Low 25 - 115 U/L AO ADM SS Lipase [Catalytic activity/Vol] 26 U/L Normal 16 - 77 U/L AO ADM SS LIPon 10-05-2024 Lipase Level 26 U/L Normal 16-77 [facility] Comment on above: Performed By: #### A MY, LIP #### [address] [address] [place] MAMMOGRAM SCREENING BILAT ERAL W/TOMOon 09-23-2024 [place] MAMMOGRAM SCREENING BILATERAL W/JOSE D ORIGINAL FROM: [facility] [address] [place] [address] PROCEDURE FOR: KERRI BURGESS [address] [place] [address] Home: Work: PID#: [id number] Exam#: [id number] : 1945 Age: 79 TO: MAY MCKEON MD [place] [id number] [place] [address] Fax: NO FAX EXAMINATION: SCREENING DIGITAL BILATERAL [...] screening with annual mammograms is recommended. [facility] risk calculations, generated with the history provided, [...] addition to annual mammographic screening per the [employer]. BIRADS: MAMMOGRAM BI-RADS: 2: Benign finding RECALL: 1 year screening RECALL TYPE: mammo LETTER SENT: Normal BI-RADS 1 and 2 Interpreted by: Sydnie Smith Preliminary Report By: Sydnie Smith Electronically signed By Sydnie Smith Dictated Date: 09/23/2024 8:22:24 AM Prelim Date: 09/23/2024 8:24:17 AM Sign Date: 09/23/2024 8:24:17 AM Ordering Provider: MAY MCKEON Video Editing Intern: OBDULIA OCONNELL RT(R)(M) letter sent: Normal BI-RADS 1 and 2 Mammogram BI-RADS: 2 Benign Normal [facility] .Auto Diffon 08-16-2024 Basophil, Absolute 0.0 10 3/mcL Normal 0.0-0.3 [facility] Comment on above: Performed By: #### G FR, A1C, ADIFF, LIPID, VIDH, MG, ANEU, TSH, CMP, CBC ####[place] [address]#### B12 ####[address] [address] Basophils/100 WBC (Bld) 0.7 % Normal 0.0-2.5 [facility] Comment on above: Performed By: #### G FR, A1C, ADIFF, LIPID, VIDH, MG, ANEU, TSH, CMP, CBC ####[place] [address]#### B12 ####[address] [address] Eosinophil, Absolute 0.1 10 3/mcL Normal 0.0-0.7 [facility] Comment on above: Performed By: #### G FR, A1C, ADIFF, LIPID, VIDH, MG, ANEU, TSH, CMP, CBC ####[place] [address]#### B12 ####[address] [address] Eosinophils/100 WBC (Bld) 1.9 % Normal 0.0-6.0 [facility] Comment on above: Performed By: #### G FR, A1C, ADIFF, LIPID, VIDH, MG, ANEU, TSH, CMP, CBC ####[place] [address]#### B12 ####[address] [address] Lymphocyte, Absolute 1.5 10 3/mcL Normal 0.9-4.3 [facility] Comment on above: Performed By: #### G FR, A1C, ADIFF, LIPID, VIDH, MG, ANEU, TSH, CMP, CBC ####[place] [address]#### B12 ####[address] [address] Lymphocytes/100 WBC (Bld) 23.2 % Normal 20.0-40.0 [facility] Comment on above: Performed By: #### G FR, A1C, ADIFF, LIPID, VIDH, MG, ANEU, TSH, CMP, CBC ####[place] [address] [place], [place] [address]#### B12 ####[address] [address] Monocyte, Absolute 0.5 10 3/mcL Normal 0.1-1.4 [facility] Comment on above: Performed By: #### G FR, A1C, ADIFF, LIPID, VIDH, MG, ANEU, TSH, CMP, CBC ####[place] [address]#### B12 ####[address] [address] Monocytes/100 WBC (Bld) 8.3 % Normal 2.0-13.0 [facility] Comment on above: Performed By: #### G FR, A1C, ADIFF, LIPID, VIDH, MG, ANEU, TSH, CMP, CBC ####[place] [address]#### B12 ####[address] [address] Neutrophils/100 WBC (Bld) 65.9 % Normal 50.0-75.0 [facility] Comment on above: Performed By: #### G FR, A1C, ADIFF, LIPID, VIDH, MG, ANEU, TSH, CMP, CBC ####[place] [address] [place] [address]#### B12 ####[address] [address] .GFRon 08-16-2024 Estimated Glomerular Filtration Rate 54 ml/min/1.73sqm Normal [facility] Comment on above: Result Comment: Stages of [...] eGFR results. Performed By: #### G FR, BMP, MG #### [place] [id number] .NEUABSon 08-16-2024 Neutrophil, Absolute 4.3 10 3/mcL Normal 2.3-8.1 [facility] Comment on above: Performed By: #### G FR, A1C, ADIFF, LIPID, VIDH, MG, ANEU, TSH, CMP, CBC ####[place] [address]#### B12 ####[place] [address] .Urinalysis Microscopic (AO) on 08-16-2024 UA RBC None Seen Normal None Seen [facility] Comment on above: Performed By: #### M ALBR, UA, UAMICAO ####[place] [address] UA Renal Epithelial 0-5 Abnormal [facility] Comment on above: Performed By: #### M ALBR, UA, UAMICAO ####[place] [address] UA Squam Epithelial 0-5 Abnormal None Seen [facility] Comment on above: Performed By: #### M ALBR, UA, UAMICAO ####[place] [address] UA WBC 0-5 Abnormal None Seen [facility] Comment on above: Performed By: #### M ALBR, UA, UAMICAO ####[place] [address] A1Con 08-16-2024 Glucose [Mass/Vol] 137 mg/dL Normal [facility] Comment on above: Result Comment: Shahida mated Average Glucose calculated by equation ((28.7xA1C)-46.7) Estimated average glucose (eAG) is a calculated value from Hemoglobin A1C and is passenger service representative of the average blood glucose level in the last 2-3 month period. Normal range: less than 114 mg/dL Performed By: #### G FR, BMP, MG #### [place] [address] HbA1c (Bld) [Mass fraction] 6.4 % Normal 4.3-6.4 [facility] Comment on above: Performed By: #### G FR, BMP, MG #### [place] [address] [place] [id number] B12on 08-16-2024 Cobalamin (Vitamin B12) [Mass/Vol] 738 pg/mL Normal 211-911 [facility] Comment on above: Performed By: #### G FR, BMP, MG #### [place] [address] CBCon 08-16-2024 Erythrocyte distribution width (RBC) [Ratio] 13.9 % Normal 11.5-15.5 [facility] Comment on above: Performed By: #### G FR, A1C, ADIFF, LIPID, VIDH, MG, ANEU, TSH, CMP, CBC ####[place] [address]#### B12 ####[place] [address] Hematocrit (Bld) [Volume fraction] 39.0 % Normal 34.0-46.0 [facility] Comment on above: Performed By: #### G FR, A1C, ADIFF, LIPID, VIDH, MG, ANEU, TSH, CMP, CBC ####[place] [address]#### B12 ####[place] [address] Hgb 13.2 G/dL Normal 12.0-16.0 [facility] Comment on above: Performed By: #### G FR, A1C, ADIFF, LIPID, VIDH, MG, ANEU, TSH, CMP, CBC ####[place] [address]#### B12 ####[place] [address] MCH (RBC) [Entitic mass] 30.1 pg Normal 27.0-33.0 [facility] Comment on above: Performed By: #### G FR, A1C, ADIFF, LIPID, VIDH, MG, ANEU, TSH, CMP, CBC ####[place] [address]#### B12 ####[place] [address] MCHC 33.8 G/dL Normal 32.0-36.0 [facility] Comment on above: Performed By: #### G FR, A1C, ADIFF, LIPID, VIDH, MG, ANEU, TSH, CMP, CBC ####[place] [address]#### B12 ####[place] [address] MCV (RBC) [Entitic vol] 89.2 fL Normal 80.0-99.0 [facility] Comment on above: Performed By: #### G FR, A1C, ADIFF, LIPID, VIDH, MG, ANEU, TSH, CMP, CBC ####[place] [address]#### B12 ####[place] [address] Platelet 185 10 3/mcL Normal 150-450 [facility] Comment on above: Performed By: #### G FR, A1C, ADIFF, LIPID, VIDH, MG, ANEU, TSH, CMP, CBC ####[place] [address]#### B12 ####[place] [address] Platelet mean volume (Bld) [Entitic vol] 9.0 fL Normal 6.6-10.5 [facility] Comment on above: Performed By: #### G FR, A1C, ADIFF, LIPID, VIDH, MG, ANEU, TSH, CMP, CBC ####[place] [address]#### B12 ####[place] [id number] RBC 4.37 10 6/mcL Normal 4.10-5.30 [facility] Comment on above: Performed By: #### G FR, A1C, ADIFF, LIPID, VIDH, MG, ANEU, TSH, CMP, CBC ####[address] [address]#### B12 ####[place] [address] WBC 6.6 10 3/mcL Normal 4.5-10.8 [facility] Comment on above: Performed By: #### G FR, A1C, ADIFF, LIPID, VIDH, MG, ANEU, TSH, CMP, CBC ####[place] [address]#### B12 ####[place] [address] CMPon 08-16-2024 Albumin Level 3.6 G/dL Normal 3.4-4.8 [facility] Comment on above: Performed By: #### G FR, BMP, MG #### [address] [address] Albumin/Globulin [Mass ratio] 0.9 {ratio} Low 1.1-2.5 [facility] Comment on above: Performed By: #### G FR, BMP, MG #### [address] [address] ALP [Catalytic activity/Vol] 136 U/L High 40-135 [facility] Comment on above: Performed By: #### G FR, BMP, MG #### [address] [address] ALT [Catalytic activity/Vol] 16 U/L Normal 14-59 [facility] Comment on above: Performed By: #### G FR, BMP, MG #### [address] [address] AST [Catalytic activity/Vol] 21 U/L Normal 10-40 [facility] Comment on above: Performed By: #### G FR, BMP, MG #### [address] [address] Bili Total 0.3 mg/dL Normal 0.2-1.0 [facility] Comment on above: Result Comment: Use of this assay is not recommended for patients undergoing treatment with eltrombopag due to the potential for falsely elevated results. Performed By: #### G FR, BMP, MG #### [address] [address] BUN/Creatinine Ratio 24 ratio Normal 7-27 [facility] Comment on above: Performed By: #### G FR, BMP, MG #### [address] [address] Calcium [Mass/Vol] 9.3 mg/dL Normal 8.4-10.2 [facility] Comment on above: Performed By: #### G FR, BMP, MG #### [address] [address] Chloride [Moles/Vol] 104 mmol/L Normal 98-107 [facility] Comment on above: Performed By: #### G FR, BMP, MG #### [address] [address] CO2 [Moles/Vol] 30 mmol/L Normal 23-31 [facility] Comment on above: Performed By: #### G FR, BMP, MG #### [address] [address] Creatinine [Mass/Vol] 1.06 mg/dL High 0.55-1.02 [facility] Comment on above: Result Comment: Test ing performed on Siemens Dimension EXL analyzer using a modified kinetic Demario technique. Performed By: #### G FR, BMP, MG #### [address] [address] Electrolyte Balance 7.0 mEq/L Normal 4.0-15.0 [facility] Comment on above: Performed By: #### G FR, BMP, MG #### [address] [address] Globulin 4.1 G/dL High 1.5-3.8 [facility] Comment on above: Performed By: #### G FR, BMP, MG #### [address] [address] Glucose [Mass/Vol] 98 mg/dL Normal 83-110 [facility] Comment on above: Performed By: #### G FR, BMP, MG #### [address] [address] Potassium [Moles/Vol] 4.4 mmol/L Normal 3.5-5.1 [facility] Comment on above: Performed By: #### G FR, BMP, MG #### [address] [address] Sodium [Moles/Vol] 141 mmol/L Normal 136-145 [facility] Comment on above: Performed By: #### G FR, BMP, MG #### [address] [address] Total Protein 7.7 G/dL Normal 6.4-8.2 [facility] Comment on above: Performed By: #### G FR, BMP, MG #### [address] [address] Urea nitrogen [Mass/Vol] 25 mg/dL High 7-18 [facility] Comment on above: Performed By: #### G FR, BMP, MG #### [address] [address] LIPIDon 08-16-2024 Cholesterol [Mass/Vol] 210 mg/dL High 0-200 [facility] Comment on above: Result Comment: Chol esterol Reference Interval: Less than 200 Desirable 200-239 Borderline high risk 240 and above High risk Performed By: #### G FR, BMP, MG #### [address] [address] Cholesterol in HDL [Mass/Vol] 53 mg/dL Normal 40-60 [facility] Comment on above: Performed By: #### G FR, BMP, MG #### [address] [address] Cholesterol in LDL [Mass/Vol] 115 mg/dL Normal 0-130 [facility] Comment on above: Performed By: #### G FR, BMP, MG #### [address] [address] Triglyceride [Mass/Vol] 211 mg/dL High 0-150 [facility] Comment on above: Result Comment: Trig lyceride Reference Interval: Less than 150 Normal 150-199 Borderline high risk 200-499 High risk 500 or higher Very high risk Performed By: #### G FR, BMP, MG #### [address] [address] MALBRon 08-16-2024 U Creatinine 28.1 mg/dL Normal [facility] Comment on above: Performed By: #### M ALBR, UA, UAMICAO #### [address] [address] U Microalb 4.9 mg/L Normal [facility] Comment on above: Performed By: #### M ALBR, UA, UAMICAO #### [address] [address] U Ratio Alb/Cre 17 mg/G Normal 0-30 [facility] Comment on above: Performed By: #### M ALBR, UA, UAMICAO #### [address] [address] MGon 08-16-2024 Magnesium [Mass/Vol] 2.2 mg/dL Normal 1.8-2.4 [facility] Comment on above: Performed By: #### G FR, A1C, ADIFF, LIPID, VIDH, MG, ANEU, TSH, CMP, CBC ####[address] [address]#### B12 ####[address] [address] TSHon 08-16-2024 TSH Qn 3.19 m[IU]/L Normal 0.36-3.74 [facility] Comment on above: Performed By: #### G FR, BMP, MG #### [place] [address] UAon 08-16-2024 Color (U) Yellow Normal [facility] Comment on above: Performed By: #### M ALBR, UA, UAMICAO ####[address] [place] [address] Glucose (U) [Mass/Vol] Negative Normal Negative [facility] Comment on above: Performed By: #### M ALBR, UA, UAMICAO ####[address] [place] [address] Ketones Ql (U) Negative Normal Negative [facility] Comment on above: Performed By: #### M ALBR, UA, UAMICAO ####[address] [place] [place] [address] UA Appear Clear Normal Clear [facility] Comment on above: Performed By: #### M ALBR, UA, UAMICAO ####[place] [address] UA Blood Negative Normal Negative [facility] Comment on above: Performed By: #### M ALBR, UA, UAMICAO ####[address] [place] [place] [address] UA Leuk Est Small Abnormal Negative [facility] [place] Comment on above: Performed By: #### M ALBR, UA, UAMICAO ####[address] [place] [address] UA Nitrite Negative Normal Negative [facility] [place] Comment on above: Performed By: #### M ALBR, UA, UAMICAO ####[address] [place] [address] UA pH 5.5 Normal 5.0 - 8.0 [facility] [place] Comment on above: Performed By: #### M ALBR, UA, UAMICAO ####[address] [place] [address] UA Protein Negative Normal Negative [facility] [place] Comment on above: Performed By: #### M ALBR, UA, UAMICAO ####[address] [place], [place] [address] UA Spec Grav 1.010 Abnormal 1.015-1.02 5 [facility] [place] Comment on above: Performed By: #### M ALBR, UA, UAMICAO ####[id number] [place], [place] [address] UA Specimen Type Void Normal [facility] [place] Comment on above: Performed By: #### M ALBR, UA, UAMICAO ####Mark [address] [place] [id number] UA Urobilinogen 0.2 E.U./dL Normal 0.2-1.0 [facility] [place] Comment on above: Performed By: #### M ALBR, UA, UAMICAO ####[address] [place] [id number] Urobilinogen (U) [Mass/Vol] Negative Normal Negative [facility] [place] Comment on above: Performed By: #### M ALBR, UA, UAMICAO ####[address] [place], [place] [address] VIDHon 08-16-2024 Vit. D 25-Hydroxy 41.2 ng/mL Normal [facility] [place] Comment on above: Result Comment: Inte rpretive Values Based on Total 25(OH) Vitamin D: Deficient <20 ng/mL Insufficient 20 - <30 ng/mL Sufficient 30-100 ng/mL Performed By: #### G FR, BMP, MG #### [place] [id number] MRI SPINE LUMBAR W/ + W/O CO [...] Date: 07/20/2024 5:15:04 AM Ordering Provider: GALA Mota [facility] [place] MRI SPINE THORACIC W/ + W/O CONTRASTon [...] 07/20/2024 5:17:26 AM Ordering Provider: GALA SONG [facility] XR SPINE LUMBAR AP/LAT/FLEX/ EXTon 07-05-2024 XR [...] Sign Date: 07/05/2024 12:35:51 AM Ordering Provider: [facility] MAIN XR SPINE THORACIC 2 VIEWSon 07-05-2024 [...] Sign Date: 07/05/2024 1:00:02 AM Ordering Provider: [facility] MAIN XR CHEST 2 VIEWSon XR CHEST [...] the resident's findings and interpretation. Interpreted by: Raiza Peters Preliminary Report By: Diamond Peralta Electronically signed By Raiza Peters Dictated Date: 07/04/2024 3:25:59 PM Prelim Date: 07/04/2024 5:40:49 PM Sign Date: 07/04/2024 5:40:49 PM Ordering Provider: GALA SONG [facility] .GFRon 03-16-2024 GFR 60 ml/min/1.73sqm [facility] Comment on above: Result Comment: GFR Population [...] By: #### G FR, BMP, MG #### [address] [address] GFR Non- 49 ml/min/1.73sqm [facility] Comment on above: Result Comment: GFR Population [...] By: #### G FR, BMP, MG #### [address] [address] .Urinalysis Microscopic (AO) on 03-16-2024 UA RBC 0-5 Abnormal None Seen [facility] [place] Comment on above: Performed By: #### U AMICAO, UA #### [address] [address] UA Squam Epithelial 0-5 Abnormal None Seen [facility] Comment on above: Performed By: #### U AMICAO, UA #### [address] [address] UA WBC 0-5 Abnormal None Seen [facility] [place] Comment on above: Performed By: #### U AMICAO, UA #### [address] [address] BMPon 03-16-2024 BUN/Creatinine Ratio 24 ratio Normal 7-27 [facility] Comment on above: Performed By: #### G FR, BMP, MG #### [address] [address] Calcium [Mass/Vol] 9.2 mg/dL Normal 8.4-10.2 [facility] Comment on above: Performed By: #### G FR, BMP, MG #### [address] [address] Chloride [Moles/Vol] 105 mmol/L Normal 98-107 [facility] Comment on above: Performed By: #### G FR, BMP, MG #### [address] [address] CO2 [Moles/Vol] 28 mmol/L Normal 23-31 [facility] [place] Comment on above: Performed By: #### G FR, BMP, MG #### [address] [address] Creatinine [Mass/Vol] 1.08 mg/dL High 0.55-1.02 [facility] Comment on above: Result Comment: Test ing performed on Siemens Dimension EXL analyzer using a modified kinetic Demario technique. Performed By: #### G FR, BMP, MG #### [address] [address] Electrolyte Balance 9.0 mEq/L Normal 4.0-15.0 [facility] Comment on above: Performed By: #### G FR, BMP, MG #### [address] [address] Glucose [Mass/Vol] 95 mg/dL Normal 83-110 [facility] Comment on above: Performed By: #### G FR, BMP, MG #### [place] [place], [place] [address] Potassium [Moles/Vol] 5.3 mmol/L High 3.5-5.1 [facility] Comment on above: Performed By: #### G FR, BMP, MG #### [address] [address] Sodium [Moles/Vol] 142 mmol/L Normal 136-145 [facility] Comment on above: Performed By: #### G FR, BMP, MG #### [address] [address] Urea nitrogen [Mass/Vol] 26 mg/dL High 7-18 [facility] [place] Comment on above: Performed By: #### G FR, BMP, MG #### [address] [address] LABORATORYOrdered By: Deshawn reyna on 03-16-2024 Appearance [...] Ketones Ql (U) Negative Normal AO Auto Urine SS UA Leuk Est Small *ABN* (03/16/24 [...] above: Interpretive Data: T esting performed on Siemens Dimension EXL analyzer using [...] 03-16-2024 Magnesium [Mass/Vol] 2.2 mg/dL Normal 1.8-2.4 [facility] Comment on above: Performed By: #### G FR, BMP, MG #### [address] [address] UAon 03-16-2024 Color (U) Yellow Normal [facility] [place] Comment on above: Performed By: #### U AMICAO UA #### [address] [address] Glucose (U) [Mass/Vol] Negative Normal Negative [facility] [place] Comment on above: Performed By: #### U AMICAO UA #### [address] [address] Ketones Ql (U) Negative Normal Negative [facility] [place] Comment on above: Performed By: #### U AMICAO, UA #### [place] [address] UA Appear Clear Normal Clear [facility] [place] Comment on above: Performed By: #### U AMICAO, UA #### [place] [address] UA Blood Negative Normal Negative [facility] [place] Comment on above: Performed By: #### U AMICAO, UA #### [place] [address] UA Leuk Est Small Abnormal Negative [facility] [place] Comment on above: Performed By: #### U AMICAO, UA #### [place] [address] UA Nitrite Negative Normal Negative [facility] [place] Comment on above: Performed By: #### U AMICAO, UA #### [place] [address] UA pH 5.5 Normal 5.0 - 8.0 [facility] [place] Comment on above: Performed By: #### U AMICAO, UA #### [place] [address] UA Protein Negative Normal Negative [facility] [place] Comment on above: Performed By: #### U AMICAO, UA #### [place] [address] UA Spec Grav 1.015 Normal 1.015-1.[address] [place] [address] Comment on above: Performed By: #### U AMICAO, UA #### [place] [address] UA Specimen Type Void Normal [facility] [place] Comment on above: Performed By: #### U AMICAO, UA #### [place] [address] UA Urobilinogen 0.2 E.U./dL Normal 0.2-1.0 [facility] [place] Comment on above: Performed By: #### U TEOFILO SINGH #### [facility] [address] [place], [place] [address] Urobilinogen (U) [Mass/Vol] Negative Normal Negative [facility] [place] Comment on above: Performed By: #### U TEOFILO SINGH #### [address] [place], [place] [address] CT THORAX W/ CONTRASTon 10-31 CT THORAX [...] finding nodule follow up, CXR done @ [place]. pt states that she fell in july and is having rt sided rib pain. denies CP and SOB. former smoker FINDINGS: The heart size is within normal limits.There is no pericardial thickening or effusion.Multi-vessel coronary artery atherosclerotic irregularity. Suspected aortic valve calcification.Nonaneurysmal atherosclerotic thoracic aorta. Slightly dilated main pulmonary artery, 3.0 cm; this suggests pulmonary hypertension. The visualized trachea and mainstem bronchi are patent. No pneumothorax or pleural effusion.No pulmonary consolidation.Bibasilar dependent atelectatic change. Scattered areas of minimal [...] by: Patric Wiseman MD Preliminary Report By: Isma Murrieta Electronically signed By Patric Wiseman MD Dictated Date: 11/23/2023 9:48:15 AM Prelim Date: 11/23/2023 10:16:36 AM Sign Date: 11/23/2023 10:16:36 AM Ordering Provider: MAY MCKEON [facility] ([place] CHEST 2 VIEWSon XR CHEST 2 [...] 10/31/2023 11:39:59 AM Ordering Provider: MAY MCKEON [facility] [place] .GFRon 10-08-2023 GFR >60 [facility] ([place]) Comment on above: Result Comment: GFR Population [...] By: #### C RE, BUN, GFR #### [place] [address] GFR Non- 58 ml/min/1.73sqm Normal [facility] ([place]) Comment on above: Result Comment: GFR Population [...] By: #### C RE, BUN, GFR #### [place] [address] BUNon 10-08-2023 Urea nitrogen [Mass/Vol] 12.0 mg/dL Normal 8.0-22.0 [facility] ([place]) Comment on above: Performed By: #### C RE, BUN, GFR #### [place] [address] CREon 10-08-2023 Creatinine [Mass/Vol] 0.94 mg/dL Normal 0.50-1.20 [facility] ([place]) Comment on above: Performed By: #### C RE, BUN, GFR #### [place] [address] LABORATORYOrdered By: SYSTEM SYSTEM on 10-08-2023 Creatinine [Mass/Vol] 0.94 mg/dL Normal 0.50 - 1.20 mg/dL ADM SS GFR/1.73 sq M.predicted among blacks MDRD (S/P/Bld) [Vol rate/Area] ml/min/1.73sqm Invalid Interpretation Code MENABANQER Chemistry S Comment on above: Interpretive Data: [...] [Vol rate/Area] 58 ml/min/1.73sqm Invalid Interpretation Code MENABANQER Chemistry S Comment on above: Interpretive Data: [...] 12.0 mg/dL Normal 8.0 - 22.0 mg/dL [facility] SS XR FLUORO 1-2 HRS TECH TIMEo [...] 10/07/2023 12:09:59 PM Ordering Provider: GHULAM Mota [facility] ([place] .Auto Diffon 09-30-2023 Basophil, Absolute 0.0 10 3/mcL Normal 0.0-0.3 [facility] ([place]) Comment on above: Performed By: #### C RE, BUN, GFR #### [address] [address] Basophils/100 WBC (Bld) 0.5 % Normal 0.0-2.5 [facility] ([place]) Comment on above: Performed By: #### C RE, BUN, GFR #### [address] [address] Eosinophil, Absolute 0.2 10 3/mcL Normal 0.0-0.7 [facility] ([place]) Comment on above: Performed By: #### C RE, BUN, GFR #### [address] [address] Eosinophils/100 WBC (Bld) 3.2 % Normal 0.0-6.0 [facility] ([place] Comment on above: Performed By: #### C RE, BUN, GFR #### [address] [address] Lymphocyte, Absolute 1.2 10 3/mcL Normal 0.9-4.3 [facility] ([place]) Comment on above: Performed By: #### C RE, BUN, GFR #### [address] [address] Lymphocytes/100 WBC (Bld) 20.5 % Normal 20.0-40.0 [facility] ([place] Comment on above: Performed By: #### C RE, BUN, GFR #### [address] [address] Monocyte, Absolute 0.7 10 3/mcL Normal 0.1-1.4 [facility] ([place] Comment on above: Performed By: #### C RE, BUN, GFR #### [address] [address] Monocytes/100 WBC (Bld) 10.7 % Normal 2.0-13.0 [facility] ([place] Comment on above: Performed By: #### C RE, BUN, GFR #### [address] [address] Neutrophils/100 WBC (Bld) 65.1 % Normal 50.0-75.0 [facility] ([place] Comment on above: Performed By: #### C RE, BUN, GFR #### [address] [address] .GFRon 09-30-2023 GFR >60 Normal [facility] ([place] Comment on above: Result Comment: GFR Population [...] By: #### C RE, BUN, GFR #### [address] [address] GFR Non- 60 ml/min/1.73sqm Normal [facility] ([place] Comment on above: Result Comment: GFR Population [...] By: #### C RE, BUN, GFR #### [address] [address] .NEUABSon 09-30-2023 Neutrophil, Absolute 4.0 10 3/mcL Normal 2.3-8.1 [facility] ([place]) Comment on above: Performed By: #### C RE, BUN, GFR #### [place] [address] APTTon 09-30-2023 aPTT Coag (Bld) [Time] 30.1 s Normal 25.0-35.0 [facility] ([place] Comment on above: Result Comment: For Heparin anticoagulation therapy, the recommended therapeutic range is: 54-77 seconds (APTT Correlation with Anti-Xa therapeutic range of 0.3-0.7 units/ml). PLEASE REFERENCE THE PHARMACY PROTOCOL FOR DOSING. Performed By: #### C RE, BUN, GFR #### [address] [address] Heparin dose (APTT) None Normal [facility] ([place]) Comment on above: Performed By: #### C RE, BUN, GFR #### [address] [address] CBCon 09-30-2023 Erythrocyte distribution width (RBC) [Ratio] 14.1 % Normal 11.5-15.5 [facility] ([place] Comment on above: Performed By: #### C RE, BUN, GFR #### [address] [address] Hematocrit (Bld) [Volume fraction] 36.8 % Normal 34.0-46.0 [facility] ([place] Comment on above: Performed By: #### C RE, BUN, GFR #### [place] [address] Hgb 12.6 G/dL Normal 12.0-16.0 [facility] ([place] Comment on above: Performed By: #### C RE, BUN, GFR #### [place] [address] MCH (RBC) [Entitic mass] 30.8 pg Normal 27.0-33.0 [facility] ([place] Comment on above: Performed By: #### C RE, BUN, GFR #### [place] [address] MCHC 34.2 G/dL Normal 32.0-36.0 [facility] ([place] Comment on above: Performed By: #### C RE, BUN, GFR #### [place] [address] MCV (RBC) [Entitic vol] 90.0 fL Normal 80.0-99.0 [facility] ([place] Comment on above: Performed By: #### C RE, BUN, GFR #### [place] [address] Platelet 179 10 3/mcL Normal 150-450 [facility] ([place] Comment on above: Performed By: #### C RE, BUN, GFR #### [place] [address] Platelet mean volume (Bld) [Entitic vol] 8.0 fL Normal 6.6-10.5 [facility] ([place] Comment on above: Performed By: #### C RE, BUN, GFR #### [place] [address] RBC 4.09 10 6/mcL Low 4.10-5.30 [facility] ([place] Comment on above: Performed By: #### C RE, BUN, GFR #### [place] [address] WBC 6.1 10 3/mcL Normal 4.5-10.8 [facility] ([place] Comment on above: Performed By: #### C RE, BUN, GFR #### [address] [address] CMPon 09-30-2023 Albumin Level 3.3 G/dL Normal 3.2-4.8 [facility] ([place] Comment on above: Performed By: #### C RE, BUN, GFR #### [address] [address] Albumin/Globulin [Mass ratio] 1.0 {ratio} Normal 0.9-1.6 [facility] ([place] Comment on above: Performed By: #### C RE, BUN, GFR #### [address] [address] ALP [Catalytic activity/Vol] 161 U/L High 38-126 [facility] ([place] Comment on above: Performed By: #### C RE, BUN, GFR #### [place] [address] ALT [Catalytic activity/Vol] 23 U/L Normal 10-49 [facility] ([place] Comment on above: Performed By: #### C RE, BUN, GFR #### [place] [id number] AST [Catalytic activity/Vol] 21 U/L Normal 8-34 [facility] ([place] Comment on above: Performed By: #### C RE, BUN, GFR #### [place] [address] Bili Total 0.40 mg/dL Normal 0.20-1.20 [facility] ([place] Comment on above: Result Comment: Use of this assay is not recommended for patients undergoing treatment with eltrombopag due to the potential for falsely elevated results. Performed By: #### C RE, BUN, GFR #### [place] [id number] BUN/Creatinine Ratio 23.1 ratio High 10.0-22.0 [facility] ([place] Comment on above: Performed By: #### C RE, BUN, GFR #### [place] [id number] Calcium [Mass/Vol] 9.1 mg/dL Normal 8.7-10.4 [facility] ([place]) Comment on above: Performed By: #### C RE, BUN, GFR #### [address] [address] Chloride [Moles/Vol] 108 mmol/L Normal 98-110 [facility] ([place] Comment on above: Performed By: #### C RE, BUN, GFR #### [address] [address] CO2 [Moles/Vol] 30 mmol/L Normal 22-32 [facility] ([place] Comment on above: Performed By: #### C RE, BUN, GFR #### [address] [address] Creatinine [Mass/Vol] 0.91 mg/dL Normal 0.50-1.20 [facility] ([place]) Comment on above: Performed By: #### C RE, BUN, GFR #### [address] [address] Electrolyte Balance 5.0 mEq/L Normal 4.0-15.0 [facility] ([place]) Comment on above: Performed By: #### C RE, BUN, GFR #### [address] [address] Globulin 3.3 G/dL Normal 1.5-3.8 [facility] ([place] Comment on above: Performed By: #### C RE, BUN, GFR #### [address] [address] Glucose [Mass/Vol] 114 mg/dL Normal 82-115 [facility] ([place] Comment on above: Performed By: #### C RE, BUN, GFR #### [address] [address] Potassium [Moles/Vol] 4.6 mmol/L Normal 3.5-5.0 [facility] ([place]) Comment on above: Performed By: #### C RE, BUN, GFR #### [address] [address] Sodium [Moles/Vol] 143 mmol/L Normal 136-145 [facility] ([place] Comment on above: Performed By: #### C RE, BUN, GFR #### [address] [address] Total Protein 6.6 G/dL Normal 5.7-8.2 [facility] ([place] Comment on above: Result Comment: No te - New Reference Range in effect 19 Performed By: #### C RE, BUN, GFR #### [place] [id number] [place] [address] Urea nitrogen [Mass/Vol] 21.0 mg/dL Normal 8.0-22.0 [facility] ([place] Comment on above: Performed By: #### C RE, BUN, GFR #### [address] [address] LABORATORYOrdered By: SYSTEM SYSTEM on 09-30-2023 Albumin [...] 21 U/L Normal 8 - 34 U/L ADM SS Basophils (Bld) [#/Vol] 0.0 103/mcL [...] mg/dL Normal 8.7 - 10. 4 mg/dL ADM SS Chloride [Moles/Vol] 108 mmol/L Normal 98 - 11 0 mEq/L ADM SS CO2 [Moles/Vol] 30 mmol/L Normal [...] (S/P/Bld) [Vol rate/Area] ml/min/1.73sqm Invalid Interpretation Code MENABANQER Chemistry S Comment on above: Interpretive Data: [...] [Vol rate/Area] 60 ml/min/1.73sqm Invalid Interpretation Code MENABANQER Chemistry S Comment on above: Interpretive Data: [...] 114 mg/dL Normal 82 - 115 mg/dL ADM SS Hematocrit (Bld) [Volume fraction] 36.8 [...] 30.8 pg Normal 27.0 - 33.0 pg Workflow SS MCHC 34.2 G/dL Normal 32.0 - 36.0 G/dL Workflow SS MCV (RBC) [Entitic vol] 90.0 fL Normal 80.0 - 99.0 fL Workflow SS Monocytes (Bld) [#/Vol] 0.7 103/mcL Normal 0.1 - 1.4 10^3/mcL AH Workflow SS Monocytes/100 WBC (Bld) 10.7 % Normal 2.0 - 13.0 % AH Workflow SS Neutrophils (Bld) [#/Vol] 4.0 103/mcL Normal 2.3 - 8.1 10^3/mcL AH Workflow SS Neutrophils/100 WBC (Bld) 65.1 % Normal 50.0 - 75.0 % Workflow SS Platelet mean volume (Bld) [Entitic vol] 8.0 fL Normal 6.6 - 10.5 fL Workflow SS Platelets (Bld) [#/Vol] 179 103/mcL Normal 150 - 450 10^3/mcL Workflow SS Potassium [Moles/Vol] 4.6 mmol/L Normal 3.5 - 5.0 mEq/L ADM SS Protein [Mass/Vol] 6.6 G/dL Normal 5.7 - 8.2 G/dL ADM SS Comment on above: Interpretive Data: * *Note - New Reference Range in effect 20 RBC (Bld) [#/Vol] 4.09 106/mcL Low 4.10 - 5.30 10^6/mcL AH Workflow SS Sodium [Moles/Vol] 143 [...] Ketones Ql (U) Negative Normal AH Auto Urine SS UA Leuk Est Large *ABN* (09/30/23 [...] sed) [#/Area] 5-10 /HPF Invalid Interpretation Code AH Auto Urine SS LABORATORYOrdered By: Rosendo Solano on 09-30-2023 aPTT Coag (Bld) [Time] 30.1 s Normal 25.0 - 35.0 seconds [facility] SS Comment on above: Interpretive Data: F or Heparin anticoagulation therapy, the recommended therapeutic range is: 54-77 seconds (APTT Correlation with Anti-Xa therapeutic range of 0.3-0.7 units/ml). PLEASE REFERENCE THE PHARMACY PROTOCOL FOR DOSING. Heparin dose (APTT) None Normal Coagulation S PT Coag (PPP) [Time] 11.2 s Normal 9.0 - 1 4.4 seconds [facility] SS Comment on above: Interpretive Data: E ffective 11/14/07, Protime results may be affected by some antibiotics (i.e. Ciprofloxacin, Azithromycin, Bactrim) which may potentiate the action of oral anticoagulants, with further increases in Protime/INR. PT International Ratio 1.0 ratio Invalid Interpretation Code [facility] Comment on above: Interpretive Data: [employer] (CHEST, 1991, 102:312S-25S) recommended therapeutic range for oral anticoagulant therapy is: LOW RISK: Prophylaxis of venous thrombosis INR: 2.0-3.0 Treatment of pulmonary embolism 2.0-3.0 Prevention of systemic embolism 2.0-3.0 HIGH RISK: Mechanical prosthetic valves 2.5-3.5 PROon 09-30-2023 INR Coag (PPP) [Relative time] 1.0 {INR} Normal [facility] ([place]) Comment on above: Result Comment: [employer] (CHEST, 1991, 102:312S-25S) recommended therapeutic range for oral anticoagulant therapy is: LOW RISK: Prophylaxis of venous thrombosis INR: 2.0-3.0 Treatment of pulmonary embolism 2.0-3.0 Prevention of systemic embolism 2.0-3.0 HIGH RISK: Mechanical prosthetic valves 2.5-3.5 Performed By: #### C RE, BUN, GFR #### [place] [address] PT Coag (PPP) [Time] 11.2 s Normal 9.0-14.4 [facility] ([place]) Comment on above: Result Comment: Effe ctive 11/14/07, Protime results may be affected by some antibiotics (i.e. Ciprofloxacin, Azithromycin, Bactrim) which may potentiate the action of oral anticoagulants, with further increases in Protime/INR. Performed By: #### C RE, BUN, GFR #### [place] [address] UAon 09-30-2023 Color (U) Straw Normal [facility] ([place] Comment on above: Performed By: #### U A, UAMIC #### [place] [address] Glucose (U) [Mass/Vol] Negative Normal Negative [facility] ([place] Comment on above: Performed By: #### U A, UAMIC #### [place] [id number] Ketones Ql (U) Negative Normal Neg-Trace [facility] ([place] Comment on above: Performed By: #### U A, UAMIC #### [place] [address] UA Appear Hazy Abnormal Clear [facility] ([place] Comment on above: Performed By: #### U A, UAMIC #### [place] [address] UA Blood Negative Normal Neg-Trace [facility] ([place] Comment on above: Performed By: #### U A, UAMIC #### [place] [id number] UA Leuk Est Large Abnormal Negative [facility] ([place] Comment on above: Performed By: #### U A, UAMIC #### [place] [id number] UA Nitrite Negative Normal Negative [facility] ([place] Comment on above: Performed By: #### U A, UAMIC #### [place] [id number] UA pH 6.5 Normal 5.0 - 8.0 [facility] ([place] Comment on above: Performed By: #### U A, UAMIC #### [place] [id number] UA Protein Negative Normal Negative [facility] ([place] Comment on above: Performed By: #### U A, UAMIC #### [place] [address] UA Spec Grav <=1.005 Abnormal 1.006-1.02 9 [facility] ([place] Comment on above: Performed By: #### U A, UAMIC #### [place] [address] UA Specimen Type Clean Catch Normal [facility] ([place] Comment on above: Performed By: #### U A, UAMIC #### [place] [address] UA Urobilinogen 0.2 E.U./dL Normal 0.2-1.0 [facility] [facility] ([place]) Comment on above: Performed By: #### U A, UAMIC #### [place] [address] Urobilinogen (U) [Mass/Vol] Negative Normal Neg-Trace [facility] ([place]) Comment on above: Performed By: #### U A, UAMIC #### [place] [address] UAMICon 09-30-2023 UA Amorphus Trace Normal [facility] ([place]) Comment on above: Performed By: #### U A, UAMIC #### [place] [address] UA Mucous Trace Normal [facility] ([place]) Comment on above: Performed By: #### U A, UAMIC #### [place] [address] UA RBC Rare Normal 0-2 [facility] ([place]) Comment on above: Performed By: #### U A, UAMIC #### [place] [id number] UA Squam Epithelial 5-10 Normal 0-20 [facility] ([place]) Comment on above: Performed By: #### U A, UAMIC #### [place] [address] UA WBC 5-10 Abnormal 0-5 [facility] ([place]) Comment on above: Performed By: #### U A, EVY #### [place] [address] XR CHEST 2 VIEWSon 4 XR CHEST [...] 09/30/2023 12:07:32 PM Ordering Provider: GHULAM Mota [facility] ([place]) US BLADDERon 08-21-2023 US BLADDER ORIGINAL EXAMINATION: [...] 08/21/2023 11:39:52 AM Ordering Provider: MAY Mota [facility] ([place]) .Urinalysis Microscopic (AO) on 08-11-2023 UA RBC None Seen Normal None Seen [facility] ([place]) Comment on above: Performed By: #### U A, UAMICAO #### [facility] [address] [place], [place] [address] UA Squam Epithelial 0-5 Abnormal None Seen [facility] ([place]) Comment on above: Performed By: #### U A, UAMICAO #### [facility] [address] [place], [place] [address] UA WBC 0-5 Abnormal None Seen [facility] ([place]) Comment on above: Performed By: #### U A, UAMICAO #### [place] [address] [place], [place] [address] LABORATORYOrdered By: Ludivina Escobar on 08-11-2023 Appearance [...] Ketones Ql (U) Negative Normal AO Auto Urine SS UA Leuk Est Small *ABN* (08/11/23 4:09 PM) Invalid Interpretation Code AO Auto Urine SS UA Nitrite Negative (08/11/23 4:09 PM) Normal AO Auto Urine SS UA pH 5.5 (08/11/23 4:09 PM) Normal AO Auto Urine SS UA Protein Negative Normal AO Auto Urine SS UA RBC None Seen /HPF Normal AO Auto Urine SS UA Spec Grav 1.015 (08/11/23 4:09 [...] SS UAon 08-11-2023 Color (U) Yellow Normal [facility] ([place]) Comment on above: Performed By: #### U A, UAMICAO #### [place] [address] Glucose (U) [Mass/Vol] Negative Normal Negative [facility] ([place]) Comment on above: Performed By: #### U A, UAMICAO #### [place] [address] Ketones Ql (U) Negative Normal Negative [facility] ([place]) Comment on above: Performed By: #### U A, UAMICAO #### [place] [address] UA Appear Clear Normal Clear [facility] ([place]) Comment on above: Performed By: #### U A, UAMICAO #### [address] [address] UA Blood Negative Normal Negative [facility] ([place]) Comment on above: Performed By: #### U A, UAMICAO #### [address] [address] UA Leuk Est Small Abnormal Negative [facility] ([place]) Comment on above: Performed By: #### U A, UAMICAO #### [address] [address] UA Nitrite Negative Normal Negative [facility] ([place]) Comment on above: Performed By: #### U A, UAMICAO #### [place] [address] UA pH 5.5 Normal 5.0 - 8.0 [facility] ([place]) Comment on above: Performed By: #### U A, UAMICAO #### [place] [id number] UA Protein Negative Normal Negative [facility] ([place]) Comment on above: Performed By: #### U A, UAMICAO #### [address] [address] UA Spec Grav 1.015 Normal 1.015-1.02 5 [facility] ([place]) Comment on above: Performed By: #### U A, UAMICAO #### [address] [address] UA Specimen Type Void Normal [facility] ([place]) Comment on above: Performed By: #### U A, UAMICAO #### [address] [address] UA Urobilinogen 0.2 E.U./dL Normal 0.2-1.0 [facility] ([place]) Comment on above: Performed By: #### U A, UAMICAO #### [place] [address] Urobilinogen (U) [Mass/Vol] Negative Normal Negative [facility] ([place]) Comment on above: Performed By: #### U A, UAMICAO #### [place] [address] MRI SPINE CERVICAL W/O CONTR Lv 03-23-2023 MRI SPINE CERVICAL W/O CONTRAST ORIGINAL HISTORY: Abnormal marrow signal at C3 and C6. COMPARISON: Outside MR 09 Sep 2022 TECHNIQUE: 1. Sagittal T1-weighted [...] Sign Date: 03/23/2023 3:03:57 PM Ordering Provider: [facility] ([place]) XR CHEST 2 VIEWSon XR CHEST 2 [...] Sign Date: 02/21/2023 9:48:13 AM Ordering Provider: MAYMAYELIN MCKEON [facility] ([place]) XR RIBS 2 VIEWS RIGHTon 01-31 XR [...] Date: 02/21/2023 9:52:34 AM [facility]ing Provider: [facility] ([place]) XR SPINE THORACIC 2 VIEWSon 02-21-2023 XR [...] 02/21/2023 2:50:53 PM Ordering Provider: MAY MCKEON [facility] ([place]) .Auto Diffon 02-17-2023 Basophil, Absolute 0.1 10 3/mcL Normal 0.0-0.2 [facility] ([place]) Comment on above: Performed By: #### MARIANELA Baumann #### [place] [address] [place] [address] Basophils/100 WBC (Bld) 0.8 % Normal 0.0-2.5 [facility] ([place]) Comment on above: Performed By: #### TEOFILO BaumannMICAO #### [address] [address] Eosinophil, Absolute 0.2 10 3/mcL Normal 0.0-0.4 [facility] ([place]) Comment on above: Performed By: #### U A, UAMICAO #### [address] [address] Eosinophils/100 WBC (Bld) 3.1 % Normal 0.0-7.0 [facility] ([place]) Comment on above: Performed By: #### U A, UAMICAO #### [address] [address] Lymphocyte, Absolute 1.7 10 3/mcL Normal 0.8-3.9 [facility] ([place]) Comment on above: Performed By: #### U A, UAMICAO #### [address] [address] Lymphocytes/100 WBC (Bld) 23.5 % Normal 10.0-50.0 [facility] ([place]) Comment on above: Performed By: #### U A, UAMICAO #### [address] [address] Monocyte, Absolute 0.7 10 3/mcL Normal 0.2-1.0 [facility] ([place]) Comment on above: Performed By: #### U A, UAMICAO #### [address] [address] Monocytes/100 WBC (Bld) 9.7 % Normal 1.7-13.0 [facility] ([place]) Comment on above: Performed By: #### U A, UAMICAO #### [address] [address] Neutrophils/100 WBC (Bld) 62.9 % Normal 37.0-80.0 [facility] ([place]) Comment on above: Performed By: #### U A, UAMICAO #### [address] [address] .GFRon 02-17-2023 GFR 55 ml/min/1.73sqm Normal [facility] ([place]) Comment on above: Result Comment: GFR Population [...] By: #### C RE, BUN, GFR #### [address] [address] GFR Non- 45 ml/min/1.73sqm Normal [facility] ([place]) Comment on above: Result Comment: GFR Population [...] By: #### C RE, BUN, GFR #### [address] [address] .Morphon 02-17-2023 Platelet Estimate Normal Normal [facility] ([place]) Comment on above: Performed By: #### U A, UAMICAO #### [address] [address] .NEUABSon 02-17-2023 Neutrophil, Absolute 4.5 10 3/mcL Normal 2.9-6.2 [facility] ([place]) Comment on above: Performed By: #### U A, UAMICAO #### [address] [address] .Urinalysis Microscopic (AO) on 02-17-2023 UA Bacteria 3+ /hpf Abnormal [facility] ([place]) Comment on above: Performed By: #### U A, UAMICAO #### [address] [address] UA RBC None Seen Normal None Seen [facility] ([place]) Comment on above: Performed By: #### U A, UAMICAO #### [address] [address] UA Squam Epithelial None Seen Normal None Seen [facility] ([place]) Comment on above: Performed By: #### U A, UAMICAO #### [place] [address] UA WBC 5-10 Abnormal None Seen [facility] ([place]) Comment on above: Performed By: #### U A, UAMICAO #### [place] [address] AMYon 02-17-2023 Amylase [Catalytic activity/Vol] 26 U/L Normal 25-115 [facility] ([place]) Comment on above: Performed By: #### C RE, BUN, GFR #### [address] [address] CBCon 02-17-2023 Erythrocyte distribution width (RBC) [Ratio] 13.4 % Normal 11.5-14.5 [facility] ([place]) Comment on above: Performed By: #### U A, UAMICAO #### [address] [address] Hematocrit (Bld) [Volume fraction] 38.9 % Normal 37.0-47.0 [facility] ([place]) Comment on above: Performed By: #### U A, UAMICAO #### [place] [address] Hgb 13.0 G/dL Normal 12.0-16.0 [facility] ([place]) Comment on above: Performed By: #### U A UAMICAO #### [address] [address] MCH (RBC) [Entitic mass] 30.0 pg Normal 27.0-31.2 [facility] ([place]) Comment on above: Performed By: #### U A UAMICAO #### [address] [address] MCHC 33.4 G/dL Normal 33.0-37.0 [facility] ([place] Comment on above: Performed By: #### U A UAMICAO #### [address] [address] MCV (RBC) [Entitic vol] 89.7 fL Normal 80.0-94.0 [facility] ([place]) Comment on above: Performed By: #### U Lena UAMICAO #### [address] [address] Platelet 200 10 3/mcL Normal 130-400 [facility] ([place]) Comment on above: Performed By: #### U Lena UAMICAO #### [address] [address] Platelet mean volume (Bld) [Entitic vol] 9.5 fL Normal 7.4-10.4 [facility] ([place]) Comment on above: Performed By: #### U Lena UAMICAO #### [address] [address] RBC 4.34 10 6/mcL Normal 4.20-5.40 [facility] ([place]) Comment on above: Performed By: #### U Lena UAMICAO #### [address] [address] WBC 7.2 10 3/mcL Normal 4.6-10.8 [facility] ([place] Comment on above: Performed By: #### U A UAMICAO #### [address] [address] CMPon 02-17-2023 Albumin Level 3.6 G/dL Normal 3.4-4.8 [facility] ([place]) Comment on above: Performed By: #### C RE, BUN, GFR #### [address] [address] Albumin/Globulin [Mass ratio] 0.9 {ratio} Low 1.1-2.5 [facility] ([place]) Comment on above: Performed By: #### C RE, BUN, GFR #### [address] [address] ALP [Catalytic activity/Vol] 128 U/L Normal 40-135 [facility] ([place]) Comment on above: Performed By: #### C RE, BUN, GFR #### [address] [address] ALT [Catalytic activity/Vol] 24 U/L Normal 14-59 [facility] ([place]) Comment on above: Performed By: #### C RE, BUN, GFR #### [address] [address] AST [Catalytic activity/Vol] 21 U/L Normal 10-40 [facility] ([place]) Comment on above: Performed By: #### C RE, BUN, GFR #### [address] [address] Bili Total 0.3 mg/dL Normal 0.2-1.0 [facility] ([place]) Comment on above: Result Comment: Use of this assay is not recommended for patients undergoing treatment with eltrombopag due to the potential for falsely elevated results. Performed By: #### C RE, BUN, GFR #### [address] [address] BUN/Creatinine Ratio 16 ratio Normal 7-27 [facility] ([place]) Comment on above: Performed By: #### C RE, BUN, GFR #### [address] [address] Calcium [Mass/Vol] 8.8 mg/dL Normal 8.4-10.2 [facility] ([place]) Comment on above: Performed By: #### C RE, BUN, GFR #### [address] [address] Chloride [Moles/Vol] 103 mmol/L Normal 98-107 [facility] ([place]) Comment on above: Performed By: #### C RE, BUN, GFR #### [address] [address] CO2 [Moles/Vol] 29 mmol/L Normal 23-31 [facility] ([place]) Comment on above: Performed By: #### C RE, BUN, GFR #### [address] [address] Creatinine [Mass/Vol] 1.17 mg/dL High 0.55-1.02 [facility] ([place]) Comment on above: Performed By: #### C RE, BUN, GFR #### [address] [address] Electrolyte Balance 7.0 mEq/L Normal 4.0-15.0 [facility] ([place]) Comment on above: Performed By: #### C RE, BUN, GFR #### [address] [address] Globulin 4.0 G/dL Normal [facility] ([place]) Comment on above: Performed By: #### C RE, BUN, GFR #### [address] [address] Glucose [Mass/Vol] 92 mg/dL Normal 83-110 [facility] ([place]) Comment on above: Performed By: #### C RE, BUN, GFR #### [place] [id number] Potassium [Moles/Vol] 4.9 mmol/L Normal 3.5-5.1 [facility] ([place]) Comment on above: Performed By: #### C RE, BUN, GFR #### [place] [id number] Sodium [Moles/Vol] 139 mmol/L Normal 136-145 [facility] ([place]) Comment on above: Performed By: #### C RE, BUN, GFR #### [place] [id number] Total Protein 7.6 G/dL Normal 6.4-8.2 [facility] ([place]) Comment on above: Performed By: #### C RE, BUN, GFR #### [place] [id number] [place] [address] Urea nitrogen [Mass/Vol] 19 mg/dL High 7-18 [facility] ([place]) Comment on above: Performed By: #### C RE, BUN, GFR #### [facility] [address] [place] [address] DIMERon 02-17-2023 D-Dimer 409 ng/mL D-DU High 0-230 [facility] ([place]) Comment on above: Result Comment: Pre- analytical [...] and pulmonary embolism (PE). Performed By: #### U Lena UAMICAO #### [place] [address] [place], [place] [address] ESRon 02-17-2023 Erythrocyte Sed Rate 33 mm/hr High 0-30 [facility] ([place]) Comment on above: Performed By: #### U Lena UAMICAO #### [place] [address] [place], [place] [address] LABORATORYOrdered By: SYSTEM SYSTEM on 02-17-2023 Albumin [...] Level 34 U/L Normal 16-77 [facility] ([place]) Comment on above: Performed By: #### C RE, BUN, GFR #### [place] [address] UAon 02-17-2023 Color (U) Yellow Normal [facility] ([place]) Comment on above: Performed By: #### U A, UAMICAO #### [address] [address] Glucose (U) [Mass/Vol] Negative Normal Negative [facility] ([place]) Comment on above: Performed By: #### U A, UAMICAO #### [address] [address] Ketones Ql (U) Negative Normal Negative [facility] ([place]) Comment on above: Performed By: #### U A, UAMICAO #### [address] [address] UA Appear Clear Normal Clear [facility] ([place]) Comment on above: Performed By: #### U A, UAMICAO #### [address] [address] UA Blood Negative Normal Negative [facility] ([place]) Comment on above: Performed By: #### U A, UAMICAO #### [address] [address] UA Leuk Est Moderate Abnormal Negative [facility] ([place]) Comment on above: Performed By: #### U A, UAMICAO #### [address] [address] UA Nitrite Negative Normal Negative [facility] ([place]) Comment on above: Performed By: #### U A, UAMICAO #### [address] [address] UA pH 6.5 Normal 5.0 - 8.0 [facility] ([place]) Comment on above: Performed By: #### U A, UAMICAO #### [address] [address] UA Protein Negative Normal Negative [facility] ([place]) Comment on above: Performed By: #### U A, UAMICAO #### [address] [address] UA Spec Grav 1.020 Normal 1.015-1.02 5 [facility] ([place]) Comment on above: Performed By: #### U A, UAMICAO #### [address] [address] UA Specimen Type Void Normal [facility] ([place]) Comment on above: Performed By: #### U A, UAMICAO #### [address] [address] UA Urobilinogen 0.2 E.U./dL Normal 0.2-1.0 [facility] ([place]) Comment on above: Performed By: #### U A, UAMICAO #### [address] [address] Urobilinogen (U) [Mass/Vol] Negative Normal Negative [facility] ([place] Comment on above: Performed By: #### U A, UAMICAO #### [address] [address] MA MAMMOGRAM SCREENING BILAT ERAL W/TOMOon 01-31-2023 MA MAMMOGRAM SCREENING BILATERAL W/JOSE D ORIGINAL FROM: [facility] [address] [place] [address] PROCEDURE FOR: KERRI BURGESS [address] [place] [address] Home: Work: PID#: [id number] Exam#: [id number] : 1945 Age: 77 TO: MAY MCKEON MD [facility] [address] [facility] [address] [place], [place] [address] Fax: NO FAX EXAMINATION: SCREENING DIGITAL BILATERAL [...] addition to annual mammographic screening per the [employer]. BIRADS: MAMMOGRAM BI-RADS: 2: Benign finding RECALL: 1 year screening RECALL TYPE: mammo LETTER SENT: Normal BI-RADS 1 and 2 Interpreted by: Eleuterio Beckford MD Preliminary Report By: Eleuterio Beckford MD Electronically signed By Eleuterio Beckford MD Dictated Date: 01/31/2023 8:27:12 PM Prelim Date: 01/31/2023 8:33:23 PM Sign Date: 01/31/2023 8:33:23 PM Ordering Provider: MAY MCKEON Video Editing Intern: GYALA BENOIT RT(R)(M) letter sent: Normal BI-RADS 1 and 2 Mammogram BI-RADS: 2 Benign Normal [facility] ([place]) GLUCOSE-POCTon 10-05-2022 Glucose [Mass/Vol] 88 mg/dL Normal 74 - 99 [facility] Comment on above: Performed By: #### G YASSINE #### [facility] [address] [address] Laboratory - Chemistry and C hemistry - challengeon 10-05-2022 Glucose [Mass/Vol] 88 mg/dL 74 - 99 MG-Yg rosurg guerita-[facility] Work Phone: PET TUMORS / NOT [...] 09/23/2022 MRI cervical spine, 09/09/2022 ACCESSION NUMBER(S): [id number] ORDERING CLINICIAN: MIRYAM MUNOZ TECHNIQUE: DIVISION OF [...] CODING: Initial Treatment Strategy (PI) CALIBRATION: Dose Eobzfuloo-wq-Pndu Interval (mins): 61 min Mediastinal bloodpool SUV [...] Mild dependent atelectasis bilaterally CT of the infectious/inflammatory changes. No evidence of hypermetabolic mediastinal, hilar or axillary lymphadenopathy. ABDOMEN AND PELVIS: No hypermetabolic soft tissue lesion is present in the abdomen and pelvis. No evidence of hypermetabolic lymphadenopathy. Physiologic radiotracer uptake is present in the liver and spleen with excretion into the bowel loops and the genitourinary tract. MUSCULOSKELETAL/EXTREMITIES : No evidence of FDG avidity within the [...] as stated. This study was interpreted at [facility]. Electronically signed by: TODD BLAKE MD Normal [facility] PET/CT Unknown Primary INITI AL ONLYon 10-05-2022 PET/CT Unknown Primary INITIAL ONLY Normal MG-Kb dexter-[facility] Work Phone: CT CHEST ABDOMEN PELVIS [...] of cervical spine. COMPARISON: None. ACCESSION NUMBER(S): [id number] ORDERING CLINICIAN: MIRYAM MUNOZ TECHNIQUE: CT of [...] colonic stool. Appendix is not definitely seen. PERITONEUM/RETROPERITONEUM/ LYMPH NODES: No free air. No free fluid or focal collection. Mildly prominent nonspecific nader hepatis/peripancreatic nodes up to 8 mm short axis [...] as above. Electronically signed by: DONATO LIAO, Normal [facility] CT Chest Abdomen Pelvis with IV Contraston 09-23-2022 CT Chest and Abdomen and Pelvis W contrast IV Normal [facility]-Neurosurg [facility] Work Phone: Blood Urea Nitrogen, Serumon 09-21-2022 Urea nitrogen [Mass/Vol] 21 mg/dL - MG-Neurosurg [facility] Work Phone: CREATININEon 09-21-2022 Creatinine [Mass/Vol] 0.89 mg/dL Normal 0.50 - 1.05 [facility] Comment on above: Performed By: #### C REAT #### [address] [address] GFR/1.73 sq M.predicted among non-blacks MDRD (S/P/Bld) [Vol rate/Area] 67 mL/min/{1.73_m2} Normal >90 [facility] Comment on above: Result Comment: CALC ULATIONS OF ESTIMATED GFR ARE PERFORMED USING THE 2020 CKD-EPI STUDY REFIT EQUATION WITHOUT THE RACE VARIABLE FOR THE IDMS-TRACEABLE CREATININE METHODS. https://jasn.asnjournals.org/content/early/ASN.699345 6242 Performed By: #### C REAT #### [address] [address] Creatinine, Serumon 09-22-19 Creatinine [Mass/Vol] 0.89 mg/dL See Below [facility] Neurosurg [facility] Work Phone: Comment on above: Reference Range: 0.5 0 - 1.05 Creatinine, Serum 67 {mL/min/1.73m2} >90 [facility] Work Phone: Comment on above: CALCULATIONS OF SHAHIDA MATED GFR ARE PERFORMED USING THE 2020 CKD-EPI STUDY REFIT EQUATION WITHOUT THE RACE VARIABLE FOR THE IDMS-TRACEABLE CREATININE METHODS.https://jasn.asnjournals.org/content/early/ N.3046829967 UREA NITROGENon 09-21-2022 Urea nitrogen [Mass/Vol] 21 mg/dL Normal 6 - 23 [facility] Comment on above: Performed By: #### U STEPH #### [address] [address] MRI Cervical without Contras ton 09-09-2022 MR Cervical spine WO contrast Normal -Neurosurg [facility] Work Phone: NR MRI CERVICAL WOon 023 NR MRI CERVICAL WO Patient Name: KERRI BURGESS STUDY: MRI CERVICAL WO; 09/09/2022 9:12 am INDICATION: cervial radiculopathy, gait imbalance R26.81: Gait instability M50.10: Cervical disc disorder with radiculopathy. COMPARISON: August 2019. ACCESSION NUMBER(S): [id number] ORDERING CLINICIAN: MIRYAM MUNOZ TECHNIQUE: The cervical [...] unchanged from the previous exam. * An [facility] alert message was sent to the referring physician Dr. MIRYAM MUNOZ through the [place] system at 9:46 am on 09/09/[address]Charles Roldan THIS EXAMINATION WAS INTERPRETED AT [facility] Electronically signed by: EVAN ROLDAN MD [facility] Initial Visit (Neurosurgery) on 09-03-2022 Initial Visit [...] or Bone Graft Simulator, Implanted Breast Tissue School Photographer, Glucose Monitor, or Neulasta Device? : No Is the patient or breast feeding? : No What are the patient's signs and symptoms? : cervial radiculopathy, gait imbalance Provider Impressions We do not have prior imaging done at [place] in [facility] available though there are reports and they [...] several years she has been treated at [place] and [facility] for cervical radiculopathy including pain management [...] Calcium) Diovan HCT 320-12.5 MG Oral Tablet (Valsartan-Hydrochlorothiaz isadora) Levothyroxine Sodium 25 MCG Oral TabletTAKE ONE TABLET BY MOUTH EVERY DAY Omeprazole 20 MG Oral Capsule Delayed Release Welchol 625 MG Oral Tablet (Colesevelam HCl) Vitals Vital Signs Recorded: 03Sep2022 01:06PM Heart Rate78 Jojsygvlcka65 Hcxaklvd800 Cdgwusbjo91 Height5 ft 3 in Bwayxj400 lb BM (more content not included)... Normal [facility] Tobacco Screening.on Adult depression screening assessment No -Neurolog y [facility] [employer] Work Phone: Adult depression screening assessment In Remission (0-4) -Neuro logy [facility] [employer] Work Phone: Fall risk assessment a) No falls within the last year -Neurology [facility] [employer] Work Phone: Tobacco use status [facility] b) No [facility] [employer] Work Phone: Tobacco Screening. 0-Not at all -N eurology [facility] [employer] Work Phone: Tobacco Screening. Not difficult at all -Neurology [facility] [employer] Work Phone: LABORATORYOrdered By: Sydnie Mcclellan on 03-09-2022 Basophil, [...] 150 mg/dL AO ADM SS LABORATORYOrdered By: Ludivina Escobar on 03-09-2022 Platelet Estimate Normal (03/09/22 8:09 AM) Invalid Interpretation Code AO Hematology S OPERATIVE REPORTon OPERATIVE REPORT NAME: SANTIAGO BURGESS MR#: [id number] SURGEON: Ne Higgins DO DATE OF SURGERY: [...] the bilateral C3-4, bilateral C4-5 foramina again. EN HIGGINS DO GF/MODL/[id number] E/S: Ne Higgins DO 04/05/22 1644 Electronically Signed [facility] PT NAME: KERRI BURGESS MR#: [id number] [address] [place] [address] ACCT: [id number] : 47 OPERATIVE REPORT Normal [facility] CERVICAL SP W OBL (OR 4-5 VW S)on 02-05-2022 CERVICAL SP W OBL (OR 4-5 VWS) STUDY: CERVICAL SP W OBL (OR 4-5 VWS); 02/05/2022 10:52 am INDICATION: PAIN. COMPARISON: None. ACCESSION NUMBER(S): [id number] ORDERING CLINICIAN: Mayank Kennedy FINDINGS: No fracture or subluxation of the cervical spine. Multilevel disc height loss most advanced at C5-6. Scattered endplate osteophytes. Multilevel facet arthropathy. Trace anterolisthesis C4-5. No instability on flexion or extension. Carotid atherosclerosis. IMPRESSION: Degenerative changes of the cervical spine most advanced at C5-6. No instability. Normal [facility] LABORATORYOrdered By: Ludivina Escobar on 07-30-2021 Albumin [...] labeling are available on the FDA website: https://www.fda.gov/Medical Devices/Safety/ EmergencySituations/tgf4402 96.htm COVID-19 Negative for COVID-19 (SARS-CoV-2 RNA) Normal [facility] Comment on above: Order Comment: CBN: YES Spencer: MAIN COVID Testing: PRE-OP/PROCEDURE SCREEN AGE at Spec FERN 75 Report age at specimen FERN? Y First test: YES Employed in Healthcare: NO Symptomatic as defined by CDC: NO Hospitalized for COVID-19? NO ICU: NO Resident in a Congregated Care Setting: NO Order Date: 04/27/21 : Not Performed By: #### M [id number] #### Test performed at: [place] [address] GLUCOSE METERon 04-28-2021 Glucose [Mass/Vol] 129 mg/dL High 70-99 [facility] Comment on above: Result Comment: Fast ing GLUCOSE reference range has been updated per (ADA) [place] [employer]'s recommendation. 07/25/2018 Performed By: #### L [id number] #### Test performed at: [place] [address] OPERATIVE REPORTon OPERATIVE REPORT NAME: SANTIAGO BURGESS MR#: [id number] SURGEON: Ne Higgins DO DATE OF SURGERY: [...] up in 2 weeks and discharged home. [facility] PT NAME: KERRI BURGESS MR#: [id number] [address] ACCT: [id number] : 47 OPERATIVE REPORT NE HIGGINS, DO GF/MODL/[id number] E/S: Ne Higgins, DO 05/05/21 1417 Electronically Signed [facility] PT NAME: KERRI BURGESS MR#: [id number] [address] ACCT: [id number] : 47 OPERATIVE REPORT Normal [facility] CNOVon 12-06-2019 CNOV Office Visit (AGCARD VEIN) KERRI BURGESS ([id number]) 1945 F Date Time Provider Department 12/06/19 10:30 AM OTTO PERRYVEIN During your visit today, we recorded the following information about you: Nupur Vegas RDMS, RVT 12/06/2019 10:39 AM Signed Patient is here today with concerns of veins in her legs. She was seen in [place] by Dr. Perry in 2013 for venous insufficency. She wears compression and [...] necessary Otto Perry MD Vascular Surgery Beeper [phone] This note was generated with Drink[employer]iser dictation software. It may contain incorrect words, spelling, and punctuation and that were not noted in review of the chart prior to signing. I spent 30 minutes in the visit, with more than 50% of the total pjfj-cc-otjo time of the visit in counseling / [...] (peripheral) [I87.2] Order(s):US VEIN MAPPING LOWER BILAT [[id number]] Order #: [id number] FUTURE Prescriptions as of 12/06/2019 Sig: VITAMIN [...] Date: 12/06/2019 (None) Visit Notes: >> Nupur [facility] Dec 06, 2019 10:38 AM Status: Signed Patient is here today with concerns of veins in her legs. She was seen in [place] by Dr. Perry in 2012 for venous insufficency. She wears compression and elevates her legs. Nupur Vegas, MATEUS, RVT Disposition: Return if symptoms worsen or fail to improve. Follow-up and Disposition History Recorded Encounter Status:Closed by OTTO PERRY MD on 12/06/19 [facility] DARYLon 12-06-2019 PROGRESS HNO ID: [id number] Author: Otto Perry Service: ? Author Type: [...] necessary Otto Perry MD Vascular Surgery Beeper [phone] This note was generated with DrinkWiser dictation software. It may contain incorrect words, spelling, and punctuation and that were not noted in review of the chart prior to signing. I spent 30 minutes in the visit, with more than 50% of the total rmah-os-wnrf time of the visit in counseling / coordination of care. Normal [facility] US VEIN MAPPING LOWER BILon 12-06-2019 US VEIN MAPPING LOWER MEL Final Report DATE OF EXAM: Dec 06 2019 11:42AM [id number] 1081 - US VEIN MAPPING LOWER MEL / PROCEDURE REASON: Venous insufficiency (chronic) (peripheral) Physician Interpretation Non-Invasive Vascular Laboratory [facility] Venous Valvular Incompetency Bilateral/Complete Date of service/time: [...] calf that travel medially to a negative cytogenetics laboratory manager that measures 0.36cm. The varicosities range in [...] calf that travel medially to a negative cytogenetics laboratory manager that measures 0.36cm. The varicosities range in size of 0.29-0.36 cm with a reflux time of 1.0-2.0 seconds. Technologist: Nupur Vegas RDMS, RVT Ordering physician: OTTO PERRY Interpreting physician: Otto Perry MD Final RP Power Screwdriver Operator: RAJI Transcribe Date/Time: Dec 06 2019 10:58A Dictated by : OTTO PERRY MD This examination was interpreted and the report reviewed and electronically signed by: OTTO PERRY MD on Dec 06 2019 1:05PM EST Normal [facility] Vital Signs Date Time Vital Sign Value Performing Clinician Facility 01-15-2025 08:46-0400 Diastolic blood pressure 82 mm[Hg] Olaf Tucker MD Work Phone: [facility] 01-15-2025 08:46-0400 Heart rate 70 /min Olaf Tucker MD Work Phone: [facility] 01-15-2025 08:46-0400 Respiratory rate 16 /min Olaf Tucker MD Work Phone: [facility] 01-15-2025 08:46-0400 Systolic blood pressure 180 mm[Hg] Olaf Tucker MD Work Phone: [facility] 01-15-2025 08:09-0400 Body temperature 97 [degF] Olaf Tucker MD Work Phone: [facility] 12-25-2024 15:22-0400 Diastolic blood pressure 84 mm[Hg] Olaf Tucker MD Work Phone: [facility] 12-25-2024 15:22-0400 Heart rate 79 /min Olaf Tucker MD Work Phone: [facility] 12-25-2024 15:22-0400 Respiratory rate 16 /min Olaf Tucker MD Work Phone: [facility] 12-25-2024 15:22-0400 Systolic blood pressure 179 mm[Hg] Olaf Tucker MD Work Phone: [facility] 12-25-2024 14:53-0400 Body temperature 96.4 [degF] Olaf Tucker MD Work Phone: [facility] 12-25-2024 14:53-0400 SaO2% (BldA) [Mass fraction] 98 % Olaf Tucker MD Work Phone: [facility] 10-31-2024 11:03-0400 Body height 160 cm Olaf Tucker MD Work Phone: [facility] 10-31-2024 11:03-0400 Body mass index (BMI) [Ratio] 34.54 kg/m2 Olaf Tucker MD Work Phone: [facility] 10-31-2024 11:03-0400 Body weight 88.45 kg Olaf Tucker MD Work Phone: [facility] 10-31-2024 11:03-0400 Diastolic blood pressure 89 mm[Hg] Olaf Tucker MD Work Phone: [facility] 10-31-2024 11:03-0400 Heart rate 63 /min Olaf Tucker MD Work Phone: [facility] 10-31-2024 11:03-0400 Respiratory rate 17 /min Olaf Tucker MD Work Phone: [facility] 10-31-2024 11:03-0400 SaO2% (BldA) [Mass fraction] 80 % Olaf Tucker MD Work Phone: [facility] 10-31-2024 11:03-0400 Systolic blood pressure 180 mm[Hg] Olaf Tucker MD Work Phone: [facility] 10-23-2024 12:43-0400 Body temperature 96.9 [degF] Dr. May Mckeon MD Work Phone: [facility] 10-23-2024 12:43-0400 Diastolic blood pressure 78 mm[Hg] Dr. May Mckeon MD Work Phone: [facility] 10-23-2024 12:43-0400 Heart rate 60 /min Dr. May Mckeon MD Work Phone: [facility] 10-23-2024 12:43-0400 Respiratory rate 14 /min Dr. May Mckeon MD Work Phone: [facility] 10-23-2024 12:43-0400 SaO2% (BldA) [Mass fraction] 96 % Dr. May Mckeon MD Work Phone: [facility] 10-23-2024 12:43-0400 Systolic blood pressure 125 mm[Hg] Dr. May Mckeon MD Work Phone: [facility] 10-23-2024 10:36-0400 Body height 160.[address] May Mckeon MD Work Phone: [facility] 10-23-2024 10:36-0400 Body mass index (BMI) [Ratio] 35 kg/m2 Dr. May Mckeon MD Work Phone: [facility] 10-23-2024 10:36-0400 Body weight 89.[address] May Mckeon MD Work Phone: [facility] 10-08-2023 06:54-0400 Blood Pressure Location GHULAM DIGGS MD [facility] 10-08-2023 06:54-0400 Blood Pressure Method GHULAM DIGGS MD [facility] 10-08-2023 06:54-0400 Body temperature 97.34 [degF] GHULAM DIGGS MD [facility] 10-08-2023 06:54-0400 Diastolic Blood Pressure Non-Invasive 44 mm[Hg] GHULAM DIGGS MD [facility] 10-08-2023 06:54-0400 Reason For Taking VItal Signs GHULAM DIGGS MD [facility] 10-08-2023 06:54-0400 Respiratory rate 18 /min GHULAM DIGGS MD [address] [place] [address] 10-08-2023 06:54-0400 Systolic Blood Pressure Non-Invasive 122 mm[Hg] GHULAM DIGGS MD [address] [place] [address] 10-08-2023 03:00-0400 Body temperature 97.52 [degF] GHULAM DIGGS MD [address] [place] [address] 10-08-2023 03:00-0400 Diastolic Blood Pressure Non-Invasive 46 mm[Hg] GHULAM DIGGS MD [address] [place] [address] 10-08-2023 03:00-0400 Heart rate 65 /min GHULAM DIGGS MD [address] [place] [address] 10-08-2023 03:00-0400 Respiratory rate 20 /min GHULAM DIGGS MD [address] [place] [address] 10-07-2023 22:47-0400 Blood Pressure Location GHULAM DIGGS MD [address] [place] [address] 10-07-2023 22:47-0400 Blood Pressure Method GHULAM IDGGS MD [address] [place] [address] 10-07-2023 22:47-0400 Body temperature 97.7 [degF] GHULAM DIGGS MD [address] [place] [address] 10-07-2023 22:47-0400 Diastolic Blood Pressure Non-Invasive 52 mm[Hg] GHULAM DIGGS MD [address] [place] [address] 10-07-2023 22:47-0400 Heart rate 66 /min GHULAM DIGGS MD [address] [place] [address] 10-07-2023 22:47-0400 Reason For Taking VItal Signs GHULAM DIGGS MD [address] [place] [address] 10-07-2023 22:47-0400 Respiratory rate 20 /min GHULAM DIGGS MD [address] [place] [address] 10-07-2023 22:47-0400 Systolic Blood Pressure Non-Invasive 125 mm[Hg] GHULAM DIGGS MD [address] [place] [address] 10-07-2023 19:00-0400 Blood Pressure Cuff Size GHULAM DIGGS MD [address] [place] [address] 10-07-2023 19:00-0400 Heart rate 59 /min GHULAM DIGGS MD [address] [place] [address] 10-07-2023 19:00-0400 Mean blood pressure 78 mm[Hg] GHULAM DIGGS MD [address] [place] [address] 10-07-2023 15:45-0400 Mean blood pressure 80 mm[Hg] GHULAM DIGGS MD [address] [place] [address] 10-07-2023 13:01-0400 Heart rate 64 /min GHULAM DIGGS MD [address] [place] [address] 10-07-2023 12:28-0400 Body temperature 96.8 [degF] GHULAM DIGGS MD [address] [place] [address] 10-07-2023 12:28-0400 Heart rate 62 /min GHULAM DIGGS MD [address] [place] [address] 10-07-2023 12:28-0400 Mean blood pressure 77 mm[Hg] GHULAM DIGGS MD [address] [place] [address] 10-07-2023 12:09-0400 Heart rate 56 /min GHULAM DIGGS MD [address] [place] [address] 10-07-2023 11:53-0400 Heart rate 64 /min GHULAM DIGGS MD [address] [place] [address] 10-07-2023 10:52-0400 Body temperature 97.52 [degF] GHULAM DIGGS MD [address] [place] [address] 10-07-2023 10:50-0400 Respiratory Rate - Anes 0 br/min GHULAM DIGGS MD [address] [place] [address] 10-07-2023 10:45-0400 Respiratory Rate - Anes 13 br/min GHULAM DIGGS MD [address] [place] [address] 10-07-2023 10:40-0400 Body temperature 97.74 [degF] GHULAM DIGGS MD [address] [place] [address] 10-07-2023 10:40-0400 Respiratory Rate - Anes 14 br/min GHULAM DIGGS MD [address] [place] [address] 10-07-2023 10:35-0400 Body temperature 97.74 [degF] GHULAM DIGGS MD [address] [place] [address] 10-07-2023 10:30-0400 Body temperature 97.7 [degF] GHULAM DIGGS MD [address] [place] [address] 10-07-2023 07:30-0400 Body height 160 cm GHULAM DIGGS MD [address] [place] [address] 10-07-2023 07:30-0400 Body temperature 96.8 [degF] GHULAM DIGGS MD [address] [place] [address] 10-07-2023 07:30-0400 Body weight 92.4 kg GHULAM DIGGS MD [address] [place] [address] 09-30-2023 09:28-0400 Blood Pressure Cuff Size GHULAM DIGGS MD [address] [place] [address] 09-30-2023 09:28-0400 Blood Pressure Location GHULAM DIGGS MD [address] [place] [address] 09-30-2023 09:28-0400 Blood Pressure Method GHULAM DIGGS MD [address] [place] [address] 09-30-2023 09:28-0400 Body height 160 cm GHULAM DIGGS MD [address] [place] [address] 09-30-2023 09:28-0400 Body temperature 97.88 [degF] GHULAM DIGGS MD [address] [place] [address] 09-30-2023 09:28-0400 Body weight 94.4 kg GHULAM DIGGS MD [address] [place] [address] 09-30-2023 09:28-0400 Diastolic Blood Pressure Non-Invasive 80 mm[Hg] GHULAM DIGGS MD [facility] 09-30-2023 09:28-0400 Heart rate 79 /min GHULAM DIGGS MD [facility] 09-30-2023 09:28-0400 Systolic Blood Pressure Non-Invasive 178 mm[Hg] GHULAM DIGGS MD [facility] 09-03-2022 13:06-0400 Body height 160.02 cm Unknown Unknown GM-Kokfdozpy-FAU M C [facility] Work Phone: 09-03-2022 13:06-0400 Body mass index (BMI) [Ratio] 34.72 kg/m2 Unknown Unknown QH-Tuvvipnax-GVJE C [facility] Work Phone: 09-03-2022 13:06-0400 Body surface area Derived from formula 1.92 m2 Unknown Unknown LD-Zatafwxzk-YPVD C [facility] Work Phone: 09-03-2022 13:06-0400 Body weight 88.91 kg Unknown Unknown HH-Fkyzqcfhd-WZS M C [facility] Work Phone: 09-03-2022 13:06-0400 Diastolic blood pressure 80 mm[Hg] Unknown Unknown UZ-Qqlvvdfcn-MDJY C [facility] Work Phone: 09-03-2022 13:06-0400 Heart rate 78 /min Unknown Unknown QZ-Caxsoeqbl-PWK M C [facility] Work Phone: 09-03-2022 13:06-0400 Respiratory rate 19 /min Unknown Unknown ZZ-Iftrozgxr-WM CM C [facility] Work Phone: 09-03-2022 13:06-0400 SaO2% (BldA) [Mass fraction] 98 % Unknown Unknown SC-Dnswroajy-XBDP C [facility] Work Phone: 09-03-2022 13:06-0400 Systolic blood pressure 140 mm[Hg] Unknown Unknown CI-Tzpxickcp-WITV C [facility] Work Phone: 09-03-2022 13:06-0400 0 1 Unknown Unknown WT-Ztkduzxqm-UDN M Jaren 5 Work Phone: Comment on above: [employer] PHQ-9 TS 02-25-2022 07:48-0400 Body temperature 97.7 [degF] Family Unavailable [facility] 02-25-2022 07:48-0400 Diastolic blood pressure 54 mm[Hg] Family Unavailable [facility] 02-25-2022 07:48-0400 Heart rate 69 /min Family Unavailable [facility] 02-25-2022 07:48-0400 Respiratory rate 16 /min Family Unavailable [facility] 02-25-2022 07:48-0400 SaO2% (BldA) [Mass fraction] 100 % Family Unavailable [facility] 02-25-2022 07:48-0400 Systolic blood pressure 185 mm[Hg] Family Unavailable [facility] Encounters Encounter Date Encounter Type Care Provider Facility Start: 02-28-2025 ambulatory Scott Hermosillo Facility :[facility] Start: 02-08-2025 End: 02-08-2025 Patient encounter procedure Paris RIVERA -[facility] Work Phone: Start: 02-08-2025 End: 02-08-[address] May Mckeon MD Work Phone: -[facility] Start: 02-01-2025 End: 02-01-[address] MAY MCKEON MD Facility:A Start: 01-21-2025 End: 01-21-2025 ambulatory LUIS SMITH DO~[id number] [facility] Start: 01-16-2025 End: 01-16-2025 Patient encounter procedure [facility] Provider [facility] Department Start: 01-15-2025 Encounter for other preprocedural examination ORESTES JUVE CARLISLE SOUS CHEF KITCHEN MANAGER~[id number] [facility] Start: 01-15-2025 ambulatory OLAF Orona ty:[id number] Start: 01-15-2025 End: 01-15-2025 Subsequent hospital visit by physician Olaf Tucker MD Work Phone: [facility] Comment on above: Facet arthropathy, t horacic [M47.814] Start: 01-14-2025 End: 01-14-2025 ambulatory ORESTES JUVE CARLISLE SOUS CHEF KITCHEN MANAGER~[id number] [facility] Start: 01-04-2025 End: 01-08-2025 Telephone encounter Olaf Tucker MD Work Phone: Pain Management Comment on above: Patient Question Start: 01-04-2025 End: 01-08-[address] MAY MCKEON MD Facility:[facility] Start: 01-04-2025 End: 01-08-[address] MAY MCKEON MD [facility] Start: 12-28-2024 End: 12-28-2024 Telephone encounter Olaf Tucker MD Work Phone: Pain Management Comment on above: Post pro call Start: 12-25-2024 ambulatory OLAF TUCKER Facili ty:[id number] Start: 12-25-2024 End: 12-25-2024 Subsequent hospital visit by physician Olaf Tucker MD Work Phone: [facility] Comment on above: Thoracic spondylosis [M47.814] Start: 12-17-2024 End: 12-17-2024 ambulatory LUIS SMITH DO~[id number] [facility] Start: 12-05-2024 End: 12-05-2024 ambulatory OLAF TUCKER Facility:[id number] Start: 12-04-2024 End: 12-04-2024 ambulatory OLAF TUCKER Facility:[id number] Start: 11-29-2024 End: 11-29-2024 ambulatory Farheen Peters [facility] Comment on above: Pain in thoracic spi ne (Primary Dx); Decreased ROM of thoracic spine Start: 11-27-2024 End: 11-27-2024 ambulatory Andreia Cano [facility] Comment on above: Pain in thoracic spi ne (Primary Dx); Decreased ROM of thoracic spine Start: 11-22-2024 End: 11-22-2024 ambulatory Farheen Peters [facility] Comment on above: Pain in thoracic spi ne (Primary Dx); Decreased ROM of thoracic spine Start: 11-20-2024 End: 11-20-2024 ambulatory Andreia Cano [facility] Comment on above: Pain in thoracic spi ne (Primary Dx); Decreased ROM of thoracic spine Start: 11-16-2024 End: 11-16-2024 ambulatory Andreia Cano [facility] Comment on above: Pain in thoracic spi ne (Primary Dx); Decreased ROM of thoracic spine Start: 11-13-2024 End: 11-13-2024 ambulatory Bertha Opal PT Work Phone: [facility] Comment on above: Pain in thoracic spi ne (Primary Dx); Thoracic spondylosis; Thoracic radiculopathy; Decreased ROM of thoracic spine Start: 11-06-2024 End: 11-06-2024 Patient encounter procedure Marilyn FORDE -[facility] Work Phone: Start: 11-06-2024 End: 11-06-[address] May Mckeon MD Work Phone: -[facility] Start: 10-31-2024 End: 10-31-2024 Telephone encounter Olaf Tucker MD Work Phone: Pain Management Start: 10-31-2024 End: 10-31-2024 Office outpatient new 30 minutes Olaf Tucker MD Work Phone: Pain Management Comment on above: Thoracic spondylosis (Primary Dx); Myofascial pain syndrome; Thoracic radiculopathy Start: 10-31-2024 End: 10-31-2024 ambulatory OLAF TUCKER Facility:[id number] Start: 10-23-2024 ambulatory Scott Hermosillo Facility :[facility] Start: 10-23-2024 Non-patient / Non-visit Scottsae Hermosillo DO -[facility] Start: 10-23-2024 End: 10-23-2024 Admission to same day surgery center Scott Hermosillo DO -Endoscopy Work Phone: Start: 10-23-2024 End: 10-23-[address] May Mckeon MD Work Phone: [facility] Work Phone: Start: 10-15-2024 End: 10-15-2024 Patient encounter procedure Marilyn FORDE -[facility] Work Phone: Start: 10-15-2024 End: 10-15-[address] May Mckeon MD Work Phone: [facility] Work Phone: Start: 10-05-2024 End: 10-09-2024 ambulatory KIARRAZOFIA VINCENT SANDBLASTING SUPERVISOR-SOUS CHEF KITCHEN MANAGER Facility:[facility] Start: 10-05-2024 End: 10-09-2024 Outreach Lab KIARRA SMITH SANDBLASTING SUPERVISOR-SOUS CHEF KITCHEN MANAGER [facility] Start: 09-17-2024 End: 09-17-[address] MAY MCKEON MD Facility:[facility] Start: 09-17-2024 End: 09-17-[address] MAY MCKEON MD [facility] Start: 08-17-2024 ambulatory EVAN Dangelo [facility] Start: 08-16-2024 End: 08-20-[address] MAY MCKEON MD Facility:[facility] Start: 08-16-2024 End: 08-20-2024 Encounter for general adult medical examination without abnormal findings DR MAY MCKEON MD Facility:[facility] Start: 08-13-2024 End: 08-13-2024 ambulatory GHULAM DIGGS MD Facility:[facility] Start: 08-13-2024 End: 08-13-2024 Patient encounter procedure GHULAM DIGGS MD [facility] Start: 08-09-2024 End: 08-09-2024 ambulatory LUIS Paredes LUIS DO~[id number] [facility] Start: 07-19-2024 End: 07-19-2024 ambulatory GALA SONG SANDBLASTING SUPERVISOR-SOUS CHEF KITCHEN MANAGER Facility:[facility] Start: 07-11-[address] MAY MCFADDEN MD Facility:A Start: 07-11-2024 End: 07-11-[address] MAY MCKEON MD Facility:[facility] Start: 07-04-2024 End: 07-04-[address] MAY MCKEON MD Facility:[facility] Start: 07-04-2024 End: 07-04-2024 Patient encounter procedure GALA SONG SANDBLASTING SUPERVISOR-SOUS CHEF KITCHEN MANAGER [facility] Start: 07-04-2024 End: 07-04-[address] MAY MCKEON MD Facility:[facility] Start: 07-04-2024 End: 07-04-2024 Patient encounter procedure GALA SONG SANDBLASTING SUPERVISOR-SOUS CHEF KITCHEN MANAGER [facility] Start: 03-16-2024 End: 03-20-[address] MAY MCKEON MD Facility:[facility] Start: 03-16-2024 End: 03-20-[address] MAY MCKEON MD [facility] Start: 12-09-2023 End: 12-09-[address] MAY MCKEON MD Facility:[facility] Start: 12-09-2023 End: 12-09-[address] MAY MCKEON MD [facility] Start: 11-21-2023 End: 11-21-[address] MAY MCKEON MD Facility:[facility] Start: 11-16-2023 End: 11-16-2023 ambulatory GALA SONG SANDBLASTING SUPERVISOR-SOUS CHEF KITCHEN MANAGER Facility:A Start: 10-31-2023 End: 10-31-2023 ambulatory GALA SONG SANDBLASTING SUPERVISOR-SOUS CHEF KITCHEN MANAGER Facility:A Start: 10-31-2023 End: 10-31-2023 Patient encounter procedure GALA SONG SANDBLASTING SUPERVISOR-SOUS CHEF KITCHEN MANAGER [facility] Start: 10-26-2023 End: 10-26-2023 ambulatory GALA SONG SANDBLASTING SUPERVISOR-SOUS CHEF KITCHEN MANAGER Facility:A Start: 10-26-2023 End: 10-26-2023 Patient encounter procedure GALA SONG SANDBLASTING SUPERVISOR-SOUS CHEF KITCHEN MANAGER [facility] Start: 10-19-2023 End: 10-19-2023 ambulatory GALA SONG SANDBLASTING SUPERVISOR-SOUS CHEF KITCHEN MANAGER Facility:A Start: 10-19-2023 End: 10-19-2023 Patient encounter procedure GALA SONG SANDBLASTING SUPERVISOR-SOUS CHEF KITCHEN MANAGER [facility] Start: 10-07-2023 End: 10-08-2023 ambulatory GHULAM DIGGS MD Facility:A Start: 10-07-2023 End: 10-08-2023 Observation GHULAM DIGGS MD [facility] Start: 09-30-2023 End: 09-30-2023 Admission to establishment GHULAM DIGGS MD [facility] Start: 09-30-2023 End: 09-30-2023 ambulatory GHULAM DIGGS MD Facility:[facility] Start: 09-12-2023 End: 09-12-2023 ambulatory GHULAM DIGGS MD Facility:[facility] Start: 09-12-2023 End: 09-12-2023 Patient encounter procedure GHULAM DIGGS MD [facility] Start: 08-20-2023 End: 08-20-[address] MAY MCKEON MD Facility:[facility] Start: 08-11-2023 End: 08-15-[address] MAY MCKEON MD Facility:[facility] Start: 08-11-2023 End: 08-15-[address] [facility] [facility] Start: 03-18-2023 End: 03-18-[address] MAY MCKEON MD Facility:A Start: 02-19-2023 End: 02-19-[address] MAY MCKEON MD Facility:A Start: 02-17-2023 End: 02-21-[address] MAY MCKEON MD Facility:B Start: 02-17-2023 End: 02-21-[address] MAY MCKEON MD [facility] Start: 01-31-2023 End: 01-31-[address] MAY MCKEON MD Facility:A Start: 11-10-2022 Chart Update May Rivera tand Work Phone: JS-Fiwzjodsjmqm-ADEDT Work Phone: Start: 10-06-2022 Chart Update May Rivera tand Work Phone: NI-Psncqqvsxgqw-FOZKM Work Phone: Start: 10-05-2022 ambulatory Miryam Tramte Facilit y:[facility] Start: 09-30-2022 AUDIT May Rivera tand Work Phone: DF-Jfzpeilzsmgi-EUVRS Work Phone: Start: 09-29-2022 Chart Update May Rivera tand Work Phone: SS-Nocvkjdsomlo-WHEKB Work Phone: Start: 09-23-2022 ambulatory Miryam Tramte Facilit y:[id number] Start: 09-15-2022 AUDIT May Rivera tand Work Phone: [id number]-Icnqmudqquol-QEKZC Work Phone: Start: 09-10-2022 AUDIT May grande Work Phone: QD-Nywnyzwzqsvz-WNWPJ Work Phone: Start: 09-09-[address] May Mckeon Facility:[id number] Start: 09-03-2022 Office outpatient ne w [address] Unknown Unknown [address]-Rnzvaanco-SYOHW [place] [address] Work Phone: Start: 09-03-2022 ambulatory Miryam Tramte Facilit y:[facility] Start: 03-09-2022 End: 03-13-[address] MAY MCKEON MD [facility] Start: 02-25-2022 End: 02-25-2022 ambulatory Family Physician Unavailable Facility:[facility] Start: 02-25-2022 End: 02-25-2022 Admission to same day surgery center Family Unavailable [facility] Start: 02-25-2022 End: 02-25-2022 ambulatory Family Physician Unavailable [facility] Work Phone: Start: 02-05-2022 ambulatory Family Physici an Unavailable Facility:[facility] Start: 02-05-2022 Patient encounter procedure Family Unavailable [facility] Start: 02-05-2022 ambulatory Miryam Tramte Facilit y:[id number] Start: 01-28-2022 End: 01-28-[address] MAY MCKEON MD [facility] Start: 07-30-2021 End: 08-03-[address] MAY MCKEON MD [facility] Start: 04-28-2021 End: 04-28-2021 ambulatory Family Physician Unavailable Facility:[facility] Start: 04-27-2021 ambulatory Family Physici an Unavailable Facility:[facility] Procedures Date Procedure Procedure Detail Performing Clinician Start: 01-15-2025 End: 01-15-2025 Njx dx/ther agt pvrt facet jt crv/thrc 1 level Olaf Tucker MD Work Phone: Start: 12-25-2024 End: 12-25-2024 Njx dx/ther agt pvrt facet jt crv/thrc 1 level Olaf Tucker MD Work Phone: Start: 10-23-[address] May Mckeon MD Work Phone: Start: 10-07-2023 Laminectomy GALA SONG [employer] Comment on above: L4-5 laminectomy with bilateral [...] Treatment Date Care Activity Detail Author Start: 03-04-2025 End: 03-04-2025 Patient encounter procedure 03/04/2025 11:00 AM EST Office Visit Pain Management [address] [place] [address] Olaf Tucker MD [address] [address] [place] [address] 3 Month Follow Up Pain Management Comment on above: 3 Month Follow Up Start: 01-15-2025 End: 01-15-2025 Admission to same day surgery center 01/15/2025 8:30 AM EDT - 01/15/2025 9:00 AM EDT Surgery PAIN EZRA PROCEDURES [address] [place] [address] Olaf Tucker MD [address] [place] [address] BLOCK NERVE ROOT THORACIC 1ST VERTEBRA W/IMAGE GUIDANCE, FLUORO OR CT (Right T10-12) PAIN E[facility]RA PROCEDURES Comment on above: BLOCK NERVE ROOT THO RACIC 1ST VERTEBRA W/IMAGE GUIDANCE, FLUORO OR CT (Right T10-12) Start: 01-15-2025 End: 01-15-2025 Njx dx/ther agt pvrt facet jt crv/thrc 1 level BLOCK NERVE ROOT THORACIC 1ST VERTEBRA W/IMAGE GUIDANCE, FLUORO OR CT Facet arthropathy, thoracic 01/15/2025 8:30 AM EDT MR PAIN EZRA Start: 01-15-2025 End: 01-15-2025 Njx dx/ther agt pvrt facet jt crv/thrc 2nd level BLOCK NERVE ROOT THORACIC EACH ADDITIONAL VERTEBRA 2 W/IMAGE GUIDANCE FLUORO OR CT Facet arthropathy, thoracic 01/15/2025 8:30 AM EDT MR SOREN MUNGUIA Start: 01-15-2025 Subsequent hospital visit by physician 01/15/2025 8:30 AM EDT Hospital Encounter SOREN MUNGUIA PROCEDURES [address] [facility] [address] [facility] [place] [address] Olaf Tucker MD [address] [place] [address] Facet arthropathy, thoracic [M47.814] PAIN EZRA PROCEDURES Comment on above: Facet arthropathy, t horacic [M47.814] Start: 12-31-2024 Influenza vaccination Influenza Vacc ine (#1) [facility] Start: 12-27-2024 End: 12-27-2024 Nursing evaluation of patient and report 12/27/2024 9:00 AM EDT Nurse Visit Pain Management [address] [place], [place] [address] Post-Op Nurse Call Pain Management Comment on above: Post-Op Nurse Call Start: 12-07-2024 End: 12-07-2024 ambulatory 12/07/2024 11:30 AM EDT OT/PT/Speech Visit [facility] [address] [place] [address] Farheen Peters, [facility] Comment on above: AQUATIC Start: 12-06-2024 End: 12-06-2024 ambulatory 12/06/2024 7:45 AM EDT OT/PT/Speech Visit [facility] [address] [place] [address] Farheen Peters PTA [facility] Comment on above: AQUATIC Start: 12-05-2024 End: 12-05-2024 Patient encounter procedure 12/05/2024 1:15 PM EDT Office Visit Pain Management [address] [facility] [address] [facility] [address] Olaf Tucker MD [address] [place] [address] Follow Up Pain Management Comment on above: Follow Up Start: 12-04-2024 End: 12-04-2024 ambulatory 12/04/2024 10:30 AM EDT OT/PT/Speech Visit [facility] [address] [place] [address] Bertha Joseph, PT [address] [place] [address] RE-EVAL WITH BERTHA [facility] Comment on above: RE-EVAL WITH BERTHA Start: 11-29-2024 End: 11-29-2024 ambulatory 11/29/2024 11:30 AM EDT OT/PT/Speech Visit [facility] [address] [place] [address] Farheen Peters, [facility] Comment on above: AQUATIC Start: 11-27-2024 End: 11-27-2024 ambulatory 11/27/2024 10:45 AM EDT OT/PT/Speech Visit [facility] [address] [place] [address] Andreia Cano PTA [facility] Comment on above: LAND Start: 11-22-2024 End: 11-22-2024 ambulatory 11/22/2024 10:00 AM EDT OT/PT/Speech Visit [facility] [address] [place] [address] Farheen Peters, [facility] Comment on above: AQUATIC Start: 11-20-2024 End: 11-20-2024 ambulatory 11/20/2024 10:00 AM EDT OT/PT/Speech Visit [facility] [address] [place] [address] Andreia Cano, [facility] Comment on above: LAND Start: 11-16-2024 End: 11-16-2024 ambulatory 11/16/2024 10:45 AM EDT OT/PT/Speech Visit [facility] [address] [place] [address] Andreia Cano, [facility] Comment on above: AQUATIC Start: 10-23-2024 Patient discharge [facility] Start: 05-02-2024 Advance Directive Discussion Advance Directive Discussion [facility] Start: 01-01-2024 Covid-19 Vaccine ( season) Covid-19 Vaccine ( season) [facility] Start: 2011 Screening for osteoporosis Bone Density Screening [facility] Start: 05-02-2011 Medicare Annual Well ness Visit Medicare Annual Wellness Visit [facility] Start: 1991 Diabetes Screening Diabetes Screenin g [facility] Start: 1965 Urine microalbumin profile DTaP,Tdap,Td Vaccine (1 - Tdap) [facility] Start: 1964 Anxiety Screening Anxiety Screening [facility] Start: 1964 Depression Screening Depression Scre ening [facility] Start: 1964 Hepatitis C screening Hepatitis C Sc mago [facility] Njx dx/ther agt pvrt facet jt crv/thrc 1 level BLOCK NERVE ROOT THORACIC 1ST VERTEBRA W/IMAGE GUIDANCE, FLUORO OR CT Facet arthropathy, thoracic MR PAIN EZRA Njx dx/ther agt pvrt facet jt crv/thrc 2nd level BLOCK NERVE ROOT THORACIC EACH ADDITIONAL VERTEBRA 2 W/IMAGE GUIDANCE FLUORO OR CT Facet arthropathy, thoracic MR PAIN EZRA Patient referral [facility] Work Phone: Immunizations Immunization Date Immunization Notes Care Provider Fa [facility] 03-11-2024 influenza virus vacc ine, unspecified formulation DR MAY MCKEON MD [facility] 04-02-2023 RSV vaccine, preF A- preF B, recombinant DR MAY MCKEON MD [facility] 03-08-2023 influenza virus vacc ine, unspecified formulation DR MAY MCKEON MD [facility] 02-08-2022 influenza virus vacc ine, unspecified formulation DR MAY MCKEON MD [facility] 03-10-2021 SARS-CoV-2 (COVID-19 ) mRNA-[address] MAY MCKEON MD [facility] Comment on above: Result Comment: 2021: [id number] 02-19-2021 influenza virus vacc ine, unspecified formulation DR MAY MCKEON MD [facility] 07-07-2020 SARS-CoV-2 (COVID-19 ) mRNA-[address] MAY MCKEON MD [facility] Comment on above: Result Comment: 2020: [id number] 06-05-2020 SARS-CoV-2 (COVID-19 ) mRNA-[address] MAY MCKEON MD [facility] Comment on above: Result Comment: 2020: [id number] 02-28-2020 influenza virus vacc ine, unspecified formulation DR MAY MCKEON MD [facility] 04-10-[address] MAY MCKEON MD [facility] 03-14-2019 influenza virus vacc ine, unspecified formulation GHULAM DIGGS MD [facility] 01-30-[address] MAY MCKEON MD [facility] 01-30-2018 influenza virus vacc ine, unspecified formulation DR MAY MCKEON MD [facility] 01-19-2018 influenza virus vacc ine, unspecified formulation GHULAM DIGGS MD [facility] 02-14-2017 influenza virus vacc ine, unspecified formulation GHULAM DIGGS MD [facility] 01-30-2017 influenza virus vacc ine, unspecified formulation DR MAY MCKEON MD [facility] 03-26-2016 influenza virus vacc ine, unspecified formulation DR MAY MCKEON MD [facility] 11-10-2015 pneumococcal conjuga te vaccine, [address] MAY MCKEON MD [facility] 02-13-2014 influenza virus vacc ine, unspecified formulation DR MAY MCKEON MD [facility] 02-08-2013 influenza virus vacc ine, unspecified formulation DR MAY MCKEON MD [facility] 02-18-2012 influenza virus vacc ine, unspecified formulation DR MAY MCKEON MD [facility] 09-24-2011 pneumococcal polysaccharide vaccine, [address] MAY MCKEON MD [facility] 01-30-2011 influenza virus vacc ine, unspecified formulation GHULAM DIGGS MD [facility] 05-02-2008 zoster vaccine, live DR BRITTON MCKEON MD [facility] 03-31-2008 zoster vaccine, live DR BRITTON MCKEON MD [facility] 02-23-2008 influenza virus vacc ine, unspecified formulation DR MAY MCKEON MD [facility] Payers Date Payer Category Payer Self-pay [id number] 2021 Unknown [id number] 2020 Unknown [id number] 2019 Unknown [id number] 2018 Private Health Insurance [id number] 2011 Medicare [id number] 1959 Medicare [id number] 1959 Unknown [id number] 1946 Unknown [id number] 2.16.8 40.1.668501.3.579.2.1069 1946 Unknown [id number] 2.16. 840.1.232451.3.579.2.356 1946 Unknown [id number] 2.16. 840.1.936587.3.579.2.356 1946 Unknown [id number] 2.16. 840.1.455852.3.579.2.356 1946 Unknown [id number] 2.16. 840.1.696499.3.579.2.356 1946 Unknown [id number] 2.16.8 40.1.579359.3.579.2.627 1946 Unknown [id number] 2.16.8 40.1.027784.3.579.2.627 1946 Unknown [id number] 2.16.8 40.1.642949.3.579.2.627 1946 Unknown [id number] 2.16.8 40.1.310819.3.579.2.627 1946 Unknown [id number] 2.16.8 40.1.907920.3.579.2.7 1946 Unknown [id number] 2.16.8 40.1.064803.3.579.2.627 1946 Unknown [id number] 2.16.8 40.1.793057.3.579.2. 1946 Unknown [id number] 2.16.8 40.1.190757.3.579.2.7 1946 Unknown [id number] 2.16.8 40.1.593396.3.579.2. 1946 Unknown [id number] 2.16.8 40.1.090402.3.579.2.7 1946 Unknown [id number] 2.16.8 40.1.974261.3.579.2. 1946 Unknown [id number] 2.16.8 40.1.207005.3.579.2. 1946 Unknown [id number] 2.16.8 40.1.148713.3.579.2. 1946 Unknown [id number] 2.16.8 40.1.898309.3.579.2.7 1946 Unknown [id number] 2.16.8 40.1.170319.3.579.2. 1946 Unknown [id number] 2.16.8 40.1.171594.3.579.2. 1946 Unknown [id number] 2.16. 840.1.429777.3.579.2. 1946 Unknown [id number] 2.16. 840.1.795061.3.579.2. 1946 Unknown [id number] 2.16.8 40.1.962898.3.579.2.627 1946 Unknown [id number] 2.16.8 40.1.075386.3.579.2.627 1946 Unknown [id number] 2.16.8 40.1.000476.3.579.2.627 1946 Unknown [id number] 2.16. 840.1.741066.3.579.2.627 1946 Unknown [id number] 2.16.8 40.1.058099.3.579.2.627 1946 Unknown [id number] 2.16.8 40.1.916016.3.579.2.627 1946 Unknown [id number] 2.16.8 40.1.606915.3.579.2.627 1946 Unknown [id number] 2.16.8 40.1.517593.3.579.2.627 1946 Unknown [id number] 2.16.8 40.1.271113.3.579.2.627 1946 Unknown [id number] 2.16.8 40.1.885910.3.579.2.627 1946 Unknown [id number] 2.16.8 40.1.537065.3.579.2.651 1946 Unknown [id number] 2.16.8 40.1.104267.3.579.2.598 1946 Unknown [id number] 2.16.8 40.1.636959.3.579.2.598 1946 Unknown [id number] 2.16.8 40.1.399912.3.579.2.598 1946 Unknown [id number] 2.16.8 40.1.127551.3.579.2.598 Medicare [id number] Unknown [id number] 2.16.8 40.1.836851.3.579.2.277 Unknown [id number] 2.16.8 40.1.544135.3.579.2.277 Unknown [id number] 2.16.8 40.1.432909.3.579.2.277 Unknown [id number] 2.16.8 40.1.590090.3.579.2.277 Unknown [id number] 2.16.8 40.1.089184.3.579.2.462 Unknown [id number] 2.16.8 40.1.193480.3.579.2.462 Unknown [id number] 2.16.8 40.1.425639.3.579.2.462 Unknown [id number] 2.16.8 40.1.640277.3.579.2.462 Unknown [id number] 2.16.8 40.1.654785.3.579.2.462 Unknown [id number] 2.16.8 40.1.692800.3.579.2.462 Social History Date Type Detail Facility Start: 12-12-2018 End: 11-06-2024 Tobacco smoking status Ex-smoker (finding) [facility] Comment on above: QUIT 1978 Start: 1945 Sex Assigned At Female A [facility] Start: 10-31-2024 End: 12-05-2024 Gender Identity unknown [facility] Sexual Orientation [facility] Start: 07-05-2019 Sex Female (finding) [facility] Start: 10-31-2024 End: 12-05-2024 History of Social function [facility] Start: 11-19-2014 National Score (1-100), lower number is lower risk 53 [facility] Start: 1945 Sex assigned at Not on file [facility] Start: 12-05-2024 [facility] Never smoked tobacco [facility] Start: 12-05-2024 Tobacco use and exposure Smokeless tobacco non-user [facility] Start: 12-05-2024 Alcoholic beverage intake Ex-drinker (finding) [facility] NEGATED: Highlighted row Not [facility] Medical Equipment Procedure Code Equipment Code Equipment [...] Goals Date Patient Goal Desired Activity /State Personal health goal Personal health goal Functional Status Date Assessment Result Facility 10-08-2023 Functional Status Repositions se lf, Encouraged/reinforced importance of turning [facility] 10-08-2023 Functional Status Mod I [facility] 10-08-2023 Functional Status Supervision [facility] 10-08-2023 Functional Status Room check performed [facility] 10-07-2023 Functional Status [facility] 10-07-2023 Functional Status [facility] 10-07-2023 Functional Status [facility] 10-07-2023 Functional Status [facility] 10-07-2023 Functional Status Patient Identified Iden tification band [facility] 10-07-2023 Functional Status [facility] 09-30-2023 Functional Status Sensory Deficits None [facility] Mental Status Date Assessment Result Facility 10-23-2024 Cognitive function Voice/Name;Touch/Erlin [facility] Work Phone: 10-08-2023 Mental Status Orientation Oriented x [address] [facility] 10-08-2023 Mental Status [facility] 10-07-2023 Mental Status [facility] Clinical Notes 09-15-2022 to 02-08-2025 Operative Report - Olaf Tucker MD - 01/15/2025 8:34 AM EDTOperative Report - Olaf Tucker MD - 01/15/2025 8:34 AM EDTTelephone Encounter - Neftali Amador RN - 01/08/2025 4:54 PM EDT Note Date & Type Note Facility 02-08-2025 Progress note [facility] 01-15-2025 Surgery Surgical operation note Summary: R TMBB T10-T12 #2 PATIENT: Kerir Burgess SURGEON: Primary: Olaf Tucker MD : 1945 DATE OF SURGERY: January 15, 2025 PRE-OP Diagnosis: Facet arthropathy, thoracic [M47.814] POST-OP Diagnosis: Same Procedure: Procedure(s): BLOCK NERVE ROOT THORACIC 1ST VERTEBRA W/IMAGE GUIDANCE, FLUORO OR CT (Right T10-12) BLOCK NERVE ROOT THORACIC EACH ADDITIONAL VERTEBRA 2 W/IMAGE GUIDANCE FLUORO OR CT Anesthesia Type: Local The following procedure was performed today: Thoracic facet Joint Nerve Block (medial branch block) with fluoroscopic guidance ([id number]) Levels Treated: Right T10, T11, T12 Approach: posterior Soft tissue: 6 mL 0.5% lidocaine Injectate: 1.5 mL 0.5% bupivacaine at each level Notes: Procedure: After discussing the risks, benefits, and alternatives to the procedure, the patient expressed understanding and wished to proceed. The risks include but are not limited to infection, allergic reaction, nerve damage, stroke, paralysis, epidural hematoma, syncope, headache, respiratory or cardiac arrest, spinal cord injury, and scar formation. Informed consent was obtained and all patient questions were answered. The patient was brought to the procedure suite and placed in the prone position. UNIVERSAL PROTOCOL / SAFETY CHECKLIST Procedure to be Performed: Right thoracic medial branch block T10, T11, T12 with fluoroscopy Sign In: A Moment of CARE was completed. Appropriate PPE (Personal Protective Equipment) worn by all providers involved with the procedure. Special equipment not required. Patient/Surrogate Stated/Verified: Patient name, Date of , Relevant allergies, and The intended procedure Time Out: Relevant labs, photos, and/or imaging studies have been reviewed. Intended patient and procedure match the source document(s) (e.g. consent, H&P, associated studies [imaging, pathology]) match the intended patient and procedure. Consent obtained and matches the intended procedure. Yes. Correct side/site has been marked and visible. Medications required for this procedure are verified. Fire risk assessed and is not applicable. Implants: are not applicable. Sign Out: Specimens not collected. All instruments, equipment, possible retained foreign bodies are accounted for. Yes. The post-procedure plan of care has been communicated to the patient or surrogate. Using fluoroscopy, the junction of the transverse process and superior articular process of the target levels were identified. The skin was sterilely prepped and draped in the usual fashion. The skin and subcutaneous tissue were anesthetized with lidocaine. Then using fluoroscopic guidance with multiplanar views, a 22 gauge spinal needle was advanced to each target. After contacting the periosteum, negative aspiration for heme or csf. The injectate noted above was then injected at each site and the needles were removed. The procedure was repeated for each target level noted above. Multiplanar images were obtained and saved. The patient tolerated the procedure well and was discharged after an appropriate period of observation. If there are any complications, the patient was instructed to call us. The patient is to follow-up with the requesting provider in 1-2 weeks. The patient was instructed to keep a pain diary and bring the results to the follow up appointment. 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] POST-OP Diagnosis: Same Procedure: Procedure(s): BLOCK NERVE ROOT THORACIC 1ST VERTEBRA W/IMAGE GUIDANCE, FLUORO OR CT (Right T10-12) BLOCK NERVE ROOT THORACIC EACH ADDITIONAL VERTEBRA 2 W/IMAGE GUIDANCE FLUORO OR CT Anesthesia Type: Local The following procedure was performed today: Thoracic facet Joint Nerve Block (medial branch block) with fluoroscopic guidance ([id number]) Levels Treated: Right T10, T11, T12 Approach: posterior Soft tissue: 6 mL 0.5% lidocaine Injectate: 1.5 mL 0.5% bupivacaine at each level Notes: Procedure: After discussing the risks, benefits, and alternatives to the procedure, the patient expressed understanding and wished to proceed. The risks include but are not limited to infection, allergic reaction, nerve damage, stroke, paralysis, epidural hematoma, syncope, headache, respiratory or cardiac arrest, spinal cord injury, and scar formation. Informed consent was obtained and all patient questions were answered. The patient was brought to the procedure suite and placed in the prone position. UNIVERSAL PROTOCOL / SAFETY CHECKLIST Procedure to be Performed: Right thoracic medial branch block T10, T11, T12 with fluoroscopy Sign In: A Moment of CARE was completed. Appropriate PPE (Personal Protective Equipment) worn by all providers involved with the procedure. Special equipment not required. Patient/Surrogate Stated/Verified: Patient name, Date of , Relevant allergies, and The intended procedure Time Out: Relevant labs, photos, and/or imaging studies have been reviewed. Intended patient and procedure match the source document(s) (e.g. consent, H&P, associated studies [imaging, pathology]) match the intended patient and procedure. Consent obtained and matches the intended procedure. Yes. Correct side/site has been marked and visible. Medications required for this procedure are verified. Fire risk assessed and is not applicable. Implants: are not applicable. Sign Out: Specimens not collected. All instruments, equipment, possible retained foreign bodies are accounted for. Yes. The post-procedure plan of care has been communicated to the patient or surrogate. Using fluoroscopy, the junction of the transverse process and superior articular process of the target levels were identified. The skin was sterilely prepped and draped in the usual fashion. The skin and subcutaneous tissue were anesthetized with lidocaine. Then using fluoroscopic guidance with multiplanar views, a 22 gauge spinal needle was advanced to each target. After contacting the periosteum, negative aspiration for heme or csf. The injectate noted above was then injected at each site and the needles were removed. The procedure was repeated for each target level noted above. Multiplanar images were obtained and saved. The patient tolerated the procedure well and was discharged after an appropriate period of observation. If there are any complications, the patient was instructed to call us. The patient is to follow-up with the requesting provider in 1-2 weeks. The patient was instructed to keep a pain diary and bring the results to the follow up appointment. documented in this encounter [facility] 01-08-2025 Telephone encounter Note Delilah was handling this. Neftali Amador RN January 08, 2025 4:55 PM [facility] 01-08-2025 Miscellaneous Notes Delilah was handling this. Neftali Amador RN January 08, 2025 4:55 PM Tatiana has added documentation to the original postprocedure call documentation. Can we please let pre access know this? Ute with [employer] lmom stating she has emailed about pt upcoming procedure. She asked that the documentation be reviewed and updated so can move forward with submitting the PA. Jennifer Chance RN January 04, 2025 9:33 AM documented in this encounter [facility] 01-08-2025 Telephone encounter Note Tatiana has added documentation to the original postprocedure call documentation. Can we please let pre access know this? [facility] 01-04-2025 Telephone encounter Note Ute with [employer] lmom stating she has emailed about pt upcoming procedure. She asked that the documentation be reviewed and updated so can move forward with submitting the PA. Jennifer Chance RN January 04, 2025 9:33 AM [facility] 12-28-2024 Telephone encounter Note I left a message to schedule a procedure. Delilah Lind December 28, 2024 1:55 PM [facility] 12-28-2024 Miscellaneous Notes I left a message to schedule a procedure. Delilah Lind December 28, 2024 1:55 PM The order is in and ready to schedule please. Procedure to be done: Right T10-12 diagnostic medial branch blocks A buggy driver is required: Yes Oral Sedation is requested : No If you are receiving oral sedation, you may eat a light meal. Clothing to wear: Back injections - elastic waist/jogging pants Neck injections - wide neck or button down shirt; please do not wear neck jewelry Plan to take it easy the rest of the day following your procedure. You may resume normal activities 24 hours following your procedure or as otherwise instructed. Special Instructions - NONE Date of procedure 12/25/24 60 % of relief Pain level 8/10 baseline How long relief lasted -- one day What were you doing when pain returned normal activity See Pain Disability index Patient would like to proceed with MBB #2. Please build case and schedule. Neftali Amador RN December 28, 2024 8:29 AM documented in this encounter [facility] 12-28-2024 Telephone encounter Note The order is in and ready to schedule please. [facility] 12-28-2024 Telephone encounter Note Procedure to be done: Right T10-12 diagnostic medial branch blocks A buggy driver is required: Yes Oral Sedation is requested : No If you are receiving oral sedation, you may eat a light meal. Clothing to wear: Back injections - elastic waist/jogging pants Neck injections - wide neck or button down shirt; please do not wear neck jewelry Plan to take it easy the rest of the day following your procedure. You may resume normal activities 24 hours following your procedure or as otherwise instructed. Special Instructions - NONE [facility] 12-28-2024 Telephone encounter Note Date of procedure 12/25/24 60 % of relief Pain level 12/09 baseline How long relief lasted -- one day What were you doing when pain returned normal activity See Pain Disability index Patient would like to proceed with MBB #2. Please build case and schedule. Neftali Amador RN December 28, 2024 8:29 AM [facility] 12-25-2024 Surgery Surgical operation note Summary: R TMBB T10-T12 PATIENT: Kerri Burgess SURGEON: Primary: Olaf Tucker MD : 1945 DATE OF SURGERY: December 25, 2024 PRE-OP Diagnosis: Thoracic spondylosis [M47.814] POST-OP Diagnosis: Same Procedure: Procedure(s): BLOCK THORACIC MEDIAL BRANCH T9, T10, T11 WITH C-ARM BLOCK JOINT FACET THORACIC EACH ADDITIONAL VERTEBRA 2 W/IMAGE GUIDANCE FLUORO OR CT Anesthesia Type: Local The following procedure was performed in the office today: Thoracic facet joint nerve block with fluoroscopic guidance (Zygopophyseal Joint nerve block - Medial branch blocks) (96247, [id number]) Levels Treated: Right T10, T11, T12 Approach: posterior Injectate: 4.5 mL 0.5% bupivacaine Notes: Once on the table, the patient and I decided to change T9 to T12 as the patient's pain was little bit lower to better cover her pain area. Procedure: The patient was prepped and draped in a sterile fashion in the side-lying position after informed consent was signed and all patient questions were answered including the risks, benefits, alternative treatment options, and prognosis. The risks include but are not limited to infection, allergic reaction, nerve damage, paralysis, epidural hematoma, syncope, headache, pneumothorax, respiratory or cardiac arrest, and scar formation. UNIVERSAL PROTOCOL / SAFETY CHECKLIST Procedure to be Performed: Right thoracic medial branch block T10, T11, T12 with fluoroscopy Sign In: A Moment of CARE was completed. Appropriate PPE (Personal Protective Equipment) worn by all providers involved with the procedure. Special equipment not required. Patient/Surrogate Stated/Verified: Patient name, Date of , Relevant allergies, and The intended procedure Time Out: Relevant labs, photos, and/or imaging studies have been reviewed. Intended patient and procedure match the source document(s) (e.g. consent, H&P, associated studies [imaging, pathology]) match the intended patient and procedure. Consent obtained and matches the intended procedure. Yes. Correct side/site has been marked and visible. Medications required for this procedure are verified. Fire risk assessed and is not applicable. Implants: are not applicable. Sign Out: Specimens not collected. All instruments, equipment, possible retained foreign bodies are accounted for. Yes. The post-procedure plan of care has been communicated to the patient or surrogate. The lateral masses of these respective levels were localized under multiplanar fluoroscopic visualization. A 1.5 inch 25-gauge needle was inserted toward the junction of the superior articular process and transverse process and local anesthetic injected. Next a 22 ga spinal needle was then positioned under multiplanar visualization so it rested just at the junction of the superior articular process and transverse process to be ideally positioned over the medial branch nerve. This was repeated for each nerve noted above. After contact with periosteum and negative aspirate for blood and CSF. Next, above medication injected divided into equal doses per medial branch. The needles were removed. No immediate complications noted. Prior to the procedure, the patient was given a Pain Diary which was completed for baseline measurements. The patient was instructed to bring the Diary on their follow-up appointment in 1-2 weeks/as planned. The patient tolerated the procedure well and was discharged after an appropriate period of observation. If there are any complications, the patient was instructed to call us. [facility] 12-25-2024 Surgical operatio n note Summary: R TMBB T10-T12 PATIENT: Kerri Burgess SURGEON: Primary: Olaf Tucker MD : 1945 DATE OF SURGERY: December 25, 2024 PRE-OP Diagnosis: Thoracic spondylosis [M47.814] POST-OP Diagnosis: Same Procedure: Procedure(s): BLOCK THORACIC MEDIAL BRANCH T9, T10, T11 WITH C-ARM BLOCK JOINT FACET THORACIC EACH ADDITIONAL VERTEBRA 2 W/IMAGE GUIDANCE FLUORO OR CT Anesthesia Type: Local The following procedure was performed in the office today: Thoracic facet joint nerve block with fluoroscopic guidance (Zygopophyseal Joint nerve block - Medial branch blocks) ([id number], [id number]) Levels Treated: Right T10, T11, T12 Approach: posterior Injectate: 4.5 mL 0.5% bupivacaine Notes: Once on the table, the patient and I decided to change T9 to T12 as the patient's pain was little bit lower to better cover her pain area. Procedure: The patient was prepped and draped in a sterile fashion in the side-lying position after informed consent was signed and all patient questions were answered including the risks, benefits, alternative treatment options, and prognosis. The risks include but are not limited to infection, allergic reaction, nerve damage, paralysis, epidural hematoma, syncope, headache, pneumothorax, respiratory or cardiac arrest, and scar formation. UNIVERSAL PROTOCOL / SAFETY CHECKLIST Procedure to be Performed: Right thoracic medial branch block T10, T11, T12 with fluoroscopy Sign In: A Moment of CARE was completed. Appropriate PPE (Personal Protective Equipment) worn by all providers involved with the procedure. Special equipment not required. Patient/Surrogate Stated/Verified: Patient name, Date of , Relevant allergies, and The intended procedure Time Out: Relevant labs, photos, and/or imaging studies have been reviewed. Intended patient and procedure match the source document(s) (e.g. consent, H&P, associated studies [imaging, pathology]) match the intended patient and procedure. Consent obtained and matches the intended procedure. Yes. Correct side/site has been marked and visible. Medications required for this procedure are verified. Fire risk assessed and is not applicable. Implants: are not applicable. Sign Out: Specimens not collected. All instruments, equipment, possible retained foreign bodies are accounted for. Yes. The post-procedure plan of care has been communicated to the patient or surrogate. The lateral masses of these respective levels were localized under multiplanar fluoroscopic visualization. A 1.5 inch 25-gauge needle was inserted toward the junction of the superior articular process and transverse process and local anesthetic injected. Next a 22 ga spinal needle was then positioned under multiplanar visualization so it rested just at the junction of the superior articular process and transverse process to be ideally positioned over the medial branch nerve. This was repeated for each nerve noted above. After contact with periosteum and negative aspirate for blood and CSF. Next, above medication injected divided into equal doses per medial branch. The needles were removed. No immediate complications noted. Prior to the procedure, the patient was given a Pain Diary which was completed for baseline measurements. The patient was instructed to bring the Diary on their follow-up appointment in 1-2 weeks/as planned. The patient tolerated the procedure well and was discharged after an appropriate period of observation. If there are any complications, the patient was instructed to call us. documented in this encounter [facility] 12-05-2024 Note HNO ID: [id number] Author: OLAF TUCKER MD Service: ? Author Type: Physician Type: Progress Notes Filed: 12/05/2024 14:12 Note Text: PATIENT: Kerri Burgess : 1945 DATE OF SERVICE: 12/05/2024 REFERRING PRACTITIONER: No ref. provider found PRIMARY CARE PROVIDER: May Mckeon MD CHIEF COMPLAINT: Patient presents with: Back Pain HISTORY OF PRESENT ILLNESS: Kerri Burgess is a 79 year old year old female who presents to the clinic today with chief complaint(s) as above. Following up for: Right-sided mid back pain. 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 Nursing ROS Reviewed and confirmed. === HISTORY: ALLERGIES Allergen Reactions Penicillins Unknown Seizure like activity Latex Hives, Swelling Swelling in lips PAST MEDICAL HISTORY Diagnosis Date Pulmonary embolism (HCC) Venous stasis PAST SURGICAL HISTORY Procedure Laterality Date ARTHRP KNE CONDYLEANDPLATU MEDIALANDLAT COMPARTMENTS Right 09/2009 ARTHRP KNE CONDYLEANDPLATU MEDIALANDLAT COMPARTMENTS Left 2017 CATARACT SURGERY, COMPLEX 2012 2019 CHOLECYSTECTOMY HX 2012 HYSTERECTOMY HX 1984 PAST SURGICAL HISTORY OF Right 05/1998 carpel tunnel History reviewed. No pertinent family history. Social History Tobacco Use Smoking status: Never Smokeless tobacco: Never Substance Use Topics Alcohol use: Not Currently Drug use: Never Current Outpatient Medications Medication Sig vitamin b complex (VITAMINS B COMPLEX) capsule Take 1 capsule by mouth. aspirin-calcium carbonate 81 mg-300 mg calcium(777 mg) tab Take 81 mg by mouth. valsartan (DIOVAN) 320 mg tablet levothyroxine (SYNTHROID) 50 mcg tablet BYSTOLIC 10 mg tablet omeprazole (PRILOSEC) 20 mg capsule Take 20 mg by mouth. oxybutynin ER (DITROPAN XL) 10 mg 24 hr tablet WELCHOL 625 mg tablet Magnesium 250 mg tab Take 250 mg by mouth. coenzyme Q10 (H2Q COQ10) 200 mg/gram powd Take by mouth. ergocalciferol, vitamin D2, (VITAMIN D2 ORAL) Take by mouth. vits A,C,E/zinc/copper (VISION-CAMRON PRESERVE ORAL) Take by mouth. amitriptyline (ELAVIL) 10 mg tablet Take 1 tablet by mouth daily at bedtime. No current facility-administered medications for this visit. OBJECTIVE: VS: BP 154/82 (BP Site: Left Arm, BP Position: Sitting, BP Cuff Size: Regular Adult) Pulse 65 Resp 17 Ht 160 cm (5' 3") Wt 88.5 kg (195 lb) SpO2 92% BMI 34.54 kg/m? Body mass index is 34.54 kg/m?. PHYSICAL EXAMINATION: Gen: Well developed. No acute distress. Eyes: Conjunctivae clear. Normal upper and lower lids. CV: Non-cyanotic. No obvious jugular venous distention. Chest: Non-labored breathing, good respiratory effort. Lymph: No visible regional lymphadenopathy. No gross edema noted. Skin: Visualized portions intact and no rashes or ecchymosis noted. Psych: Alert and well-oriented. Mood/Affect: appropriate. Neuro/MSK: Tender to palpation over the lower thoracic spine. Facet loading is positive for pain here. Patient with compression hose on both legs bilateral Diagnostic Imaging: MRI thoracic spine reviewed MRI lumbar spine reviewed Other Diagnostic Studies: IMPRESSION: (M47.814) Thoracic spondylosis (primary encounter diagnosis) (M79.18) Myofascial pain syndrome (M79.2) Neuropathic pain Kerri Burgess is a 79 year old female here with the following issues: Right sided mid back pain and left foot pain described as neuropathic pain PLAN: -Recommend: Trial right thoracic medial branch block T9, T10, T11 with fluoroscopy. If 2 successful nerve blocks we will proceed to radiofrequency ablation. Patient unable to take NSAIDs due to gastric ulcers. Patient has just completed physical therapy without significant improvement in symptoms Recommended she take pregabalin 50 mg 2 capsules nightly sensitive 50 twice daily. Her symptoms are worse at nighttime. Continue acetaminophen, lidocaine Continue care with all other providers including vascular Consider caudal epidural steroid injection Continue home exercises learned at physical therapy The risks, benefits, alternative treatment options and prognosis were discussed and all of patient's questions/concerns were addressed. -Depending on response to recommendations, in the future may consider evaluation for: Follow-up: After nerve blocks May certainly follow up sooner if needed. Greater than 40 minutes spent with patient discussing multiple problems possible treatments This note (more content not included)... [facility] 12-05-2024 Note HNO ID: [id number] Author: HAVEN BAXTER MA Service: ? Author Type: Hvac/R Instructor Type: Progress Notes Filed: 12/05/2024 14:12 Note Text: Room 2 Follow up: Back Pain [facility] 12-04-2024 Note HNO ID: [id number] Author: BERTHA JOSEPH PT Service: ? Author Type: Physical Therapist Type: Progress Notes Filed: 12/04/2024 12:02 Note Text: Episode Visit Count: 7 Therapist That Will Accept/Oversee The Plan Of Care: Bertha Joseph PT, DPT Start of Care Date: 11/13/24 Onset Date: 10/08/23 Plan of Care Certification Date: 11/13/24 Next Certification Due Date: 02/11/25 Patient Identified by Name and Date of : Yes REHABILITATION AND SPORTS THERAPY PHYSICAL THERAPY PROGRESS REPORT PLAN OF CARE UPDATE: Assessment: Kerri Burgess demonstrates no improvement in sitting, rising from a chair, standing, and walking. The patient has not progressed toward goals. Patient continues to present with impairments in ADL's, flexibility, overall function, posture, and sensation that interfere with walking, standing, sitting, rising from a chair . Patient continues to have tenderness in her back between the spinal levels of T7 - T10 that can radiate to the front. Patient's pain is not recreated with palpation to ribs or spinal column. Increasing intraabdominal pressure increases patient's pain, as well as, thoracic rotation. Discussed with patient placing a hold on therapy and following up with referring provider. Patient is very convinced pain is stemming from her liver, but discussed that this could be related to thoracic spine degenerative changes. Current prognosis is Fair due to: clinical presentation, multiple co- morbidities, chronic nature of impairments . The patient will benefit from continued skilled therapy services to meet the updated goals for this plan of care as noted below. Goals for Episode of Care: established 11/13/24; updated 12/04/24 [place] in home exercise program.-MET Patient will decrease pain rating by 2 points to meet minimal clinical important difference for numeric pain rating scale. - NOT MET Perform [id number] with decreased report of symptoms/pain in 4 weeks. Improve postural awareness. - NOT MET Patient will be able to rotate with minimal thoracic and flank pain on the right side in 4 - week. - NOT MET Patient Goals: Reduce pain Time Frame for Goals and Treatment : 02/11/25 Planned Interventions, Frequency, and Duration: 2x/week, 8 weeks Total Number of Visits Planned: 16 Patient to be seen for Therapeutic exercise (24890), Neuromuscular re-education (49806), Therapeutic activities (29976), Manual therapy (39046), Aquatic PT (75321), Self-senior living management (31497) PLAN FOR NEXT VISIT: hold therapy for now SUBJECTIVE: Patient reports increased pain isnce last session. Patient reports that she has been liking the pool, but the deep end exercises really flared up her hip and back.. Functional Limitations: walking, standing, sitting, rising from a chair Red Flags Vertebral Fracture Red Flags: Female, Age >70 Vertebral Fracture Clinical Reasoning: Proceed with caution due to the above (1-2) risk factors Pain: Pain Pain Level: 5 Pain Location: Thoracic Spine - Right Description: Aching Post Treatment Pain Post Treatment Pain Level: No Change OBJECTIVE MEASURES WITH LEVEL OF FUNCTION: Spine Observations R Thoracic Spine Palpation Tenderness: Spinous Process, Rib, Inferior angle- Scapula Thoracic Spine AROM Thoracic Flexion: Increased pain Thoracic Extension: Increased pain Thoracic Sidebend Right: Increased pain Thoracic Sidebend Left: Normal Thoracic Rotation Right: Increased pain Thoracic Rotation Left: Normal Special Tests - Thoracic Thoracic Special Tests: Rib Compression tests Rib Compression Test: Right Negative Special Tests - Hip and Spine Extension with Rotation Test: Right Positive, Left Positive TREATMENT: Therapeutic Exercise: 1: Nustep (10/06) workload 2, 6 minutes 2: goal review, discussed POC and updated, assessed pain /palpation/movement, educated accordingly Skilled Intervention: Reviewed and educated patient on additions/changes for home exercise program. Patient education as noted. Billing Therapeutic Exercise Treatment Minutes: 20 Skilled Treatment Time Minutes (timed and untimed codes): 20 Total Session Time (minutes): 23 Session Start Time : 1037 Session Stop Time : 1100 Bertha Joseph PT, DPT [facility] 11-29-2024 Note HNO ID: [id number] Author: FARHEEN PETERS PTA Service: ? Author Type: Cylinder Machine Operator Type: Progress Notes Filed: 11/29/2024 12:09 Note Text: Episode Visit Count: 6 Therapist That Will Accept/Oversee The Plan Of Care: Bertha Joseph PT, DPT Start of Care Date: 11/13/24 Onset Date: 10/08/23 Plan of Care Certification Date: 11/13/24 Next Certification Due Date: 02/11/25 Patient Identified by Name and Date of : Yes REHABILITATION AND SPORTS THERAPY PHYSICAL THERAPY TREATMENT NOTE ASSESSMENT: Kerri Burgess tolerated the session with fatigue and expected muscle soreness. She demonstrated good tolerance to new exercises and progressions. The patient will continue to benefit from ongoing skilled physical therapy to progress toward set goals. PLAN FOR NEXT VISIT: Continue with aquatic therapy x1/week, land x1/week, spine mobility, abdominal strengthening. Consider d/c of mat exercises due pain in back related to lying down. SUBJECTIVE: Pt reported she is hurting more today. Said she felt like she twisted her back during last session. Pain: Pain Pain Level: 5 Pain Location: Thoracic Spine - Right Description: Aching Frequency: Intermittent Post Treatment Pain Post Treatment Pain Level: No Change OBJECTIVE MEASURES WITH LEVEL OF FUNCTION: No objective measures taken this date. TREATMENT: Aquatic Therapy: Footwear on pool deck pre-treatment: Yes, patient wearing appropriate footwear and appeared safe on pool deck Footwear on pool deck post-treatment: Yes, patient wearing appropriate footwear and appeared safe on pool deck Entered the pool: Forward on stairs Entered the pool assist level: [place], With rail Entered the pool step pattern: Step to step Exited the pool: Forward on stairs Exited the pool assist level: [place], With rail Exited the pool step pattern: Step to step Aquatic Therapy (71971): Walking, Posture / Trunk Exercise, Lower Extremity, 1, 2, 3, Stretching and Flexibility, Vertical / [place] - Buoyancy Supported 1: open books at wall at high steps by bench x10 ea side Walking: Forward Walking, Backward Walking, Lateral/ Side Stepping Water Depth: 3.5 Water Turbulence: None Forward Walking: x3 Backward Walking: x3 Lateral/Side Stepping: x3 Posture/Trunk Exercise: Trunk Rotation, 1, 2, 3, Abdominal Stabalization Push Downs, Abdominal Stabalization Push - Pull Water Depth: 3.5 Water Turbulence: None Abdominal Stabalization Push Downs : KB 2x10 Abdominal Stabalization Push - Pull: KB 2x10 Trunk Rotation : KB x20 alt 1: Horz abd/add PL2 2x10 2: flex/ext PL@ 2x10 Lower Extremity: Squats, Hip Flexion, Hip Extension, Hip Abduction, Hip Adduction, 1, 2, 3, Marching Water Depth: 3.5 Water Turbulence: None Hip Flexion: 1x15 BLE Hip Extension: 1x15 BLE Hip Abduction: 1x15 BLE Hip Adduction: 1x15 BLE Marchinx15 BLE 1: 1x15 B LE Stretching and Flexibility: 1, Hamstrings Water Depth: 3.5' Water Turbulence: none Hamstrings: 2x30" B Vertical/[place] - Buoyancy Supported : Bicycle, Hip Flexion/ Extension, Hip Abduction/ Adduction Water Depth: 7.5' Water Turbulence: none T Float: noodle Hip Abduction/Adduction: x1.5' Hip Flexion/Extension: x1.5' Bicycle: x1.5' Abbreviation [place]: BA = buoyancy assisted BR = buoyancy resisted BS = buoyancy supported reps = repetitions HEP = home exercise program Skilled Intervention: Patient was educated in proper exercise technique and purpose for exercises. Skilled judgment was provided in selection of appropriate interventions. Billing Aquatic Therapy Treatment Minutes: 38 Skilled Treatment Time Minutes (timed and untimed codes): 38 Total Session Time (minutes): 38 Session Start Time : 1129 Session Stop Time : 1207 Farheen Peters [facility] 11-29-2024 History of Presen t illness Narrative Episode Visit Count: 6 Therapist That Will Accept/Oversee The Plan Of Care: Bertha Joseph, PT, DPT Start of Care Date: 11/13/24 Onset Date: 10/08/23 Plan of Care Certification Date: 11/13/24 Next Certification Due Date: 02/11/25 Patient Identified by Name and Date of : Yes REHABILITATION AND SPORTS THERAPY PHYSICAL THERAPY TREATMENT NOTE ASSESSMENT: Kerri Burgess tolerated the session with fatigue and expected muscle soreness. She demonstrated good tolerance to new exercises and progressions. The patient will continue to benefit from ongoing skilled physical therapy to progress toward set goals. PLAN FOR NEXT VISIT: Continue with aquatic therapy x1/week, land x1/week, spine mobility, abdominal strengthening. Consider d/c of mat exercises due pain in back related to lying down. SUBJECTIVE: Pt reported she is hurting more today. Said she felt like she twisted her back during last session. Pain: Pain Pain Level: 5 Pain Location: Thoracic Spine - Right Description: Aching Frequency: Intermittent Post Treatment Pain Post Treatment Pain Level: No Change OBJECTIVE MEASURES WITH LEVEL OF FUNCTION: No objective measures taken this date. TREATMENT: Aquatic Therapy: Footwear on pool deck pre-treatment: Yes, patient wearing appropriate footwear and appeared safe on pool deck Footwear on pool deck post-treatment: Yes, patient wearing appropriate footwear and appeared safe on pool deck Entered the pool: Forward on stairs Entered the pool assist level: [place], With rail Entered the pool step pattern: Step to step Exited the pool: Forward on stairs Exited the pool assist level: [place], With rail Exited the pool step pattern: Step to step Aquatic Therapy (03938): Walking, Posture / Trunk Exercise, Lower Extremity, 1, 2, 3, Stretching and Flexibility, Vertical / [place] - Buoyancy Supported 1: open books at wall at high steps by bench x10 ea side Walking: Forward Walking, Backward Walking, Lateral/ Side Stepping Water Depth: 3.5 Water Turbulence: None Forward Walking: x3 Backward Walking: x3 Lateral/Side Stepping: x3 Posture/Trunk Exercise: Trunk Rotation, 1, 2, 3, Abdominal Stabalization Push Downs, Abdominal Stabalization Push - Pull Water Depth: 3.5 Water Turbulence: None Abdominal Stabalization Push Downs : KB 2x10 Abdominal Stabalization Push - Pull: KB 2x10 Trunk Rotation : KB x20 alt 1: Horz abd/add PL2 2x10 2: flex/ext PL@ 2x10 Lower Extremity: Squats, Hip Flexion, Hip Extension, Hip Abduction, Hip Adduction, 1, 2, 3, Marching Water Depth: 3.5 Water Turbulence: None Hip Flexion: 1x15 BLE Hip Extension: 1x15 BLE Hip Abduction: 1x15 BLE Hip Adduction: 1x15 BLE Marchinx15 BLE 1: 1x15 B LE Stretching and Flexibility: 1, Hamstrings Water Depth: 3.5' Water Turbulence: none Hamstrings: 2x30" B Vertical/[place] - Buoyancy Supported : Bicycle, Hip Flexion/ Extension, Hip Abduction/ Adduction Water Depth: 7.5' Water Turbulence: none T Float: noodle Hip Abduction/Adduction: x1.5' Hip Flexion/Extension: x1.5' Bicycle: x1.5' Abbreviation [place]: BA = buoyancy assisted BR = buoyancy resisted BS = buoyancy supported reps = repetitions HEP = home exercise program Skilled Intervention: Patient was educated in proper exercise technique and purpose for exercises. Skilled judgment was provided in selection of appropriate interventions. Billing Aquatic Therapy Treatment Minutes: 38 Skilled Treatment Time Minutes (timed and untimed codes): 38 Total Session Time (minutes): 38 Session Start Time : 1129 Session Stop Time : 1207 Farheen Peters PTA documented in this encounter [facility] 11-27-2024 Note HNO ID: [id number] Author: ANDREIA CANO PTA Service: ? Author Type: Cylinder Machine Operator Type: Progress Notes Filed: 11/27/2024 11:31 Note Text: Episode Visit Count: 5 Therapist That Will Accept/Oversee The Plan Of Care: Bertha Joseph PT, DPT Start of Care Date: 11/13/24 Onset Date: 10/08/23 Plan of Care Certification Date: 11/13/24 Next Certification Due Date: 02/11/25 Patient Identified by Name and Date of : Yes REHABILITATION AND SPORTS THERAPY PHYSICAL THERAPY TREATMENT NOTE ASSESSMENT: Kerri Burgess tolerated the session with decreased symptoms reports at close of session. She demonstrated difficulty tolerating supine and side-lying position due to pain in right upper back. The patient will continue to benefit from ongoing skilled physical therapy to progress toward set goals. PLAN FOR NEXT VISIT: Continue with aquatic therapy x1/week, land x1/week, spine mobility, abdominal strengthening. Consider d/c of mat exercises due pain in back related to lying down. SUBJECTIVE: Patient with minimal complaints of pain upon arrival to PT Pain: Pain Pain Level: 1 Pain Location: Thoracic Spine - Right Description: Aching Frequency: Intermittent Post Treatment Pain Post Treatment Pain Level: Better OBJECTIVE MEASURES WITH LEVEL OF FUNCTION: No objective measurements taken. See assessment for response to treatment. TREATMENT: Therapeutic Exercise: 1: Nustep (10/06) workload 2, 6 minutes 2: bugs 2x20 3: Abdominal bracing with june alt 4: RTT Mid Row 2x10 5: RTT Bilat Shoulder Ext 2x10 6: RTT pall off press 1x10 with 3 count hold 7: CAC (1) 15# 1x10 8: Foam roll on wall no money drill 2x10 with 3 count hold 9: Standing open books 1x10 with 3 count hold Bilat 10: Seated with SB 3-way roll outs 1x5 with 10 count hold Skilled Intervention: Patient was educated in proper exercise technique and purpose for exercises. Skilled judgment was used in selection of appropriate interventions. Correct performance of therapeutic exercises was facilitated with verbal, visual, and tactile cuing. Billing Therapeutic Exercise Treatment Minutes: 45 Skilled Treatment Time Minutes (timed and untimed codes): 45 Total Session Time (minutes): 45 Session Start Time : 1043 Session Stop Time : 1128 Andreia Cano [facility] 11-27-2024 History of Presen t illness Narrative Episode Visit Count: 5 Therapist That Will Accept/Oversee The Plan Of Care: Bertha Joseph, PT, DPT Start of Care Date: 11/13/24 Onset Date: 10/08/23 Plan of Care Certification Date: 11/13/24 Next Certification Due Date: 02/11/25 Patient Identified by Name and Date of : Yes REHABILITATION AND SPORTS THERAPY PHYSICAL THERAPY TREATMENT NOTE ASSESSMENT: Kerri Burgess tolerated the session with decreased symptoms reports at close of session. She demonstrated difficulty tolerating supine and side-lying position due to pain in right upper back. The patient will continue to benefit from ongoing skilled physical therapy to progress toward set goals. PLAN FOR NEXT VISIT: Continue with aquatic therapy x1/week, land x1/week, spine mobility, abdominal strengthening. Consider d/c of mat exercises due pain in back related to lying down. SUBJECTIVE: Patient with minimal complaints of pain upon arrival to PT Pain: Pain Pain Level: 1 Pain Location: Thoracic Spine - Right Description: Aching Frequency: Intermittent Post Treatment Pain Post Treatment Pain Level: Better OBJECTIVE MEASURES WITH LEVEL OF FUNCTION: No objective measurements taken. See assessment for response to treatment. TREATMENT: Therapeutic Exercise: 1: Nustep (10/06) workload 2, 6 minutes 2: bugs 2x20 3: Abdominal bracing with june alt 4: RTT Mid Row 2x10 5: RTT Bilat Shoulder Ext 2x10 6: RTT pall off press 1x10 with 3 count hold 7: CAC (1) 15# 1x10 8: Foam roll on wall no money drill 2x10 with 3 count hold 9: Standing open books 1x10 with 3 count hold Bilat 10: Seated with SB 3-way roll outs 1x5 with 10 count hold Skilled Intervention: Patient was educated in proper exercise technique and purpose for exercises. Skilled judgment was used in selection of appropriate interventions. Correct performance of therapeutic exercises was facilitated with verbal, visual, and tactile cuing. Billing Therapeutic Exercise Treatment Minutes: 45 Skilled Treatment Time Minutes (timed and untimed codes): 45 Total Session Time (minutes): 45 Session Start Time : 1043 Session Stop Time : 1128 Andreia Cano PTA documented in this encounter [facility] 11-22-2024 Note HNO ID: [id number] Author: FARHEEN PETERS PTA Service: ? Author Type: Cylinder Machine Operator Type: Progress Notes Filed: 11/22/2024 10:40 Note Text: Episode Visit Count: 4 Therapist That Will Accept/Oversee The Plan Of Care: Bertha Joseph PT, DPT Start of Care Date: 11/13/24 Onset Date: 10/08/23 Plan of Care Certification Date: 11/13/24 Next Certification Due Date: 02/11/25 Patient Identified by Name and Date of : Yes REHABILITATION AND SPORTS THERAPY PHYSICAL THERAPY TREATMENT NOTE ASSESSMENT: Kerri Burgess tolerated the session with fatigue and decreased symptoms. She demonstrated good tolerance to exercises. Patient liked open book stretch. The patient will continue to benefit from ongoing skilled physical therapy to progress toward set goals. PLAN FOR NEXT VISIT: Continue with aquatic therapy x1/week, land x1/week, spine mobility, abdominal strengthening SUBJECTIVE: Pt reported not really having pain just aching Pain: Pain Pain Level: 0 Pain Location: Thoracic Spine - Right Description: Aching Post Treatment Pain Post Treatment Pain Level: Better OBJECTIVE MEASURES WITH LEVEL OF FUNCTION: No objective measures taken this date. TREATMENT: Aquatic Therapy: Footwear on pool deck pre-treatment: Yes, patient wearing appropriate footwear and appeared safe on pool deck Footwear on pool deck post-treatment: Yes, patient wearing appropriate footwear and appeared safe on pool deck Entered the pool: Forward on stairs Entered the pool assist level: [place], With rail Entered the pool step pattern: Step to step Exited the pool: Forward on stairs Exited the pool assist level: [place], With rail Exited the pool step pattern: Step to step Aquatic Therapy (75168): Walking, Posture / Trunk Exercise, Lower Extremity, 1, 2, 3, Stretching and Flexibility 1: open books at wall at high steps by bench x5 ea side Walking: Forward Walking, Backward Walking, Lateral/ Side Stepping Water Depth: 3.5 Water Turbulence: None Forward Walking: x3 Backward Walking: x3 Lateral/Side Stepping: x3 Posture/Trunk Exercise: Trunk Rotation, 1, 2, 3, Abdominal Stabalization Push Downs, Abdominal Stabalization Push - Pull Water Depth: 3.5 Water Turbulence: None Abdominal Stabalization Push Downs : KB 2x10 Abdominal Stabalization Push - Pull: KB 2x10 3: Horz abd/add PL1 x10 Lower Extremity: Squats, Hip Flexion, Hip Extension, Hip Abduction, Hip Adduction, 1, 2, 3 Water Depth: 3.5 Water Turbulence: None Squats: @bar 2x10 Hip Flexion: 1x15 BLE Hip Extension: 1x15 BLE Hip Abduction: 1x15 BLE Hip Adduction: 1x15 BLE Stretching and Flexibility: 1, Hamstrings Water Depth: 3.5' Water Turbulence: none Hamstrings: 2x30" B 1: QL sidebending stretch at rail 2x30" B Abbreviation [place]: BA = buoyancy assisted BR = buoyancy resisted BS = buoyancy supported reps = repetitions HEP = home exercise program Skilled Intervention: Patient was educated in proper exercise technique and purpose for exercises. Skilled judgment was provided in selection of appropriate interventions. Billing Aquatic Therapy Treatment Minutes: 39 Skilled Treatment Time Minutes (timed and untimed codes): 39 Total Session Time (minutes): 40 Session Start Time : 1000 Session Stop Time : 1040 Farheen Peters [facility] 11-22-2024 History of Presen t illness Narrative Episode Visit Count: 4 Therapist That Will Accept/Oversee The Plan Of Care: Bertha Joseph PT, DPT Start of Care Date: 11/13/24 Onset Date: 10/08/23 Plan of Care Certification Date: 11/13/24 Next Certification Due Date: 02/11/25 Patient Identified by Name and Date of : Yes REHABILITATION AND SPORTS THERAPY PHYSICAL THERAPY TREATMENT NOTE ASSESSMENT: Kerri Burgess tolerated the session with fatigue and decreased symptoms. She demonstrated good tolerance to exercises. Patient liked open book stretch. The patient will continue to benefit from ongoing skilled physical therapy to progress toward set goals. PLAN FOR NEXT VISIT: Continue with aquatic therapy x1/week, land x1/week, spine mobility, abdominal strengthening SUBJECTIVE: Pt reported not really having pain just aching Pain: Pain Pain Level: 0 Pain Location: Thoracic Spine - Right Description: Aching Post Treatment Pain Post Treatment Pain Level: Better OBJECTIVE MEASURES WITH LEVEL OF FUNCTION: No objective measures taken this date. TREATMENT: Aquatic Therapy: Footwear on pool deck pre-treatment: Yes, patient wearing appropriate footwear and appeared safe on pool deck Footwear on pool deck post-treatment: Yes, patient wearing appropriate footwear and appeared safe on pool deck Entered the pool: Forward on stairs Entered the pool assist level: [place], With rail Entered the pool step pattern: Step to step Exited the pool: Forward on stairs Exited the pool assist level: [place], With rail Exited the pool step pattern: Step to step Aquatic Therapy (22792): Walking, Posture / Trunk Exercise, Lower Extremity, 1, 2, 3, Stretching and Flexibility 1: open books at wall at high steps by bench x5 ea side Walking: Forward Walking, Backward Walking, Lateral/ Side Stepping Water Depth: 3.5 Water Turbulence: None Forward Walking: x3 Backward Walking: x3 Lateral/Side Stepping: x3 Posture/Trunk Exercise: Trunk Rotation, 1, 2, 3, Abdominal Stabalization Push Downs, Abdominal Stabalization Push - Pull Water Depth: 3.5 Water Turbulence: None Abdominal Stabalization Push Downs : KB 2x10 Abdominal Stabalization Push - Pull: KB 2x10 3: Horz abd/add PL1 x10 Lower Extremity: Squats, Hip Flexion, Hip Extension, Hip Abduction, Hip Adduction, 1, 2, 3 Water Depth: 3.5 Water Turbulence: None Squats: @bar 2x10 Hip Flexion: 1x15 BLE Hip Extension: 1x15 BLE Hip Abduction: 1x15 BLE Hip Adduction: 1x15 BLE Stretching and Flexibility: 1, Hamstrings Water Depth: 3.5' Water Turbulence: none Hamstrings: 2x30" B 1: QL sidebending stretch at rail 2x30" B Abbreviation [place]: BA = buoyancy assisted BR = buoyancy resisted BS = buoyancy supported reps = repetitions HEP = home exercise program Skilled Intervention: Patient was educated in proper exercise technique and purpose for exercises. Skilled judgment was provided in selection of appropriate interventions. Billing Aquatic Therapy Treatment Minutes: 39 Skilled Treatment Time Minutes (timed and untimed codes): 39 Total Session Time (minutes): 40 Session Start Time : 1000 Session Stop Time : 1040 Farheen Peters PTA documented in this encounter [facility] 11-20-2024 Note HNO ID: [id number] Author: ANDREIA CANO PTA Service: ? Author Type: Cylinder Machine Operator Type: Progress Notes Filed: 11/20/2024 11:36 Note Text: Episode Visit Count: 3 Therapist That Will Accept/Oversee The Plan Of Care: Bertha Joseph PT, DPT Start of Care Date: 11/13/24 Onset Date: 10/08/23 Plan of Care Certification Date: 11/13/24 Next Certification Due Date: 02/11/25 Patient Identified by Name and Date of : Yes REHABILITATION AND SPORTS THERAPY PHYSICAL THERAPY TREATMENT NOTE ASSESSMENT: Kerri Burgess tolerated the session with expected muscle soreness. She demonstrated difficulty with side lying and supine position due to hip and back pain. The patient will continue to benefit from ongoing skilled physical therapy to progress toward set goals. PLAN FOR NEXT VISIT: Continue with aquatic therapy x1/week, land x1/week, spine mobility, abdominal strengthening SUBJECTIVE: Patient reports decreased in thoracic chris. Pain: Pain Pain Level: 1 Pain Location: Thoracic Spine - Right Description: Aching Frequency: Intermittent Post Treatment Pain Post Treatment Pain Level: Better OBJECTIVE MEASURES WITH LEVEL OF FUNCTION: No objective measurements taken. See assessment for response to treatment. TREATMENT: Therapeutic Exercise: 1: Nustep (10/06) workload 2, 6 minutes 2: Caleb lying open books (attempted, Patient complained of hip pain) 3: Standing bilat chicken wings 1x10 with 3 count hold 4: Seated with SB 3-way roll outs 1x5 with 10 count hold 5: Foam roll on wall no money drill 2x10 with 3 count hold 6: RTT Mid Row 2x10 7: RTT Bilat Shoulder Ext 2x10 Skilled Intervention: Patient was educated in proper exercise technique and purpose for exercises. Skilled judgment was used in selection of appropriate interventions. Correct performance of therapeutic exercises was facilitated with verbal, visual, and tactile cuing. Billing Therapeutic Exercise Treatment Minutes: 41 Skilled Treatment Time Minutes (timed and untimed codes): 41 Total Session Time (minutes): 41 Session Start Time : 1006 Session Stop Time : 1047 Andreia Cano PTA [facility] 11-20-2024 History of Presen t illness Narrative Episode Visit Count: 3 Therapist That Will Accept/Oversee The Plan Of Care: Bertha Joseph PT, DPT Start of Care Date: 11/13/24 Onset Date: 10/08/23 Plan of Care Certification Date: 11/13/24 Next Certification Due Date: 02/11/25 Patient Identified by Name and Date of : Yes REHABILITATION AND SPORTS THERAPY PHYSICAL THERAPY TREATMENT NOTE ASSESSMENT: Kerri Burgess tolerated the session with expected muscle soreness. She demonstrated difficulty with side lying and supine position due to hip and back pain. The patient will continue to benefit from ongoing skilled physical therapy to progress toward set goals. PLAN FOR NEXT VISIT: Continue with aquatic therapy x1/week, land x1/week, spine mobility, abdominal strengthening SUBJECTIVE: Patient reports decreased in thoracic chris. Pain: Pain Pain Level: 1 Pain Location: Thoracic Spine - Right Description: Aching Frequency: Intermittent Post Treatment Pain Post Treatment Pain Level: Better OBJECTIVE MEASURES WITH LEVEL OF FUNCTION: No objective measurements taken. See assessment for response to treatment. TREATMENT: Therapeutic Exercise: 1: Nustep (10/06) workload 2, 6 minutes 2: Caleb lying open books (attempted, Patient complained of hip pain) 3: Standing bilat chicken wings 1x10 with 3 count hold 4: Seated with SB 3-way roll outs 1x5 with 10 count hold 5: Foam roll on wall no money drill 2x10 with 3 count hold 6: RTT Mid Row 2x10 7: RTT Bilat Shoulder Ext 2x10 Skilled Intervention: Patient was educated in proper exercise technique and purpose for exercises. Skilled judgment was used in selection of appropriate interventions. Correct performance of therapeutic exercises was facilitated with verbal, visual, and tactile cuing. Billing Therapeutic Exercise Treatment Minutes: 41 Skilled Treatment Time Minutes (timed and untimed codes): 41 Total Session Time (minutes): 41 Session Start Time : 1006 Session Stop Time : 1047 Andreia Cano PTA documented in this encounter [facility] 11-16-2024 Note HNO ID: [id number] Author: ANDREIA CANO PTA Service: ? Author Type: Cylinder Machine Operator Type: Progress Notes Filed: 11/16/2024 11:38 Note Text: Episode Visit Count: 2 Therapist That Will Accept/Oversee The Plan Of Care: Bertha Joseph PT, DPT Start of Care Date: 11/13/24 Onset Date: 10/08/23 Plan of Care Certification Date: 11/13/24 Next Certification Due Date: 02/11/25 Patient Identified by Name and Date of : Yes REHABILITATION AND SPORTS THERAPY PHYSICAL THERAPY TREATMENT NOTE ASSESSMENT: Kerri Burgess tolerated the session with expected muscle soreness. She demonstrated good effort with aquatic exercise. The patient will continue to benefit from ongoing skilled physical therapy to progress toward set goals. PLAN FOR NEXT VISIT: Continue with aquatic therapy x1/week, land x1/week, spine mobility, abdominal strengthening SUBJECTIVE: Patient reports that her pain is down a little in her back. Patient adds she was able to drive herself to therapy today. Pain: Pain Pain Level: 5 Pain Location: Thoracic Spine - Right Description: Aching, Dull Post Treatment Pain Post Treatment Pain Level: No Change OBJECTIVE MEASURES WITH LEVEL OF FUNCTION: No objective measurements taken. See assessment for response to treatment. TREATMENT: Aquatic Therapy: Footwear on pool deck pre-treatment: No , patient educated on the importance of proper footwear (tennis shoes or aquatic shoes with rubber soles). Mandatory footwear reinforced for patient safety. Footwear on pool deck post-treatment: No , patient educated on the importance of proper footwear (tennis shoes or aquatic shoes with rubber soles). Mandatory footwear reinforced for patient safety. Entered the pool: Forward on stairs Entered the pool assist level: [place], With rail Entered the pool step pattern: Step to step Exited the pool: Forward on stairs Exited the pool assist level: [place], With rail Exited the pool step pattern: Step to step Aquatic Therapy (15141): Walking, Posture / Trunk Exercise, Lower Extremity, 1, 2, 3 1: Thoracic spine Rotation @ 3.5 foot bar with hand on back of head x10 bilat 2: Push up at 3.5 foot bar 2x10 Walking: Forward Walking, Backward Walking, Lateral/ Side Stepping Water Depth: 3.5 Water Turbulence: None Forward Walking: x3 Backward Walking: x3 Lateral/Side Stepping: x3 Posture/Trunk Exercise: Trunk Rotation, 1, 2, 3, Abdominal Stabalization Push Downs, Abdominal Stabalization Push - Pull Water Depth: 3.5 Water Turbulence: None Abdominal Stabalization Push Downs : KB 2x10 Abdominal Stabalization Push - Pull: KB 2x10 Trunk Rotation : KB x20 alt 1: flexion/ Ext PL 1 2: Abd/add PL1 3: Horz abd/add PL1 Lower Extremity: Squats, Hip Flexion, Hip Extension, Hip Abduction, Hip Adduction, 1, 2, 3 Water Depth: 3.5 Water Turbulence: None Squats: @bar 2x10 Hip Flexion: 1x15 BLE Hip Extension: 1x15 BLE Hip Abduction: 1x15 BLE Hip Adduction: 1x15 BLE Abbreviation [place]: BA = buoyancy assisted BR = buoyancy resisted BS = buoyancy supported reps = repetitions HEP = home exercise program Skilled Intervention: Patient was educated in proper exercise technique and purpose for exercises. Skilled judgment was provided in selection of appropriate interventions. Patient education: Weight bearing effects of immersion Proper hydration following aquatic session Rationale/technique for exercises and activities performed this visit Expectation of fatigue/discomfort with exercise progressions and normal response Advised to rest as needed upon exiting pool prior to walking to locker room to re-acclimate to full weight bearing status Patient with good understanding. Correct performance of exercises was facilitated with verbal and visual cueing. Billing Aquatic Therapy Treatment Minutes: 44 Skilled Treatment Time Minutes (timed and untimed codes): 44 Total Session Time (minutes): 44 Session Start Time : 1046 Session Stop Time : 1130 Andreia Cano [facility] 11-16-2024 History of Presen t illness Narrative Episode Visit Count: 2 Therapist That Will Accept/Oversee The Plan Of Care: Bertha Joseph PT, DPT Start of Care Date: 11/13/24 Onset Date: 10/08/23 Plan of Care Certification Date: 11/13/24 Next Certification Due Date: 02/11/25 Patient Identified by Name and Date of : Yes REHABILITATION AND SPORTS THERAPY PHYSICAL THERAPY TREATMENT NOTE ASSESSMENT: Kerri Burgess tolerated the session with expected muscle soreness. She demonstrated good effort with aquatic exercise. The patient will continue to benefit from ongoing skilled physical therapy to progress toward set goals. PLAN FOR NEXT VISIT: Continue with aquatic therapy x1/week, land x1/week, spine mobility, abdominal strengthening SUBJECTIVE: Patient reports that her pain is down a little in her back. Patient adds she was able to drive herself to therapy today. Pain: Pain Pain Level: 5 Pain Location: Thoracic Spine - Right Description: Aching, Dull Post Treatment Pain Post Treatment Pain Level: No Change OBJECTIVE MEASURES WITH LEVEL OF FUNCTION: No objective measurements taken. See assessment for response to treatment. TREATMENT: Aquatic Therapy: Footwear on pool deck pre-treatment: No , patient educated on the importance of proper footwear (tennis shoes or aquatic shoes with rubber soles). Mandatory footwear reinforced for patient safety. Footwear on pool deck post-treatment: No , patient educated on the importance of proper footwear (tennis shoes or aquatic shoes with rubber soles). Mandatory footwear reinforced for patient safety. Entered the pool: Forward on stairs Entered the pool assist level: [place], With rail Entered the pool step pattern: Step to step Exited the pool: Forward on stairs Exited the pool assist level: [place], With rail Exited the pool step pattern: Step to step Aquatic Therapy (09678): Walking, Posture / Trunk Exercise, Lower Extremity, 1, 2, 3 1: Thoracic spine Rotation @ 3.5 foot bar with hand on back of head x10 bilat 2: Push up at 3.5 foot bar 2x10 Walking: Forward Walking, Backward Walking, Lateral/ Side Stepping Water Depth: 3.5 Water Turbulence: None Forward Walking: x3 Backward Walking: x3 Lateral/Side Stepping: x3 Posture/Trunk Exercise: Trunk Rotation, 1, 2, 3, Abdominal Stabalization Push Downs, Abdominal Stabalization Push - Pull Water Depth: 3.5 Water Turbulence: None Abdominal Stabalization Push Downs : KB 2x10 Abdominal Stabalization Push - Pull: KB 2x10 Trunk Rotation : KB x20 alt 1: flexion/ Ext PL 1 2: Abd/add PL1 3: Horz abd/add PL1 Lower Extremity: Squats, Hip Flexion, Hip Extension, Hip Abduction, Hip Adduction, 1, 2, 3 Water Depth: 3.5 Water Turbulence: None Squats: @bar 2x10 Hip Flexion: 1x15 BLE Hip Extension: 1x15 BLE Hip Abduction: 1x15 BLE Hip Adduction: 1x15 BLE Abbreviation [place]: BA = buoyancy assisted BR = buoyancy resisted BS = buoyancy supported reps = repetitions HEP = home exercise program Skilled Intervention: Patient was educated in proper exercise technique and purpose for exercises. Skilled judgment was provided in selection of appropriate interventions. Patient education: Weight bearing effects of immersion Proper hydration following aquatic session Rationale/technique for exercises and activities performed this visit Expectation of fatigue/discomfort with exercise progressions and normal response Advised to rest as needed upon exiting pool prior to walking to locker room to re-acclimate to full weight bearing status Patient with good understanding. Correct performance of exercises was facilitated with verbal and visual cueing. Billing Aquatic Therapy Treatment Minutes: 44 Skilled Treatment Time Minutes (timed and untimed codes): 44 Total Session Time (minutes): 44 Session Start Time : 1046 Session Stop Time : 1130 Andreia Cano PTA documented in this encounter [facility] 11-13-2024 Note HNO ID: [id number] Author: BERTHA JOSEPH PT Service: ? Author Type: Physical Therapist Type: Progress Notes Filed: 11/13/2024 10:33 Note Text: Episode Visit Count: 1 Therapist That Will Accept/Oversee The Plan Of Care: Bertha Joseph PT, DPT Start of Care Date: 11/13/24 Onset Date: 10/08/23 Plan of Care Certification Date: 11/13/24 Next Certification Due Date: 02/11/25 Patient Identified by Name and Date of : Yes REHABILITATION AND SPORTS THERAPY PHYSICAL THERAPY EVALUATION PLAN OF CARE: Assessment: Kerri Burgess presents with chief complaint of thoracic spine and right-sided rib pain that interferes with walking, standing, sitting, rising from a chair (hitting bumps/ anything jarring) . The patient presents with impairments in ADL's, flexibility, overall function, posture, and range of motion. Prognosis for therapy is Good due to: current objective clinical presentation . The patient will benefit from skilled therapy services to meet the goals established for this plan of care as noted below. Goals for Episode of Care: established 11/13/24 [place] in home exercise program. Patient will decrease pain rating by 2 points to meet minimal clinical important difference for numeric pain rating scale. Perform [id number] with decreased report of symptoms/pain in 4 weeks. Improve postural awareness. Patient Goals: Reduce pain Time Frame for Goals and Treatment : 02/11/25 Planned Interventions, Frequency, and Duration: Current Frequency: 2x/week Duration: 12 weeks Total Number of Visits Planned: 24 Planned Treatment Interventions: Therapeutic exercise (20184), Neuromuscular re-education (92261), Therapeutic activities (45813), Manual therapy (24407), Aquatic PT (70820), Self-senior living management (69948) PLAN FOR NEXT VISIT: aquatic therapy x1/week, land x1/week, spine mobility, abdominal strenghtenning Patient demonstrates good understanding of plan of care and treatment. The above goals and plan of care were discussed and agreed upon by patient/family. SUBJECTIVE: Patient reports that she has been having increased throacic spine pain since her lumbar suregry last year. She did have a fall last year and later found a compression fracture at T7. Patient notes that the pain radiates around her ribs on her right side. Patient Goals: Reduce pain Functional Limitations: walking, standing, sitting, rising from a chair (hitting bumps/ anything jarring) Prior Level of Function: Independent without limitations Relevant History Past Relevant Medical Conditions: Neuropathy Past Relevant Surgical Conditions: Total Knee Replacement-Right, Total Knee Replacement-Left (L4/L5 surgery) Intake Information: Prescription present Previous Treatment: Pain meds , Surgery Falls Interview: Fall without injury in the last year Red Flags Vertebral Fracture Red Flags: Female, Age >70 Vertebral Fracture Clinical Reasoning: Proceed with caution due to the above (1-2) risk factors Spine History Pain is Worse Always: Driving Pain: Pain Pain Level: 7 Pain Location: Thoracic Spine - Right Description: Aching, Dull Post Treatment Pain Post Treatment Pain Level: No Change OBJECTIVE MEASURES WITH LEVEL OF FUNCTION: Posture / Alignment Posture: Forward head, Increased thoracic kyphosis, Rounded shoulders Spine Observations R Thoracic Spine Palpation Tenderness: Spinous Process, Rib, Inferior angle- Scapula Lumbar Spine AROM Lumbar R Rotation: Moderate limitation, Increased pain Lumbar L Rotation: Major limitation, Increased pain Special Tests - Hip and Spine Hip and Spine Special Tests: Extension with Rotation Test Extension with Rotation Test: Right Positive, Left Positive Education: Education Learning Preferences: Demonstration, Explanation Barriers: None Learning/educational needs: Plan of Care, Home exercise program Education Provided: Yes, see treatment interventions for education provided Education Provided To: Patient Education Mode/Type: Demonstration, Explanation/Discussion Response to Education/Teach Back: States/Identifies TREATMENT: PT Treatment Interventions: Self-Mcfp Management Evaluation Evaluation Self-Mcfp Management: 1: *discussed aquatic therapy 2: *cat/cows @ wall due to pain in knees 3: *Supine LTR Skilled Intervention: Skilled judgment in the selection of proper modification for activity of daily living/home management based on clinical presentation, deficits, and needs. Educated the patient regarding recommendations and provided written instruction to facilitate compliance. Provided written instruction for activities of daily living techniques to facilitate proper performance and compliance. Billing * Evaluation Moderate Complexity: 1 Unit Self-Care/Home Management Treatment Minutes: 8 Skilled Treatment Time Minutes (timed and untimed codes): 33 Total Session Time (minutes): 33 (more content not included)... [facility] 11-13-2024 History of Presen t illness Narrative Episode Visit Count: 1 Therapist That Will Accept/Oversee The Plan Of Care: Bertha Joseph PT, DPT Start of Care Date: 11/13/24 Onset Date: 10/08/23 Plan of Care Certification Date: 11/13/24 Next Certification Due Date: 02/11/25 Patient Identified by Name and Date of : Yes REHABILITATION AND SPORTS THERAPY PHYSICAL THERAPY EVALUATION PLAN OF CARE: Assessment: Kerri Burgess presents with chief complaint of thoracic spine and right-sided rib pain that interferes with walking, standing, sitting, rising from a chair (hitting bumps/ anything jarring) . The patient presents with impairments in ADL's, flexibility, overall function, posture, and range of motion. Prognosis for therapy is Good due to: current objective clinical presentation . The patient will benefit from skilled therapy services to meet the goals established for this plan of care as noted below. Goals for Episode of Care: established 11/13/24 [place] in home exercise program. Patient will decrease pain rating by 2 points to meet minimal clinical important difference for numeric pain rating scale. Perform [id number] with decreased report of symptoms/pain in 4 weeks. Improve postural awareness. Patient Goals: Reduce pain Time Frame for Goals and Treatment : 02/11/25 Planned Interventions, Frequency, and Duration: Current Frequency: 2x/week Duration: 12 weeks Total Number of Visits Planned: 24 Planned Treatment Interventions: Therapeutic exercise (33985), Neuromuscular re-education (82894), Therapeutic activities (11841), Manual therapy (56625), Aquatic PT (03519), Self-senior living management (05278) PLAN FOR NEXT VISIT: aquatic therapy x1/week, land x1/week, spine mobility, abdominal strenghtenning Patient demonstrates good understanding of plan of care and treatment. The above goals and plan of care were discussed and agreed upon by patient/family. SUBJECTIVE: Patient reports that she has been having increased throacic spine pain since her lumbar suregry last year. She did have a fall last year and later found a compression fracture at T7. Patient notes that the pain radiates around her ribs on her right side. Patient Goals: Reduce pain Functional Limitations: walking, standing, sitting, rising from a chair (hitting bumps/ anything jarring) Prior Level of Function: Independent without limitations Relevant History Past Relevant Medical Conditions: Neuropathy Past Relevant Surgical Conditions: Total Knee Replacement-Right, Total Knee Replacement-Left (L4/L5 surgery) Intake Information: Prescription present Previous Treatment: Pain meds , Surgery Falls Interview: Fall without injury in the last year Red Flags Vertebral Fracture Red Flags: Female, Age >70 Vertebral Fracture Clinical Reasoning: Proceed with caution due to the above (1-2) risk factors Spine History Pain is Worse Always: Driving Pain: Pain Pain Level: 7 Pain Location: Thoracic Spine - Right Description: Aching, Dull Post Treatment Pain Post Treatment Pain Level: No Change OBJECTIVE MEASURES WITH LEVEL OF FUNCTION: Posture / Alignment Posture: Forward head, Increased thoracic kyphosis, Rounded shoulders Spine Observations R Thoracic Spine Palpation Tenderness: Spinous Process, Rib, Inferior angle- Scapula Lumbar Spine AROM Lumbar R Rotation: Moderate limitation, Increased pain Lumbar L Rotation: Major limitation, Increased pain Special Tests - Hip and Spine Hip and Spine Special Tests: Extension with Rotation Test Extension with Rotation Test: Right Positive, Left Positive Education: Education Learning Preferences: Demonstration, Explanation Barriers: None Learning/educational needs: Plan of Care, Home exercise program Education Provided: Yes, see treatment interventions for education provided Education Provided To: Patient Education Mode/Type: Demonstration, Explanation/Discussion Response to Education/Teach Back: States/Identifies TREATMENT: PT Treatment Interventions: Self-Mcfp Management Evaluation Evaluation Self-Mcfp Management: 1: *discussed aquatic therapy 2: *cat/cows @ wall due to pain in knees 3: *Supine LTR Skilled Intervention: Skilled judgment in the selection of proper modification for activity of daily living/home management based on clinical presentation, deficits, and needs. Educated the patient regarding recommendations and provided written instruction to facilitate compliance. Provided written instruction for activities of daily living techniques to facilitate proper performance and compliance. Billing * Evaluation Moderate Complexity: 1 Unit Self-Care/Home Management Treatment Minutes: 8 Skilled Treatment Time Minutes (timed and untimed codes): 33 Total Session Time (minutes): 33 Session Start Time : 841 Session Stop Time : 914 Bertha Joseph PT, DPT documented in this encounter [facility] 11-06-2024 Evaluation note Diagnosis Onset Date Resolution Epigastric pain acute November 06, 2024 10:03am Gastric ulcer due to nonsteroidal anti-inflammatory drug (NSAID) acute November 06, 2024 10:03am Epigastric pain acute January 302024 10:29am Gastric ulcer due to nonsteroidal anti-inflammatory drug (NSAID) acute February 08 10:29am Loose stools acute January 10:29am [facility] Work Phone: 1(884) 683-294007-02-2025 NoteHNO ID: [id number] Author: OLAF TUCKER MD Service: ? Author Type: Anesthesiologist Type: Progress Notes Filed: 10/31/2024 11:59 Note Text: PATIENT: Kerri Burgess : 1945 DATE OF SERVICE: 10/31/2024 REFERRING PRACTITIONER: No ref. provider found PRIMARY CARE PROVIDER: No primary care provider on file. CHIEF COMPLAINT: Patient presents with: Back Pain HISTORY OF PRESENT ILLNESS: Kerri Burgess is a 79 year old year old female who presents to the clinic today with chief complaint(s) as above. Onset/Duration: May 2024 Injury: Patient [place] This was the first time she had the symptoms but they seem to worsen around 6 months ago. Patient states she has seen Dr. Diggs and has had imaging done of her low and mid back. She has a history of lumbar spine surgery at L4-5. Current pain is on the right side of the mid back between T7 and T10 Location/radiation/referral: Pain is on the right side of the mid back and can occasionally radiate towards the front of the lower chest wall and upper abdomen on the right Description: Constantly ache but occasionally sharp Pain Level: Now: 8 /10 Best: 5 /10 Worst: 9 /10 Numbness/Tingling (location): Bilateral legs Weakness (location): None Better with: Ibuprofen-caused gastric ulcers, lidocaine, Tylenol Worse with: Mornings, end of the day after being active Fever/Chills: [] Yes [x] No Recent significant weight change: [] Yes [x] No Bladder/Bowel incontinence: [x] Yes [] No-bladder incontinence is not new Is this visit directly related to a work or auto injury? [] Yes [x] No If so, pre-Injury Symptoms: n/a Prior Related Consults: [x] Yes [] No 1. Dr. Diggs Prior Related Studies: See below Past Treatment: PT (for this condition): [] Yes [x] No Chiropractic (for this condition): [] Yes [x] No Medications: Pregabalin 50 mg twice daily, topical cream, lidocaine, Tylenol Other: Ibuprofen caused gastric ulcers Prior Procedures/Surgery: Date Procedure Relief (%) Lumbar spine surgery at L4-5 Work/Functional Status Able to ambulate and perform ADL's without devices: [x] Yes [] No Current occupation/duties/job title: === Review of Systems: CONSTITUTIONAL: negative. HEENT: negative. EYES: negative RESPIRATORY: negative. CARDIOVASCULAR: negative. GASTROINTESTINAL: negative. GENITOURINARY: negative. INTEGUMENT/BREAST: negative. HEMATOLOGIC/LYMPHATIC: negative. NEURO/MUSCULOSKELETAL: Negative except above BEHAVIORAL/PSYCH: negative. ENDOCRINE: negative. ALLERGIC/IMMUNOLOGIC: Negative. 14 point ROS; pertinent positives listed above, the rest are reviewed and confirmed to be negative. === HISTORY: ALLERGIES Allergen Reactions Penicillins Unknown Seizure like activity Latex Hives, Swelling Swelling in lips PAST MEDICAL HISTORY Diagnosis Date Pulmonary embolism (HCC) Venous stasis PAST SURGICAL HISTORY Procedure Laterality Date CATARACT SURGERY, COMPLEX 2012 2018 CHOLECYSTECTOMY HX 2012 HYSTERECTOMY HX 1984 PAST SURGICAL HISTORY OF Right 05/1998 carpel tunnel TOTAL KNEE REPLACEMENT Right 09/2009 TOTAL KNEE REPLACEMENT Left 2017 No family history on file. Current Outpatient Medications Medication Sig vitamin b complex (VITAMINS B COMPLEX) capsule Take 1 capsule by mouth. aspirin-calcium carbonate 81 mg-300 mg calcium(777 mg) tab Take 81 mg by mouth. valsartan (DIOVAN) 320 mg tablet levothyroxine (SYNTHROID) 50 mcg tablet BYSTOLIC 10 mg tablet omeprazole (PRILOSEC) 20 mg capsule Take 20 mg by mouth. oxybutynin ER (DITROPAN XL) 10 mg 24 hr tablet WELCHOL 625 mg tablet Magnesium 250 mg tab Take 250 mg by mouth. coenzyme Q10 (H2Q COQ10) 200 mg/gram powd Take by mouth. ergocalciferol, vitamin D2, (VITAMIN D2 ORAL) Take by mouth. vits A,C,E/zinc/copper (VISION-CAMRON PRESERVE ORAL) Take by mouth. amitriptyline (ELAVIL) 10 mg tablet Take 1 tablet by mouth daily at bedtime. baclofen 10 mg tablet Take 1 tablet by mouth every 8 hours as needed. No current facility-administered medications for this visit. OBJECTIVE: VS: BP 180/89 (BP Site: Left Arm, BP Position: Sitting, BP Cuff Size: Regular Adult) Pulse 63 Resp 17 Ht 160 cm (5' 3") Wt 88.5 kg (195 lb) SpO2 (!) 80% BMI 34.54 kg/m? Body mass index is 34.54 kg/m?. PHYSICAL EXAMINATION: Gen: Well developed. No acute distress. Eyes: Conjunctivae clear. Normal upper and lower lids. CV: Non-cyanotic. No obvious jugular venous distention. Chest: Non-labored breathing, good respiratory effort. Lymph: No visible regional lymphadenopathy. No gross edema noted. Skin: Visualized portions intact and no rashes or ecchymosis noted. Psych: Alert and well-oriented. Mood/Affect: appropriate. 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 Facet loading positive for pain in this area (more content not included)...[facility]07-02-2025 History of Present illness Narrative* Olaf Tucker MD - 10/31/2024 11:50 AM EDT PATIENT: Kerri Burgess : 1945 DATE OF SERVICE: 10/31/2024 REFERRING PRACTITIONER: No ref. provider found PRIMARY CARE PROVIDER: No primary care provider on file. CHIEF COMPLAINT: Patient presents with: Back Pain HISTORY OF PRESENT ILLNESS: Kerri Burgess is a 79 year old year old female who presents to the clinic today with chief complaint(s) as above. Onset/Duration: May 2024 Injury: Patient [place] This was the first time she hadthe symptoms but they seem to worsen around 6 months ago. Patient states she has seen Dr. Diggs and has had imaging done of her low and mid back. She has a history of lumbar spine surgery at L4-5. Current pain is on the right side of the mid back between T7 and T10 Location/radiation/referral: Pain is on the right side of the mid back and can occasionally radiatetowards the front of the lower chest wall and upper abdomen on the right Description: Constantly ache but occasionally sharp Pain Level: Now: 8 /10 Best: 5 /10 Worst: 9 /10 Numbness/Tingling (location): Bilateral legs Weakness (location): None Better with: Ibuprofen-caused gastric ulcers, lidocaine, Tylenol Worse with: Mornings, end of the day after being active Fever/Chills: [] Yes [x] No Recent significant weight change: [] Yes [x] No Bladder/Bowel incontinence: [x] Yes [] No-bladder incontinence is not new Is this visit directly related to a work or auto injury? [] Yes [x] No If so, pre-Injury Symptoms: n/a Prior Related Consults: [x] Yes [] No 1. Dr. Diggs Prior Related Studies: See below Past Treatment: PT (for this condition): [] Yes [x] No Chiropractic (for this condition): [] Yes [x] No Medications: Pregabalin 50 mg twice daily, topical cream, lidocaine, Tylenol Other: Ibuprofen caused gastric ulcers Prior Procedures/Surgery: Date Procedure Relief (%) Lumbar spine surgery at L4-5 Work/Functional Status Able to ambulate and perform ADL's without devices: [x] Yes [] No Current occupation/duties/job title: === Review of Systems: CONSTITUTIONAL: negative. HEENT: negative. EYES: negative RESPIRATORY: negative. CARDIOVASCULAR: negative. GASTROINTESTINAL: negative. GENITOURINARY: negative. INTEGUMENT/BREAST: negative. HEMATOLOGIC/LYMPHATIC: negative. NEURO/MUSCULOSKELETAL: Negative except above BEHAVIORAL/PSYCH: negative. ENDOCRINE: negative. ALLERGIC/IMMUNOLOGIC: Negative. 14 point ROS; pertinent positives listed above, the rest are reviewed and confirmed to be negative. === HISTORY: ALLERGIES Allergen Reactions Penicillins Unknown Seizure like activity Latex Hives, Swelling Swelling in lips PAST MEDICAL HISTORY Diagnosis Date Pulmonary embolism (HCC) Venous stasis PAST SURGICAL HISTORY Procedure Laterality Date CATARACT SURGERY, COMPLEX 2012 2018 CHOLECYSTECTOMY HX 2012 HYSTERECTOMY HX 1983 PAST SURGICAL HISTORY OF Right 05/1998 carpel tunnel TOTAL KNEE REPLACEMENT Right 09/2009 TOTAL KNEE REPLACEMENT Left 2018 No family history on file. Current Outpatient Medications Medication Sig vitamin b complex (VITAMINS B COMPLEX) capsule Take 1 capsule by mouth. aspirin-calcium carbonate 81 mg-300 mg calcium(777 mg) tab Take 81 mg by mouth. valsartan (DIOVAN) 320 mg tablet levothyroxine (SYNTHROID) 50 mcg tablet BYSTOLIC 10 mg tablet omeprazole (PRILOSEC) 20 mg capsule Take 20 mg by mouth. oxybutynin ER (DITROPAN XL) 10 mg 24 hr tablet WELCHOL 625 mg tablet Magnesium 250 mg tab Take 250 mg by mouth. coenzyme Q10 (H2Q COQ10) 200 mg/gram powd Take by mouth. ergocalciferol, vitamin D2, (VITAMIN D2 ORAL) Take by mouth. vits A,C,E/zinc/copper (VISION-CAMRON PRESERVE ORAL) Take by mouth. amitriptyline (ELAVIL) 10 mg tablet Take 1 tablet by mouth daily at bedtime. baclofen 10 mg tablet Take 1 tablet by mouth every 8 hours as needed. No current facility-administered medications for this visit. OBJECTIVE: VS: BP 180/89 (BP Site: Left Arm, BP Position: Sitting, BP Cuff Size: Regular Adult) Pulse 63 Resp 17 Ht 160 cm (5' 3") Wt 88.5 kg (195 lb) SpO2 (!) 80% BMI 34.54 kg/m Body mass index is 34.54 kg/m . PHYSICAL EXAMINATION: Gen: Well developed. No acute distress. Eyes: Conjunctivae clear. Normal upper and lower lids. CV: Non-cyanotic. No obvious jugular venous distention. Chest: Non-labored breathing, good respiratory effort. Lymph: No visible regional lymphadenopathy. No gross edema noted. Skin: Visualized portions intact and no rashes or ecchymosis noted. Psych: Alert and well-oriented. Mood/Affect: appropriate. 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 Facet loading positive forpain in this area on the right. Unable to reproduce radicular symptoms. Low back without significant tenderness to palpation today. Strength 5 out of 5 bilateral lower extremities sensation grossly intact and equal bilateral thighs. Diagnostic Imaging: X-ray thoracic spine reviewed-report states there is multilevel degenerative changes and spondylosis but no fractures Patient states she recently had a lumbar and thoracic MRI in June 2024 at [facility] Other Diagnostic Studies: IMPRESSION: (M47.814) Thoracic spondylosis (primary encounter diagnosis) (M79.18) Myofascial pain syndrome (M54.14) Thoracic radiculopathy Kerri Burgess is a 79 year old female here with the following issues: Right-sided mid back pain for approximately 6 months. Patient states she believes she has a healed fracture in her thoracic spine. We will get the records of her MRIs from [place] PLAN: -Recommend: Patient to sign records release for [place]. Looking for MRI lumbar and thoracic spine from June 2024 Refer to physical therapy Continue pregabalin, Tylenol, lidocaine Trial amitriptyline 10 mg nightly for burning pain in the back as well as bilateral leg pain/sleep Trial baclofen 3 times daily as needed for muscle spasms Consider trigger point injections, thoracic medial branch blocks on the right, thoracic epidural steroid injection after MRI is reviewed The risks, benefits, alternative treatment options and prognosis were discussed and all of patient's questions/concerns were addressed. Follow-up: After MRI is obtained May certainly follow up sooner if needed. My final recommendations will be communicated back to the requesting physician by way of shared Medical record or letter to requesting physician via [place] mail. This note was produced using voice recognition software and therefore may contain typos. Please contact the author with any questions or concerns. Author: Olaf Tucker MD 10/31/2024 11:50 AM * Haven Baxter MA - 10/31/2024 10:53 AM EDT Room 2 New Consult: back [facility] NoteHNO ID: [id number] Author: HAVEN BAXTER MA Service: ? Author Type: Hvac/R Instructor Type: Progress Notes Filed: 10/31/2024 11:59 Note Text: Room 2 New Consult: back [facility]06-24-2025 Consult note [facility] Medical Records Department [address] [place] [id number] Anesthesia Postop Eval I 10/23/24 1228 MR#: [id number] Acct: [id number] Name: KERRI BURGESS Rep #:[id number] : 1945 79 From: Brien Carpio PCP: Dr. May Mckeon MD Status:R [place] [facility] [place]: [place] Location: [place] [address] Anesthesia: Postop Eval I Current Vital Signs [...] Postop Eval 1 completed: Yes 10/23/24 1228 > Date _ Brien Mckeon Signature: Date CC: ~ Signed [facility]06-24-2025 Consult note Author Yuniel Puga [facility] Note Date/Time October 23, 2024 11:1 3am [facility] Medical Records Department [address] [place] [address] Pre-Anesthesia Evaluation 10/23/24 1106 MR#: [id number] Acct: [id number] Name: KERRI BURGESS Rep #:[id number] : 1945 79 From: Yuniel Puga MD PCP: Dr. 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 Hx Hospitalization Yes: 10/2023 BACK SURGERY 10/22/24 [...] sips of water?: Yes PONV PONV - warehouse clerk: PONV - warehouse clerk Female Yes 10/22/24 09:49 HX of Motion [...] 10/23/24 10:36 Respiratory Assessment Respiratory Assessment - warehouse clerk: Respiratory Tract Infection Hx - warehouse clerk Hx Respiratory Tract Infection No 10/22/24 09:49 STOP Sleep Apnea STOP Sleep Apnea - warehouse clerk: STOP Sleep Apnea - warehouse clerk Hx Hypertension Yes: PER PT, CONTROLLED ON [...] Tobacco Use History Tobacco Use History - warehouse clerk: Tobacco Use History - warehouse clerk Tobacco Use Smoking Status Former smoker 10/22/24 09:49 Hx Tobacco Use No 10/22/24 09:49 Years Smoking Packs Smoked per Day Smoking Cessation Date was No - quit smoking greater 10/22/24 09:49 within the last 15 years than 15 years ago Hx Smoking Cessation Date Hx Smoking Cessation Counseling Hematologic Medial History Hematologic Hx - warehouse clerk: Hematologic Medical Hx - thoracic surgeon Hx of Blood Transfusion No 10/22/24 09:49 [...] confused, unrespo /Reproduction History /Reproductive History - warehouse clerk: /Reproductive Hx- warehouse clerk Hx Now No 10/22/24 09:49 Gestational Age [...] DAILY 10/22/24 Unk nown History mcg-zinc 2.75 me-ooirss-vlmldtzcx tablet cholecalciferol (vitamin D3) 125 125 mcg PO QHS Unknown History mcg (5,000 unit) tablet (Vitamin D3) omeprazole 20 mg capsule,delayed 20 mg PO BID 10/22/24 Unknown History release Held on 10/22/24. Instructions: DR PRESCRIBES CARAFATE TEMPORARILY triamcinolone acetonide 0.1 % 1 applic topical BID PRN rash 10/22/24 Unknown History topical cream vitamin B complex (B-Complex 1 tab PO DAILY 10/22/24 U nknown History tablet) vitamins A,C,G-fucd-xtrlvw 2,148 1 tab PO BID 10/22/24 Unknown [...] MD Cosigner Signature: Date CC: ~ Signed [facility] Work Phone: [phone]) 431-835206-24-2025 Procedure note [facility] Medical Records Department [address] [place] [address] EGD Report MR#: [id number] Acct: [id number] Name: KERRI BURGESS Rep #:[id number] : 1945 79 From: Scott Hermosillo DO PCP: Dr. May Mckeon MD Status:R [facility] Patient Name: Kerri Burgess Procedure Date: 10/23/2024 [...] PO BID. Procedure Code(s): --- Professional --- 05639, Small intestinal endoscopy, enteroscopy beyond second portion of duodenum, not including ileum; with biopsy, single or multiple CPT copyright 2021 [employer]. All rights reserved. The codes documented in this report are preliminary and upon outside rigger review may be revised to meet current compliance requirements. Scott Hermosillo DO 10/23/2024 12:21:59 PM This report has been signed electronically. Number of Addenda: 0 Note Initiated On: 10/23/2024 11:43 AM 10/23/24 1222 Date _ Scott Hermosillo DO Cosigner Signature: Date (if indicated) CC: Dr. May Mckeon MD; Scott Hermosillo DO ~ Date Dictated: 10/23/24 1143 Date Transcribed: Power Screwdriver Operator: RF Signed [facility]06-24-2025 Procedure note [facility] Medical Records Department [address] [place] [address] Operative Report - CC Letter MR#: [id number] Acct: [id number] Name: KERRI BURGESS Rep #:[id number] : 1945 79 From: Scott Hermosillo DO PCP: Dr. May Mckeon MD Status:R [facility] 10/23/2024 May Mckeon Md Re : Upper [...] ~ Date Dictated: 10/23/24 1143 Date Transcribed: Power Screwdriver Operator: RF Signed [facility]06-24-2025 History and physical note [facility] Medical Records Department [address] [place] [address] History & Physical Exam 10/23/24 1207 MR#: [id number] Acct: [id number] Name: KERRI BURGESS Rep #:[id number] : 1945 79 From: Scott Hermosillo DO PCP: Dr. May Mckeon MD Status:[facility] Location: [place] [address] HPI - General General Date of Admission: 10/23/24 Date of Service: 10/23/24 Chief Complaint: abdominal pain HPI Narrative KERRI BURGESS, is a 79 F who presents to the office today for establishment with [facility] regarding concerns for epigastric abdominal pain that "shoots straight through to her spine." She reports having a history of a thoracic compression fracture, recent MRI, per her report, showed healing of this compression fracture and her orthopedic spine surgeon told her the "back pain was not due to her spine." She was given a referral to see pain management and has an appointment in October. She reports "dealing with back pain since July of last year" and admits to "taking more Tylenol and ibuprofen than I should've," and then started having this severe searing [...] it's over and then the pain comes back." She denies difficulty chewing and swallowing, cough, nausea and emesis, denies reflux, constipation, diarrhea, hematochezia and melena. She does not use the descriptive words "ripping" or "tearing" for her pain. Her last colonoscopy was in 2011 and she was instructed at that time to "never allowanyone to do another colonoscopy on heragain due to her severely tortuous colonand high risks of perforating her bowels." She has been doing Cologuard stool testing. She also has a history of H.pylori infection from 2011. PCP blood work on 08.16.24: W-6.6, hgb-13.2, hct-39, plt-185, BUN 25, creat 1.06,t bili 0.3, ALP 136, AST 21, ALT 16, hgb A1c 6.4, Vit D25-41.2, amylase 22, lipase 26 [facility] Medical History Wears glasses Thyroid disease Arthritis [...] DAILY 10/22/24 Unk nown History mcg-zinc 2.75 uo-xvnqcu-gkwnuefjn tablet cholecalciferol (vitamin D3) 125 125 mcg PO QHS Unknown History mcg (5,000 unit) tablet (Vitamin D3) omeprazole 20 mg capsule,delayed 20 mg PO BID 10/22/24 Unknown History release Held on 10/22/24. Instructions: DR PRESCRIBES CARAFATE TEMPORARILY triamcinolone acetonide 0.1 % 1 applic topical BID PRN rash 10/22/24 Unknown History topical cream vitamin B complex (B-Complex 1 tab PO DAILY 10/22/24 U nknown History tablet) vitamins A,C,W-zxqt-iuxnwk 2,148 1 tab PO BID 10/22/24 Unknown [...] regarding concerns for epigastric abdominal pain that "shoots straight through to her spine." Differential diagnoses include: PUD, H.pylori infection, gastric outlet obstruction. She was recently prescribed a GNQ5jrh states that she has not started it. [...] May Mckeon MD; Scott Friend, DO~ Signed [facility]06-24-2025 [facility] Medical Records Department [address] [place] [address] History Physical Exam 10/23/24 1207 MR#: [id number] Acct: [id number] Name: KERRI BURGESS Rep #: [id number] : 1945 79 From: Scott Friend DO PCP: Dr. May Mckeon MD [place] [place] [address] HPI - General General Date of Admission: 10/23/24 Date of Service: 10/23/24 Chief Complaint: abdominal pain HPI Narrative KERRI BURGESS, is a 79 F who presents to the office today for establishment with [facility] regarding concerns for epigastric abdominal pain that "shoots straight through to her spine." She reports having a history of a thoracic compression fracture, recent MRI, per her report, showed healing of this compression fracture and her orthopedic spine surgeon told her the "back pain was not due to her spine." She was given a referral to see pain management and has an appointment in October. She reports "dealing with back pain since July of last year" and admits to "taking more Tylenol and ibuprofen than I should've," and then started having this severe searing [...] briefly reduce the severity of epigastric pain, "for about 30 minutes, long enough that I think it's over and then the pain comes back." She denies difficulty chewing and swallowing, cough, nausea and emesis, denies reflux, constipation, diarrhea, hematochezia and melena. She does not use the descriptive words "ripping" or "tearing" for her pain. Her last colonoscopy was in 2011 and she was instructed at that time to "never allow anyone to do another colonoscopy on her again due to her severely tortuous colon and high risks of perforating her bowels." She has been doing Cologuard stool testing. She also has a history of H.pylori infection from 2011. PCP blood work on 08.16.24: W-6.6, hgb-13.2, hct-39, plt-185, BUN 25, creat 1.06, t bili 0.3, ALP 136, AST 21, ALT [...] MRI, cervical spine Epigastric pain Home Medications ???Medication ???Instructions ???Recorded ???Last Taken ???Type acetaminophen 500 mg tablet 500 mg PO Q6H PRN pain 10/11/24 Un known History (Tylenol Extra Strength) bumetanide 1 mg tablet 1 mg PO QDAY PRN WATER PILL Unknown History colesevelam 625 mg tablet 1,875 mg PO BID 10/11/24 Unknown H istory ibuprofen 800 mg tablet 800 mg PO Q8H 10/11/24 Unknown His tory Held on 10/22/24. Instructions: STOMACH ISSUES levothyroxine 50 mcg capsule 50 mcg PO QDAY 10/11/24 10/23/24 H istory lidocaine 5 % topical patch 1 patch topical QDAY 10/11/24 Unkn own History magnesium oxide 400 mg (241.3 mg 400 mg PO QDAY 10/11/24 Unknown Hi story magnesium) tablet nebivolol 10 mg tablet 10 mg PO QDAY 10/11/24 10/23/24 Hi story oxybutynin chloride 5 mg tablet 5 mg PO DAILY bladder spasms 10/11 Unknown History pregabalin 50 mg capsule 50 mg PO BID 10/11/24 Unknown Hist ory valsartan 320 mg tablet 320 mg PO QDAY 10/11/24 10/23/24 H istory pantoprazole 40 mg tablet,delayed 40 mg PO BID #60 tabs 10/15/24 Un known Rx release Held on 10/22/24. Instructions: TAKING CARAFATE TEMPORARILY sucralfate 1 gram tablet 1 g PO QAC 3 months #270 tabs 09/30 10/24 Unknown Rx ascorbic acid (vitamin C) 500 mg 1 g PO DAILY 10/22/24 Unknown Hist ory chewable tablet (C-500) calcium 325 mg-vit D3 12.5 1 tab PO DAILY 10/22/24 Unknown Hi story mcg-zinc 2.75 fp-suqlsg-vvkmaedgg tablet cholecalciferol (vitamin D3) 125 125 mc (more content not included)...[facility]06-24-2025 Consult note [facility] Medical Records Department [address] [place] [address] Pre-Anesthesia Evaluation 10/23/24 1106 MR#: [id number] Acct: [id number] Name: KERRI BURGESS Rep #:[id number] : 1945 79 From: Yuniel Puga MD PCP: Dr. 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 Hx Hospitalization Yes: 10/2023 BACK SURGERY 10/22/24 [...] sips of water?: Yes PONV PONV - warehouse clerk: PONV - warehouse clerk Female Yes 10/22/24 09:49 HX of Motion [...] 10/23/24 10:36 Respiratory Assessment Respiratory Assessment - warehouse clerk: Respiratory Tract Infection Hx - warehouse clerk Hx Respiratory Tract Infection No 10/22/24 09:49 STOP Sleep Apnea STOP Sleep Apnea - warehouse clerk: STOP Sleep Apnea - warehouse clerk Hx Hypertension Yes: PER PT, CONTROLLED ON [...] Tobacco Use History Tobacco Use History - warehouse clerk: Tobacco Use History - warehouse clerk Tobacco Use Smoking Status Former smoker 10/22/24 09:49 Hx Tobacco Use No 10/22/24 09:49 Years Smoking Packs Smoked per Day Smoking Cessation Date was No - quit smoking greater 10/22/24 09:49 within the last 15 years than 15 years ago Hx Smoking Cessation Date Hx Smoking Cessation Counseling Hematologic Medial History Hematologic Hx - warehouse clerk: Hematologic Medical Hx - thoracic surgeon Hx of Blood Transfusion No 10/22/24 09:49 Hx of Transfusion in last 3 No 10/22/24 09:49 Months Date of Last Transfusion (if within last 3 months) Ever experience any problems No 10/22/24 09:49 with transfusion(s)? Specify any problems Hx of Preganancy in last 3 No 10/22/24 09:49 Months Nurse Filling Out Transfusion MGRIDATITH 10/22/24 09:49 & Questions: Date: 10/22/24 10/22/24 09:49 Time: 09:51 10/22/24 09:49 Patient unable to answer at this time (ie. confused, unrespo /Reproduction History /Reproductive History - warehouse clerk: /Reproductive Hx- warehouse clerk Hx Now No 10/22/24 09:49 Gestational Age (in weeks): EDC: Hx Hx Para Hx Section SAB Active Medications Active Medications: Current Medications Generic Name Dose Route Start Last Admin Trade Name Freq PRN Reason Stop Dose Admin Lactated Ringer's 1,000 mls @ 15 mls/hr 10/23/24 10:30 10/23/24 10:46 IV 15 mls/hr .Q48H GATITO Administration PFS Medical History Wears glasses Thyroid disease Arthritis [...] DAILY 10/22/24 Unk nown History mcg-zinc 2.75 fz-znjsod-iqccgiltg tablet cholecalciferol (vitamin D3) 125 125 mcg PO QHS Unknown History mcg (5,000 unit) tablet (Vitamin D3) omeprazole 20 mg capsule,delayed 20 mg PO BID 10/22/24 Unknown History release Held on 10/22/24. Instructions: DR PRESCRIBES CARAFATE TEMPORARILY triamcinolone acetonide 0.1 % 1 applic topical BID PRN rash 10/22/24 Unknown History topical cream vitamin B complex (B-Complex 1 tab PO DAILY 10/22/24 U nknown History tablet) vitamins A,C,T-xqgd-kzrtus 2,148 1 tab PO BID 10/22/24 Unknown [...] MD Cosigner Signature: Date CC: ~ Signed [facility]06-16-2025 Evaluation note* Diagnosis Onset Date Resolution Status Admit Date Epigastric pain acute September 10:22am Epigastric pain acute September 10:16am [facility] Work Phone: [phone]) 384-852903-05-2025 Note* Exam Date Time Procedure Performing Provider Status 07/04/24 2:26 PM XR Spine Lumbar Ap/Lat/Flex/Ext JUAN CARLOS PRICE MD; Auth (Verified) [id number] ORIGINAL EXAMINATION: 4 x-ray views of the [...] Sign Date: 07/05/2024 12:35:51 AM Ordering Provider: [facility]03-05-20[facility] Note* Exam Date Time Procedure Performing Provider Status 07/04/24 2:20 PM XR Spine Thoracic 2 Views CAROLE PRICE MD; Auth (Verified) [id number] ORIGINAL EXAMINATION: TWO XRAY VIEWS OF THE [...] Sign Date: 07/05/2024 1:00:02 AM Ordering Provider: [facility]03-05-2025 Note* Exam Date Time Procedure Performing Provider Status 07/04/24 2:14 PM XR Chest 2 Views RAIZA PETERS DO; [facility] (Verified) [id number] ORIGINAL EXAMINATION: TWO XRAY VIEWS OF THE [...] the resident's findings and interpretation. Interpreted by: Raiza Peters Preliminary Report By: Diamond Peralta Electronically signed By Raiza Peters Dictated Date: 07/04/2024 3:25:59 PM Prelim Date: 07/04/2024 5:40:49 PM Sign Date: 07/04/2024 5:40:49 PM Ordering Provider[id number]* Exam Date Time Procedure Performing Provider Status 10/31/23 12:04 PM VL Venous US/Doppler Both Legs(for DVT) Auth (Verified) [facility] 07-01-2024 Note ORIGINAL EXAMINATION: TWO XRAY VIEWS [...] Date: 10/31/2023 11:39:59 AM [facility]ing [facility] Discharge instructions Patient Education 10/08/2023 12:01:00 [...] Follow these instructions at home: Medicines Take lbhu-mzx-zbjigmg and prescription medicines only as told by [...] pain is severe. ?Do not take other jzsq-moe-qhblmyb pain medicines in addition to prescription pain [...] grains, and fresh fruits and vegetables. ?Take jexo-iba-cnswkdw or prescription medicines. ?Limit foods that are [...] or you are no longer ill. Take txoz-iiw-yptkiwn and prescription medicines only as told by [...] 05/02/2016 Document Revised: 09/03/2019 Document Reviewed: 09/03/2019 [facility] Patient Education 2019 [employer]. Follow Up Care 09/14/2023 08:10:53 With:GALA SONG, Neurosurgery Address: [address] [place] [phone] When:10/19/2023 09:45:00 [facility] 06-08-2024 Note Discharge Instructions Thank you for allowing [facility] to assist you with your healthcare needs. [...] Post Op 10/19/2023 09:45 AM EDT Neurosurgery [address] [place] [phone] Confirmed Follow Up Appointments Follow Up with GALA SONG, Neurosurgery When:10/19/2023 09:45 AM EDT Where:[facility] [address] [address] [phone] The Following Activity and Diet Have Been [...] When Why Instructions Last Dose New acetaminophen-hydrocodone (Beaver [place]ams 325- 5 mg oral tablet) See instructions Acute postoperative pain Take 1 tab every 6 hours as needed for pain scale 4-6. Take 2 tabs every 6 hours for pain scale 7-10. Do not exceed 6 tabs a day. Do not exceed 4000mg acetaminophen a day., As needed for as needed for pain Pickup at [place] [address] New docusate (Colace 100 mg oral capsule) 1 cap by mouth Two (2) times a day as needed for Constipation Constipation Pickup at [facility] New tiZANidine (tiZANidine 4 mg oral tablet) 1 tab(s) by mouth Three (3) times a day as needed for Muscle spasm Muscle spasm Pickup at [facility] Unchanged acetaminophen (Tylenol Extra Strength 500 mg oral tablet) 1 tab(s) by mouth As Directed as needed for as needed for pain Unchanged colesevelam (Welchol 625 mg oral tablet) 3 tab(s) by mouth Two (2) times a day GE Radha [phone] Unchanged DME (DME MISCellaneous) See instructions Lumbar [...] a day Pharmacy Information [id number]: [address] [place], [place] [id number] [phone] What How Much When Why Comments Stop [...] Once a day Stop Taking Misc Medication (ALURA'S LEG CRAMPS) 1 cap by mouth As [...] Follow these instructions at home: Medicines Take jvyf-yrh-jnowsfb and prescription medicines only as told by [...] is severe. ? Do not take other chrz-fpq-rkaekti pain medicines in addition to prescription pain [...] and fresh fruits and vegetables. ? Take jkbr-vnh-mvtoouz or prescription medicines. ? Limit foods that [...] or you are no longer ill. Take hhyq-pav-qonprfz and prescription medicines only as told by [...] 05/02/2016 Document Revised: 09/03/2019 Document Reviewed: 09/03/2019 [facility] Patient Education 2020 [employer]. Additional Information VACCINATE! IT SAVES LIVES! Members of the community who have not yet received the COVID-19 vaccine and would like to receive it can visit one of [facility] vaccine clinics. There are many vaccine clinic locations within the [facility]. For locations and available times, please visit https://gettheshot.coronavirus.[place].gov/. It is important to note that some COVID mobile vaccine clinics are held outdoors and may be canceled in rainy or stormy conditions. To learn more about pediatric vaccinations (ages 5-11), we invite you to visit the [facility] webpage. https://www.[email or web address].org/pages/4073-Zeitq-Zqjruvpdwzs-Ungwpsvnjq-Gwixu-Bew stions.htmlTo learn more about the COVID-19 vaccine, we invite you to visit the CDC website for a list of frequently asked questions.https://www.cdc.gov/coronavirus/2019-ncov/vaccines/faq.html [facility] Patient [facility] Access Instructions: Stay connected with your healthcare team and access your personal medical information anytime with the [facility] Patient Portal. Please follow the directions below to create your [facility] account: 1.Access the email account you provided upon registration to the hospital/physician office.2.Look for an invitation email from [facility].3.Open the email and access the invitation link: AcceptInvitation to [facility].4.Fill in the required diallo to create your account. To access your account, visit [email or web address]. Click the blue button labeled "Access Patient Portal" and then log in with the username and password that you created in the steps above. You will be able to view your test results, lab results, a summary of your visits, upcoming appointments and more. There is also a convenient messaging option where you can send secure messages to your p [employer]. In addition, you will have the ability to download any documents or summaries to your computer and/or send the information securely to a physician. Remember that your healthcare information is confidential, so carefully consider who you will allowto register on the [facility] Patient Portal for access to your information. You can also access the [facility] Patient Portal on the [facility] kamala. Simply click on "Patient Portal" and then log into your account. If you would like to receive a full copy of your medical records, please contact the [facility] Medical Records Department by calling [phone], Tuesday through Tuesday between 8 a.m. and [...] Call your local pharmacy or go to http://bit.ly/7L4Po9p to find one close to you.3.Make use of household items: Use cat litter or old coffee grounds to dispose medications if other options arenot available. Mix your drugs with these household products, seal them in an airtight container andthrow it into the garbage. Call [facility]: [phone] to be sure your drugs can be [...] am aware that I should contactmy doctor. Patient/Processing Clerk Signature: Date/Time: Relationship to Patient: Witness Name/Signature: Date/Time: [facility] Discharge summary Date of Service 10/08/2023 Discharge Diagnosis Acute postoperative pain (G89.18 - ICD-10-CM) Ordered: Beaver Dams 325- 5 mg oral tablet; See Instructions, [...] 0 Refill(s), Pharmacy: [id number], Constipation, 160, cm, 10/07/23 7:32:00 EDT, Height, kg, [...] patient elected to proceed. Patient came to [facility] on 10/07/2023 for surgery. Patient underwent a L4-L5 laminectomy with bilateral foraminotomies with Dr. Diggs on 10/07/2023. Please refer to his operative note for furtherdetails. A DIANNE drain was placed intraoperatively. Patient was admitted to [address] [place] [address] postoperatively. Patient is recovering along the expected [...] Neurosurgery office immediately. Medications New Prescription acetaminophen-hydrocodone ([place] 325- 5 mg oral tablet)Take 1 tab [...] by mouth two (2) times a day. [facility] [phone].Refills: 3. DME (DME MISCellaneous)Power lift recliner chair [...] SONG, Neurosurgery When:10/19/2023 09:45 AM EDT Where:[address] [place] [address] [phone] Discharge Diet Resume home diet Discharge Activity See above restrictions Condition on Discharge Stable Discharge Disposition Home Information Provided To Patient Digitally Signed by GALA SONG on 10/08/2023 11:08 AM Digitally Signed by GHULAM DIGGS MD [facility] [id number] Anesthesiology Consult note Patient: KERRI BURGESS Age: [...] VITA WHITT MD on 10/07/2023 02:15 PM [facility] [id number] Note ORIGINAL EXAMINATION: SPOT FLUOROSCOPIC IMAGES 10/07/2023 [...] Sign Date: 10/07/2023 12:09:59 PM Ordering Provider: [facility]06-07-2024 Anesthesiology Consult note Patient: KERRI BURGESS [...] tablet: 3 tab(s), Oral, BID, GE Radha [phone], 540 tab(s), 3 Refill(s) diclofenac 1% topical [...] list: Medical Acute bronchitis / SNOMED CT 80780197 / Confirmed Bilateral leg edema / SNOMED CT 9892246644 / Confirmed Edema of both legs / SNOMED CT 7382875965 / Confirmed Carotid stenosis - <40% 05/2017 / SNOMED CT 587905458 / Confirmed Leg cramps / SNOMED CT 4704374595 / Confirmed Dermatographism / SNOMED CT 87529540 / Confirmed Lesion of bone of cervical spine / SNOMED CT 630836544 / Confirmed Leg edema, left / SNOMED CT 1399203318 / Confirmed Chronic GERD / SNOMED CT 483869566 / Confirmed History of pulmonary embolism / SNOMED CT 041443497 / Confirmed S/P knee replacement / SNOMED CT 4511988823 / Confirmed Hypercholesteremia / SNOMED CT 47099355 / Confirmed High blood pressure / SNOMED CT 0498718887 / Confirmed Urinary retention with incomplete bladder emptying / SNOMED CT 555955970 / Confirmed Knee pain, left / SNOMED CT 14485083 / Confirmed Bilateral chronic knee pain / SNOMED CT 77075339 / Confirmed Lumbar disc disease with radiculopathy / SNOMED CT 425030523 / Confirmed Abnormal MRI, cervical spine / SNOMED CT 9900702298 / Confirmed Mass of spine / SNOMED CT 941420976 / Confirmed CARISA on CPAP / SNOMED CT 160185570 / Confirmed Cervical spine pain / SNOMED CT 484722890 / Confirmed Knee pain, bilateral / SNOMED CT 0290924506 / Confirmed Physical exam / SNOMED CT 620146204 / Confirmed Medicare annual wellness visit, subsequent / SNOMED CT 982316440 / Confirmed Preop examination / SNOMED CT 393568801 / Confirmed Right upper quadrant abdominal pain / SNOMED CT 736915203 / Confirmed Rotator cuff tear / SNOMED CT 4639919341 / Confirmed Severe obesity with body mass index (BMI) of 35.0 to 39.9 with comorbidity / SNOMED CT 0242044524 /Confirmed Lumbar stenosis with neurogenic claudication / SNOMED CT 42631209 / Confirmed Stomach discomfort / SNOMED CT 290084606 / Confirmed Subclinical hypothyroidism / SNOMED CT 53141485 / Confirmed Mid back pain on right side / SNOMED CT 469320231 / Confirmed Type 2 diabetes mellitus / SNOMED CT 395116966 / Confirmed Urge incontinence of urine / SNOMED CT 212980708 / Confirmed Urinary incontinence in female / SNOMED CT 9199020424 / Confirmed Vitamin D deficiency / SNOMED CT 80354188 / Confirmed Resolved: Cataract / SNOMED CT 720444379 Resolved: Helicobacter pylori gastritis / SNOMED CT 8501549468 Canceled: Mid back pain / SNOMED CT 843732856 Canceled: Chest pain / SNOMED CT 25689846 Canceled: Right shoulder tendonitis / SNOMED CT 334223191 Canceled: Non-productive cough / SNOMED CT 73754847 Canceled: Urinary incontinence, mixed / SNOMED CT 1609717593 Canceled: Obesity (BMI 30.0-34.9) / SNOMED CT 117334802459006 Canceled: Obesity (BMI 30.0-34.9) / SNOMED CT 224924543403399 Canceled: Obesity / SNOMED CT 2623467540 Canceled: Physical exam / SNOMED CT 011894868 Canceled: Medicare annual wellness visit, subsequent / SNOMED CT 282977250 Canceled: Preop testing / SNOMED CT 770664894 Canceled: Preop testing / SNOMED CT 560658663 Canceled: Preoperative clearance / SNOMED CT 329186949 Canceled: Severe obesity (BMI 35.0-35.9 with comorbidity) / SNOMED CT 8467499400 Canceled: Severe obesity (BMI 35.0-39.9) with comorbidity / SNOMED CT 4784278273, Active Problems (59) Abnormal MRI, cervical spine [...] Past Medical History: Resolved Helicobacter pylori gastritis (5546405813): Resolved. Cataract (866033212): Resolved. Family History: Breast cancer Mother (): onset at 62 years. Hypertension Sister Heart attack Brother: onset at 59 . Father (): onset at 55 years. Kidney disease Sister Hyperlipidemia Sister CABG - Coronary artery bypass graft Sister Skin cancer Sister Comments: 05/23/2018 9:06 MAY KING MD Squamous cell Chronic kidney disease Sister Diabetes Sister Mother () Procedure history: Arthroplasty of knee left (42158961) on 02/06/2018 at 72 Years. Comments: 12/12/2018 8:45 Kathie Terrell RN left Phacoemulsification with intraocular lens implantation (5503636316) in 2012 at 67 Years. Comments: 12/12/2018 8:47 Kathie Terrell RN right Cholecystectomy (22776830) in 2011 at 66 Years. Arthroplasty of knee right (13361621) in 2009 at 64 Years. Comments: 12/12/2018 8:45 Kathie Terrell RN right Hysterectomy (205471977) in 2000 at 55 Years. LASIK (2548577199) in 1994 at 49 Years. Appendectomy (356577145) in 1969 at 24 Years. Arthroscopy of shoulder (891471286). Comments: 09/30/2023 9:37 Kailey Ellison RN RIGTH SHOULDER WITH HARDWARE Entire tooth (304649551). Comments: 09/30/2023 9:37 Kailey Ellison RN DENTAL IMPLANT Colonoscopy (387589397). Extraction of wisdom tooth (039334102). 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 Assessment and Plan [place] [employer] Anesthesi[employer] (ASA) physical status classification: [...] AUBRIE RAMIRES MD on 10/07/2023 08:21 AM [id number] + Plan note Future Scheduled Tests Laboratory* Basic Metabolic Panel 09/30/23 * Magnesium Level 09/30/23 * Thyroid Stimulating Hormone 09/30/23 * Free T4 09/30/23 * Vitamin B12 Level 09/30/23 * A1C Hemoglobin 09/30/23 * ALT / SGPT 09/30/23 * Complete Blood Count 09/30/23 * Lipid Profile 09/30/23 * Albumin/Creatinine Ratio, Random Urine 09/30/23 * N-Terminal proBNP 09/30/23 [facility] 05-31-2024 Note ORIGINAL EXAMINATION: TWO XRAY VIEWS [...] Sign Date: 09/30/2023 12:07:32 PM Ordering Provider: [facility]05-17-2023 NoteCONNATALIIA BURGESS was presented at Brain/Spine Tumor Board [...] 16-Sep-2022 15:55 by Lay De León (PT REG)[facility] complaint Narrative - ReportedPatient is being seen for an initial Neurosurgical evaluation and neck and right arm pain.FA-Oogyhqiyq-HURNO [facility] Work Phone: consult note Author Brien Carpio [facility] Note Date/Time October 23, 2024 1:23 pm [facility] Medical Records Department [address] [place] [address] Anesthesia Postop Eval I 10/23/24 1228 MR#: [id number] Acct: [id number] Name: KERRI BURGESS Rep #:[id number] : 1945 79 From: Brien Carpio PCP: Dr. May Mckeon MD Status:R [facility] Y Race: C Location: [place] [address] Anesthesia: Postop Eval I Current Vital Signs [...] Brien Mckeon Signature: Date CC: ~ Signed [facility] Work Phone: Evaluation + Plan note Future Appointments Appointment Date:10/29/2021 10:00:00 AM Scheduled Provider:MAY MCKEON MD Location:[facility] Appointment Type:PC OV Follow Up Future Scheduled Tests Laboratory* Urine Culture 08/20/20 [facility] Evaluation + Plan note Future Appointments Appointment Date:03/09/2022 08:00:00 AM Scheduled Provider: Location:[facility] Appointment Type:PC Nurse Lab Appointment Date:03/16/2022 10:00:00 AM Scheduled Provider:MAY MCKEON MD Location:[facility] Appointment Type:PC OV Follow Up [facility] Evaluation + Plan note Future Appointments Appointment Date:03/16/2022 10:00:00 AM Scheduled Provider:MAY MCKEON MD Location:[facility] Appointment Type:PC OV Follow Up [facility] Evaluation + Plan note Future Appointments Appointment Date:03/03/2023 10:45:00 AM Scheduled Provider:MAY MCKEON MD Location:[facility] Appointment Type:PC OV Appointment Date:05/13/2023 08:00:00 AM Scheduled Provider:MAY MCKEON MD Location:[facility] Appointment Type:PC OV Follow Up Future Scheduled Tests Radiology* MRI Spine Cervical w/o Contrast 03/14/23 [facility] Evaluation + Plan note Future Appointments Appointment Date:09/13/2023 08:00:00 AM Scheduled Provider:MAY MCKEON MD Location:[facility] Appointment Type:PC OV Future Scheduled Tests Radiology* US Bladder 08/11/23 [facility] evaluation + Plan note Future Appointments Appointment Date:09/13/2023 08:00:00 AM Scheduled Provider:MAY MCKEON MD Location:[facility] Appointment Type:PC OV [facility] Evaluation + Plan note Future Appointments Appointment Date:10/19/2023 09:45:00 AM Scheduled Provider: Location:[facility] Appointment Type:NS Post Op Future Scheduled Tests Laboratory* Basic Metabolic Panel 09/30/23 * Magnesium Level 09/30/23 * Thyroid Stimulating Hormone 09/30/23 * Free T4 09/30/23 * Vitamin B12 Level 09/30/23 * A1C Hemoglobin 09/30/23 * ALT / SGPT 09/30/23 * Complete Blood Count 09/30/23 * Lipid Profile 09/30/23 * Albumin/Creatinine Ratio, Random Urine 09/30/23 * N-Terminal proBNP 09/30/23 [facility] Evaluation + Plan note Future Appointments Appointment Date:10/26/2023 09:00:00 AM Scheduled Provider: Location:[facility] Appointment Type:NS Post Op Appointment Date:10/26/2023 01:00:00 PM Scheduled Provider:MAY MCKEON MD Location:[facility] Appointment Type: OV TCM 30 Future Scheduled Tests Laboratory* Basic Metabolic Panel 09/30/23 * Magnesium Level 09/30/23 * Thyroid Stimulating Hormone 09/30/23 * Free T4 09/30/23 * Vitamin B12 Level 09/30/23 * A1C Hemoglobin 09/30/23 * ALT / SGPT 09/30/23 * Complete Blood Count 09/30/23 * Lipid Profile 09/30/23 * Albumin/Creatinine Ratio, Random Urine 09/30/23 * N-Terminal proBNP 09/30/23 [facility] Evaluation + Plan note Future Appointments Appointment Date:10/31/2023 11:45:00 AM Scheduled Provider: Location:[facility] Appointment Type:VL - Venous US/Doppler Both Legs (for DV Appointment Date:10/31/2023 02:15:00 PM Scheduled Provider: Location:[facility] Appointment Type:Telephone Appointment Date:11/16/2023 10:00:00 AM Scheduled Provider: Location:[facility] Appointment Type:NS Post Op Future Scheduled Tests [...] Chest 2 Views (PA & Lateral) 10/26/23 [facility] evaluation + Plan note Future Appointments [...] Random Urine 09/30/23 * N-Terminal proBNP 09/30/23 [facility] evaluation + Plan note Future Appointments Appointment Date:07/11/2024 01:00:00 PM Scheduled Provider:GALA SONG Location:[facility] Appointment Type:NS OV Appointment Date:08/16/2024 08:00:00 AM Scheduled Provider:MAY MCKEON MD Location:[facility] Appointment Type:PC Wellness Medicare with Labs Future Scheduled Tests Laboratory* Basic Metabolic Panel 09/30/23 * Magnesium Level 09/30/23 * Thyroid Stimulating Hormone 09/30/23 * Free T4 09/30/23 * Vitamin B12 Level 09/30/23 * A1C Hemoglobin 09/30/23 * ALT / SGPT 09/30/23 * Complete Blood Count 09/30/23 * Lipid Profile 09/30/23 * Albumin/Creatinine Ratio, Random Urine 09/30/23 * N-Terminal proBNP 09/30/23 [facility] Evaluation + Plan note Future Appointments Appointment Date:08/16/2024 08:00:00 AM Scheduled Provider:MAY MCKEON MD Location[facility] Appointment Type:PC Wellness Medicare with Labs Future Scheduled Tests Laboratory* Basic Metabolic Panel 09/30/23 * Magnesium Level 09/30/23 * Thyroid Stimulating Hormone 09/30/23 * Free T4 09/30/23 * Vitamin B12 Level 09/30/23 * A1C Hemoglobin 09/30/23 * ALT / SGPT 09/30/23 * Complete Blood Count 09/30/23 * Lipid Profile 09/30/23 * Albumin/Creatinine Ratio, Random Urine 09/30/23 * N-Terminal proBNP 09/30/23 [facility] Evaluation + Plan note Future Appointments Appointment Date:11/21/2024 09:15:00 AM Scheduled Provider:MAY MCKEON MD Location:[facility] Appointment Type:PC OV Follow Up Future Scheduled [...] Mammogram Diagnostic Bilateral w/o Jose D 09/14/24 [facility] Evaluation + Plan note Future Appointments Appointment Date:11/21/2024 09:15:00 AM Scheduled Provider:MAY MCKEON MD Location:[facility] Appointment Type:PC OV Follow Up Future Scheduled Tests Radiology* MA Mammo Diagnostic Bilateral w/Jose D 09/19/24 * MA Mammo Screening Bilateral w/ Jose D 09/14/24 * MA Mammogram Diagnostic Bilateral w/o Jose D 09/14/24 [facility] Evaluation + Plan note Future Appointments Appointment Date:01/22/2025 02:00:00 PM Scheduled Provider:MAY MCKEON MD Location:[facility] Appointment Type:PC OV Follow Up Future Scheduled Tests Radiology* MA Mammo Diagnostic Bilateral w/Jose D 09/19/24 * MA Mammo Screening Bilateral w/ Jose D 09/14/24 * MA Mammogram Diagnostic Bilateral w/o Jose D 09/14/24 * US Abdomen Limited 01/04/25 [facility] Evaluation noteNo assessment information available. [facility] Work Phone: Evaluation note* Diagnosis Thoracic spondylosis- Primary Thoracic spondylosis without myelopathy Myofascial pain syndrome Mylagia and myositis, unspecified Thoracic radiculopathy Thoracic or lumbosacral neuritis or radiculitis, unspecified [facility] Pain in thoracic spine- Primary Thoracic spondylosis Thoracic spondylosis without myelopathy Thoracic radiculopathy Thoracic or lumbosacral neuritis or radiculitis, unspecified Decreased ROM of thoracic spine [facility] Diagnosis Pain in thoracic spine- Primary Decreased ROM of thoracic spine [facility] Pain in thoracic spine- Primary Decreased ROM of thoracic spine [facility] Diagnosis Pain in thoracic spine- Primary Decreased ROM of thoracic spine [facility] Diagnosis Pain in thoracic spine- Primary Decreased ROM of thoracic spine [facility] Diagnosis Pain in thoracic spine- Primary Decreased ROM of thoracic spine [facility] Diagnosis Facet arthropathy, thoracic- Primary Thoracic spondylosis without myelopathy [facility] Author Scott Friend [facility] Note Date/Time October 23, 2024 12:1 0pm [facility] Medical Records Department [address] [place] [id number] History & Physical Exam 10/23/24 1207 MR#: [id number] Acct: [id number] Name: KERRI BURGESS Rep #:[id number] : 1945 79 From: Scott Hermosillo DO PCP: Dr. May Mckeon MD Status:R [facility] Location: [place] [address] HPI - General General Date of Admission: 10/23/24 Date of Service: 10/23/24 Chief Complaint: abdominal pain HPI Narrative KERRI BURGESS, is a 79 F who presents to the office today for establishment with [facility] regarding concerns for epigastric abdominal pain that "shoots straight through to her spine." She reports having a history of a thoracic compression fracture, recent MRI, per her report, showed healing of this compression fracture and her orthopedic spine surgeon told her the "back pain was not due to her spine." She was given a referral to see pain management and has an appointment in October. She reports "dealing with back pain since July of last year" and admits to "taking more Tylenol and ibuprofen than I should've," and then started having this severe searing [...] briefly reduce the severity of epigastric pain, "forabout 30 minutes, long enough that I think it's over and then the pain comes back." She denies difficulty chewing and swallowing, cough, nausea and emesis, denies reflux, constipation, diarrhea, hematochezia and melena. She does not use the descriptive words "ripping" or "tearing" for her pain. Her last colonoscopy was in 2011 and she was instructed at that time to "never allowanyone to do another colonoscopy on her again due to her severely tortuous colonand high risks of perforating her bowels." She has been doing Cologuard stool testing. She also has a history of H.pylori infection from 2011. PCP blood work on 08.16.24: W-6.6, hgb-13.2, hct-39, plt-185, BUN 25, creat 1.06,t bili 0.3, ALP 136, AST 21, ALT 16, hgb A1c 6.4, Vit D25-41.2, amylase 22, lipase 26 [facility] Medical History Wears glasses Thyroid disease Arthritis [...] DAILY 10/22/24 Unk nown History mcg-zinc 2.75 xx-ohuyph-xruppvfov tablet cholecalciferol (vitamin D3) 125 125 mcg PO QHS Unknown History mcg (5,000 unit) tablet (Vitamin D3) omeprazole 20 mg capsule,delayed 20 mg PO BID 10/22/24 Unknown History release Held on 10/22/24. Instructions: DR PRESCRIBES CARAFATE TEMPORARILY triamcinolone acetonide 0.1 % 1 applic topical BID PRN rash 10/22/24 Unknown History topical cream vitamin B complex (B-Complex 1 tab PO DAILY 10/22/24 U nknown History tablet) vitamins A,C,L-hmvs-nbvktj 2,148 1 tab PO BID 10/22/24 Unknown [...] to the office today for establishment with [facility] regarding concerns for epigastric abdominal pain that "shoots straight through to her spine." Differential diagnoses include: PUD, H.pylori infection, gastric [...] applicable): CC: Dr. May Mckeon MD; Scott Hermosillo, ~ Signed [facility] Work Phone: History of Present illness Sung Fabian is a 77-year-old female with PMHx of CARISA, cervical radiculopathy, lumbar radiculopathy who presents for evaluation of acute on chronic cervicalgia and right arm pain. Over the course of several years she has been treated at [place] and [facility] for cervical radiculopathy including pain management [...] with only limited temporary improvement in her symptoms.FL-[id number]-[id number] [facility] Work Phone: Hospital course Narrative No data available for this section [facility] Hospital Discharge instructions No data available for this section [facility] Progress note No data available for this section [facility] Progress note Author Paris Baez [facility] Note Date/Time February 08, 2025 1 1:03am [facility] [address] [place] [address] OFFICE VISIT Date of Service: 02/08/25 MR#: [id number] Acct: [id number] Name: KERRI BURGESS Rep #: [id number] : 1945 Provider: MIGUEL Guevara Age/Sex: 79/F Location: [facility] Status: Signed Intake Vital Signs 10/23/24 10:36 Height 5 ft 3 in Intake Visit Reasons: 3 M FU Chief Complaint: Gastric ulcer Mail List Librarian Required: No Accompanied by: Self Is patient in pain?: No Allergies adhesive tape Allergy (Intermediate, Verified 02/08/25 10:35) Itching apixaban (From Eliquis) Allergy (Intermediate, Verified 02/08/25 10:35) Other latex Allergy (Intermediate, Verified 02/08/25 10:35) Hives oxycodone Allergy (Intermediate, Verified 02/08/25 10:35) Other Penicillins (PCN) Allergy (Intermediate, Verified 02/08/25 10:35) Hives atorvastatin (From Lipitor) Adverse Reaction (Intermediate, Verified 02/08/25 10:35) Other semaglutide (From Rybelsus) Adverse Reaction (Intermediate, Verified 02/08/25 10:35) Other Medications ?Medication ?Instructions ?Recorded ?Confirmed ?Type acetaminophen 500 mg tablet 500 mg PO Q6H PRN pain 04/2502/08/25 History (Tylenol Extra Strength) bumetanide 1 mg tablet 1 mg PO QDAY PRN WATER PILL 10/11/24 02/08/25 History colesevelam 625 mg tablet 1,875 mg PO BID 10/11/2402/23 History ibuprofen 800 mg tablet 800 mg PO Q8H 10/11/2402/08 History Held on 10/22/24. Instructions: STOMACH ISSUES levothyroxine 50 mcg capsule 50 mcg PO QDAY 10/11/24 1 History magnesium oxide 400 mg (241.3 mg 400 mg PO QDAY 02/08/25 History magnesium) tablet nebivolol 10 mg tablet 10 mg PO QDAY 10/11/2402/08 History oxybutynin chloride 5 mg tablet 5 mg PO DAILY bladder spasms 10/11/24 02/08/25 History pregabalin 50 mg capsule 50 mg PO BID 10/11/24 History valsartan 320 mg tablet 320 mg PO QDAY 10/11/2401/30 History ascorbic acid (vitamin C) 500 mg 1 g PO DAILY 10/22/24 02/08/25 History chewable tablet (C-500) calcium 325 mg-vit D3 12.5 1 tab PO DAILY 10/22/2402/23 History mcg-zinc 2.75 ju-ahmbet-ciwzhnyht tablet cholecalciferol (vitamin D3) 125 125 mcg PO QHS 02/08/25 History mcg (5,000 unit) tablet (Vitamin D3) omeprazole 20 mg capsule,delayed 20 mg PO BID 10/22/24 02/08/25 History release Held on 10/22/24. Instructions: PRESCRIBES CARAFATE TEMPORARILY triamcinolone acetonide 0.1 % 1 applic topical BID PRN rash 10/22/24 02/08/25 History topical cream vitamin B complex (B-Complex 1 tab PO DAILY 10/22/24 1 History tablet) vitamins A,C,K-ozyc-vwrfor 2,148 1 tab PO BID 10/22/24 02/08/25 History mcg-113 mg-45 mg-17.4 mg tablet (Eye Multivitamin) aspirin 81 mg tablet 81 mg PO QDAY 02/08/2502/08 History clopidogrel 75 mg tablet (Plavix) 75 mg PO QDAY 02/08/25 History famotidine 20 mg tablet 20 mg PO QDAY #30 tabs 02/0802/08/25 Rx pantoprazole 40 mg tablet,delayed 40 mg PO BID 5 02/08/25 History release sucralfate 1 gram tablet 1 g PO QACHS 02/08/25 History Have you fallen in the past year?: No [facility] Medical History Wears glasses Thyroid disease Arthritis [...] MRI, cervical spine Epigastric pain Surgical History History of cataract surgery History [...] date: 05/02/16 alcohol intake: never HPI HPI Chief Complaint: Gastric ulcer Details: KERRI BURGESS, is a 79 F who presents to the office today for follow-up. 10.23.24 EGD The examined esophagus was normal. Four non-bleeding cratered gastric ulcers with no stigmata of bleeding were found in the gastric body. The largest lesion was 14 mm in largest dimension. - Normal esophagus. - Non-bleeding gastric ulcers with no stigmata of bleeding. Biopsied. - No gross lesions in the entire examined duodenum. Last office visit 11/06/2024 for follow-up after EGD. Patient with significant improvement in her symptoms. OV 02/08/2025 patient's epigastric pain continues to be improved. He is still taking sucralfate daily and famotidine. She has been off her omeprazole due to starting Plavix recently. She reports having soft bowel movements daily. She started taking a supplement called Dana which has fiber and other herbal supplements in it. She noticed this helped a little bit but not significantly. She notes she started Mounjaro recently and has not noticed any worsening GI symptoms. She has lost 22 pounds since being on it. ROS Const Constitutional: No fatigue, fever(s) or weight change ENT ENT: No difficulty swallowing Gastro GI: Positive for change in bowel habits and nausea/dyspepsia; No abdominal pain, belching, bloating, change in stool character, coffee ground emesis, constipation, cramping, diarrhea, heartburn, difficulty swallowing, feeling full early, excessive flatus, incontinent of stools, Vomiting blood/hematemesis, Blood in stool, loose stools, Black,tarry stools, pain with swallowing, vomiting or other Musc Musculoskeletal: Positive for joint pain, back pain and Arthritis Skin Skin: Positive for dry skin; No yellowing of the eye or itchy eyes Psych Psychiatric: No anxiety and No depression Endo Endocrine: No fatigue or weight change Aller/Imm Allergy/Immunologic: No itchy eyes Conner/Lymp Hematologic/Lymphatic: Positive for easy bruising; No easy bleeding Exam Const General: cooperative, healthy appearing and comfortable Nutritional Appearance: overweight Orientation: alert HENPR Head: normal to inspection Ears: hearing grossly normal bilaterally Eyes General: appearance normal, both eyes and all related structures Neck Neck: normal visual inspection Chest Chest palpation & inspection: normal inspection of the chest Resp Effort & Inspection: normal respiratory effort Cardio Rate: regular rate Rhythm: regular rhythm GI Inspection: normal to inspection Auscultation: normal bowel sounds Palpation: soft and nontender Assessment and Plan Assessment and Plan (1) Gastric ulcer due to nonsteroidal anti-inflammatory drug (NSAID): Status: Acute Plan: Kerri is a 79-year-old female patient who established with GI office for epigastric pain. Patient underwent EGD which showed gastric ulcers. She was started on sucralfate and omeprazole. Since her EGD and induction of medicationshe has felt better with no further epigastric pain. 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 She is on Plavix now so she had to discontinue her omeprazole but she continues with sucralfate and famotidine. Patient was scheduled for repeat EGD today to ensurehealing of the gastric ulcer. I recommended she discontinue sucralfate when herprescription runs out. She may continue famotidine. Patient has also been struggling with her bowel movements and having looser stools. She is currently taking a supplement called Dana which has fiber and other herbal supplements in it. I recommended a plain fiber supplement such as Metamucil. - Continue famotidine - Discontinue sucralfate 1 prescription runs out - Repeat EGD to ensure gastric ulcer has healed - Start fiber supplement - Follow-up as needed (2) Epigastric pain: Status: Acute (3) Loose stools: Status: Acute Medications: New famotidine 20 mg PO QDAY 30 tabs 2RF MIGUEL Guevara Changed From pantoprazole take 30minutes before eating breakfast and dinner 40 mg PO BID 60 tabs 2RF To pantoprazole take 30minutes before eating breakfast and dinner 40 mg PO BID EULA Osborn Coding Level of Care Code Off vis,est,level 4 Diagnoses Gastric ulcer due to nonsteroidal anti-inflammatory drug (NSAID) K25.9; T39.395A Epigastric pain R10.13 Loose stools R19.5 Clinical Quality Measures Falls Risk Screening/Assistive Devices Have you fallen in the past year?: No 02/08/25 1108 <Electronically signed by Paris RIVERA> Date _ Paris RIVERA Cosigner Signature: Date (if applicable) CC: ~ [facility] Work Phone: Reason for referral (narrative)No reason for referral information availableBl[facility]manate [facility] Work Phone: Reason for visit Narrative* Auth/Cert (Routine) Specialty Diagnoses / Procedures Referred By Mary ward Referred To Contact Diagnoses Thoracic spondylosis Thoracic spondylosis [M47.814] Procedures NJX DX/THER AGT PVRT FACET JT CRV/THRC 1 LEVEL NJX DX/THER AGT PVRT FACET JT CRV/THRC 2ND LEVEL BLOCK JOINT FACET THORACIC WITH C-ARM BLOCK JOINT FACET THORACIC EACH ADDITIONAL VERTEBRA 2 W/IMAGE GUIDANCE FLUORO OR CT PAIN EZRA PROCEDURES [address] [place] [address] Phone: tel: fax: Referral ID Status Reason Start Date Expiration Date Visits Re quested Visits Authorized [id number] 1 1 [facility] for visit Narrative* Auth/Cert (Routine) Specialty Diagnoses / Procedures Referred By Mary ward Referred To Contact Diagnoses Facet arthropathy, thoracic Facet arthropathy, thoracic [M47.814] Procedures NJX DX/THER AGT PVRT FACET JT CRV/THRC 1 LEVEL NJX DX/THER AGT PVRT FACET JT CRV/THRC 2ND LEVEL BLOCK NERVE ROOT THORACIC 1ST VERTEBRA W/IMAGE GUIDANCE, FLUORO OR CT BLOCK NERVE ROOT THORACIC EACH ADDITIONAL VERTEBRA 2 W/IMAGE GUIDANCE FLUORO OR CT PAIN EZRA PROCEDURES [address] [place] [address] Phone: tel: fax: Referral ID Status Reason Start Date Expiration Date Visits Re quested Visits Authorized [id number] 1 1 [facility] Summary Purpose Family History No Family History Records FoundUnknown Family Member Name Dates Details Family history [...] Unknown brother Cardiac disease Unknown Advance Directives No Advanced Directives Records Found Advance Directive Response Recorded Date/ Time Do You Have an Advance Directive? NO February 25, 2022 6:29am Request/Need Additional Adva nce Directive Information: NO February 18, 2022 2:40pm Advance Directive Response Recorded Date/ Time Do you have a Healthcare Power of Reptile Keeper? Yes October 22, 2024 9:49am Chief Complaint and Reason for Visit Chief Complaint Admit Date Epigastric pain October 15, 2024 10:2 2am Test Result November 06, 2024 10:03 am Reason for Visit Admit Date Epigastric pain October 15, 2024 10:2 2am Epigastric pain October 23, 2024 10:1 6am Chief Complaint Admit Date Epigastric pain October 15, 2024 10:2 2am Chief Complaint Admit Date Test Result November 06, 2024 10:03 am 3 M FU February 08, 2025 1 0:29am Reason for Visit Admit Date Epigastric pain November 06, 2024 10:03 am Gastric ulcer due to nonster oidal anti-inflammatory drug (NSAID) November 06, 2024 10:03am Epigastric pain February 08, 2025 1 0:29am Gastric ulcer due to nonster oidal anti-inflammatory drug (NSAID) February 08, 2025 10:29am Loose stools February 08, 2025 1 0:29am Additional Source Comments INFORMATION SOURCE (unrecogn ized section and content) DATE CREATED AUTHOR 12/09/2019 [facility] DATE CREATED AUTHOR AUTHOR'S ORGANIZ ATION 12/09/2019 [facility] DATE CREATED AUTHOR AUTHOR'S ORGANIZ ATION 04/06/2022 [facility] DATE CREATED AUTHOR AUTHOR'S ORGANIZ ATION 09/06/2022 [employer] DATE CREATED AUTHOR AUTHOR'S ORGANIZ ATION 09/12/2022 [facility] DATE CREATED AUTHOR AUTHOR'S ORGANIZ ATION 10/11/2022 [facility] DATE CREATED AUTHOR AUTHOR'S ORGANIZ ATION 10/22/2022 [facility] DATE CREATED AUTHOR AUTHOR'S ORGANIZ ATION 12/27/2023 [facility] ([place]) DATE CREATED AUTHOR AUTHOR'S ORGANIZ ATION 08/19/2024 [facility] DATE CREATED AUTHOR AUTHOR'S ORGANIZ ATION 12/07/2024 [facility] DATE CREATED AUTHOR AUTHOR'S ORGANIZ ATION 01/11/2025 [facility] DATE CREATED AUTHOR AUTHOR'S ORGANIZ ATION 01/16/2025 [facility] DATE CREATED AUTHOR AUTHOR'S ORGANIZ ATION 02/01/2025 [facility] DATE CREATED AUTHOR AUTHOR'S ORGANIZ ATION 02/05/2025 [facility] DATE CREATED AUTHOR AUTHOR'S ORGANIZ ATION 02/27/2025 [facility] Care Team (unrecognized sect ion [...] tober 2021 KERRI BURGESS Guarantor Active Start: r 2021 Team Status: Active Member Role [...] Provider Active St art: October 23, 2024 Team Status: Active Member Role/Relationship Status Dates Dr. May Mckeon MD Primary Care Provider Active Team Status: Inactive Member Role/Relationship Status Dates EULA Osborn Attending Provider Active S tart: October 15, 2024 End: October 15, 2024 Dr. May Mckeon MD Primary Care Provider Active Start: October 15, 2024 End: October 15, 2024 Dr. May Mckeon MD Referring Provider Active Start: October 15, 2024 End: October 15, 2024 Team Status: Inactive Member Role/Relationship Status Dates Dr. May Mckeon MD Primary Care Provider Active Start: October 23, 2024 End: October 23, 2024 Dr. May Mckeon MD Referring Provider Active Start: October 23, 2024 End: October 23, 2024 Dr. Scott Hermosillo DO Attending Provider Active Start: October 23, 2024 End: October 23, 2024 Team Status: Active Member Role/Relationship Status Dates Dr. May Mckeon MD Primary Care Provider Active Start: October 23, 2024 Dr. May Mckeon MD Referring Provider Active Start: October 23, 2024 Dr. Scott Hermosillo DO Attending Provider Active Start: October 23, 2024 Dr. Scott Hermosillo DO Other Provider Active St art: October 23, 2024 Team Status: Inactive Member Role/Relationship Status Dates Dr. May Mckeon MD Primary Care Provider Active Start: November 06, 2024 End: November 06, 2024 Dr. May Mckeon MD Referring Provider Active Start: November 06, 2024 End: November 06, 2024 EULA Osborn Attending Provider Active S tart: November 06, 2024 End: November 06, 2024 Kindergarten Assistant Relationship Specialty [place] [address] [place] [address] PCP - General Internal Medicine 12/04/24 Kindergarten Assistant Relationship Specialty [place] [address] [place] [address] PCP - General Internal Medicine 12/04/24 Kindergarten Assistant Relationship Specialty [place] [address] [place] [address] PCP - General Internal Medicine 12/04/24 Kindergarten Assistant Relationship Specialty [place] [address] [place] [address] PCP - General Internal Medicine 12/04/24 Kindergarten Assistant Relationship Specialty [place] [address] [place] [address] PCP - General Internal Medicine 12/04/24 Team Status: Active Member Role/Relationship Status Dates Dr. May Mckeon MD Primary care physician Activ e Team Status: Inactive Member Role/Relationship Status Dates Dr. May Mckeon MD Primary care physician Activ e Start: November 06, 2024 End: November 06, 2024 Dr. May Mckeon MD Referring Provider Active Start: November 06, 2024 End: November 06, 2024 EULA Osborn Attending physician Active Start: November 06, 2024 End: November 06, 2024 Team Status: Inactive Member Role/Relationship Status Dates Dr. May Mckeon MD Primary care physician Activ e Start: February 08, 2025 End: February 08, 2025 Dr. May Mckeon MD Referring Provider Active Start: February 08, 2025 End: February 08, 2025 MIGUEL Guevara Attending physician Active Start: February 08, 2025 End: February 08, 2025 Care Team (unrecognized sect ion and content) Care Team Personnel Name: Lance Rodas Rig Operatoredgar Vital Position: P3 Scheduling - Rig Operator Advanced Member Role: Other Name: MAY MCKEON MD Position: P4 Physician - Primary Care Med Service: Active Provider Member Role: Primary Care Physician Address: Address: [facility] [address] Name: Jennifer Chicas Licensed Real Estate Broker Position: P3 Scheduling - Rig Operator Advanced Member Role: Other Name: Lance Krishnan Rig Operator Sherron High Position: P3 Scheduling - Rig Operator Advanced Member Role: Other Care Team Related Persons Name: CATARINO BURGESS Address: Home [id number] [place] [address] [address] [place], [place] [id number] Care Team Personnel Name: Lance Rodasredgar Vital Position: P3 Scheduling - Rig Operator Advanced Member Role: Other Name: MAY MCKEON MD Position: P4 Physician - Primary Care Member Role: Primary Care Physician Address: Address: [address] [place] [address] Name: Jennifer Chicas Licensed Real Estate Broker Position: P3 Scheduling - Rig Operator Advanced Member Role: Other Name: Ariella Therapy Rig Operator Sherron Johnnie Position: P3 Scheduling - Rig Operator Advanced Member Role: Other Care Team Related Persons Name: CATARINO BURGESS Address: Home [address] [place] [id number] Goals (unrecognized section and content) Goals may be documented in a n alternate section Source Comments (unrecognize d section and content) In the event this informatio n is protected by the Federal Confidentiality of Alcohol and Drug Abuse Patient Records regulations: The Federal rules restrict any use of the information to criminally investigate or prosecute any alcohol or drug abuse patient.[facility] the event this information is protected by the Federal Confidentiality of Alcohol and Drug Abuse Patient Records regulations: The Federal rules restrict any use of the information to criminally investigate or prosecute any alcohol or drug abuse patient.[facility] Center[facility] the event this information is protected by the Federal Confidentiality of Alcohol and Drug Abuse Patient Records regulations: The Federal rules restrict any use of the information to criminally investigate or prosecute any alcohol or drug abuse patient.[facility] Center[facility] the event this information is protected by the Federal Confidentiality of Alcohol and Drug Abuse Patient Records regulations: The Federal rules restrict any use of the information to criminally investigate or prosecute any alcohol or drug abuse patient.[facility] Center[facility] the event this information is protected by the Federal Confidentiality of Alcohol and Drug Abuse Patient Records regulations: The Federal rules restrict any use of the information to criminally investigate or prosecute any alcohol or drug abuse patient.[facility] Center[facility] the event this information is protected by the Federal Confidentiality of Alcohol and Drug Abuse Patient Records regulations: The Federal rules restrict any use of the information to criminally investigate or prosecute any alcohol or drug abuse patient.[facility] Center[facility] the event this information is protected by the Federal Confidentiality of Alcohol and Drug Abuse Patient Records regulations: The Federal rules restrict any use of the information to criminally investigate or prosecute any alcohol or drug abuse patient.[facility] Center[facility] the event this information is protected by the Federal Confidentiality of Alcohol and Drug Abuse Patient Records regulations: The Federal rules restrict any use of the information to criminally investigate or prosecute any alcohol or drug abuse patient.[facility] Center[facility] the event this information is protected by the Federal Confidentiality of Alcohol and Drug Abuse Patient Records regulations: The Federal rules restrict any use of the information to criminally investigate or prosecute any alcohol or drug abuse patient.[facility] Center[facility] the event this information is protected by the Federal Confidentiality of Alcohol and Drug Abuse Patient Records regulations: The Federal rules restrict any use of the information to criminally investigate or prosecute any alcohol or drug abuse patient.[facility] Center[facility] the event this information is protected by the Federal Confidentiality of Alcohol and Drug Abuse Patient Records regulations: The Federal rules restrict any use of the information to criminally investigate or prosecute any alcohol or drug abuse patient.[facility] Center[facility] the event this information is protected by the Federal Confidentiality of Alcohol and Drug Abuse Patient Records regulations: The Federal rules restrict any use of the information to criminally investigate or prosecute any alcohol or drug abuse patient.[facility] CenterIn the event this information is protected by the Federal Confidentiality of Alcohol and Drug Abuse Patient Records regulations: The Federal rules restrict any use of the information to criminally investigate or prosecute any alcohol or drug abuse patient.[facility] Reason for Visit (unrecogniz ed section and content) Reason Comments Physical Therapy Specialty Diagnoses / Procedures Referred By Mary ward Referred To Contact Physical Therapy / PHYSICAL THERAPY Diagnoses Thoracic spondylosis Thoracic radiculopathy Procedures CONSULT TO PHYSICAL THERAPY PHYSICAL THERAPY EVALUATION HIGH COMPLEX 45 MINS Olaf Tucker MD [address] [place] [place] [address] Phone: tel: fax: Bertha Joseph, PT [address] [place] [address] Phone: tel: fax: Referral ID Status Reason Start Date Expiration Date Visits Requested Visits Authorized [id number] Authorized PCP Requested Referral Auto-Generate d Referral 10/31/2024 10/31/2025 99 99 Reason Comments Back Pain Reason Comments PT Eval Reason Comments Post pro call Reason Comments Patient Question PRN Active and Recently Administ ered Medications (unrecognized section and content) Medication Order 12/23/2024 12/24/2024 12/25/2024 BUPivacaine (PF) 0.5 % (5 mg/mL) injection (CANCELED) X (OR/PROCEDURE) PRN, Starting on Tue12/25/24 at 1519, Until Tue12/25/24 at 1522, Intraprocedure 1519 (Given - Provid er: Olaf Tucker MD) lidocaine 5 mg/mL (0.5 %) injection (XYLOCAINE) (CANCELED) X (OR/PROCEDURE) PRN, Starting on Tue12/25/24 at 1514, Until Tue12/25/24 at 1522, Intraprocedure 1514 (Given - Provid er: Olaf Tucker MD)1518 (Given - Provider: Olaf Tucker MD) PRN Medication Order 01/13/2025 01/14/2025 01/15/2025 BUPivacaine (PF) 0.5 % (5 mg/mL) injection (CANCELED) X (OR/PROCEDURE) PRN, Starting on Tue01/15/25 at 0843, Until Tue01/15/25 at 0846, Intraprocedure 0843 (Given - Provid er: Olaf Tucker MD) lidocaine 5 mg/mL (0.5 %) injection (XYLOCAINE) (CANCELED) X (OR/PROCEDURE) PRN, Starting on Tue01/15/25 at 0840, Until Tue01/15/25 at 0846, Intraprocedure 0840 (Given - Provid er: Olaf Tucker MD) FOR RECORDS PERTAINING TO PATIENTS WHO ARE [...] BE BASED ON THE PRIMARY CLINICAL RECORDS. [employer] [facility]. provides no warranty or guarantee of the accuracy or completeness of information in this document.
[2025-02-28] MEDS: Lactated Ringers 1,000 ML 15 ML IV (06:38)
--- NOTE | 2025-02-28 07:00 | EGD_PTH ---
PATIENT: SHARLA BURGESS LOC: EN U#:[id number] AGE/SX: 79/F ROOM: RE02/28/[address]: Dr. Scott Hermosillo DO : 1945 BED: DIS: 02/28/2025 SPEC #: [id number] RECD: 02/28/25 08:00 STATUS: JERRY HORACE #: [id number] FERN: 02/28/25 07:[address]: Scott Hermosillo DEPT: SURGICAL PATHOLOGY RECD BY: Kunal Mayfield ENTERED: 02/28/25 12:25 SP TYPE: EGD BIOPSY ERICA DR: Dr. Kayode Wilder MD Tissues: A - Gastric mucous membrane Procedures: Surgery Specimen Level IV HEADER OPERATION: EGD, biopsy PRE-OP DIAGNOSIS: Gastric ulcer due to nonsteroidal anti-inflammatory drugs, epigastric pain, loose stools TISSUE SUBMITTED: A- Gastric body biopsy MICROSCOPIC DIAGNOSIS A. Gastric body, biopsy: - Oxyntic mucosa with features of reactive gastropathy. - Negative for Helicobacter-like organisms (H&E). MICROSCOPIC DESCRIPTION Slides are reviewed. GROSS DESCRIPTION A. Received in fixative is one container labeled with the patient's name and designated "Gastric body biopsy." The specimen consists of two irregular fragments of méndez tissue that measure 0.5 and 0.8 cm. The specimen is totally submitted in one cassette. [place] 02/28/2025 CPT:40602
--- NOTE | 2025-02-28 07:00 | PCM.PRE.AN2 ---
ASA Classification* ASA Classification ASA Classification: 2 Assessment & Plan Anesthesia* Anesthesia Assessment Anesthesia Assessment: Discussed sedation and/or anesthesia options, risks, benefits, and alternatives with patient/parents/legal guardian/POA. Questions invited. The patient/parents/legal guardian/POA seems to understand and agrees to proceed with anesthesia plan. Reviewed the physical assessment, medical history, allergy history and patient home medications list prior to surgery/procedure/anesthetic and documented any changes. Performed airway and anesthesia risk assessments. Anesthesia Type Anesthesia Type: MAC History Source History Obtained from:: Patient and Chart Anesthesia Focused Assessment* Temperature: 97.1 F Pulse Rate: 81 Blood Pressure: 149/70 Respiratory Rate: 16 Pulse Ox: 98 Oxygen Delivery Method: Room Air Airway Assessment Mouth opens: >3 cm Mallampati Score: I Teeth Condition: Caps/Crowns (Multiple crowns. They are all tight.) Neck Range of motion (ROM): Limited ROM (Somewhat Decreased) Labs Anesthesia Preop lab: CBC CHEMISTRY COAG Pre-Assessment Diagnosis/Proposed Procedure Planned Operative Procedure(s): EGD Anesthesia History Anesthesia History - custodial services manager: Anesthesia History - custodial services manager Hx Hospitalization No 02/26/25 10:36 Any Problems With Anesthesia Yes: PONV 02/26/25 10:36 Cholinesterase deficiency No 02/26/25 10:36 You/Your Family Experience No 02/26/25 10:36 fever (hyperthermia) with Relationship Recent Exposure to Contagious No 02/28/25 06:21 Disease Does patient have nerve No 02/26/25 10:36 stimulator Patient instructed to have device shut off --Does patient have Pacemaker No 02/28/25 06:24 or ICD? When Was Last Pacemaker Check QUESTION #4 FULL TEXT: You/Your Family Experience fever (hyperthermia) with Anesthesia Last Oral Intake Last Oral intake: Last Oral Intake NPO since 20:30 02/28/25 06:24 Meds taken in AM with sips of No 02/28/25 06:24 water? Meds patient instructed to take am of surgery Any additional information?: Yes Meds taken in AM with sips of water?: No PONV PONV - custodial services manager: PONV - custodial services manager Female Yes 02/26/25 10:36 HX of Motion Sickness Yes 02/26/25 10:36 HX of N/V After Surgery Yes 02/26/25 10:36 Non-Smoker Yes 02/26/25 10:36 Duration of Surgery greater No 02/26/25 10:36 than 60 minutes Number of Risk Factors 4 02/26/25 10:36 PONV Score Severe Risk 02/26/25 10:36 Height & Weight Height & Weight: Anesthesia: Height & Weight Height 5 ft 3 in 02/28/25 06:24 Weight: 79.832 kg 02/28/25 06:24 Body Mass Index (BMI) 31.1 02/28/25 06:24 Respiratory Assessment Respiratory Assessment - custodial services manager: Respiratory Tract Infection Hx - custodial services manager Hx Respiratory Tract Infection No 02/26/25 10:36 STOP Sleep Apnea STOP Sleep Apnea - custodial services manager: STOP Sleep Apnea - custodial services manager Hx Hypertension Yes: PER PT, CONTROLLED ON 02/26/25 10:36 MEDS Hx Sleep Apnea Yes 02/26/25 10:36 CPAP Yes 02/26/25 10:36 BIPAP No 02/26/25 10:36 Do you snore loudly (louder Yes 02/26/25 10:36 than talking or can be heard Do you often feel tired/ fatigued/ sleepy during daytime? Has anyone observed you stop breathing during sleep? STOP Results Positive 02/26/25 10:36 QUESTION #5 FULL TEXT : Do you snore loudly (louder than talking or can be heard through closed doors)? 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 Specify any problems Hx of Preganancy in last 3 No 02/26/25 10:36 Months Nurse Filling Out Transfusion DSCHRIBER 02/26/25 10:36 & Questions: Date: 02/26/25 02/26/25 10:36 Time: 10:37 02/26/25 10:36 Patient unable to answer at this time (ie. confused, unrespo /Reproduction History /Reproductive History - custodial services manager: /Reproductive Hx- custodial services manager Hx Now No 02/26/25 10:36 Gestational Age (in weeks): EDC: Hx Hx Para Hx Section SAB No 02/26/25 10:36 Active Medications Active Medications: Current Medications Generic Name Dose Route Start Last Admin Trade Name Freq PRN Reason Stop Dose Admin Lactated Ringer's 1,000 mls @ 15 mls/hr 02/28/25 06:00 02/28/25 06:38 IV 15 mls/hr .Q48H GATITO Administration PFSH Medical History Fatty liver History of ulceration Pain Wears glasses Thyroid disease Arthritis Bladder disease History of pulmonary embolism Back pain PONV (postoperative nausea and vomiting) Gastric reflux Shortness of breath on exertion Former smoker CPAP (continuous positive airway pressure) dependence History of edema Helicobacter pylori (H. pylori) RUQ pain Pulmonary nodule Mid back pain on right side Lumbar stenosis with neurogenic claudication Lesion of bone of cervical spine HTN (hypertension) Left navicular fracture of foot Dilatation of pulmonic artery Cervical spine pain Carotid stenosis Bilateral lower extremity edema Arteriosclerotic heart disease (ASHD) Abrasion of left lower leg Epigastric pain Home Medications Medication Instructions Recorded Last Taken Type acetaminophen 500 mg tablet 500 mg PO Q6H PRN pain 10/11/24 02/27/25 History (Tylenol Extra Strength) colesevelam 625 mg tablet 1,250 mg PO BID 10/11/24 02/27/25 History levothyroxine 50 mcg capsule 50 mcg PO QDAY 10/11/24 02/27/25 History magnesium oxide 400 mg (241.3 mg 400 mg PO QDAY 10/11/24 02/21/25 History magnesium) tablet nebivolol 10 mg tablet 10 mg PO QDAY 10/11/24 02/27/25 History oxybutynin chloride 5 mg tablet 5 mg PO DAILY bladder spasms 10/11/24 02/27/25 History pregabalin 50 mg capsule 50 mg PO QHS 10/11/24 02/27/25 History valsartan 320 mg tablet 320 mg PO QDAY 10/11/24 02/27/25 History ascorbic acid (vitamin C) 500 mg 1 g PO DAILY 10/22/24 02/21/25 History chewable tablet (C-500) calcium 325 mg-vit D3 12.5 1 tab PO DAILY 10/22/24 02/21/25 History mcg-zinc 2.75 po-qtkcqk-flswaapiq tablet cholecalciferol (vitamin D3) 125 125 mcg PO QHS 10/22/24 02/21/25 History mcg (5,000 unit) tablet (Vitamin D3) triamcinolone acetonide 0.1 % 1 applic topical BID PRN rash 10/22/24 02/27/25 History topical cream vitamin B complex (B-Complex 1 tab PO DAILY 10/22/24 02/21/25 History tablet) vitamins A,C,T-qxur-wtwyej 2,148 1 tab PO BID 10/22/24 02/21/25 History mcg-113 mg-45 mg-17.4 mg tablet (Eye Multivitamin) aspirin 81 mg tablet 81 mg PO QDAY 02/08/25 02/21/25 History clopidogrel 75 mg tablet (Plavix) 75 mg PO QDAY 02/08/25 02/27/25 History sucralfate 1 gram tablet 1 g PO QACHS 02/08/25 02/27/25 History CPAP - Continuous Positive Airway 02/26/25 Unknown History Pressure([facility] INFORMATIONAL USE ONLY) tirzepatide 5 mg/0.5 mL 5 mg subcut WE 02/26/25 02/20/25 History subcutaneous pen injector (Mounjaro) Allergy/AdvReac Type Severity Reaction Status Date / Time adhesive tape Allergy Intermediate Itching Verified 02/28/25 06:18 apixaban (From Eliquis) Allergy Intermediate Other Verified 02/28/25 06:18 latex Allergy Intermediate Hives Verified 02/28/25 06:18 oxycodone Allergy Intermediate Other Verified 02/28/25 06:18 Penicillins (PCN) Allergy Intermediate Hives Verified 02/28/25 06:18 atorvastatin (From Lipitor) AdvReac Intermediate Other Verified 02/28/25 06:18 semaglutide (From Rybelsus) AdvReac Intermediate Other Verified 02/28/25 06:18 Family History Mother Breast cancer Diabetes Sister Hx of CABG Kidney disease Diabetes HLD (hyperlipidemia) Hypertension Father Heart disease Brother Heart disease Surgical History Hx of angioplasty History of cataract surgery History of esophagogastroduodenoscopy (EGD) History of colonoscopy History of shoulder surgery Hx of appendectomy H/O: hysterectomy H/O arthroplasty Hx of cholecystectomy S/P lumbar laminectomy Social History Smoking Status: Former smoker quit date: 05/02/16 alcohol intake: never Review of Systems (Anesthesia) ROS Narrative System reviewed and no additional complaints, except as documented.
--- NOTE | 2025-02-28 07:22 | PCM.HP.STD ---
HPI - General General Date of Admission: 02/28/25 Date of Service: 02/28/25 Chief Complaint: Gastric ulcer HPI Narrative SHARLA BURGESS, is a 79 F who presents [Chief Complaint: Gastric ulcer 6 EGD The examined esophagus was normal. Four non-bleeding cratered gastric ulcers with no stigmata of bleeding were found in the gastric body. The largest lesion was 14 mm in largest dimension. - Normal esophagus. - Non-bleeding gastric ulcers with no stigmata of bleeding. Biopsied. - No gross lesions in the entire examined duodenum. Last office visit 11/06/2024 for follow-up after EGD. Patient with significant improvement in her symptoms. OV 02/08/2025 patient's epigastric pain continues to be improved. He is still taking sucralfate daily and famotidine. She has been off her omeprazole due to starting Plavix recently. She reports having soft bowel movements daily. She started taking a supplement called Dana which has fiber and other herbal supplements in it. She noticed this helped a little bit but not significantly. She notes she started Mounjaro recently and has not noticed any worsening GI symptoms. She has lost 22 pounds since being on it. ] [facility] Medical History Fatty liver History of ulceration Pain Wears glasses Thyroid disease Arthritis Bladder disease History of pulmonary embolism Back pain PONV (postoperative nausea and vomiting) Gastric reflux Shortness of breath on exertion Former smoker CPAP (continuous positive airway pressure) dependence History of edema Helicobacter pylori (H. pylori) RUQ pain Pulmonary nodule Mid back pain on right side Lumbar stenosis with neurogenic claudication Lesion of bone of cervical spine HTN (hypertension) Left navicular fracture of foot Dilatation of pulmonic artery Cervical spine pain Carotid stenosis Bilateral lower extremity edema Arteriosclerotic heart disease (ASHD) Abrasion of left lower leg Epigastric pain Home Medications Medication Instructions Recorded Last Taken Type acetaminophen 500 mg tablet 500 mg PO Q6H PRN pain 10/11/24 02/27/25 History (Tylenol Extra Strength) colesevelam 625 mg tablet 1,250 mg PO BID 10/11/24 02/27/25 History levothyroxine 50 mcg capsule 50 mcg PO QDAY 10/11/24 02/27/25 History magnesium oxide 400 mg (241.3 mg 400 mg PO QDAY 10/11/24 02/21/25 History magnesium) tablet nebivolol 10 mg tablet 10 mg PO QDAY 10/11/24 02/27/25 History oxybutynin chloride 5 mg tablet 5 mg PO DAILY bladder spasms 10/11/24 02/27/25 History pregabalin 50 mg capsule 50 mg PO QHS 10/11/24 02/27/25 History valsartan 320 mg tablet 320 mg PO QDAY 10/11/24 02/27/25 History ascorbic acid (vitamin C) 500 mg 1 g PO DAILY 10/22/24 02/21/25 History chewable tablet (C-500) calcium 325 mg-vit D3 12.5 1 tab PO DAILY 10/22/24 02/21/25 History mcg-zinc 2.75 mr-fntwge-vaasamfgw tablet cholecalciferol (vitamin D3) 125 125 mcg PO QHS 10/22/24 02/21/25 History mcg (5,000 unit) tablet (Vitamin D3) triamcinolone acetonide 0.1 % 1 applic topical BID PRN rash 10/22/24 02/27/25 History topical cream vitamin B complex (B-Complex 1 tab PO DAILY 10/22/24 02/21/25 History tablet) vitamins A,C,X-plva-olnbpk 2,148 1 tab PO BID 10/22/24 02/21/25 History mcg-113 mg-45 mg-17.4 mg tablet (Eye Multivitamin) aspirin 81 mg tablet 81 mg PO QDAY 02/08/25 02/21/25 History clopidogrel 75 mg tablet (Plavix) 75 mg PO QDAY 02/08/25 02/27/25 History sucralfate 1 gram tablet 1 g PO QACHS 02/08/25 02/27/25 History CPAP - Continuous Positive Airway 02/26/25 Unknown History Pressure([facility] INFORMATIONAL USE ONLY) tirzepatide 5 mg/0.5 mL 5 mg subcut WE 02/26/25 02/20/25 History subcutaneous pen injector (Mounjaro) Allergy/AdvReac Type Severity Reaction Status Date / Time adhesive tape Allergy Intermediate Itching Verified 02/28/25 06:18 apixaban (From Eliquis) Allergy Intermediate Other Verified 02/28/25 06:18 latex Allergy Intermediate Hives Verified 02/28/25 06:18 oxycodone Allergy Intermediate Other Verified 02/28/25 06:18 Penicillins (PCN) Allergy Intermediate Hives Verified 02/28/25 06:18 atorvastatin (From Lipitor) AdvReac Intermediate Other Verified 02/28/25 06:18 semaglutide (From Rybelsus) AdvReac Intermediate Other Verified 02/28/25 06:18 Family History Mother Breast cancer Diabetes Sister Hx of CABG Kidney disease Diabetes HLD (hyperlipidemia) Hypertension Father Heart disease Brother Heart disease Surgical History Hx of angioplasty History of cataract surgery History of esophagogastroduodenoscopy (EGD) History of colonoscopy History of shoulder surgery Hx of appendectomy H/O: hysterectomy H/O arthroplasty Hx of cholecystectomy S/P lumbar laminectomy Social History Smoking Status: Former smoker quit date: 05/02/16 alcohol intake: never ROS Constitutional Constitutional: Denies fatigue, fever(s), poor appetite, weight gain or weight loss Gastrointestinal Gastrointestinal: Denies belching, bloating, change in bowel habits, change in stool character, chewing difficulty, coffee ground emesis, constipation, cramping, diarrhea, dyspepsia, dysphagia, early satiety, excessive flatus, fecal incontinence, heartburn, hematemesis, hematochezia, hemorrhoids, loose stools, melena, nausea, odynophagia, rectal bleeding, tenesmus, vomiting or weight changes Vital Signs Vital Signs Vital Signs: 02/28/25 06:21 02/28/25 06:24 02/28/25 07:05 Temperature 97.1 F L 97.1 F L Temperature Source Temporal Pulse Rate 81 81 Respiratory Rate 16 16 Respiratory Pattern Normal Blood Pressure 149/70 H 149/70 H Blood Pressure Mean 96 Blood Pressure Source Monitor Blood Pressure Position Semi-Fowlers Blood Pressure Location Right Forearm Pulse Ox 98 98 Oxygen Delivery Method Room Air Room Air Weight Weight: 176 lb Body Mass Index (BMI) 31.1 Physical Exam Const alert, oriented x3, no apparent distress and healthy appearing General Appearance: cooperative GI normal to inspection, nondistended, normoactive bowel sounds, soft to palpation, non-tender and non-distended Percussion: normal to percussion Rectal Exam: deferred Assessment & Plan Assessment/Plan (1) Gastric ulcer due to nonsteroidal anti-inflammatory drug (NSAID): PLAN: Plan Assessment and Plan Assessment and Plan (1) Gastric ulcer due to nonsteroidal anti-inflammatory drug (NSAID): Status: Acute Plan: Sharla is a 79-year-old female patient who established with GI office for epigastric pain. Patient underwent EGD which showed gastric ulcers. She was started on sucralfate and omeprazole. Since her EGD and induction of medication she has felt better with no further epigastric pain. 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 She is on Plavix now so she had to discontinue her omeprazole but she continues with sucralfate and famotidine. Patient was scheduled for repeat EGD today to ensure healing of the gastric ulcer. I recommended she discontinue sucralfate when her prescription runs out. She may continue famotidine. Patient has also been struggling with her bowel movements and having looser stools. She is currently taking a supplement called Dana which has fiber and other herbal supplements in it. I recommended a plain fiber supplement such as Metamucil. - Continue famotidine - Discontinue sucralfate 1 prescription runs out - Repeat EGD to ensure gastric ulcer has healed - Start fiber supplement - Follow-up as needed (2) Epigastric pain: Status: Acute (3) Loose stools: Status: Acute Medications: New famotidine 20 mg PO QDAY 30 tabs 2RF MIGUEL Guevara Changed From pantoprazole take 30minutes before eating breakfast and dinner 40 mg PO BID 60 tabs 2RF To pantoprazole take 30minutes before eating breakfast and dinner 40 mg PO BID EULA Osborn
--- NOTE | 2025-02-28 07:48 | OP.EGD_ITS ---
Patient Name: Kerri Cortes Procedure Date: 02/28/2025 7:30 AM Date of : 1945 Age: 79 Procedure: Upper GI endoscopy Indications: Epigastric abdominal pain, Peptic ulcer Providers: Scott Hermosillo DO Referring MD: Kayode Wilder Md Medicines: Monitored Anesthesia Care Patient Profile: This is a 79 year old female. Refer to note in patient chart for documentation of history and physical. Patient has symptoms of acute abdominal cramping and acute epigastric abdominal pain. Her most recent EGD for ulcer treatment. Complications: No immediate complications. Procedure: Pre-Anesthesia Assessment: - Prior to the procedure, a History and Physical was performed, and patient medications and allergies were reviewed. The patient is competent. The risks and benefits of the procedure and the sedation options and risks were discussed with the patient. All questions were answered and informed consent was obtained. Patient identification and proposed procedure were verified by the physician in the pre-procedure area. Mental Status Examination: alert and oriented. Airway Examination: normal oropharyngeal airway and neck mobility. Respiratory Examination: clear to auscultation. CV Examination: normal. Prophylactic Antibiotics: The patient does not require prophylactic antibiotics. Prior Anticoagulants: The patient has taken no anticoagulant or antiplatelet agents except for NSAID medication. ASA Grade Assessment: II - A patient with mild systemic disease. After reviewing the risks and benefits, the patient was deemed in satisfactory condition to undergo the procedure. The anesthesia plan was to use monitored anesthesia care (MAC). Immediately prior to administration of medications, the patient was re-assessed for adequacy to receive sedatives. The heart rate, respiratory rate, oxygen saturations, blood pressure, adequacy of pulmonary ventilation, and response to care were monitored throughout the procedure. The physical status of the patient was re-assessed after the procedure. After obtaining informed consent, the endoscope was passed under direct vision. Throughout the procedure, the patient's blood pressure, pulse, and oxygen saturations were monitored continuously. The Endoscope was introduced through the mouth, and advanced to the second part of duodenum. The upper GI endoscopy was accomplished without difficulty. The patient tolerated the procedure well. Scope In: 7:38:24 AM Scope Out: 7:40:43 AM Total Procedure Duration Time 0 hours 2 minutes 19 seconds Findings: Abnormal motility was noted in the esophagus. The cricopharyngeus was abnormal. There is spasticity of the esophageal body. The distal esophagus/lower esophageal sphincter is spastic, but gives up passage to the endoscope. Suspect gastroparesis due to absence of peristalsis, patient symptoms and retained gastric contents. Biopsies were taken with a cold forceps for histology. Biopsies were taken with a cold forceps for Helicobacter pylori testing. Verification of patient identification for the specimen was done. Estimated blood loss was minimal. No gross lesions were noted in the entire examined duodenum. Impression: - Abnormal esophageal motility. - Gastroparesis, secondary to medication. Biopsied. - No gross lesions in the entire examined duodenum. Recommendation: - Discharge patient to home. - Resume previous diet. - Continue present medications. - Await pathology results. Procedure Code(s): --- Professional --- 76314, Esophagogastroduodenoscopy, flexible, transoral; with biopsy, single or multiple CPT copyright 2021 [employer]. All rights reserved. The codes documented in this report are preliminary and upon supervisor mapping review may be revised to meet current compliance requirements. Scott Hermosillo DO 02/28/2025 7:47:49 AM This report has been signed electronically. Number of Addenda: 0 Note Initiated On: 02/28/2025 7:30 AM
--- NOTE | 2025-02-28 07:48 | OP.PROVAT_ITS ---
02/28/2025 Kayode Wilder Md Re : Upper GI endoscopy procedure for Kerri Cortes Dear Dr. Wilder This procedure was performed on January. My impressions and recommendations are as follows: Impressions : - Abnormal esophageal motility. - Gastroparesis, secondary to medication. Biopsied. - No gross lesions in the entire examined duodenum. Recommendations : - Discharge patient to home. - Resume previous diet. - Continue present medications. - Await pathology results. My findings are described in the full procedure note, which is enclosed. If I can be of further assistance, please feel free to contact me at . Sincerely, Scott Hermosillo, 02/28/2025 7:47:49 AM This report has been signed electronically.
--- NOTE | 2025-02-28 07:48 | PCM.POST.ANE ---
Anesthesia: Postop Eval I Current Vital Signs Temperature: 97.5 F Pulse Rate: 87 Blood Pressure: 102/57 Respiratory Rate: 16 Pulse Ox: 94 Oxygen Delivery Method: Room Air Assessment Airway patent: Yes Spontaneous unlabored respirations: Yes Mental status: Asleep nausea: No Vomiting: No Anesthesia Complication: No Fluid Hydration Crystalloid volume administer (ml): 400 Total IV fluid infused: 400 Progress Note Anesthesia document: Postop Eval 1 completed: Yes
--- NOTE | 2025-02-28 11:34 | PCM.POSTANE2 ---
Anesthesia Postop Eval I Sum Postop Eval Completion status Anesthesia document: Postop Eval 1 completed: Yes Anesthesia Postop Eval I Summary Anesthesia Postop Eval I Summary: Anesthesia Postop Eval I: Assessment Summary Airway patent Yes 02/28/25 07:49 [email or web address] Spontaneous unlabored Yes 02/28/25 07:49 [email or web address] respirations Mental status Asleep 02/28/25 07:49 [email or web address] nausea No 02/28/25 07:49 [email or web address] Vomiting No 02/28/25 07:49 [email or web address] Anesthesia Postop Eval I: Fluid Summary Crystalloid volume administer 400 02/28/25 07:49 [email or web address] (ml) Colloids volume administered ( ml) Blood Product volume administered (ml) Total IV fluid infused 400 02/28/25 07:49 [email or web address] Anesthesia Postop Eval I: Summary Notes Anesthesia Complication No 02/28/25 07:49 [email or web address] Anesthesia Complication Comment: Post-operative progress note Anesthesia: Postop Eval II Evaluation Mental status: Awake and Calm Pain Level: 0 nausea: No Vomiting: No Complications Anesthesia Complication: No
== END 2025-02-28 08:20 | disposition home or self-care (01) ==
LOC: EN 05:45 → AC 05:45
PROVIDERS: PCP Internal Medicine; Referring Provider Internal Medicine; Visit Provider Internal Medicine Gastroenterology
DX: K25.9 Gastric ulcer, unspecified as acute or chronic, without hemorrhage or perforation (principal); K31.84 Gastroparesis; Z87.891 Personal history of nicotine dependence; I10 Essential (primary) hypertension; I25.10 Atherosclerotic heart disease of native coronary artery without angina pectoris; Z98.61 Coronary angioplasty status; Z90.49 Acquired absence of other specified parts of digestive tract; Z90.710 Acquired absence of both cervix and uterus; Z79.1 Long term (current) use of non-steroidal anti-inflammatories (NSAID); R10.13 Epigastric pain; R19.7 Diarrhea, unspecified; K22.4 Dyskinesia of esophagus
CPT/HCPCS: 43239; 88305; J2405